=== PATIENT | male | born 1945 | race Caucasian/White ===

== ENCOUNTER → 2020-04-21 13:40 | Outpatient (BNVA) | payer MEDICARE, SELFPAY | PROVIDERS: PCP Internal Medicine; Visit Provider Internal Medicine | DX: J44.9 Chronic obstructive pulmonary disease, unspecified (principal); Z79.899 Other long term (current) drug therapy | CPT/HCPCS: 99212 ==

== ENCOUNTER → 2020-11-15 13:16 | Outpatient (BNVA) | payer MEDICARE, SELFPAY | PROVIDERS: PCP Internal Medicine; Visit Provider Internal Medicine | DX: J44.9 Chronic obstructive pulmonary disease, unspecified (principal) | CPT/HCPCS: 99212 ==

== ENCOUNTER 2021-11-28 10:52 | Outpatient (REF) | payer OTHER, MEDICARE, SELFPAY ==
--- NOTE | ~2021-11-28 | XR_ITS ---
EXAMINATION: XR CHEST CLINICAL INFORMATION: COPD COMPARISON: Previous chest x-ray most recent November 2017 TECHNIQUE: 2 views of the chest were obtained. FINDINGS: The cardiac and mediastinal contours are stable. There are coronary artery stents. There are increased markings at the lung bases questionable for mild interstitial lung disease. The lungs are otherwise clear. There is no pleural effusion or pneumothorax. There are degenerative changes of the spine and left shoulder. XR/XR chest 2V IMPRESSION: Question interstitial disease at the lung bases.
== END 2021-11-28 10:53 | disposition home or self-care (01) ==
LOC: HO.XRAY 10:52
PROVIDERS: PCP Internal Medicine Endocrinology, Diabetes & Metabolism; Visit Provider Internal Medicine
DX: J44.9 Chronic obstructive pulmonary disease, unspecified (principal)
CPT/HCPCS: 71046; 99212

== ENCOUNTER → 2022-01-05 13:38 | Outpatient (BNVA) | payer MEDICARE, SELFPAY | PROVIDERS: PCP Internal Medicine Endocrinology, Diabetes & Metabolism; Visit Provider Internal Medicine | DX: J44.9 Chronic obstructive pulmonary disease, unspecified (principal) | CPT/HCPCS: 94010; 99212 ==

== ENCOUNTER 2023-02-26 13:40 | Outpatient (AMB) | payer OTHER, SELFPAY ==
[2023-02-26 13:55] VITALS: BP 130/80; PULSE 52; O2SAT 94; BMI 30.3
--- NOTE | 2023-02-26 13:55 | MHC.OFFVIS ---
Intake Vital Signs 02/26/23 13:55 Height 5 ft 9 in Weight 205 lb BMI 30.3 BP 130/80 Blood Pressure Location Lt brachial Position Sitting Pulse 52 Pulse Source Pulse Oximeter Pulse Oximetry (%) 94 Oxygen Delivery Method Room Air Intake Visit Reasons: copd Intake Note: pt is here for follow up and is getting over pneumonia,. PT NEEDS 90 DAY SUPPLY ON INHALERS. 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 Allergies levofloxacin [From Levaquin] Allergy (Severe, Verified 02/26/23 14:14) Anaphylaxis Medication List - Last Reconciled 02/26/23 by Anastasiya Henderson MD albuterol sulfate 90 mcg/actuation 2 puffs PO Q4H PRN aspirin 81 mg PO DAILY escitalopram oxalate 20 mg PO DAILY fluticasone propion-salmeterol 250-50 mcg/dose (Wixela Inhub) 1 inh inhalation BID gabapentin 100 mg PO BEDTIME rosuvastatin 20 mg PO DAILY tiotropium bromide 2.5 mcg/actuation (Spiriva Respimat) 2 puffs inhalation DAILY 30 days MDD 2 inhilations topiramate 50 mg PO BEDTIME trazodone 100 mg PO BEDTIME PRN Do you need a note to return to daycare/school/sports/work: No HPI copd HPI Details This 77 years old very pleasant gentleman is coming after 1 year for his routine follow-up .of COPD He has been doing very well during the year, except for getting short of breath on exertion. About 2 weeks ago he had acute respiratory infection, seen in the emergency room was told that he had a minimal pneumonia in the right base. Treated with a short course of prednisone and doxycycline 100 b.i.d.. He feels much better and says he is back to his baseline. Since last year after we put him, on Spiriva in addition to Wixela his breathing has been so good that he did not need to use any albuterol. [facility] Medical History (Updated 02/26/23 @ 14:20 by Anastasiya Henderson MD) Pneumonia COPD (chronic obstructive pulmonary disease) Social History Patient Tobacco Use Status: Former Tobacco user Review of Systems Const All systems reviewed & are unremarkable except as noted in HPI and below Eyes Reports no additional complaints ENT Reports no additional complaints, Denies nasal congestion and Denies nasal discharge Card Denies chest pain, Denies irregular heart rhythm, Denies leg edema and Reports dyspnea on exertion (MILD) Resp Denies cough, Reports dyspnea on exertion (MILD) and Denies wheezing GI Reports no additional complaints Musc Reports no additional complaints Neuro Reports no additional complaints Psych Reports no additional complaints and Reports depression (MILD UNDER CONTROL.) Endo Reports no additional complaints Peewee/Lymph Reports no additional complaints Aller/Immun Denies wheezing Physical Exam Vital Signs: Last Vital Signs Pulse 52 02/26/23 13:55 BP 130/80 02/26/23 13:55 Pulse Ox 94 02/26/23 13:55 Oxygen Delivery Method Room Air 02/26/23 13:55 BMI result Body Mass Index 30.3 Const General: comfortable, no acute distress, alert and awake Orientation/consciousness: patient oriented x3 HEENT Head: Yes normal to inspection General nose exam: No nasal polyps present and No nasal discharge present Face and sinus: Yes sinuses nontender Mouth: oropharynx normal Throat: Yes posterior oropharynx normal Eyes General: appearance normal, both eyes and all related structures Neck Neck: Yes normal visual inspection, Yes no lymphadenopathy, Yes trachea midline and Yes no JVD Thyroid: Thyroid normal Chest Chest palpation & inspection: normal inspection of the chest, normal palpation of entire chest wall and no tenderness Resp Other: Percussion note is resonant, breath sounds are distant with prolonged expiratory phase on both sides. No wheezes a few inspiratory crackles over the right base. Cardio Palpation: normal PMI Rate: regular rate Rhythm: regular rhythm Heart sounds: no gallops and no murmurs GI Palpation (GI): Soft to palpation, nontender, No hepatosplenomegaly present and no masses Auscultation: normal bowel sounds Back/Spine/Pelvis Thoracic/Lumbar Spine: thoracic and lumbar spine normal to inspection Skin General skin exam: no rashes or lesions noted Neuro General: patient oriented x3 and no focal motor deficits Cranial nerves: Yes CN's II-XII intact bilaterally Extrem General: Yes normal to inspection, Yes no clubbing, cyanosis or edema, Yes no calf tenderness and No venous stasis dermatitis Psych Appearance: grossly normal Speech and movement: Normal speech and movement present Assessment & Plan Assessment & Plan (1) COPD (chronic obstructive pulmonary disease): Comment: Moderately severe , controlled and stable. [place] : Continue to use Wixela 250-50 one inh bid Spiriva Respimat 2.5 mg 2 puffs daily . Ventolin Inh. 2 puffs q 6 Hrs only PRN He will be going to [place] for the winter, and will come for follow-up in spring 2022. * I have sent a prescription for prednisone 20 mg b.i.d. for 5 days to keep on hand only for emergency use. Code(s): J44.9 - Chronic obstructive pulmonary disease, unspecified (2) Pneumonia: Comment: Recently treated for minimal pneumonia right base, as he. Was seen in the emergency room He took a short course of prednisone and doxycycline 100 b.i.d.. Clinically pneumonia has cleared and resolved. Code(s): J18.9 - Pneumonia, unspecified organism Medications: New prednisone 20 mg PO BID 10 tabs 0RF copd excarbation 5 days Changed From tiotropium bromide 2.5 mcg/actuation (Spiriva Respimat) 2 puffs inhalation DAILY 30 days 4 grams 5RF copd MDD 2 inhilations daily To tiotropium bromide 2.5 mcg/actuation (Spiriva Respimat) 2 puffs inhalation DAILY 4 grams 3RF copd 90 days MDD 2 inhilations daily Coding Level of Care Code Est Pt Level 3 (01458) Diagnoses COPD (chronic obstructive pulmonary disease) J44.9 Pneumonia J18.9
== END 2023-02-26 14:39 | disposition home or self-care (01) ==
PROVIDERS: PCP Internal Medicine Endocrinology, Diabetes & Metabolism; Visit Provider Internal Medicine
DX: J44.9 Chronic obstructive pulmonary disease, unspecified (principal); J18.9 Pneumonia, unspecified organism
CPT/HCPCS: 99213

== ENCOUNTER → 2023-02-26 13:40 | Outpatient (BNVA) | payer OTHER, SELFPAY | PROVIDERS: PCP Internal Medicine Endocrinology, Diabetes & Metabolism; Visit Provider Internal Medicine | DX: J44.9 Chronic obstructive pulmonary disease, unspecified (principal); J18.9 Pneumonia, unspecified organism | CPT/HCPCS: 99212 ==

== ENCOUNTER 2023-11-28 13:09 | Outpatient (AMB) | payer OTHER, SELFPAY ==
[2023-11-28 13:18] VITALS: BP 132/70; PULSE 68; O2SAT 93; BMI 30.4
--- NOTE | 2023-11-28 13:18 | MHC.OFFVIS ---
Vital Signs 11/28/23 13:18 Height 5 ft 9 in Weight 206 lb 2.115 oz BMI 30.4 BP 132/70 Blood Pressure Location Lt brachial Position Sitting Pulse 68 Pulse Source Pulse Oximeter Pulse Oximetry (%) 93 Oxygen Delivery Method Room Air Intake Visit Reasons: copd Intake Note: pt is here for follow up and states breathing is pretty good,just knee and foot pain. 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 Allergies levofloxacin [From Levaquin] Allergy (Severe, Verified 11/28/23 13:36) Anaphylaxis Medication List - Last Reconciled 11/28/23 by Anastasiya Henderson MD albuterol sulfate 90 mcg/actuation 2 puffs PO Q4H PRN aspirin 81 mg PO DAILY escitalopram oxalate 20 mg PO DAILY fluticasone propion-salmeterol 250-50 mcg/dose (Wixela Inhub) 1 inh inhalation BID gabapentin 600 mg PO BEDTIME rosuvastatin 20 mg PO DAILY semaglutide (Ozempic) 0.25 mg subcut QWEEK tiotropium bromide 2.5 mcg/actuation (Spiriva Respimat) 2 puffs inhalation DAILY 90 days MDD 2 inhilations daily topiramate 50 mg PO BEDTIME trazodone 100 mg PO BEDTIME PRN Do you need a note to return to daycare/school/sports/work: No HPI HPI copd: Details: This 78 years old very pleasant gentleman is here for his routine follow-up for COPD. He returned from [place] last month, then he had a acute exacerbation which resolved by taking Z-Sunil and short course of prednisone. Now he is doing very well without much cough or wheezing. He does use his Spiriva Respimat and Wixela regular. He has the need to use the rescue inhaler only once in a while when there is change in the weather. [facility] Medical History Pneumonia COPD (chronic obstructive pulmonary disease) Social History Patient Tobacco Use Status: Former Tobacco user Review of Systems Const All systems reviewed & are unremarkable except as noted in HPI and below Eyes Reports no additional complaints ENT Reports no additional complaints, Denies nasal congestion and Denies nasal discharge Card Denies chest pain, Denies irregular heart rhythm, Denies leg edema and Reports dyspnea on exertion (MILD) Resp Denies cough, Reports dyspnea on exertion (MILD) and Denies wheezing GI Reports no additional complaints Musc Reports no additional complaints Neuro Reports no additional complaints Psych Reports no additional complaints and Reports depression (MILD UNDER CONTROL.) Endo Reports no additional complaints Peewee/Lymph Reports no additional complaints Aller/Immun Denies wheezing Physical Exam Vital Signs: Last Vital Signs Pulse 68 11/28/23 13:18 BP 132/70 11/28/23 13:18 Pulse Ox 93 11/28/23 13:18 Oxygen Delivery Method Room Air 11/28/23 13:18 BMI result Body Mass Index 30.4 Const General: comfortable, no acute distress, alert and awake Orientation/consciousness: patient oriented x3 HEENT Head: Yes normal to inspection General nose exam: No nasal polyps present and No nasal discharge present Face and sinus: Yes sinuses nontender Mouth: oropharynx normal Throat: Yes posterior oropharynx normal Eyes General: appearance normal, both eyes and all related structures Neck Neck: Yes normal visual inspection, Yes no lymphadenopathy, Yes trachea midline and Yes no JVD Thyroid: Thyroid normal Chest Chest palpation & inspection: normal inspection of the chest, normal palpation of entire chest wall and no tenderness Resp Other: Percussion note is resonant, breath sounds are distant with prolonged expiratory phase on both sides. No wheezes a few inspiratory crackles over the right base. Cardio Palpation: normal PMI Rate: regular rate Rhythm: regular rhythm Heart sounds: no gallops and no murmurs GI Palpation (GI): Soft to palpation, nontender, No hepatosplenomegaly present and no masses Auscultation: normal bowel sounds Back/Spine/Pelvis Thoracic/Lumbar Spine: thoracic and lumbar spine normal to inspection Skin General skin exam: no rashes or lesions noted Neuro General: patient oriented x3 and no focal motor deficits Cranial nerves: Yes CN's II-XII intact bilaterally Extrem General: Yes normal to inspection, Yes no clubbing, cyanosis or edema, Yes no calf tenderness and No venous stasis dermatitis Psych Appearance: grossly normal Speech and movement: Normal speech and movement present Assessment & Plan Assessment & Plan (1) COPD (chronic obstructive pulmonary disease): Comment: Moderately severe , controlled and stable. Code(s): J44.9 - Chronic obstructive pulmonary disease, unspecified Category: Medical Plan: [place] : Continue to use Wixela 250-50 one inh bid Spiriva Respimat 2.5 mg 2 puffs daily . Ventolin Inh. 2 puffs q 6 Hrs only PRN Coding Level of Care Code Est Pt Level 3 (60215) Diagnoses COPD (chronic obstructive pulmonary disease) J44.9
== END 2023-11-28 13:37 | disposition home or self-care (01) ==
PROVIDERS: PCP Internal Medicine Endocrinology, Diabetes & Metabolism; Referring Provider Internal Medicine Endocrinology, Diabetes & Metabolism; Visit Provider Internal Medicine
DX: J44.9 Chronic obstructive pulmonary disease, unspecified (principal)
CPT/HCPCS: 99213

== ENCOUNTER → 2023-11-28 13:09 | Outpatient (BNVA) | payer OTHER, SELFPAY | PROVIDERS: PCP Internal Medicine Endocrinology, Diabetes & Metabolism; Visit Provider Internal Medicine | DX: J44.9 Chronic obstructive pulmonary disease, unspecified (principal) | CPT/HCPCS: 99212 ==

== ENCOUNTER 2024-04-07 13:13 | Outpatient (AMB) | payer OTHER, SELFPAY ==
[2024-04-07 13:23] VITALS: BP 108/58; PULSE 103; O2SAT 96
--- NOTE | 2024-04-07 13:23 | A.OFFVIS_ITS ---
Vital Signs 04/07/24 13:23 Weight 186 lb 4.65 oz BP 108/58 L Blood Pressure Location Lt brachial Position Left Lateral Pulse 103 H Pulse Source Pulse Oximeter Pulse Oximetry (%) 96 Oxygen Delivery Method Room Air Intake Visit Reasons: COPD Allergies levofloxacin [From Levaquin] Allergy (Severe, Verified 04/07/24 13:38) Anaphylaxis Medication List - Last Reconciled 04/07/24 by Anastasiya Henderson MD albuterol sulfate 90 mcg/actuation 2 puffs PO Q4H PRN aspirin 81 mg PO DAILY escitalopram oxalate 20 mg PO DAILY fluticasone propion-salmeterol 250-50 mcg/dose (Wixela Inhub) 1 inh inhalation BID gabapentin 600 mg PO BEDTIME prednisone 20 mg PO BID 5 days rosuvastatin 20 mg PO DAILY semaglutide (Ozempic) 0.25 mg subcut QWEEK tiotropium bromide 2.5 mcg/actuation (Spiriva Respimat) 2 puffs inhalation DAILY 90 days MDD 2 inhilations daily topiramate 50 mg PO BEDTIME trazodone 100 mg PO BEDTIME PRN Do you need a note to return to daycare/school/sports/work: No HPI HPI COPD: Details: This 78 years old very pleasant gentleman is here for follow-up for his COPD. From pulmonary point of view he has remained very stable, on his regular regimen, and hardly needs to use any rescue inhaler. Luckily he has had no chest infection. Main issue right now is that he has hydronephrosis of the left knee and has an indwelling nephrostomy tube on the left side. Due to this he is not going to be able to go down to [place] for the next few months. [facility] Medical History Pneumonia COPD (chronic obstructive pulmonary disease) Social History Patient Tobacco Use Status: Former Tobacco user Review of Systems Const All systems reviewed & are unremarkable except as noted in HPI and below Eyes Reports no additional complaints ENT Reports no additional complaints, Denies nasal congestion and Denies nasal discharge Card Denies chest pain, Denies irregular heart rhythm, Denies leg edema and Reports dyspnea on exertion (MILD) Resp Denies cough, Reports dyspnea on exertion (MILD) and Denies wheezing GI Reports no additional complaints Musc Reports no additional complaints Neuro Reports no additional complaints Psych Reports no additional complaints and Reports depression (MILD UNDER CONTROL.) Endo Reports no additional complaints Peewee/Lymph Reports no additional complaints Aller/Immun Denies wheezing Physical Exam Const General: comfortable, no acute distress, alert and awake Orientation/consciousness: patient oriented x3 HEENT Head: Yes normal to inspection General nose exam: No nasal polyps present and No nasal discharge present Face and sinus: Yes sinuses nontender Mouth: oropharynx normal Throat: Yes posterior oropharynx normal Eyes General: appearance normal, both eyes and all related structures Neck Neck: Yes normal visual inspection, Yes no lymphadenopathy, Yes trachea midline and Yes no JVD Thyroid: Thyroid normal Chest Chest palpation & inspection: normal inspection of the chest, normal palpation of entire chest wall and no tenderness Resp Other: Percussion note is resonant, breath sounds are distant with prolonged expiratory phase on both sides. No wheezes a few inspiratory crackles over the right base. Cardio Palpation: normal PMI Rate: regular rate Rhythm: regular rhythm Heart sounds: no gallops and no murmurs GI Palpation (GI): Soft to palpation, nontender, No hepatosplenomegaly present and no masses Auscultation: normal bowel sounds Other: Has nephrostomy tube in the left kidney . For drainage of the urine Back/Spine/Pelvis Thoracic/Lumbar Spine: thoracic and lumbar spine normal to inspection Skin General skin exam: no rashes or lesions noted Neuro General: patient oriented x3 and no focal motor deficits Cranial nerves: Yes CN's II-XII intact bilaterally Extrem General: Yes normal to inspection, Yes no clubbing, cyanosis or edema, Yes no calf tenderness and No venous stasis dermatitis Psych Appearance: grossly normal Speech and movement: Normal speech and movement present Assessment & Plan Assessment & Plan (1) COPD (chronic obstructive pulmonary disease): Comment: Moderately severe , controlled and stable. Code(s): J44.9 - Chronic obstructive pulmonary disease, unspecified Category: Medical Plan: Continue Wixela 250-50 1 inhalation b.i.d.. Continue Spiriva Respimat 2 inhalations daily. Albuterol HFA 2 puffs Q 6 hours p.r.n. Keep prednisone 20 mg b.i.d.x5 days course, just in case of acute exacerbation. Revisit 6 months/spring 2024 Medications: Refilled prednisone 20 mg PO BID 5 days 10 tabs 0RF COPD EXCERBATION Coding Level of Care Code Est Pt Level 3 (91136) Diagnoses COPD (chronic obstructive pulmonary disease) J44.9
== END 2024-04-07 13:38 | disposition home or self-care (01) ==
LOC: HO.HPS 13:18
PROVIDERS: PCP Internal Medicine Endocrinology, Diabetes & Metabolism; Referring Provider Internal Medicine Endocrinology, Diabetes & Metabolism; Visit Provider Internal Medicine
DX: J44.9 Chronic obstructive pulmonary disease, unspecified (principal)
CPT/HCPCS: 99213

== ENCOUNTER → 2024-04-07 13:13 | Outpatient (BNVA) | payer OTHER, SELFPAY | PROVIDERS: PCP Internal Medicine Endocrinology, Diabetes & Metabolism; Visit Provider Internal Medicine | DX: J44.9 Chronic obstructive pulmonary disease, unspecified (principal); Z79.899 Other long term (current) drug therapy | CPT/HCPCS: 99212 ==

== ENCOUNTER 2024-10-16 13:52 | Outpatient (AMB) | payer OTHER, SELFPAY ==
--- OUTSIDE RECORDS SUMMARY | 2024-10-16 14:31 | XMS_ITS ---
Author Organization [facility] Address [address] [place] [id number] Care Team Providers Care Group Program Manager Name Role Phone Mario PLUMMER, Alexis Primary Care Provider Shai Peñaloza Unavailable [phone] CRICKET LAZO Unavailable Unavailable REASON FOR VISIT screening,hx polyps Encounters Encounter Location Date Provider Diagnosis [facility] [address] [place] [phone] 03/28/2024 Shai High Plan Of Treatment No Information Progress Notes * CRISTINA CLEMENTDOB:1945 ( 78 yo M)Acc No.[id number]:03/28/2024 COLON WITH MAC Patient:?CRISTINA CLEMENT Provider:?Shai High MD :1945???Age:78 Y???Sex:Male Mark e:03/28/2024 Address:[address] [facility] Pcp:Alexis Martin NP Subjective: * Chief Complaints: * ???1. Screening,hx polyps. * Medical History:? Objective: * Vitals:? Assessment: Plan: * Treatment: * * The named appointment provid er may or may not be the originator of this progress note, and it is not deemed complete until electronically signed by the appointment provider. Sign off status: Pending * Provider:?Shai High MD Date:? 024 Generated for Sujatai ng/Fadameong/eTransmitting on:?10/16/2024 10:09 AM EDT
--- OUTSIDE RECORDS SUMMARY | 2024-10-16 14:31 | XMS_ITS | Encounter Summary ---
Author Organization [facility] Address [address] [place] [address] Care Team Providers Care Log Handler Name Role Phone Zoey Giles DO Primary Care Provider [phone] Jorge Rucker MD Unavailable Unknown Primary Care Provider [phone] Alexis Martin MD Primary Care Provider [phone]- [phone] Encounter Details Date Type Department Care Team (Late st Contact Info) Description 04/23/2017 Scanned Document [address] [place] [id number] Provider, Generic Social History Tobacco Use Types Packs/Day Years Used Date Smoking Tobacco: Former Smokeless Tobacco: Never Comments:quit 1994 Alcohol Use Standard Drinks/Week Comments Yes 0 (1 standard drink = 0.6 oz pur e alcohol) 1x/month Sex and Gender Information Value Date Recorded Sex Assigned at Male 03/10/2024 1:33 PM EDT Legal Sex Male 12:26 PM EST Gender Identity Not on file Sexual Orientation Not on file documented as of this encounter Plan of Treatment Scheduled Orders Name Type Priority Associated Diagnoses Orde r Schedule ECG 12-LEAD ECG Ordered: 04/05 documented as of this encounter Visit Diagnoses Not on filedocumented in this encounter Care Teams Log Handler Relationship Specialty Start Date End Date Zoey Giles DO [address] [place] [address] PCP - General Genetic Counselor 04/11/17 10/11/17 Unknown Unknow Provider Address PCP - General 10/12/17 03/09/24 Alexis Martin MD [address] [place] [address] PCP - General 03/10/24 Jorge Rucker MD [address] [place] [address] 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
[2024-10-16 14:32] VITALS: BP 94/58; PULSE 80; O2SAT 90
--- NOTE | 2024-10-16 14:32 | MHC.OFFVIS ---
Vital Signs 10/16/24 14:32 Height 5 ft 9 in BP 94/58 L Blood Pressure Location Lt brachial Position Sitting Pulse 80 Pulse Source Pulse Oximeter Pulse Oximetry (%) 90 L Oxygen Delivery Method Nasal Cannula Oxygen Flow Rate 3 Intake Visit Reasons: f/u after admission to [facility] Intake Note: pt is here for hospital follow up and is having shortness of breath, thick yellow phelgm, with a deep cough. Accountant Manager Required: No Allergies levofloxacin [From Levaquin] Allergy (Severe, Verified 10/16/24 14:59) Anaphylaxis Medication List - Last Reconciled 10/16/24 by Anastasiya Henderson MD albuterol sulfate 90 mcg/actuation 2 puffs PO Q4H PRN aspirin 81 mg PO DAILY duloxetine 30 mg PO DAILY escitalopram oxalate 20 mg PO DAILY ferrous sulfate 324 mg PO DAILY fluticasone propion-salmeterol 250-50 mcg/dose (Wixela Inhub) 1 inh inhalation BID gabapentin 600 mg PO BEDTIME oxybutynin chloride 5 mg PO DAILY rosuvastatin 20 mg PO DAILY sacubitril-valsartan 24-26 mg (Entresto) 1 tab PO BID tiotropium bromide 2.5 mcg/actuation (Spiriva Respimat) 2 puffs inhalation DAILY 90 days MDD 2 inhilations daily topiramate 50 mg PO BEDTIME Do you need a note to return to daycare/school/sports/work: No HPI HPI f/u after admission to [facility]: Details: THIS 78 YEARS OLD GENTLEMAN WAS ADMITTED TO [facility] WITH INCREASED SHORTNESS OF BREATH. HE DOES NOT RECALL IF HE HAD ANY ACUTE. RESPIRATORY INFECTION OR NOT WE DO NOT HAVE ANY DOCUMENTS FROM [facility]. PATIENT TELLS THAT HE ALSO HAD CARDIAC CATHETERIZATION AND WAS TOLD THAT IT WAS . OK HE WAS TREATED FOR ACUTE EXACERBATION OF COPD WITH A COURSE OF PREDNISONE 20 MG B.I.D. AND ALSO WAS GIVEN ANTIBIOTIC WHICH HE HAD TO STOP DUE TO DEVELOPMENT OF DIARRHEA. AT THE TIME OF DISCHARGE HE WAS NOT SENT HOME ON OXYGEN. TODAY HE COMES FOR FOLLOW-UP OR HERE AND ON COMING IN THE OFFICE NOTED TO HAVE O2 SAT DOWN INTO MID 80S. HE WAS VERY SHORT OF BREATH. STARTED ON OXYGEN 4 L/MINUTE WHILE IN THE OFFICE, IT BROUGHT HIS O2 SAT TO 91-92%. HE FEELS BETTER PATIENT DENIES ANY EXTRA AMOUNT OF COUGH BUT WHEN HE DOES COUGH HE BRINGS UP SOME YELLOWISH PHLEGM. HE DENIES WHEEZING. DENIES ANY CHEST PAIN. [facility] Medical History (Updated 10/16/24 @ 15:07 by Anastasiya Henderson MD) Respiratory failure Pneumonia COPD (chronic obstructive pulmonary disease) Social History Patient Tobacco Use Status: Former Tobacco user Review of Systems Const All systems reviewed & are unremarkable except as noted in HPI and below Eyes Reports no additional complaints ENT Reports no additional complaints, Denies nasal congestion and Denies nasal discharge Card Denies chest pain, Denies irregular heart rhythm, Denies leg edema and Reports dyspnea on exertion (MILD) Resp Denies cough, Reports dyspnea on exertion (MILD) and Denies wheezing GI Reports no additional complaints Musc Reports no additional complaints Neuro Reports no additional complaints Psych Reports no additional complaints and Reports depression (MILD UNDER CONTROL.) Endo Reports no additional complaints Peewee/Lymph Reports no additional complaints Aller/Immun Denies wheezing Physical Exam Vital Signs: Last Vital Signs Pulse 80 10/16/24 14:32 BP 94/58 L 10/16/24 14:32 Pulse Ox 90 L 10/16/24 14:32 Oxygen Delivery Method Nasal Cannula 10/16/24 14:32 Oxygen Flow Rate 3 10/16/24 14:32 Const General: comfortable, no acute distress, alert and awake Orientation/consciousness: patient oriented x3 HEENT Head: Yes normal to inspection General nose exam: No nasal polyps present and No nasal discharge present Face and sinus: Yes sinuses nontender Mouth: oropharynx normal Throat: Yes posterior oropharynx normal Eyes General: appearance normal, both eyes and all related structures Neck Neck: Yes normal visual inspection, Yes no lymphadenopathy, Yes trachea midline and Yes no JVD Thyroid: Thyroid normal Chest Chest palpation & inspection: normal inspection of the chest, normal palpation of entire chest wall and no tenderness Resp Other: Percussion note is resonant, breath sounds are distant with prolonged expiratory phase on both sides. No wheezes a few inspiratory crackles over the right base. Cardio Palpation: normal PMI Rate: regular rate Rhythm: regular rhythm Heart sounds: no gallops and no murmurs GI Palpation (GI): Soft to palpation, nontender, No hepatosplenomegaly present and no masses Auscultation: normal bowel sounds Other: Has nephrostomy tube in the left kidney . For drainage of the urine Back/Spine/Pelvis Thoracic/Lumbar Spine: thoracic and lumbar spine normal to inspection Skin General skin exam: no rashes or lesions noted Neuro General: patient oriented x3 and no focal motor deficits Cranial nerves: Yes CN's II-XII intact bilaterally Extrem General: Yes normal to inspection, Yes no clubbing, cyanosis or edema, Yes no calf tenderness and No venous stasis dermatitis Psych Appearance: grossly normal Speech and movement: Normal speech and movement present Assessment & Plan Assessment & Plan (1) COPD (chronic obstructive pulmonary disease): Comment: Moderately severe , had been controlled and stable controlled and stable. He was now admitted to [facility] last week with an acute exacerbation. On discharge was not sent on oxygen. Today he comes in the office and is quite hypoxemic as noted above in the history. Code(s): J44.9 - Chronic obstructive pulmonary disease, unspecified Category: Medical Plan: Continue fluticasone-salmeterol 250-51 inhalation b.i.d. Spiriva Respimat 2.5 mg 2 inhalations daily. Albuterol HFA 2 puffs Q 6 hours p.r.n.. I ordered prednisone 20 mg b.i.d. for the next 5 days for possible residual exacerbation. (2) Respiratory failure: Comment: Patient is noted to be hypoxemic on arrival to the office. Started on O2 2 L/minute but needed to increase to 4 L/minute to keep O2 sat above 90% Code(s): J96.90 - Respiratory failure, unspecified, unspecified whether with hypoxia or hypercapnia Category: Medical Plan: We are ordering oxygen for him to use at home, for the time being 4 L/minute at night and during the daytime. He will need to be tested for a lightweight portable unit on his next visit. Medications: New prednisone 20 mg PO BID 14 tabs 0RF copd excerbation 7 days Coding Level of Care Code Est Pt Level 4 (36257) Diagnoses COPD (chronic obstructive pulmonary disease) J44.9 Respiratory failure J96.90
--- OUTSIDE RECORDS SUMMARY | 2024-10-16 14:32 | XMS_ITS | Encounter Summary ---
Author Organization [facility] Address [address] [place] [address] Care Team Providers Care Psychiatric Secretary Name Role Phone Zoey Giles DO Primary Care Provider [phone] Jorge Rucker MD Unavailable Unknown Primary Care Provider [phone] Alexis Martin MD Primary Care Provider [phone]- [phone] Encounter Details Date Type Department Care Team (Late st Contact Info) Description 09/24/2017 Scanned Document [facility] [place] [address] Enrrique Pérez MD [address] [phone] Social History Tobacco Use Types Packs/Day Years [...] as of this encounter Plan of Treatment Not on file documented as of this encounter Visit Diagnoses Not on filedocumented in this encounter Care Teams Psychiatric Secretary Relationship Specialty Start Date End Date Zoey Giles DO [address] [place] [address] PCP - General Genetic Counselor 04/11/17 10/11/17 Unknown Unknow Provider Address PCP - General 10/12/17 03/09/24 Alexis Martin MD [address] [place] [address] PCP - General 03/10/24 Jorge Rucker MD [address] [place] [address] Distribution System Operator Cardiovascular Disease 04/12/17 4 documented as of this encounter
--- OUTSIDE RECORDS SUMMARY | 2024-10-16 14:32 | XMS_ITS ---
Author Name [facility] Organization Unknown Results Test Name/Text Value Interpretation Date Range Source Magnesium SerPl-mCnc 1.9mg/dL Normal [id number] 1.6 - 2.7 [facility] Phosphate SerPl-mCnc 4.9mg/dL Above high normal [id number] 2.7 - 4.5 [facility] BUN SerPl-mCnc 31mg/dL Above high normal [id number] 8 - 21 [facility] BUN/Creat SerPl 17Ratio Normal [id number] 10 - 25 H [facility] Creat SerPl-mCnc 1.8mg/dL Above high normal [id number] 0. 5 - 1.3 [facility] Calcium SerPl-mCnc 8.8mg/dL Normal [id number] 8.7 - 10 .5 [facility] Sodium SerPl-sCnc 138mmol/L Normal [id number] 136 - 145 [facility] Potassium SerPl-sCnc 3.9mmol/L Normal [id number] 3.4 - 5.3 [facility] CO2 SerPl-sCnc 18mmol/L Below low normal [id number] 22 - 33 [facility] Chloride SerPl-sCnc 103mmol/L Normal [id number] 98 - 10 7 [facility] Glucose SerPl-mCnc 105mg/dL Above high normal [id number] 65 - 99 H[facility]CT GFR/BSA.pred SerPlBld [id number]-GAS-[id number] 38 Below low normal [id number] 59 - H[facility]CT Anion Gap Bld-sCnc 17 Normal [id number] 7 - 17 [facility] RBC num Bld Auto 4.1Mil/uL Below low normal [id number] 4.5 - 6.2 [facility] Imm Granulocytes num Bld Auto 0.1Thou/uL Normal [id number] 0 - 0.1 [facility] WBC num Bld Auto 15.2Thou/uL Above high normal [id number] 4 - 11 [facility] Neutrophils/leuk NFr Bld Auto 83.7% Normal [facility] Eosinophil num Bld Auto 0.23Thou/uL Normal 0 - 0.7 [facility] Neutrophils num Bld Auto 12.7Thou/uL Above high normal 2 - 7.5 H[facility] RDW RBC Auto-Rto 15.7% Above high normal 11 .5 - 14.5 H[facility]CT MCHC RBC Auto-mCnc 31.4g/dL Normal 30 - 36 [facility] Lymphocytes/leuk NFr Bld Auto 7.2% Normal [facility] Platelet num Bld Auto 444Thou/uL Normal 150 - 450 [facility] Imm Granulocytes/leuk NFr Bld Auto 0.7% Normal [facility] Basophils/leuk NFr Bld Auto 0.3% Normal [facility] PMV Bld Auto 9.6fL Normal 7.5 - 12.[address] H[address] VFr Bld Auto 35.7% Below low normal 39 - 54 H[facility]CT Hgb Bld-mCnc 11.2g/dL Below low normal 13 - 17 .7 H[facility]CT MCH RBC Qn Auto 27.3pg Normal 27 - 31 H HCCT Lymphocytes num Bld Auto 1.09Thou/uL Below low normal 1.5 - 4.5 H[facility]CT Monocytes/leuk NFr Bld Auto 6.6% Normal [facility] Monocytes num Bld Auto 1Thou/uL Normal 0.2 - 1.5 H[facility]CT MCV RBC Auto 87fL Normal 80 - 100 HHCC T Basophils num Bld Auto 0.04Thou/uL Normal 0 - 0.2 H[facility]CT Eosinophil/leuk NFr Bld Auto 1.5% Normal H[facility]CT Magnesium SerPl-mCnc 1.6mg/dL Normal 1.6 - 2.7 H[facility]CT Chloride SerPl-sCnc 105mmol/L Normal [id number] 98 - 10 7 H[facility]CT ALP SerPl-cCnc 123U/L Normal [id number] 45 - 128 HH CCT Albumin SerPl-mCnc 2.7g/dL Below low normal [id number] 3 .4 - 4.8 H[facility]CT Bilirub SerPl-mCnc 0.4mg/dL Normal [id number] 0.2 - 1 H[facility]CT AST SerPl-cCnc 35U/L Normal [id number] 10 - 55 HH CCT CO2 SerPl-sCnc 20mmol/L Below low normal [id number] 22 - 33 [facility] Glucose SerPl-mCnc 111mg/dL Above high normal [id number] 65 - 99 [facility]CT BUN SerPl-mCnc 35mg/dL Above high normal [id number] 8 - 21 H[facility]CT Sodium SerPl-sCnc 139mmol/L Normal [id number] 136 - 145 H[facility]CT BUN/Creat SerPl 18Ratio Normal [id number] 10 - 25 H HCCT Globulin Ser Calc-mCnc 4.6g/dL Above high normal [id number] 1.5 - 3.9 H[facility]CT Calcium SerPl-mCnc 8.5mg/dL Below low normal [id number] 8 .7 - 10.5 H[facility]CT Prot SerPl-mCnc 7.3g/dL Normal [id number] 6.3 - 8.3 H HCCT ALT SerPl-cCnc 54U/L Normal [id number] 10 - 55 HH CCT Anion Gap Bld-sCnc 14 Normal [id number] 7 - 17 H[facility]CT GFR/BSA.pred SerPlBld UQK-APV-CeWNlc 36 Below low normal [id number] 59 - HHCCT Creat SerPl-mCnc 1.9mg/dL Above high normal [id number] 0. 5 - 1.3 H[facility]CT Albumin/Glob SerPl 0.6Ratio Below low normal [id number] 1 - 3 H[facility]CT Potassium SerPl-sCnc 3.8mmol/L Normal [id number] 3.4 - 5.3 H[facility]CT MCV RBC Auto 88fL Normal [id number] 80 - 100 HH[facility] T RBC num Bld Auto 3.99Mil/uL Below low normal [id number] 4. 5 - 6.2 H[facility]CT Hgb Bld-mCnc 10.8g/dL Below low normal [id number] 13 - 17 .7 H[facility]CT MCHC RBC Auto-mCnc 30.9g/dL Normal [id number] 30 - 36 H[facility]CT MCH RBC Qn Auto 27.1pg Normal [id number] 27 - 31 H HCCT PMV Bld Auto 9.2fL Normal [id number] 7.5 - 12.[address] Hct VFr Bld Auto 35% Below low normal [id number] 39 - 54 H[facility]CT RDW RBC Auto-Rto 15.9% Above high normal [id number] 11 .5 - 14.5 HHCCT WBC num Bld Auto 15.9Thou/uL Above high normal [id number] 4 - 11 [facility] Platelet num Bld Auto 454Thou/uL Above high normal [id number] 150 - 450 H[facility]CT L pneumo Ag Spec Ql Normal [id number] - HHCCT S pneum Ag Ur Ql Normal - HHCCT Albumin SerPl-mCnc 2.8g/dL Below low normal [id number] 3 .4 - 4.8 H[facility]CT AST SerPl-cCnc 37U/L Normal 10 - 55 HH CCT Bilirub Direct SerPl-mCnc 0.2mg/dL Normal 0 - 0.2 HHCCT ALT SerPl-cCnc 71U/L Above high normal [id number] 10 - 55 H[facility]CT Albumin/Glob SerPl 0.6Ratio Below low normal [id number] 1 - 3 H[facility]CT ALP SerPl-cCnc 134U/L Above high normal [id number] 45 - 128 H[facility]CT Bilirub SerPl-mCnc 0.4mg/dL Normal 0.2 - 1 H[facility]CT Globulin Ser Calc-mCnc 4.9g/dL Above high normal [id number] 1.5 - 3.9 HHCCT Prot SerPl-mCnc 7.7g/dL Normal [id number] 6.3 - 8.3 H HCCT Lactate SerPl-sCnc 0.9mmol/L Normal [id number] 0.5 - 1. 9 H[facility]CT INR PPP 1.2 Normal [id number] H[facility]CT Prothrombin time 14.1seconds Above high normal [id number] 10 - 13.5 H[facility]CT Anticoagulant NO ANTI COAGULANT MEDS Normal [id number] HHCCT RBC num/area UrnS HPF 4perhpf Normal [id number] 0 - 4 H[facility]CT WBC num/area UrnS HPF 25perhpf Above high normal [id number] 0 - 4 H[facility]CT Bilirub Ur Strip-mCnc Normal [id number] - HHCCT Hgb Ur Ql Strip Normal [id number] - H HCCT Sp Gr Ur Strip 1.016 Normal [id number] 1.003 - 1.03 HHCCT Color Ur Normal H[facility]CT Glucose Ur Strip-mCnc Normal - HHCCT pH Ur Strip 6 Normal 5 - 8 HHCCT Ketones Ur Strip-mCnc Normal [id number] - HHCCT Clarity Ur Normal [id number] HHCCT Nitrite Ur Ql Strip Normal [id number] - HHCCT Prot Ur Strip-mCnc Abnormal [id number] - HHCCT Leukocyte esterase Ur Ql Strip Abnormal - HHCCT Magnesium SerPl-mCnc 1.7mg/dL Normal [id number] 1.6 - 2.7 HHCCT BUN SerPl-mCnc 42mg/dL Above high normal [id number] 8 - 21 H[facility]CT Chloride SerPl-sCnc 104mmol/L Normal [id number] 98 - 10 7 H[facility]CT BUN/Creat SerPl 21Ratio Normal [id number] 10 - 25 H HCCT Glucose SerPl-mCnc 120mg/dL Above high normal [id number] 65 - 99 H[facility]CT GFR/BSA.pred SerPlBld CWF-OKQ-UxTXph 34 Below low normal [id number] 59 - HHCCT CO2 SerPl-sCnc 18mmol/L Below low normal [id number] 22 - 33 H[facility]CT Creat SerPl-mCnc 2mg/dL Above high normal [id number] 0. 5 - 1.3 HHCCT Anion Gap Bld-sCnc 15 Normal 7 - 17 H[facility]CT Potassium SerPl-sCnc 4.3mmol/L Normal 3.4 - 5.3 HHCCT Calcium SerPl-mCnc 8.7mg/dL Normal 8.7 - 10 .5 HHCCT Sodium SerPl-sCnc 137mmol/L Normal 136 - 145 H[facility]CT Eosinophil/leuk NFr Bld Auto 1.7% Normal HHCCT PMV Bld Auto 8.9fL Normal 7.5 - 12.[address] Monocytes/leuk NFr Bld Auto 6% Normal [facility] Imm Granulocytes/leuk NFr Bld Auto 1.2% Normal [facility] RBC Qn Auto 27.1pg Normal 27 - 31 H HCCT MCV RBC Auto 85fL Normal 80 - 100 HH T Lymphocytes/leuk NFr Bld Auto 5.1% Normal H[facility]CT Imm Granulocytes num Bld Auto 0.22Thou/uL Above high normal [id number] 0 - 0.1 HHCCT MCHC RBC Auto-mCnc 31.8g/dL Normal 30 - 36 H[facility]CT WBC num Bld Auto 18.1Thou/uL Above high normal [id number] 4 - 11 H[facility]CT Neutrophils/leuk NFr Bld Auto 85.7% Normal H[facility]CT Monocytes num Bld Auto 1.08Thou/uL Normal 0.2 - 1.5 HHCCT Basophils/leuk NFr Bld Auto 0.3% Normal HHCCT Hct VFr Bld Auto 34.9% Below low normal 39 - 54 H[facility]CT Basophils num Bld Auto 0.05Thou/uL Normal 0 - 0.2 HHCCT Neutrophils num Bld Auto 15.55Thou/uL Above high normal [id number] 2 - 7.5 HHCCT Eosinophil num Bld Auto 0.31Thou/uL Normal 0 - 0.7 HHCCT RBC num Bld Auto 4.09Mil/uL Below low normal 4. 5 - 6.2 HHCCT RDW RBC Auto-Rto 16.2% Above high normal 11 .5 - 14.5 H[facility]CT Platelet num Bld Auto 520Thou/uL Above high normal [id number] 150 - 450 H[facility]CT Hgb Bld-mCnc 11.1g/dL Below low normal 13 - 17 .7 HHCCT Lymphocytes num Bld Auto 0.92Thou/uL Below low normal [id number] 1.5 - 4.5 HHCCT Encounters Encounter Type Encounter Reason Primary Diagnosis Location Date Inpatient Hydronephrosis with renal and ureteral calculous obstruction Hydronephrosis with renal and ureteral calculous obstruction [facility] 03/08/2024 Care Team Organization Name Specialty Phone Email Start Date End Da loretta [facility] 03/09/2024 08/20/2024 [facility] 03/08/2024
--- OUTSIDE RECORDS SUMMARY | 2024-10-16 14:32 | XMS_ITS | Encounter Summary ---
Author Organization [facility] Address [address] [place] [address] Care Team Providers Care Salesperson [employer] Name Role Phone Zoey Giles DO Primary Care Provider [phone] Jorge Rucker MD Unavailable Unknown Primary Care Provider [phone] Alexis Martin MD Primary Care Provider [phone]- [phone] Encounter Details Date Type Department Care Team (Late st Contact Info) Description 09/24/2017 Scanned Document [facility] Vascular & [place] [address] Enrrique Pérez MD [address] [id number] Social History Tobacco Use Types Packs/Day Years [...] on filedocumented in this encounter Care Teams Salesperson [employer] Relationship Specialty Start Date End Date Zoey Giles DO [address] [place] [address] PCP - General Genetic Counselor 04/11/17 10/11/17 Unknown Unknow Provider Address PCP - General 10/12/17 03/09/24 Alexis Martin MD [address] [place] [address] PCP - General 03/10/24 Jorge Rucker MD [address] [place] [address] Staff Respiratory Therapist Cardiovascular Disease 04/12/17 4 documented as of this encounter
--- OUTSIDE RECORDS SUMMARY | 2024-10-16 14:32 | XMS_ITS | Patient Health Record ---
Author Organization [facility] Address [address] [place] [address] Care Team Providers Care Surgeon/President Name Role Phone Mario PLUMMER, Alexis Primary Care Provider Shai Peñaloza Unavailable [phone] CRICKET LAZO Unavailable Unavailable Allergies Allergen (clinical drug ingredient) Drug/Non Drug Allergy documented on EMR Reaction Allergy Type Onset Date Status Medicinal quinolone and acting as antibacterial agent (FN) Quinolones tongue to swell Drug Allergy Active Reason For Referral Referring Provider First Name Alexis Referring Provider Last Name Mario Referred Organization [facility] Referred Provider Shai High Referred Address [address] [place] [address],[address],[place], [place],[address], Referred Provider Specialty Gastroentero logy Referral Priority Routine Medications Medication SIG (Take, Route, Frequency, Duration) Notes Start Date End Date Status Rosuvastatin Calcium 20 MG 1 tablet Oral ly Once a day Active Vitamin C 250 MG 1 tablet Orally Once a day for 30 day(s) Active Albuterol Sulfate HFA 108 (90 Base) MCG/ACT 2 puffs as needed Inhalation every 6 hrs Active Ferrous Gluconate 324 (38 Fe) MG 1 tablet Orally Three times a Week for 30 day(s) Active Zafirlukast 20 MG 1 tablet Orally Twic e a day Active Bisacodyl 5 MG 1 tablet as needed O rally Once a day for 30 day(s) Active Losartan Potassium 25 MG 1 tablet Orally Once a day for 30 day(s) Active Gabapentin 600 MG 1 tablet Orally Once a day for 30 day(s) Active Alogliptin Benzoate 12.5 MG 2 tablets Or ally Once a day for 30 day(s) Active Escitalopram Oxalate 20 MG 0.5 tablet Or ally Once a day Active Topiramate 50 MG 1 tablet Orally Twic e a day Active traZODone HCl 100 MG 1 tablet at bedtime Orally Once a day Active Aspir-81 81 MG 1 tablet Orally Once a day Active Social History Tobacco Use: Social History Observation Description Date Details (start date - stop date) Former Smoker NA - NA Tobacco Use/Smoking Question Answer Notes Patient is a former smoker How long has it been since you last smoked? > 10 years Alcohol Screen Question Answer Notes Did you have a drink containing alcohol in the p ast year? No Points 0 Interpretation Negative Section Notes: Nonsmoker since 1994, no sig alcohol Nonsmoker since 1994, no sig alcohol Problems Problem Type SNOMED Code ICD Code Onset Dates Problem Status W/U Status Risk Notes Problem 594983063 Encounter for screening for malignant neoplasm of colon (Z12.11) Active confirmed Problem 620788881 History of adenomatous polyp of colon (Z86.010) Active confirmed Problem 622495577 Long-term use of aspirin therapy (Z79.82) Active confirmed Vital Signs Blood pressure diastolic 00 mm Hg 02/12/2024 Height 69 in 02/12/2024 Blood pressure systolic 00 mm Hg 02/12/2024 Weight 201 lbs 02/12/2024 BMI 29.68 kg/m2 02/12/2024 Encounters Encounter Location Date Provider Diagnosis [facility] [address] [place] [phone] 02/12/2024 Shai High History of adenomato us polyp of colon Z86.010 ; Long-term use of aspirin therapy Z79.82 and Encounter for screening for malignant neoplasm of colon Z12.11 [facility] [address] [place] [phone] 02/12/2024 Shai High [facility] [address] [place] [phone] 03/19/2024 Shai High Assessments Encounter Date Diagnosis (ICD Code) Assessment Notes Treatment Notes Treatment Clinical Notes Section Notes 02/12/2024 History of adenomatous polyp of colon (ICD-10 - Z86.010) Needs Cardiology clearance for his upcoming colonoscopy with monitored anesthesia care and his history of CAD with previous stent placement. Overall, Cristina appears well. Given his last colonoscopy being well over 10 years ago, his previous history of an adenomatous polyp, and his overall good clinical appearance, I did recommend a followup colonoscopy for further screening purposes. We did review the rationale for that in regard to colon cancer prevention. Full consent was obtained for this, including risks of bleeding and perforation. The procedure will be done with monitored anesthesia care. He was given the below instructions regarding adjustment of his medication for the procedure. We will obtain a cardiology clearance note from his music pastor as well. I did advise him to speak with you about possibly stopping his iron given his constipation and normal hematocrit earlier this year. I did advise him to be sure to let me know if he starts any new diabetes medications prior to the colonoscopy as we will have to adjust those accordingly for the procedure. Cristina was comfortable with this plan. Thank you again for allowing me to participate in Cristina's care. I shall continue to keep you advised of his progress. 02/12/2024 Long-term use of aspirin therapy (ICD-10 - Z79.82) Overall, Cristina appears well. Given his last colonoscopy being well over 10 years ago, his previous history of an adenomatous polyp, and his overall good clinical appearance, I did recommend a followup colonoscopy for further screening purposes. We did review the rationale for that in regard to colon cancer prevention. Full consent was obtained for this, including risks of bleeding and perforation. The procedure will be done with monitored anesthesia care. He was given the below instructions regarding adjustment of his medication for the procedure. We will obtain a cardiology clearance note from his music pastor as well. I did advise him to speak with you about possibly stopping his iron given his constipation and normal hematocrit earlier this year. I did advise him to be sure to let me know if he starts any new diabetes medications prior to the colonoscopy as we will have to adjust those accordingly for the procedure. Cristina was comfortable with this plan. Thank you again for allowing me to participate in Cristina's care. I shall continue to keep you advised of his progress. 02/12/2024 Encounter for screening for malignant neoplasm of colon (ICD-10 - Z12.11) Do not take aspirin on the day of the colonoscopy Stop Iron for 1 week before the colonoscopy Overall, Cristina appears well. Given his last colonoscopy being well over 10 years ago, his previous history of an adenomatous polyp, and his overall good clinical appearance, I did recommend a followup colonoscopy for further screening purposes. We did review the rationale for that in regard to colon cancer prevention. Full consent was obtained for this, including risks of bleeding and perforation. The procedure will be done with monitored anesthesia care. He was given the below instructions regarding adjustment of his medication for the procedure. We will obtain a cardiology clearance note from his music pastor as well. I did advise him to speak with you about possibly stopping his iron given his constipation and normal hematocrit earlier this year. I did advise him to be sure to let me know if he starts any new diabetes medications prior to the colonoscopy as we will have to adjust those accordingly for the procedure. Cristina was comfortable with this plan. Thank you again for allowing me to participate in Cristina's care. I shall continue to keep you advised of his progress. Plan Of Treatment Future Test Test Name Order Date COLONOSCOPY 09/25/2017 COLONOSCOPY 02/12/2024 Insurance Providers Payer Name Payer Address Payer Phone Subscriber Number Group Number Insured Name Patient Relationship to Insured Coverage Start Date Coverage End Date [facility] [employer] 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 John 09/24/15
--- OUTSIDE RECORDS SUMMARY | 2024-10-16 14:32 | XMS_ITS ---
Author Organization [facility] Address [address] [place] [address] Care Team Providers Care Plisse Machine Operator Name Role Phone Mario PLUMMER, Alexis Primary Care Provider UnaShai Kay Unavailable [phone] CRICKET LAZO Unavailable Unavailable REASON FOR VISIT Cancel procedure Encounters Encounter Location Date Provider Diagnosis [facility] [address] [place] [address] 03/19/2024 Shai High Plan Of Treatment No Information Progress Notes * RACQUEL CLARIBELJUAN JOSEDOB:1945 ( 78 yo M)Acc No.[id number]:03/19/2024 Patient:?HERBIECRISTINA Dobbs :1945???Age:78 Y???Sex:Male Address:[address] [place] [address] * true * Date:? Generated for Sujatai fitz/Izzy/eTransmitting on:?10/16/2024 10:09 AM EDT
--- OUTSIDE RECORDS SUMMARY | 2024-10-16 14:32 | XMS_ITS | Encounter Summary ---
Author Organization [facility] Address [address] [place] [address] Care Team Providers Care Chartered Wealth Manager Name Role Phone Zoey Giles DO Primary Care Provider [phone]- [phone] Jorge Rucker MD Unavailable Unknown Primary Care Provider [phone] Alexis Martin MD Primary Care Provider [phone]- [phone] Encounter Details Date Type Department Care Team (Late st Contact Info) Description 09/24/2017 Scanned Document [facility] Vascular & [place] [address] Enrrique Pérez MD [address] [id number] Social History Tobacco Use Types Packs/Day Years [...] on filedocumented in this encounter Care Teams Chartered Wealth Manager Relationship Specialty Start Date End Date Zoey Giles DO [address] [place] [address] PCP - General Genetic Counselor 04/11/17 10/11/17 Unknown Unknow Provider Address PCP - General 10/12/17 03/09/24 Alexis Martin MD [address] [place] [address] PCP - General 03/10/24 Jorge Rucker MD [address] [place] [address] Electrical Discharge Machine Operator Cardiovascular Disease 04/12/17 4 documented as of this encounter
--- OUTSIDE RECORDS SUMMARY | 2024-10-16 14:32 | XMS_ITS | Encounter Summary ---
Author Organization [facility] Address [address] [place] [address] Care Team Providers Care Tapping Machine Operator Name Role Phone Zoey Giles DO Primary Care Provider [phone]- [phone] Jorge Rucker MD Unavailable Unknown Primary Care Provider [phone] Alexis Martin MD Primary Care Provider [phone]- [phone] Encounter Details Date Type Department Care Team (Late st Contact Info) Description 09/24/2017 Scanned Document [facility] Vascular & [place] [address] Enrrique Pérez MD [address] [id number] Social History Tobacco Use Types Packs/Day Years [...] on filedocumented in this encounter Care Teams Tapping Machine Operator Relationship Specialty Start Date End Date Zoey Giles DO [address] [place] [address] PCP - General Genetic Counselor 04/11/17 10/11/17 Unknown Unknow Provider Address PCP - General 10/12/17 03/09/24 Alexis Martin MD [address] [place] [address] PCP - General 03/10/24 Jorge Rucker MD [address] [place] [address] Cotton Breeder Cardiovascular Disease 04/12/17 4 documented as of this encounter
--- OUTSIDE RECORDS SUMMARY | 2024-10-16 14:32 | XMS_ITS | Clinical Summary ---
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 Active 09-16 00:00: 00 TYPE 2 DIABETES MELLITUS W DIABETIC CHRONIC KIDNEY DISEASE Active 09-16 00:00: 00 CHRONIC KIDNEY DISEASE, STAGE 3 UNSPECIFIED Active 09-16 00:00: 00 CHR OBSTRUCTIVE PULMON DISEASE WITH (ACUTE) LOWER RESP INFCT Active 09-16 00:00: 00 PNEUMONIA, UNSPECIFIED ORGANISM Active 09-16 00:00: 00 CHRONIC OBSTRUCTIVE PULMONARY DISEASE W (ACUTE) EXACERBATION Active 09-16 00:00: 00 ATHSCL HEART DISEASE OF [place] CORONARY ARTERY W/O ANG PCTRS Active 09-16 00:00: 00 OLD MYOCARDIAL INFARCTION Active 09-16 00:00: 00 CARDIOMYOPAT HY, UNSPECIFIED Active 09-16 00:00: 00 UNSPECIFIED ATRIAL FIBRILLATION Active 09-16 00:00: 00 CENTRILOBULA R EMPHYSEMA Active 09-16 00:00: 00 TYPE 2 DIABETES W DIABETIC PERIPHERAL ANGIOPATH W/O GANGRENE Active 09-16 00:00: 00 MAJOR DEPRESSIVE DISORDER, RECURRENT, MILD Active 09-16 00:00: 00 ANXIETY DISORDER, UNSPECIFIED Active 09-16 00:00: 00 POST-TRAUMAT IC STRESS DISORDER, UNSPECIFIED Active 09-16 00:00: 00 INSOMNIA, UNSPECIFIED Active 09-16 00:00: 00 UNSPECIFIED HEARING LOSS, BILATERAL Active 09-16 00:00: 00 HYPERLIPIDEM IA, UNSPECIFIED Active 09-16 00:00: 00 Obesity, class 1 Active 09-16 00:00: 00 ENCOUNTER FOR ATTN TO OTH ARTIF OPENINGS OF URINARY TRACT Active 09-16 00:00: 00 RESIDENTIAL (CURRENT) USE OF INHALED STEROIDS Active 09-16 00:00: 00 ART THERAPY CERTIFIED SUPERVISOR (CURRENT) USE OF ASPIRIN Active 09-16 00:00: 00 LNG TRM (CRNT) USE INJECTABLE NON-INSULIN ANTIDIABETIC DRUGS Active 09-16 00:00: 00 PRESENCE OF CORONARY ANGIOPLASTY IMPLANT AND GRAFT Active 09-16 00:00: 00 BODY MASS INDEX [BMI] 26.0-26.9, ADULT Active 1 00:00: 00 Allergies, Adverse Reactions, Alerts Allergy Name Allergy Type Status Severity Reaction(s) Onset Date Inactive Date Treating Clinician Comments ATORVASTATIN Propensity to adverse reactions Active 09-16 11:00: 06 QUINOLONES Propensity to adverse reactions Active 09-16 11:00: 20 LISINOPRIL Propensity to adverse reactions Active 09-16 11:00: 40 Medications Ordered Medication Name Filled Medication Name Start Date Stop Date Current Medication? Ordering Clinician Indication Dosage Frequency Signature (SIG) Comments Components cefpodoxime 200 mg tablet 02-28 00:00: 00 03-12 00:00 :00 No [id number] Per instruc tions Per instructio ns (route: oral) Med Classific ation: Anti-Infe ctive Agents sulfamethox azole 800 mg-trimetho prim 160 mg tablet 02-27 00:00: 00 03-12 00:00 :00 No [id number] Per instruc tions TWICE A DAY Per instructio ns TWICE A DAY (route: oral) Med Classific ation: Anti-Infe ctive Agents cefpodoxime 200 mg tablet 02-24 00:00: 00 03-12 00:00 :00 No [id number] Unavailable Per instruc tions TWICE DAILY FOR 5 DAYS Per instructio ns TWICE DAILY FOR 5 DAYS (route: oral) Med Classific ation: Anti-Infe ctive Agents cephalexin 500 mg capsule 02-13 00:00: 00 03-12 00:00 :00 No [id number] Unavailable Per instruc tions THREE TIMES DAILY Per instructio ns THREE TIMES DAILY (route: oral) Med Classific ation: Anti-Infe ctive Agents oxycodone 5 mg tablet 02-13 00:00: 00 03-12 00:00 :00 No [id number] Unavailable Per instruc tions EVERY 4 - 6 HOURS NEEDED Per instructio ns EVERY 4 - 6 HOURS NEEDED (route: oral) Med Classific ation: Analgesic , Anti-infl ammatory or Antipyret ic acetaminoph en 325 mg tablet 2023-06 00:00: 00 09-16 00:00 :00 No [id number] MILD PAIN 2 tablet EVERY 4 HOURS 2 tablet EVERY 4 HOURS (route: oral) Med Classific ation: Analgesic , Anti-infl ammatory or Antipyret ic albuterol sulfate 2.5 mg/3 mL (0.083 %) solution for nebulizatio n 2023-06 00:00: 00 09-16 00:00 :00 No [id number] WHEEZING/SO B 3 mL 4 TIMES DAILY 3 mL 4 TIMES DAILY (route: inhalation ) Med Classific ation: Respirato ry Therapy Agents albuterol sulfate HFA 90 mcg/actuati on aerosol inhaler 2023-06 00:00: 00 09-16 00:00 :00 No [id number] WHEEZING 2 puff 4 TIMES DAILY 2 puff 4 TIMES DAILY (route: inhalation ) Med Classific ation: Respirato ry Therapy Agents ascorbic acid (vitamin C) 250 mg tablet 2023-06 0 00:00: 00 09-16 00:00 :00 No [id number] SUPPLEMENT 1 tablet EVERY OTHER DAY 1 tablet EVERY OTHER DAY (route: oral) Med Classific ation: Electroly te Balance-N utritiona l Products aspirin 81 mg tablet,neftaly yed release 2023-06 0 00:00: 00 09-16 00:00 :00 No [id number] HEART HEALTH 1 tablet DAILY 1 tablet DAILY (route: oral) Med Classific ation: Hematolog ical Agents bisacodyl 5 mg tablet,neftaly yed release 2023-06 0 00:00: 00 09-16 00:00 :00 No [id number] CONSTIPATIO N 1 tablet DAILY 1 tablet DAILY (route: oral) Med Classific ation: Gastroint estinal Therapy Agents cefpodoxime 200 mg tablet 2023-06 0 00:00: 00 03-22 23:59 :00 No [id number] URINARY TRACT INFECTION 1 tablet 2 TIMES DAILY 1 tablet 2 TIMES DAILY (route: oral) Med Classific ation: Anti-Infe ctive Agents dextrometho rphan-guaif enesin 10 mg-100 mg/5 mL oral liquid 2023-06 0 00:00: 00 09-16 00:00 :00 No [id number] COUGH 10 mL EVERY 4 HOURS 10 mL EVERY 4 HOURS (route: oral) Med Classific ation: Respirato ry Therapy Agents duloxetine 30 mg capsule,del ayed release 2023-06 0 00:00: 00 09-16 00:00 :00 No [id number] PAIN MANAGEMENT 1 capsule DAILY 1 capsule DAILY (route: oral) Med Classific ation: Central Nervous System Agents ferrous gluconate 324 mg (37.5 mg iron) tablet 2023-06 0 00:00: 00 09-16 00:00 :00 No [id number] SUPPLEMENT 1 tablet EVERY OTHER DAY 1 tablet EVERY OTHER DAY (route: oral) Med Classific ation: Electroly te Balance-N utritiona l Products fluticasone 500 mcg-salmete rol 50 mcg/dose blistr powdr for inhalation 2023-06 0 00:00: 00 09-16 00:00 :00 No [id number] COPD 1 inhalat ion 2 TIMES DAILY 1 inhalation 2 TIMES DAILY (route: inhalation ) Med Classific ation: Respirato ry Therapy Agents lidocaine 5 % topical patch 2023-06 0-09 00:00: 00 09-16 00:00 :00 No [id number] PAIN MANAGEMENT 1 adhesiv e patch, medicat ed DAILY 1 adhesive patch, medicated DAILY (route: topical) Med Classific ation: Dermatolo gical oxybutynin chloride 5 mg tablet 2023-06 0-09 00:00: 00 09-16 00:00 :00 No [id number] URINARY RETENTION 1 tablet DAILY 1 tablet DAILY (route: oral) Med Classific ation: Genitouri nary Therapy rosuvastati n 40 mg tablet 2023-06 0-09 00:00: 00 09-16 00:00 :00 No [id number] LOWERS CHOLESTEROL 0.5 tablet DAILY 0.5 tablet DAILY (route: oral) Med Classific ation: Cardiovas cular Therapy Agents Spiriva Respimat 2.5 mcg/actuati on solution for inhalation 2023-06 0- 00:00: 00 09-16 00:00 :00 No [id number] COPD 2 puff DAILY 2 puff DAILY (route: inhalation ) Med Classific ation: Respirato ry Therapy Agents topiramate 50 mg tablet 2023-06 0-09 00:00: 00 09-16 00:00 :00 No [id number] IMPROVES SLEEP 1 tablet BEDTIME 1 tablet BEDTIME (route: oral) Med Classific ation: Central Nervous System Agents trazodone 100 mg tablet 2023-06 0-09 00:00: 00 09-16 00:00 :00 No [id number] IMPROVES SLEEP 1 tablet BEDTIME 1 tablet BEDTIME (route: oral) Med Classific ation: Central Nervous System Agents cefpodoxime 200 mg tablet 2023-06 1-25 00:00: 00 09-16 00:00 :00 No [id number] INFECTION 1 tablet 2 TIMES DAILY 1 tablet 2 TIMES DAILY (route: oral) Med Classific ation: Anti-Infe ctive Agents acetylcyste ine 200 mg/mL (20 %) solution 4-13 00:00: 00 Yes [id number] CHEST CONGESTION/ PNEUMONIA 3 mL 2 TIMES DAILY 3 mL 2 TIMES DAILY (route: miscellane ous) Med Classific ation: Respirato ry Therapy Agents Adult Low Dose Aspirin 81 mg tablet,neftaly yed release 09-14 00:00: 00 Yes [id number] CORONARY ARTERY DISEASS 1 tablet DAILY 1 tablet DAILY (route: oral) Med Classific ation: Hematolog ical Agents ascorbic acid (vitamin C) 250 mg tablet 09-14 00:00: 00 Yes [id number] HELP IRON ABSORPTION 1 tablet DAILY 1 tablet DAILY (route: oral) Med Classific ation: Electroly te Balance-N utritiona l Products cefuroxime axetil 500 mg tablet 09-14 00:00: 00 09-19 23:59 :00 No [id number] PNEUMONIA 1 tablet 2 TIMES DAILY 1 tablet 2 TIMES DAILY (route: oral) Med Classific ation: Anti-Infe ctive Agents Colace 100 mg capsule 09-14 00:00: 00 Yes [id number] CONSTIPATIO N 1 capsule DAILY 1 capsule DAILY (route: oral) Med Classific ation: Gastroint estinal Therapy Agents doxycycline hyclate 100 mg capsule 09-19 00:00: 00 Yes [id number] PNEUMONIA 1 capsule EVERY 12 HOURS 1 capsule EVERY 12 HOURS (route: oral) Med Classific ation: Anti-Infe ctive Agents duloxetine 30 mg capsule,del ayed release 09-14 00:00: 00 Yes [id number] DEPRESSION 1 capsule DAILY 1 capsule DAILY (route: oral) Med Classific ation: Central Nervous System Agents ferrous sulfate 324 mg (65 mg iron) tablet,neftaly yed release 09-14 00:00: 00 Yes [id number] ANEMIA 1 tablet DAILY 1 tablet DAILY (route: oral) Med Classific ation: Electroly te Balance-N utritiona l Products furosemide 20 mg tablet 09-14 00:00: 00 Yes [id number] CHF 1 tablet DAILY 1 tablet DAILY (route: oral) Med Classific ation: Cardiovas cular Therapy Agents metoprolol succinate ER 50 mg tablet,exte nded release 24 hr 09-14 00:00: 00 09-26 00:00 :00 No [id number] IRREGULAR HEART BEAT 1 tablet DAILY 1 tablet DAILY (route: oral) Med Classific ation: Cardiovas cular Therapy Agents Mucinex 600 mg tablet, extended release 09-14 00:00: 00 09-25 23:59 :00 No [id number] PNEUMONIA 2 tablet 2 TIMES DAILY 2 tablet 2 TIMES DAILY (route: oral) Med Classific ation: Respirato ry Therapy Agents oxybutynin chloride 5 mg tablet 09-14 00:00: 00 Yes [id number] HX PROSTATE CANCER 1 tablet 4 TIMES DAILY 1 tablet 4 TIMES DAILY (route: oral) Med Classific ation: Genitouri nary Therapy prednisone 20 mg tablet 09-14 00:00: 00 09-16 23:59 :00 No [id number] RESPIRATORY SUPPORT 2 tablet DAILY 2 tablet DAILY (route: oral) Med Classific ation: Endocrine sacubitril 24 mg-valsarta n 26 mg tablet 09-14 00:00: 00 Yes [id number] HEART FAILURE 1 tablet 2 TIMES DAILY 1 tablet 2 TIMES DAILY (route: oral) Med Classific ation: Cardiovas cular Therapy Agents Spiriva with HandiHaler 18 mcg and inhalation capsules 09-14 00:00: 00 Yes [id number] COPD 1 inhalat ion DAILY 1 inhalation DAILY (route: inhalation ) Med Classific ation: Respirato ry Therapy Agents topiramate 50 mg tablet 09-14 00:00: 00 Yes [id number] PTSD 1 tablet BEDTIME 1 tablet BEDTIME (route: oral) Med Classific ation: Central Nervous System Agents Wixela Inhub 250 mcg-50 mcg/dose powder for inhalation 09-14 00:00: 00 Yes [id number] COPD 1 inhalat ion 2 TIMES DAILY 1 inhalation 2 TIMES DAILY (route: inhalation ) Med Classific ation: Respirato ry Therapy Agents Vital Signs Vital Name Observation Time Observation Value Commen ts Temperature 2024-10-02 08:34:00.000 98 [degF] Temperature 2024-09-29 08:36:00.000 98.6 [degF] Temperature 2024-09-25 09:57:00.000 98.6 [degF] Temperature 2024-09-19 16:02:00.000 98.3 [degF] Temperature 2024-09-16 11:40:00.000 97.9 [degF] BMI (%) 2024-09-16 11:22:46.000 26 kg/m2 Height 2024-09-16 11:22:40.000 68 [in_us] Pulse 2024-10-02 08:34:00.000 61 /min Pulse 2024-09-29 08:36:00.000 60 /min Pulse 2024-09-25 09:57:00.000 64 /min Pulse 2024-09-19 16:02:00.000 60 /min Pulse 2024-09-16 11:40:00.000 66 /min O2 Saturation (%) 2024-10-02 08:34:00.000 90 % O2 Saturation (%) 2024-09-29 08:36:00.000 92 % O2 Saturation (%) 2024-09-25 09:57:00.000 86 % O2 Saturation (%) 2024-09-19 16:02:00.000 90 % O2 Saturation (%) 2024-09-16 11:40:00.000 93 % Respirations 2024-10-02 08:34:00.000 18 /min Respirations 2024-09-29 08:36:00.000 18 /min Respirations 2024-09-25 09:57:00.000 18 /min Respirations 2024-09-19 16:02:00.000 18 /min Respirations 2024-09-16 11:49:00.000 20 /min Weight (lbs) 2024-09-25 09:57:00.000 12 [lb_av] Weight (lbs) 2024-09-16 11:22:46.000 172 [lb_av] Systolic Blood Pressure 2024-10-02 08:34:00.000 110 mm [Hg] Systolic Blood Pressure 2024-09-29 08:36:00.000 102 mm [Hg] Systolic Blood Pressure 2024-09-25 09:57:00.000 88 mm[ Hg] Systolic Blood Pressure 2024-09-19 16:06:00.000 102 mm [Hg] Systolic Blood Pressure 2024-09-16 11:40:00.000 116 mm [Hg] Diastolic Blood Pressure 2024-10-02 08:34:00.000 62 mm [Hg] Diastolic Blood Pressure 2024-09-29 08:36:00.000 58 mm [Hg] Diastolic Blood Pressure 2024-09-25 09:57:00.000 52 mm [Hg] Diastolic Blood Pressure 2024-09-19 16:06:00.000 52 mm [Hg] Diastolic Blood Pressure 2024-09-16 11:40:00.000 60 mm [Hg] Plan of Treatment Planned Activity Planned Date Details Comments Future Scheduled Test RN TO OBSE RVE, ASSESS, EVALUATE, AND DEVELOP AN INDIVIDUALIZED PLAN OF CARE. AGENCY MAY ACCEPT ORDERS FROM CONSULTING PHYSICIANS. RN TO OBSERVE AND ASSESS, TRACTION POWER ENGINEER/FINISHING MACHINE OPERATOR TO OBSERVE FOR RISK FOR FALLS AND INSTRUCT IN FALL PREVENTION, HOME SAFETY, MEDICATION MANAGEMENT, INFECTION PREVENTION, AND NUTRITION MANAGEMENT. RN/TRACTION POWER ENGINEER/FINISHING MACHINE OPERATOR NURSE MAY PERFORM O2 SATURATION LEVEL ON ADMISSION AND PRN FOR RN TO ASSESS/TRACTION POWER ENGINEER TO OBSERVE PATIENT, WITH NOTIFICATION TO THE PHYSICIAN IF SATURATION IS 90% IN THE ABSENCE OF MORE SPECIFIC PARAMETERS FROM THE PHYSICIAN. AGENCY MAY PERFORM A RESUMPTION OF CARE VISIT FOLLOWING ANY HOSPITAL ADMISSION. RN/TRACTION POWER ENGINEER/FINISHING MACHINE OPERATOR TO MONITOR CO-MORBID CONDITIONS LISTED ON THE PLAN OF CARE AND ANY NEW CONDITIONS THAT PRESENT THEMSELVES DURING THIS EPISODE TO IDENTIFY CHANGES AND INTERVENE TO MINIMIZE COMPLICATIONS. [code = RN TO OBSERVE, ASSESS, EVALUATE, AND DEVELOP AN INDIVIDUALIZED PLAN OF CARE. AGENCY MAY ACCEPT ORDERS FROM CONSULTING PHYSICIANS. RN TO OBSERVE AND ASSESS, TRACTION POWER ENGINEER/FINISHING MACHINE OPERATOR TO OBSERVE FOR RISK FOR FALLS AND INSTRUCT IN FALL PREVENTION, HOME SAFETY, MEDICATION MANAGEMENT, INFECTION PREVENTION, AND NUTRITION MANAGEMENT. RN/TRACTION POWER ENGINEER/FINISHING MACHINE OPERATOR NURSE MAY PERFORM O2 SATURATION LEVEL ON ADMISSION AND PRN FOR RN TO ASSESS/TRACTION POWER ENGINEER TO OBSERVE PATIENT, WITH NOTIFICATION TO THE PHYSICIAN IF SATURATION IS 90% IN THE ABSENCE OF MORE SPECIFIC PARAMETERS FROM THE PHYSICIAN. AGENCY MAY PERFORM A RESUMPTION OF CARE VISIT FOLLOWING ANY HOSPITAL ADMISSION. RN/TRACTION POWER ENGINEER/FINISHING MACHINE OPERATOR TO MONITOR CO-MORBID CONDITIONS LISTED ON THE PLAN OF CARE AND ANY NEW CONDITIONS THAT PRESENT THEMSELVES DURING THIS EPISODE TO IDENTIFY CHANGES AND INTERVENE TO MINIMIZE COMPLICATIONS.] Future Scheduled Test MEDICATION MANAGEMENT; RN/TRACTION POWER ENGINEER/FINISHING MACHINE OPERATOR TO REVIEW MEDICATIONS FOR INTERACTIONS, EFFECTIVENESS OF DRUG THERAPY, AND SIGNS/SYMPTOMS OF ADVERSE REACTIONS. MAY INSTRUCT AND REINFORCE MEDICATION TEACHING RELATED TO THE USE OF MEDICATIONS, DOSAGE, FREQUENCY, PURPOSE, SIDE EFFECTS, AND TO REPORT COMPLICATIONS. [code = MEDICATION MANAGEMENT; RN/TRACTION POWER ENGINEER/FINISHING MACHINE OPERATOR TO REVIEW MEDICATIONS FOR INTERACTIONS, EFFECTIVENESS OF DRUG THERAPY, AND SIGNS/SYMPTOMS OF ADVERSE REACTIONS. MAY INSTRUCT AND REINFORCE MEDICATION TEACHING RELATED TO THE USE OF MEDICATIONS, DOSAGE, FREQUENCY, PURPOSE, SIDE EFFECTS, AND TO REPORT COMPLICATIONS.] Future Scheduled Test RISK FOR H OSPITALIZATION; RN TO ASSESS/TEACH, FINISHING MACHINE OPERATOR/TRACTION POWER ENGINEER TO OBSERVE/TEACH PATIENT/CAREGIVER ON RISK FOR HOSPITALIZATION/EMERGENCY ROOM VISITS, TEACH SIGNS AND SYMPTOMS THAT PUT PATIENT AT RISK, WHEN TO NOTIFY NURSE/PHYSICIAN OF COMPLICATIONS/DECLINE, AND WHEN TO CALL 911. [code = RISK FOR HOSPITALIZATION; RN TO ASSESS/TEACH, FINISHING MACHINE OPERATOR/TRACTION POWER ENGINEER TO OBSERVE/TEACH PATIENT/CAREGIVER ON RISK FOR HOSPITALIZATION/EMERGENCY ROOM VISITS, TEACH SIGNS AND SYMPTOMS THAT PUT PATIENT AT RISK, WHEN TO NOTIFY NURSE/PHYSICIAN OF COMPLICATIONS/DECLINE, AND WHEN TO CALL 911.] Future Scheduled Test FALL REDUC TION MANAGEMENT; RN TO ASSESS AND OBSERVE, TRACTION POWER ENGINEER/FINISHING MACHINE OPERATOR TO OBSERVE FALL RISK FACTORS AND EDUCATE PATIENT/CAREGIVER ON STRATEGIES TO MINIMIZE THE RISK OF FALLING. [code = FALL REDUCTION MANAGEMENT; RN TO ASSESS AND OBSERVE, TRACTION POWER ENGINEER/FINISHING MACHINE OPERATOR TO OBSERVE FALL RISK FACTORS AND EDUCATE PATIENT/CAREGIVER ON STRATEGIES TO MINIMIZE THE RISK OF FALLING.] Future Scheduled Test GENITOURIN DINH MANAGEMENT; RN TO ASSESS AND TEACH, TRACTION POWER ENGINEER/FINISHING MACHINE OPERATOR TO OBSERVE AND TEACH RELATED TO ALTERED GENITOURINARY STATUS TO MINIMIZE COMPLICATIONS AND REDUCE HOSPITALIZATION. [code = GENITOURINARY MANAGEMENT; RN TO ASSESS AND TEACH, TRACTION POWER ENGINEER/FINISHING MACHINE OPERATOR TO OBSERVE AND TEACH RELATED TO ALTERED GENITOURINARY STATUS TO MINIMIZE COMPLICATIONS AND REDUCE HOSPITALIZATION.] Future Scheduled Test RN/FINISHING MACHINE OPERATOR/TRACTION POWER ENGINEER TO INSTRUCT PATIENT/CAREGIVER ON CARE AND MANAGEMENT OF NEPHROSTOMY. CLEANSE SITE WITH NORMAL SALINE APPLY STERILE DRESSING, MAY CHANGE DRAINAGE BAG PRN MAY FLUSH NEPHROSTOMY TUBE WITH 10 MLS EVERY DAY AND PRN CHANGE DRESSING EVERY WEEK AND PRN RN/FINISHING MACHINE OPERATOR/TRACTION POWER ENGINEER MAY PROVIDE NEPHROSTOMY CARE NEEDED EACH VISIT. [code = RN/FINISHING MACHINE OPERATOR/TRACTION POWER ENGINEER TO INSTRUCT PATIENT/CAREGIVER ON CARE AND MANAGEMENT OF NEPHROSTOMY. CLEANSE SITE WITH NORMAL SALINE APPLY STERILE DRESSING, MAY CHANGE DRAINAGE BAG PRN MAY FLUSH NEPHROSTOMY TUBE WITH 10 MLS EVERY DAY AND PRN CHANGE DRESSING EVERY WEEK AND PRN RN/FINISHING MACHINE OPERATOR/TRACTION POWER ENGINEER MAY PROVIDE NEPHROSTOMY CARE NEEDED EACH VISIT.] Future Scheduled Test PAIN MANAG EMENT; RN TO ASSESS AND TEACH, FINISHING MACHINE OPERATOR/TRACTION POWER ENGINEER TO OBSERVE AND TEACH AND PROVIDE EDUCATION ON PAIN MANAGEMENT TECHNIQUES. [code = PAIN MANAGEMENT; RN TO ASSESS AND TEACH, FINISHING MACHINE OPERATOR/TRACTION POWER ENGINEER TO OBSERVE AND TEACH AND PROVIDE EDUCATION ON PAIN MANAGEMENT TECHNIQUES.] Future Scheduled Test SKIN INTEG RITY RN TO ASSESS AND TEACH, TRACTION POWER ENGINEER/FINISHING MACHINE OPERATOR TO OBSERVE AND TEACH INTEGUMENTARY STATUS TO IDENTIFY CHANGES AND INTERVENE TO MINIMIZE COMPLICATIONS. PROVIDE SKILLED TEACHING OF GENERAL WOUND AND SKIN CARE AND PREVENTION RELATED TO ACTUAL ALTERED SKIN INTEGRITY [code = SKIN INTEGRITY RN TO ASSESS AND TEACH, TRACTION POWER ENGINEER/FINISHING MACHINE OPERATOR TO OBSERVE AND TEACH INTEGUMENTARY STATUS TO IDENTIFY CHANGES AND INTERVENE TO MINIMIZE COMPLICATIONS. PROVIDE SKILLED TEACHING OF GENERAL WOUND AND SKIN CARE AND PREVENTION RELATED TO ACTUAL ALTERED SKIN INTEGRITY ] Future Scheduled Test CARDIOVASC ULAR SYSTEM; RN TO ASSESS/TEACH, TRACTION POWER ENGINEER/FINISHING MACHINE OPERATOR TO OBSERVE/TEACH RELATED TO ALTERED CARDIOVASCULAR STATUS TO MINIMIZE COMPLICATIONS AND REDUCE HOSPITALIZATION. [code = CARDIOVASCULAR SYSTEM; RN TO ASSESS/TEACH, TRACTION POWER ENGINEER/FINISHING MACHINE OPERATOR TO OBSERVE/TEACH RELATED TO ALTERED CARDIOVASCULAR STATUS TO MINIMIZE COMPLICATIONS AND REDUCE HOSPITALIZATION.] Future Scheduled Test HEART FAIL URE; RN TO ASSESS/TEACH, TRACTION POWER ENGINEER/FINISHING MACHINE OPERATOR TO OBSERVE/TEACH CARDIOPULMONARY SYSTEM TO IDENTIFY SIGNS OF DECOMPENSATION AND INTERVENE TO MINIMIZE THE SEVERITY OF FLUID OVERLOAD. OBSERVE PATIENT ABILITY TO MONITOR AND RECORD DAILY WEIGHTS AND VITAL SIGNS, INCLUDING PULSE AND BLOOD PRESSURE; RECORD PATIENT REPORTED WEIGHT, OR WEIGH PATIENT NEEDED. REPORT INCREASED EDEMA OR WEIGHT GAIN OF >2 LBS IN 1 DAY OR >5 LBS IN 1 WEEK OR 5LBS OR MORE OVER TARGET WEIGHT. MAY MEASURE ABDOMINAL GIRTH IF UNABLE TO WEIGH. [code = HEART FAILURE; RN TO ASSESS/TEACH, TRACTION POWER ENGINEER/FINISHING MACHINE OPERATOR TO OBSERVE/TEACH CARDIOPULMONARY SYSTEM TO IDENTIFY SIGNS OF DECOMPENSATION AND INTERVENE TO MINIMIZE THE SEVERITY OF FLUID OVERLOAD. OBSERVE PATIENT ABILITY TO MONITOR AND RECORD DAILY WEIGHTS AND VITAL SIGNS, INCLUDING PULSE AND BLOOD PRESSURE; RECORD PATIENT REPORTED WEIGHT, OR WEIGH PATIENT NEEDED. REPORT INCREASED EDEMA OR WEIGHT GAIN OF >2 LBS IN 1 DAY OR >5 LBS IN 1 WEEK OR 5LBS OR MORE OVER TARGET WEIGHT. MAY MEASURE ABDOMINAL GIRTH IF UNABLE TO WEIGH. ] Future Scheduled Test RESPIRATOR Y SYSTEM MANAGEMENT; RN TO ASSESS AND TEACH, TRACTION POWER ENGINEER/FINISHING MACHINE OPERATOR TO OBSERVE AND TEACH RELATED TO ALTERED RESPIRATORY STATUS TO MINIMIZE COMPLICATIONS AND REDUCE HOSPITALIZATION. [code = RESPIRATORY SYSTEM MANAGEMENT; RN TO ASSESS AND TEACH, TRACTION POWER ENGINEER/FINISHING MACHINE OPERATOR TO OBSERVE AND TEACH RELATED TO ALTERED RESPIRATORY STATUS TO MINIMIZE COMPLICATIONS AND REDUCE HOSPITALIZATION.] Future Scheduled Test COPD MANAG EMENT; RN TO ASSESS AND TEACH, TRACTION POWER ENGINEER/FINISHING MACHINE OPERATOR TO OBSERVE AND TEACH SIGNS/SYMPTOMS OF COPD EXACERBATION AND PROVIDE EARLY INTERVENTIONS TO MINIMIZE RISK OF HOSPITALIZATION. RN/TRACTION POWER ENGINEER/FINISHING MACHINE OPERATOR TO INSTRUCT ON SELF-CARE MANAGEMENT INCLUDING BREATHING TECHNIQUES, AIRWAY CLEARANCE, AND PROPER USE OF COPD MEDICATIONS. RN TO ASSESS AND TEACH, TRACTION POWER ENGINEER/FINISHING MACHINE OPERATOR TO OBSERVE AND TEACH PATIENT/CAREGIVER ABILITY TO MONITOR AND RECORD VITAL SIGNS INCLUDING PULSE OXIMETRY AND BLOOD PRESSURE. [code = COPD MANAGEMENT; RN TO ASSESS AND TEACH, TRACTION POWER ENGINEER/FINISHING MACHINE OPERATOR TO OBSERVE AND TEACH SIGNS/SYMPTOMS OF COPD EXACERBATION AND PROVIDE EARLY INTERVENTIONS TO MINIMIZE RISK OF HOSPITALIZATION. RN/TRACTION POWER ENGINEER/FINISHING MACHINE OPERATOR TO INSTRUCT ON SELF-CARE MANAGEMENT INCLUDING BREATHING TECHNIQUES, AIRWAY CLEARANCE, AND PROPER USE OF COPD MEDICATIONS. RN TO ASSESS AND TEACH, TRACTION POWER ENGINEER/FINISHING MACHINE OPERATOR TO OBSERVE AND TEACH PATIENT/CAREGIVER ABILITY TO MONITOR AND RECORD VITAL SIGNS INCLUDING PULSE OXIMETRY AND BLOOD PRESSURE. ] Future Scheduled Test PNEUMONIA MANAGEMENT; RN TO ASSESS AND TEACH, TRACTION POWER ENGINEER/FINISHING MACHINE OPERATOR TO OBSERVE AND TEACH SIGNS OF PNEUMONIA EXACERBATION AND PROVIDE EARLY INTERVENTIONS TO MINIMIZE RISK OF HOSPITALIZATION. [code = PNEUMONIA MANAGEMENT; RN TO ASSESS AND TEACH, TRACTION POWER ENGINEER/FINISHING MACHINE OPERATOR TO OBSERVE AND TEACH SIGNS OF PNEUMONIA EXACERBATION AND PROVIDE EARLY INTERVENTIONS TO MINIMIZE RISK OF HOSPITALIZATION.] Goal Patient Goal - C ONTROL CHF, NO MORE HOSPITALIZATIONS Goal Provider Goal - A PLAN OF CARE WILL BE ESTABLISHED THAT MEETS THE PATIENTS NEEDS. PATIENT WILL DEMONSTRATE OXYGEN SATURATION WITHIN NORMAL LIMITS OR PATIENTS OPTIMAL LEVEL ESTABLISHED BY THE PHYSICIAN THROUGHOUT CARE. CHANGES TO CO-MORBID CONDITIONS AND ANY NEW CONDITIONS WILL BE IDENTIFIED AND REPORTED TO THE PHYSICIAN. Goal Provider Goal - PATIENT/CAREGIVER TO VERBALIZE, AND CONSISTENTLY DEMONSTRATE EFFECTIVE, SAFE MANAGEMENT OF MEDICATION INCLUDING KNOWLEDGE OF EFFECTIVENESS, POTENTIAL SIDE EFFECTS AND DRUG REACTIONS AND WHEN TO CONTACT THE APPROPRIATE CARE PROVIDER. PATIENT/CAREGIVER WILL BE ABLE TO VERBALIZE UNDERSTANDING OF MEDICATION REGIMEN AND ACCURATELY TAKE MEDICATIONS PRESCRIBED WITHOUT ADVERSE EFFECTS BY EOE Goal Provider Goal - PATIENT/CAREGIVER WILL VERBALIZE UNDERSTANDING OF SIGNS AND SYMPTOMS THAT PUT THE PATIENT AT RISK FOR HOSPITALIZATION /EMERGENCY ROOM VISITS, WHEN TO NOTIFY NURSE/PHYSICIAN OF COMPLICATIONS/DECLINE AND WHEN TO CALL 911. Goal Provider Goal - PATIENT/CAREGIVER WILL VERBALIZE/DEMONSTRATE UNDERSTANDING OF FALL RISK FACTORS AND IMPLEMENT STRATEGIES TO MINIMIZE FALL RISK. PATIENT/CAREGIVER WILL VERBALIZE/DEMONSTRATE AN ABILITY TO ADHERE TO FALL REDUCTION SELF-MANAGEMENT AND LIFE-STYLE CHANGES BY EOE Goal Provider Goal - PATIENT / CAREGIVER WILL VERBALIZE/DEMONSTRATE UNDERSTANDING OF MEASURES TO MANAGE ALTERED GENITOURINARY STATUS BY END OF EPISODE. Goal Provider Goal - PATIENT/CAREGIVER TO VERBALIZE UNDERSTANDING AND DEMONSTRATE ALL ASPECTS OF NEPHROSTOMY CARE AND MANAGEMENT BY END OF EPISODE. Goal Provider Goal - PATIENT / CAREGIVER WILL VERBALIZE / DEMONSTRATE UNDERSTANDING OF PAIN CONTROL MEASURES BY EOE Goal Provider Goal - CHANGES IN SKIN INTEGRITY STATUS WILL BE IDENTIFIED AND REPORTED TO THE PHYSICIAN FOR PROMPT INTERVENTION. PATIENT / CAREGIVER WILL VERBALIZE/DEMONSTRATE ADEQUATE KNOWLEDGE OF INTEGUMENTARY STATUS AND APPROPRIATE MEASURES TO PROMOTE SKIN INTEGRITY AND PREVENT INJURY BY EOE Goal Provider Goal - PATIENT / CAREGIVER WILL VERBALIZE/DEMONSTRATE UNDERSTANDING OF MEASURES TO MANAGE ALTERED CARDIOVASCULAR STATUS BY EOE. Goal Provider Goal - PATIENT / CAREGIVER WILL VERBALIZE/DEMONSTRATE AN ABILITY TO ADHERE TO SELF-MANAGEMENT OF HF TO MINIMIZE COMPLICATIONS AND AVOID HOSPITALIZATION BY END OF EPISODE. Goal Provider Goal - PATIENT / CAREGIVER WILL VERBALIZE/DEMONSTRATE UNDERSTANDING OF MEASURES TO MANAGE ALTERED RESPIRATORY STATUS BY END OF EPISODE. Goal Provider Goal - PATIENT / CAREGIVER WILL VERBALIZE/DEMONSTRATE AN ABILITY TO ADHERE TO SELF-MANAGEMENT OF COPD TO MINIMIZE COMPLICATIONS AND AVOID HOSPITALIZATION BY END OF EPISODE. Goal Provider Goal - PATIENT / CAREGIVER WILL VERBALIZE/DEMONSTRATE AN ABILITY TO ADHERE TO PNEUMONIA SELF-MANAGEMENT TO MINIMIZE COMPLICATIONS AND AVOID HOSPITALIZATION BY END OF EPISODE. Encounters Start Date/Time End Date/Time Encounter Type Admission Type Attending [facility] Care Facility Care Department Encounter ID Discharge Date Discharge Status Discharge Condition Discharge Reason Percent Goals Met 2024-09-16 00:00:00 2024-11-14 00:00:00 Outpatient KULWINDER MCDONNELL [facility] [id number] 60.00
--- OUTSIDE RECORDS SUMMARY | 2024-10-16 14:32 | XMS_ITS ---
Author Organization [facility] Address [address] [place] [address] Care Team Providers Care Contracting Support Specialist Name Role Phone Alexis Martin MD Primary Care Provider [phone]- [phone] Active Problems Problem Noted Date Diagnosed Date Epilepsy 03/10/2024 Overview (03/10/2024): Jun 21, 2001 Entered By: HILDA SENIOR Comment: seizure freeMar 14, 2002 Entered By: HILDA SENIOR Comment: we got a note from his physician to stop his dilantin Pulmonary nodule 03/10/2024 Type 2 diabetes mellitus 03/10/2024 Complicated UTI (urinary tract infection) 2023 Primary hypertension 03/08/2024 Hydronephrosis with urinary obstruction due to ureteral calculus 03/08/2024 Hyperlipidemia 03/08/2024 Leukocytosis 03/08/2024 ALBERT (acute kidney injury) 03/08/2024 COPD (chronic obstructive pulmonary disease) 10/2023 Depression 03/08/2024 CAD (coronary artery disease) 03/08/2024 PVD (peripheral vascular disease) 03/08/2024 Prostate cancer 03/08/2024 Bladder cancer 03/08/2024 BPH (benign prostatic hyperplasia) 03/08/2024 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 Abscess 10/04/2017 Overview (10/05/2017): Added automatically from request for surgery [id number] AAA (abdominal aortic aneurysm) without rupture 04/23/2017 Current Treatment and Therapy Plans No current plan information found. Past Treatment and Therapy Plans No past plan information found. Lifetime Dose Tracking * Chemical Lifetime Dose Automatic Entry Manual Entr y Air Kerma-mGy 6.35 mGy 0 mGy 6.35 mGy Dose Area Product(DAP)-Gy-cm2 1.4 Gy-cm2 0 Gy-cm2 1.4 Gy-cm2
--- OUTSIDE RECORDS SUMMARY | 2024-10-16 14:32 | XMS_ITS | Encounter Summary ---
Author Organization [facility] Address [address] [place] [address] Care Team Providers Care Drafter Assistant Name Role Phone Zoey Giles DO Primary Care Provider [phone]- [phone] Jorge Rucker MD Unavailable Unknown Primary Care Provider [phone] Alexis Martin MD Primary Care Provider +1- [phone] Encounter Details Date Type Department Care Team (Late st Contact Info) Description 09/24/2017 Scanned Document [facility] Vascular & [place] [address] Enrrique Pérez MD [address] [id number] Social History Tobacco Use Types Packs/Day Years [...] on filedocumented in this encounter Care Teams Drafter Assistant Relationship Specialty Start Date End Date Zoey Giles DO [address] [place] [address] PCP - General Genetic Counselor 04/11/17 10/11/17 Unknown Unknow Provider Address PCP - General 10/12/17 03/09/24 Alexis Martin MD [address] [place] [address] PCP - General 03/10/24 Jorge Rucker MD [address] [place] [address] Surveillance Inspector Cardiovascular Disease 04/12/17 4 documented as of this encounter
--- OUTSIDE RECORDS SUMMARY | 2024-10-16 14:32 | XMS_ITS ---
Author Organization [facility] Address [address] [place] [id number] Care Team Providers Care Appellate Court Clerk Name Role Phone Mario PLUMMER, Alexis Primary Care Provider UnaShai Kay Unavailable [phone] CRICKET LAZO Unavailable Unavailable REASON FOR VISIT clearance Encounters Encounter Location Date Provider Diagnosis [facility] [address] [place] [address] 02/12/2024 Shai High Plan Of Treatment No Information Progress Notes * CRISTINA CLEMENTDOB:1945 ( 78 yo M)Acc No.[id number]:02/12/2024 Patient:?HERBIECLARIBEL DbobsNON :1945???Age:78 Y???Sex:Male Address:[address] [place] [address] * true * Date:? Generated for Sujatai fitz/Izzy/eTransmitting on:?10/16/2024 10:09 AM EDT
--- OUTSIDE RECORDS SUMMARY | 2024-10-16 14:32 | XMS_ITS | Encounter Summary ---
Author Organization [facility] Address [address] [place] [address] Care Team Providers Care Core Winding Operator Name Role Phone Zoey Giles DO Primary Care Provider [phone]- [phone] Jorge Rucker MD Unavailable Unknown Primary Care Provider [phone] Alexis Martin MD Primary Care Provider +1- [phone] Encounter Details Date Type Department Care Team (Late st Contact Info) Description 09/24/2017 Scanned Document [facility] Vascular & [place] [address] Enrrique Pérez MD [address] [id number] Social History Tobacco Use Types Packs/Day Years [...] on filedocumented in this encounter Care Teams Core Winding Operator Relationship Specialty Start Date End Date Zoey Giles DO [address] [place] [address] PCP - General Genetic Counselor 04/11/17 10/11/17 Unknown Unknow Provider Address PCP - General 10/12/17 03/09/24 Alexis Martin MD [address] [place] [address] PCP - General 03/10/24 Jorge Rucker MD [address] [place] [address] Ground Instructor Advanced Cardiovascular Disease 04/12/17 4 documented as of this encounter
--- OUTSIDE RECORDS SUMMARY | 2024-10-16 14:32 | XMS_ITS | Clinical Summary ---
Author Organization [facility] Address [address] [place] [address] Care Team Providers Care Lathe Setup Operator Name Role Phone Alexis Martin MD Primary Care Provider [phone]- [phone] Allergies Active Allergy Reactions Criticality Noted Date Comments Atorvastatin Unknown/Patient and Family Unable to Define Medium 03/08/2024 Empagliflozin Unknown/Patient and Family Unable to Define Medium 03/08/2024 Lisinopril Unknown/Patient and Family Unable to Define Medium 03/08/2024 Quinolones Unknown/Patient and Family Unable to Define Medium 03/08/2024 Medications topiramate (TOPAMAX) 50 MG tablet Take 1 tablet (50 mg total) by mouth nightly. Active traZODone (DESYREL) 100 MG tablet Take 1 tablet (100 mg total) by mouth nightly. Active aspirin enteric coated (ECOTRIN LOW STRENGTH) 81 MG EC tablet Take 1 tablet (81 mg total) by mouth daily. Active rosuvastatin (CRESTOR) 40 MG tablet Take 0.5 tablets (20 mg total) by mouth daily. Active albuterol (PROVENTIL HFA; VENTOLIN HFA) 108 (90 Base) MCG/ACT inhaler Inhale 2 puffs 4 times daily (every 6 hours) as needed for wheezing. Active acetaminophen (TYLENOL) 325 MG tablet Take 2 tablets (650 mg total) by mouth every 4 (four) hours as needed for mild pain. Active albuterol (PROVENTIL) (0.083%) 2.5 mg/3 mL nebulizer solution Take 3 mL (2.5 mg total) by nebulization 4 times daily (every 6 hours) as needed for wheezing or shortness of breath. Active ascorbic acid 250 MG tablet Take 1 tablet (250 mg total) by mouth every other day. Active bisacodyl (DULCOLAX) 5 MG EC tablet Take 1 tablet (5 mg total) by mouth daily. Active Camphor-Menthol -Methyl Luis 3.1-6-10 % Patch Apply topically daily. Active guaiFENesin-dex tromethorphan (ROBITUSSIN-DM) 100-10 mg/5 mL liquid Take 10 mL by mouth every 4 (four) hours as needed for cough. Active DULoxetine (CYMBALTA) 30 MG capsule Take 1 capsule (30 mg total) by mouth daily. Active ferrous gluconate (FERGON) 324 MG tablet Take 1 tablet (324 mg total) by mouth every other day. Active fluticasone-luis meterol (ADVAIR) 500-50 mcg/inh diskus inhaler Inhale 1 puff 2 (two) times a day. Active lidocaine (LIDODERM) 5 % patch Place 1 patch on the skin daily. Apply patch and leave on for 12 hours then remove. Patch may remain on skin for 12 hours per day. Active oxybutynin (DITROPAN-XL) 5 MG 24 hr tablet Take 1 tablet (5 mg total) by mouth daily. Active tiotropium (SPIRIVA RESPIMAT) 2.5 MCG/ACT inhaler Inhale 2 puffs (5 mcg total) daily. Active Active Problems Problem Noted Date Diagnosed Date Epilepsy 03/10/2024 Overview (03/10/2024): Jun 21, 2001 Entered By: HILDA SENIOR Comment: seizure freeMar 14, 2002 Entered By: HILDA SEINOR Comment: we got a note from his [...] (10/05/2017): Added automatically from request for surgery [id number] AAA (abdominal aortic aneurysm) without rupture 04/23/2017 Social History Tobacco Use Types Packs/Day Years Used Date Smoking Tobacco: Former Smokeless Tobacco: Never Comments:quit 1994 Alcohol Use Standard Drinks/Week Comments Yes 0 (1 standard drink = 0.6 oz pur e alcohol) 1x/month [facility] Utilities Answer Date Recorded In the past 12 months has [employer], [employer], oil, or water [employer] threatened to shut off services in your home? No 03/09/2024 AUDIT-C Answer Date Recorded Q1: How often do you have a drink containing alcohol? Never 03/08/2024 Q2: How many drinks containi ng alcohol do you have on a typical day when you are drinking? Patient does not drink Q3: How often do you have si x or more drinks on one occasion? Never 03/08/2024 Overall Financial Resource Strain (CARDIA) Answe r Date Recorded How hard is it for you to pa y for the very basics like food, housing, medical care, and heating? Not hard at all 03/09/2024 Hunger Vital Sign Answer Date Recorded Within the past 12 months, y ou worried that your food would run out before you got the money to buy more. Never true 03/09/20 24 Within the past 12 months, t he food you bought just didn't last and you didn't have money to get more. Never true 03/09/2024 PRAPARE - Transportation Answer Date Re corded In the past 12 months, has l ack of transportation kept you from medical appointments or from getting medications? No 11/2023 In the past 12 months, has l ack of transportation kept you from meetings, work, or from getting things needed for daily living? No 03/09/2024 Housing Stability Vital Sign Answer Mark e Recorded In the last 12 months, was t here a time when you were not able to pay the mortgage or rent on time? No 03/09/2024 In the last 12 months, how many places have you lived? 1 03/09/2024 In the last 12 months, was t here a time when you did not have a steady place to sleep or slept in a half-way (including now)? No 03/09/2024 Sex and Gender Information Value Date Recorded Sex Assigned at Male 03/10/2024 1:33 PM EDT Legal Sex Male 12:26 PM EST Gender Identity Not on file Sexual Orientation Not on file Last Filed Vital Signs Vital Sign Reading Time Taken Comments Blood Pressure 125/70 03/10/2024 3:00 PM EDT Pulse 78 03/10/2024 3:00 PM EDT Temperature 36.8 ??C (98.3 ??F) 03/10/2024 3:00 PM ED T Respiratory Rate 18 03/10/2024 3:00 PM EDT Oxygen Saturation 92% 03/10/2024 3:00 PM EDT Inhaled Oxygen Concentration - - Weight 86.6 kg (191 lb) 03/09/2024 6:00 AM EDT Height 175.3 cm (5' 9 ) 03/08/2024 5:57 AM EDT Body Mass Index 28.21 03/08/2024 5:57 AM EDT Plan of Treatment Health Maintenance Due Date Last Done Comments Hepatitis C Virus Screening 1945 Foot Exam 11/10/1955 Lipid Panel 11/10/1955 Ophthalmology Exam 11/10/1955 DTaP/Tdap/Td Vaccines (1 - Tdap) 1964 Pneumococcal Vaccines 50+ (1 of 2 - PCV) 1964 Zoster (Shingles) Vaccine (1 of 2) 1964 Hemoglobin A1C 05/14/2020 11/13/2019, 10/0 06/2018, 12/23/2018 RSV Vaccine 60 years and older and Patients (1 - 1-dose 75+ series) 2020 Microalbumin/Creatinine Ratio Urine 12/07/2023 12/06/2022, 11/13/2019, 09/20/2018 COVID-19 Vaccine (5 - Moderna risk season) 2024 03/03/2024, 12/16/2021, 07/28/2020, Additional history exists Influenza Vaccine 01/02/2025 03/03/2024, , 02/16/2022, Additional history exists Creatinine with GFR 03/10/2025 03/10/2024, 03/09/2024, 03/08/2024, Additional history exists Hepatitis B Vaccines Aged Out No long er eligible based on patient's age to complete this topic Medical Devices Implanted Type Area Blindmaker Device Identifier Shelf Expiration Date Model / Serial / Lot Graft Endovascular 10cm 12mm [place] Xcldr Ilc Brch Comp Aaa - [id number] Implanted:Qty: 1 on 04/23/2017 by Enrrique Pérez MD at [facility] [employer] [id number] 02/22/2020 [id number] / [id number] / Description:right common carisa ac Graft Endovascular 7cm 10mm [place] Xcldr Ilc Internal Comp Aaa - [id number] Implanted:Qty: 1 on 04/23/2017 by Enrrique Pérez MD at [facility] Graft [employer] [id number] 02/22/2020 [id number] / [id number] / Description:right internal i liac Graft Endovascular 12cm 26mm 14.5mm 22-23mm 12-13.5mm [place] - [id number] Implanted:Qty: 1 on 04/23/2017 by Enrrique Pérez MD at [facility] Graft [employer] [id number] 12/26/2019 [id number] / [id number] / Description:Left common kyara c Graft Endovascular 10cm 27mm 21.5-25mm Xcldr Contra Leg - [id number] Implanted:Qty: 1 on 04/23/2017 by Enrrique Pérez MD at [facility] Graft [employer] [id number] 01/20/2019 [id number] / [id number] / Description:Bridge right con tralateral limb Graft Endovascular 9.5cm 18mm 14.5-16.5mm Xcldr Contra Leg - [id number] Implanted:Qty: 1 on 04/23/2017 by Enrrique Pérez MD at [facility] [employer] [id number] 11/22/2019 [id number] / [id number] 00 / Description:extension left c ommon iliac Graft Endovascular 7cm 14.5mm 12fr 12-13.5mm Xcldr Ilium - [id number] Implanted:Qty: 1 on 04/23/2017 by Enrrique Pérez MD at [facility] [employer] [id number] 12/26/2019 [id number] / [id number] / Description:left common kyara c Procedures Procedure Name Priority Date/Time Associated Diagnosis Comments BASIC METABOLIC PANEL Routine 03/10/2024 6:36 AM EDT from Last 3 Months or Most Recently Relevant to Health Maintenance Results * (ABNORMAL) Basic Metabolic Panel (AM) (03/10/2024 6:36 AM EDT) Pathologist [facility] Glucose 105(H) 65 - 99 mg/dL 03/10/2024 8:17 AM T [facility] Comment:Fasting: <100 mg/dL, Non-Fasting: <200 mg/dL (ADA 2004) Blood Urea Nitrogen (BUN) 31(H) 8 - 21 mg/dL 03/10/2024 8:17 AM T [facility] Creatinine 1.8(H) 0.5 - 1.3 mg/dL 03/10/2024 8:17 AM T [facility] eGFR 38(L) >59 03/10/2024 8:17 AM T [facility] Comment:CKD-EPI (2020) in mL /min/1.73 sq meters. Sodium 138 136 - 145 mmol/L 03/10/2024 8:17 AM EDT [facility] Potassium 3.9 3.4 - 5.3 mmol/L 03/10/2024 8:17 AM EDT [facility] Chloride 103 98 - 107 mmol/L 03/10/2024 8:17 AM EDT [facility] CO2 18(L) 22 - 33 mmol/L 03/10/2024 8:17 AM EDT [facility] Anion Gap 17 7 - 17 03/10/2024 8:17 AM EDT [facility] Calcium 8.8 8.7 - 10.5 mg/dL 03/10/2024 8:17 AM EDT [facility] BUN/Creatinine Ratio 17 10.0 - 25.0 Ratio 03/10/2024 8:17 AM EDT [facility] Blood (Plasma/Serum) 03/10/2024 6:36 AM EDT 03/10/2024 7:14 AM EDT Heather Root APRN LAB BLOOD ORDERABLES [place] [address], [place] [address] from Last 3 Months or Most Recently Relevant to Health Maintenance Insurance [place] [id number] [facility] Advance Directives Documents on File Type Date Recorded Patient Building And Construction Manager Expl anation Advance Directive-Scan 03/11/2024 11:17 AM HEALTH CARE PROXY 07/01/2012 [facility] * DNR (Latest Code Status on File) Date Activated Date Inactivated Comments 03/08/2024 5:57 AM Ok to intubate Question Answer Comments Decision thoroughly discussed with: Patient * Full Code Date Activated Date Inactivated Comments 10/04/2017 8:07 PM 10/12/2017 7:48 AM * Full Code Date Activated Date Inactivated Comments 04/23/2017 3:03 PM 10/04/2017 7:03 PM * Full Code Date Activated Date Inactivated Comments 04/23/2017 9:52 AM 04/23/2017 3:03 PM Care Teams Lathe Setup Operator Relationship Specialty Start Date End Date Alexis Martin MD [address] [place] [address] PCP - General 03/10/24
== END 2024-10-16 15:17 | disposition home or self-care (01) ==
LOC: HO.HPS 13:53
PROVIDERS: PCP Internal Medicine Endocrinology, Diabetes & Metabolism; Visit Provider Internal Medicine
DX: J44.9 Chronic obstructive pulmonary disease, unspecified (principal); J96.90 Respiratory failure, unspecified, unspecified whether with hypoxia or hypercapnia
CPT/HCPCS: 99214

== ENCOUNTER → 2024-10-16 13:52 | Outpatient (BNVA) | payer OTHER, SELFPAY | PROVIDERS: PCP Internal Medicine Endocrinology, Diabetes & Metabolism; Visit Provider Internal Medicine | DX: J44.9 Chronic obstructive pulmonary disease, unspecified (principal); J96.90 Respiratory failure, unspecified, unspecified whether with hypoxia or hypercapnia | CPT/HCPCS: 99212 ==

== ENCOUNTER 2024-10-23 | Outpatient (REF) | payer OTHER, SELFPAY ==
--- NOTE | ~2024-10-23 | XR_ITS ---
CLINICAL HISTORY: J44.9 - Chronic obstructive pulmonary disease, unspecified --- Additional Notes or Special Instructions: F U for Pneumonia Rt.LL. 2 view chest x-ray Comparison: 11/28/2021 Findings: There is interstitial consolidation, possible pneumonia or pulmonary edema. Heart size is normal. No acute fracture. IMPRESSION: 1. Interstitial consolidation, differential considerations noted. This document has been electronically signed by: Jerzy Tiwari MD on 10/24/2024 14:04:55
--- OUTSIDE RECORDS SUMMARY | 2024-12-02 08:09 | XMS_ITS | Encounter Summary ---
Author Organization [facility] Address [address] [place] [address] Care Team Providers Care Clinic Assistant Name Role Phone Zoey Giles DO Primary Care Provider [phone] Jorge Rucker MD Unavailable Unknown Primary Care Provider [phone] Alexis Martin MD Primary Care Provider [phone] Encounter Details Date Type Department Care Team (Late st Contact Info) Description 04/23/2017 Scanned Document [address] [place] [id number] Provider, Generic Social History Tobacco Use [...] on filedocumented in this encounter Care Teams Clinic Assistant Relationship Specialty Start Date End Date Zoey Giles DO [address] [place] [address] PCP - General Genetic Counselor 04/11/17 10/11/17 Unknown Unknow Provider Address PCP - General 10/12/17 03/09/24 Alexis Martin MD [address] [place] [address] PCP - General 03/10/24 Jorge Rucker MD [address] [place] [address] Sql Database Administrator Cardiovascular Disease 04/12/17 4 documented as of this encounter
--- OUTSIDE RECORDS SUMMARY | 2024-12-02 08:09 | XMS_ITS ---
Author Name [facility] Organization Unknown Results Test Name/Text Value Interpretation Date Range Source Magnesium SerPl-mCnc 1.9 mg/dL Normal 03/10/2024 1.6 - 2. 7 [facility] Phosphate SerPl-mCnc 4.9 mg/dL Above high normal 03/10/2024 2.7 - 4.5 H[facility]CT BUN SerPl-mCnc 31.0 mg/dL Above high normal 03/10/2024 8 - 2 1 H[facility]CT BUN/Creat SerPl 17.0 Ratio Normal 03/10/2024 10 - 25 HH CCT Creat SerPl-mCnc 1.8 mg/dL Above high normal 03/10/2024 0.5 - 1.3 H[facility]CT Calcium SerPl-mCnc 8.8 mg/dL Normal 03/10/2024 8.7 - 10.5 HHCCT Sodium SerPl-sCnc 138.0 mmol/L Normal 03/10/2024 136 - 14 5 HHCCT Potassium SerPl-sCnc 3.9 mmol/L Normal 03/10/2024 3.4 - 5 .3 HHCCT CO2 SerPl-sCnc 18.0 mmol/L Below low normal 03/10/2024 22 - 33 H[facility]CT Chloride SerPl-sCnc 103.0 mmol/L Normal 03/10/2024 98 - 1 07 HHCCT Glucose SerPl-mCnc 105.0 mg/dL Above high normal 03/10/2024 65 - 99 HHCCT GFR/BSA.pred SerPlBld [id number] 38.0 Below low normal 03/10/2024 59 - HHCCT Anion Gap Bld-sCnc 17.0 Normal 03/10/2024 7 - 17 H[facility]CT RBC num Bld Auto 4.1 Mil/uL Below low normal 03/10/2024 4.5 - 6.2 HHCCT Imm Granulocytes num Bld Auto 0.1 Thou/uL Normal 03/10/2024 0 - 0.1 HHCCT WBC num Bld Auto 15.2 Thou/uL Above high normal 03/10/2024 4 - 11 H[facility]CT Neutrophils/leuk NFr Bld Auto 83.7 % Normal 03/10/2024 HHCCT Eosinophil num Bld Auto 0.23 Thou/uL Normal 03/10/2024 0 - 0.7 HHCCT Neutrophils num Bld Auto 12.7 Thou/uL Above high normal 03/10/2024 2 - 7.5 HHCCT RDW RBC Auto-Rto 15.7 % Above high normal 03/10/2024 11.5 - 14.5 HHCCT MCHC RBC Auto-mCnc 31.4 g/dL Normal 03/10/2024 30 - 36 H[facility]CT Lymphocytes/leuk NFr Bld Auto 7.2 % Normal 03/10/2024 H[facility]CT Platelet num Bld Auto 444.0 Thou/uL Normal 03/10/2024 150 - 450 H[facility]CT Imm Granulocytes/leuk NFr Bld Auto 0.7 % Normal 03/10/2024 HHCCT Basophils/leuk NFr Bld Auto 0.3 % Normal 03/10/2024 H[facility]CT PMV Bld Auto 9.6 fL Normal 03/10/2024 7.5 - 12.5 HHCCT Hct VFr Bld Auto 35.7 % Below low normal 03/10/2024 39 - 54 HHCCT Hgb Bld-mCnc 11.2 g/dL Below low normal 03/10/2024 13 - 17.7 HHCCT MCH RBC Qn Auto 27.3 pg Normal 03/10/2024 27 - [address] Lymphocytes num Bld Auto 1.09 Thou/uL Below low normal 03/10/2024 1.5 - 4.5 HHCCT Monocytes/leuk NFr Bld Auto 6.6 % Normal 03/10/2024 HHCCT Monocytes num Bld Auto 1.0 Thou/uL Normal 03/10/2024 0.2 - 1.5 HHCCT MCV RBC Auto 87.0 fL Normal 03/10/2024 80 - 100 HHCCT Basophils num Bld Auto 0.04 Thou/uL Normal 03/10/2024 0 - 0.2 HHCCT Eosinophil/leuk NFr Bld Auto 1.5 % Normal 03/10/2024 H[facility]CT Magnesium SerPl-mCnc 1.6 mg/dL Normal 03/09/2024 1.6 - 2. 7 HHCCT Chloride SerPl-sCnc 105.0 mmol/L Normal 03/09/2024 98 - 1 07 HHCCT ALP SerPl-cCnc 123.0 U/L Normal 03/09/2024 45 - 128 HHCC T Albumin SerPl-mCnc 2.7 g/dL Below low normal 03/09/2024 3.4 - 4.8 HHCCT Bilirub SerPl-mCnc 0.4 mg/dL Normal 03/09/2024 0.2 - 1 HHCCT AST SerPl-cCnc 35.0 U/L Normal 03/09/2024 10 - 55 [facility] T CO2 SerPl-sCnc 20.0 mmol/L Below low normal 03/09/2024 22 - 33 HHCCT Glucose SerPl-mCnc 111.0 mg/dL Above high normal 03/09/2024 65 - 99 HHCCT BUN SerPl-mCnc 35.0 mg/dL Above high normal 03/09/2024 8 - 2 1 HHCCT Sodium SerPl-sCnc 139.0 mmol/L Normal 03/09/2024 136 - 14 5 HHCCT BUN/Creat SerPl 18.0 Ratio Normal 03/09/2024 10 - 25 HH CCT Globulin Ser Calc-mCnc 4.6 g/dL Above high normal 03/09/2024 1.5 - 3.9 HHCCT Calcium SerPl-mCnc 8.5 mg/dL Below low normal 03/09/2024 8.7 - 10.5 HHCCT Prot SerPl-mCnc 7.3 g/dL Normal 03/09/2024 6.3 - 8.[address] ALT SerPl-cCnc 54.0 U/L Normal 03/09/2024 10 - 55 HHCC T Anion Gap Bld-sCnc 14.0 Normal 03/09/2024 7 - 17 HHCCT GFR/BSA.pred SerPlBld [id number] 36.0 Below low normal 03/09/2024 59 - HHCCT Creat SerPl-mCnc 1.9 mg/dL Above high normal 03/09/2024 0.5 - 1.3 HHCCT Albumin/Glob SerPl 0.6 Ratio Below low normal 03/09/2024 1 - 3 HHCCT Potassium SerPl-sCnc 3.8 mmol/L Normal 03/09/2024 3.4 - 5 .3 HHCCT MCV RBC Auto 88.0 fL Normal 03/09/2024 80 - 100 HHCCT RBC num Bld Auto 3.99 Mil/uL Below low normal 03/09/2024 4.5 - 6.2 HHCCT Hgb Bld-mCnc 10.8 g/dL Below low normal 03/09/2024 13 - 17.7 HHCCT MCHC RBC Auto-mCnc 30.9 g/dL Normal 03/09/2024 30 - 36 HHCCT MCH RBC Qn Auto 27.1 pg Normal 03/09/2024 27 - [address] PMV Bld Auto 9.2 fL Normal 03/09/2024 7.5 - 12.5 HHCCT Hct VFr Bld Auto 35.0 % Below low normal 03/09/2024 39 - 54 HHCCT RDW RBC Auto-Rto 15.9 % Above high normal 03/09/2024 11.5 - 14.5 HHCCT WBC num Bld Auto 15.9 Thou/uL Above high normal 03/09/2024 4 - 11 H[facility]CT Platelet num Bld Auto 454.0 Thou/uL Above high normal 03/09/2024 150 - 450 H[facility]CT L pneumo Ag Spec Ql Presumptive Negative Normal 03/10/2024 - HHCCT S pneum Ag Ur Ql Presumptive Negative Normal 03/10/2024 - HHCCT Albumin SerPl-mCnc 2.8 g/dL Below low normal 03/08/2024 3.4 - 4.8 HHCCT AST SerPl-cCnc 37.0 U/L Normal 03/08/2024 10 - 55 HHCC T Bilirub Direct SerPl-mCnc <0.2 mg/dL Normal 03/08/2024 0 - 0.2 HHCCT ALT SerPl-cCnc 71.0 U/L Above high normal 03/08/2024 10 - 5 5 HHCCT Albumin/Glob SerPl 0.6 Ratio Below low normal 03/08/2024 1 - 3 HHCCT ALP SerPl-cCnc 134.0 U/L Above high normal 03/08/2024 45 - 1 28 HHCCT Bilirub SerPl-mCnc 0.4 mg/dL Normal 03/08/2024 0.2 - 1 H[facility]CT Globulin Ser Calc-mCnc 4.9 g/dL Above high normal 03/08/2024 1.5 - 3.9 HHCCT Prot SerPl-mCnc 7.7 g/dL Normal 03/08/2024 6.3 - 8.[address] Lactate SerPl-sCnc 0.9 mmol/L Normal 03/08/2024 0.5 - 1.9 HHCCT INR PPP 1.2 Normal 03/08/2024 HHCCT Prothrombin time 14.1 seconds Above high normal 03/08/2024 1 0 - 13.5 HHCCT Anticoagulant NO ANTI COAGULANT MEDS Normal 03/08/2024 HHCCT RBC num/area UrnS HPF 4.0 per hpf Normal 03/08/2024 0 - 4 HHCCT WBC num/area UrnS HPF >25.0 per hpf Above high normal 03/08/2024 0 - 4 HHCCT Bilirub Ur Strip-mCnc Negative Normal 03/08/2024 - HHCCT Hgb Ur Ql Strip Negative Normal 03/08/2024 - C CT Sp Gr Ur Strip 1.016 Normal 03/08/2024 1.003 - 1.03 HHCCT Color Ur Yellow Normal 03/08/2024 HHCCT Glucose Ur Strip-mCnc Negative Normal 03/08/2024 - HHCCT pH Ur Strip 6.0 Normal 03/08/2024 5 - 8 HHCCT Ketones Ur Strip-mCnc Negative Normal 03/08/2024 - HHCCT Clarity Ur Clear Normal 03/08/2024 HHCCT Nitrite Ur Ql Strip Negative Normal 03/08/2024 - HHCCT Prot Ur Strip-mCnc Moderate (100 mg/dL) Abnormal 03/08/2024 - HHCCT Leukocyte esterase Ur Ql Strip Moderate Abnormal 03/08/2024 - HHCCT Magnesium SerPl-mCnc 1.7 mg/dL Normal 03/08/2024 1.6 - 2. 7 HHCCT BUN SerPl-mCnc 42.0 mg/dL Above high normal 03/08/2024 8 - 2 1 H[facility]CT Chloride SerPl-sCnc 104.0 mmol/L Normal 03/08/2024 98 - 1 07 H[facility]CT BUN/Creat SerPl 21.0 Ratio Normal 03/08/2024 10 - 25 HH CCT Glucose SerPl-mCnc 120.0 mg/dL Above high normal 03/08/2024 65 - 99 HHCCT GFR/BSA.pred SerPlBld [id number] 34.0 Below low normal 03/08/2024 59 - HHCCT CO2 SerPl-sCnc 18.0 mmol/L Below low normal 03/08/2024 22 - 33 HHCCT Creat SerPl-mCnc 2.0 mg/dL Above high normal 03/08/2024 0.5 - 1.3 HHCCT Anion Gap Bld-sCnc 15.0 Normal 03/08/2024 7 - 17 HHCCT Potassium SerPl-sCnc 4.3 mmol/L Normal 03/08/2024 3.4 - 5 .3 HHCCT Calcium SerPl-mCnc 8.7 mg/dL Normal 03/08/2024 8.7 - 10.5 HHCCT Sodium SerPl-sCnc 137.0 mmol/L Normal 03/08/2024 136 - 14 5 HHCCT Eosinophil/leuk NFr Bld Auto 1.7 % Normal 03/08/2024 HHCCT PMV Bld Auto 8.9 fL Normal 03/08/2024 7.5 - 12.5 HHCCT Monocytes/leuk NFr Bld Auto 6.0 % Normal 03/08/2024 HHCCT Imm Granulocytes/leuk NFr Bld Auto 1.2 % Normal 03/08/2024 HHCCT MCH RBC Qn Auto 27.1 pg Normal 03/08/2024 27 - [address] MCV RBC Auto 85.0 fL Normal 03/08/2024 80 - 100 HHCCT Lymphocytes/leuk NFr Bld Auto 5.1 % Normal 03/08/2024 HHCCT Imm Granulocytes num Bld Auto 0.22 Thou/uL Above high normal 03/08/2024 0 - 0.1 HHCCT MCHC RBC Auto-mCnc 31.8 g/dL Normal 03/08/2024 30 - 36 HHCCT WBC num Bld Auto 18.1 Thou/uL Above high normal 03/08/2024 4 - 11 HHCCT Neutrophils/leuk NFr Bld Auto 85.7 % Normal 03/08/2024 HHCCT Monocytes num Bld Auto 1.08 Thou/uL Normal 03/08/2024 0.2 - 1.5 HHCCT Basophils/leuk NFr Bld Auto 0.3 % Normal 03/08/2024 HHCCT Hct VFr Bld Auto 34.9 % Below low normal 03/08/2024 39 - 54 HHCCT Basophils num Bld Auto 0.05 Thou/uL Normal 03/08/2024 0 - 0.2 HHCCT Neutrophils num Bld Auto 15.55 Thou/uL Above high normal 03/08/2024 2 - 7.5 HHCCT Eosinophil num Bld Auto 0.31 Thou/uL Normal 03/08/2024 0 - 0.7 HHCCT RBC num Bld Auto 4.09 Mil/uL Below low normal 03/08/2024 4.5 - 6.2 HHCCT RDW RBC Auto-Rto 16.2 % Above high normal 03/08/2024 11.5 - 14.5 HHCCT Platelet num Bld Auto 520.0 Thou/uL Above high normal 03/08/2024 150 - 450 HHCCT Hgb Bld-mCnc 11.1 g/dL Below low normal 03/08/2024 13 - 17.7 HHCCT Lymphocytes num Bld Auto 0.92 Thou/uL Below low normal 03/08/2024 1.5 - 4.5 HHCCT Encounters Encounter Type Encounter Reason Primary Diagnosis Location Date Inpatient Hydronephrosis with renal and ureteral calculous obstruction Hydronephrosis with renal and ureteral calculous obstruction DNA Response 03/08/2024 Care Team Organization Name Specialty Phone Email Start Date End Da loretta DNA Response 03/09/2024 08/20/2024 DNA Response 03/08/2024
== END 2024-10-23 00:01 | disposition home or self-care (01) ==
LOC: HO.XRAY
PROVIDERS: PCP Nurse Practitioner Family; Visit Provider Internal Medicine
DX: J44.9 Chronic obstructive pulmonary disease, unspecified (principal); J18.9 Pneumonia, unspecified organism
CPT/HCPCS: 71046

== ENCOUNTER → 2024-10-23 11:56 | Outpatient (BNV) | payer OTHER, SELFPAY | PROVIDERS: PCP Nurse Practitioner Family; Visit Provider Specialist | DX: R91.8 Other nonspecific abnormal finding of lung field (principal) | CPT/HCPCS: 71046 ==

== ENCOUNTER 2024-11-17 14:32 | Outpatient (AMB) | payer OTHER, SELFPAY ==
[2024-11-17 14:43] VITALS: BP 100/50; PULSE 87; O2SAT 92
--- NOTE | 2024-11-17 14:43 | MHC.OFFVIS ---
Vital Signs 11/17/24 14:43 Height 5 ft 9 in BP 100/50 L Blood Pressure Location Lt brachial Position Sitting Pulse 87 Pulse Source Pulse Oximeter Pulse Oximetry (%) 92 Oxygen Delivery Method Nasal Cannula Oxygen Flow Rate 2 Intake Visit Reasons: COPD Intake Note: pt is here for hospital follow up, and states he cannot move around, he cannot breath. 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 Allergies levofloxacin [From Levaquin] Allergy (Severe, Verified 11/18/24 09:07) Anaphylaxis Medication List - Last Reconciled 11/18/24 by Anastasiya Henderson MD albuterol sulfate 90 mcg/actuation 2 puffs PO Q4H PRN aspirin 81 mg PO DAILY digoxin 125 mcg PO DAILY duloxetine 30 mg PO DAILY escitalopram oxalate 20 mg PO DAILY ferrous sulfate 324 mg PO DAILY fluticasone propion-salmeterol 250-50 mcg/dose (Wixela Inhub) 1 inh inhalation BID furosemide 20 mg PO DAILY gabapentin 600 mg PO BEDTIME guaifenesin ER 600 mg PO BID Lactobacillus rhamnosus GG 1 cap PO DAILY lorazepam 0.5 mg PO BID PRN 30 days morphine 15 mg PO BID PRN oxybutynin chloride 5 mg PO DAILY prednisone 20 mg PO BID prednisone 5 mg PO DAILY 30 days rosuvastatin 20 mg PO DAILY sacubitril-valsartan 24-26 mg (Entresto) 1 tab PO BID spironolactone 25 mg PO DAILY tiotropium bromide 2.5 mcg/actuation (Spiriva Respimat) 2 puffs inhalation DAILY 90 days MDD 2 inhilations daily topiramate 50 mg PO BEDTIME Do you need a note to return to daycare/school/sports/work: No HPI HPI COPD: Details: This 79 years old gentleman is a known case of advanced chronic obstructive pulmonary disease in addition to atrial fibrillation and congestive heart failure. He is being treated with maximum medical treatment for his COPD and respiratory failure. His activity level has been very minimal and he has shortness of breath on minimal effort along with frequent bouts of cough. He was admitted at [facility] on 11/05/2024 with increased shortness of breath and chest discomfort. CTA of the chest was negative for pulmonary emboli chronic tree in bud type of findings throughout the lungs with multiple scattered bilateral pulmonary nodules were noted. There was 1 cm consolidation in the left upper lobe. He was treated for acute exacerbation of COPD and also with IV cefepime for possible pneumonia. . Discharged home on 11/13 on his usual meds and with a Medline on the right side to continue injecting IV cefepime which he has just completed. He is still on tapering dose of prednisone currently finishing 10 mg a day. This patient is here for follow-up today. Complains of continued shortness of breath even at rest with frequent bouts of cough. His activity level is greatly reduced. And he is obviously getting quite anxious In the hospital he was also started on MSIR 15 mg to take p.o. b.i.d. for distress. Possibility of going on palliative care has also been discussed. The decision for DNR i.e./DNR has already been made. Today he comes to the office along with his and we did have a very thorough and paula discussion. [facility] Medical History (Updated 11/18/24 @ 09:30 by Anastasiya Henderson MD) Acute anxiety Physical deconditioning Respiratory failure Pneumonia COPD (chronic obstructive pulmonary disease) Social History Patient Tobacco Use Status: Former Tobacco user Review of Systems Const All systems reviewed & are unremarkable except as noted in HPI and below Eyes Reports no additional complaints ENT Reports no additional complaints, Denies nasal congestion and Denies nasal discharge Card Denies chest pain, Denies irregular heart rhythm, Denies leg edema and Reports dyspnea on exertion (MILD) Resp Denies cough, Reports dyspnea on exertion (MILD) and Denies wheezing GI Reports no additional complaints Musc Reports no additional complaints Neuro Reports no additional complaints Psych Reports no additional complaints and Reports depression (MILD UNDER CONTROL.) Endo Reports no additional complaints Peewee/Lymph Reports no additional complaints Aller/Immun Denies wheezing Physical Exam Vital Signs: Last Vital Signs Pulse 87 11/17/24 14:43 BP 100/50 L 11/17/24 14:43 Pulse Ox 92 11/17/24 14:43 Oxygen Delivery Method Nasal Cannula 11/17/24 14:43 Oxygen Flow Rate 2 11/17/24 14:43 Const General: comfortable, no acute distress, alert and awake Orientation/consciousness: patient oriented x3 HEENT Head: Yes normal to inspection General nose exam: No nasal polyps present and No nasal discharge present Face and sinus: Yes sinuses nontender Mouth: oropharynx normal Throat: Yes posterior oropharynx normal Eyes General: appearance normal, both eyes and all related structures Neck Neck: Yes normal visual inspection, Yes no lymphadenopathy, Yes trachea midline and Yes no JVD Thyroid: Thyroid normal Chest Chest palpation & inspection: normal inspection of the chest, normal palpation of entire chest wall and no tenderness Resp Other: Percussion note is resonant, breath sounds are distant with prolonged expiratory phase on both sides. No wheezes a few inspiratory crackles over the right base. Cardio Palpation: normal PMI Rate: regular rate Rhythm: regular rhythm Heart sounds: no gallops and no murmurs GI Palpation (GI): Soft to palpation, nontender, No hepatosplenomegaly present and no masses Auscultation: normal bowel sounds Other: Has nephrostomy tube in the left kidney . For drainage of the urine Back/Spine/Pelvis Thoracic/Lumbar Spine: thoracic and lumbar spine normal to inspection Skin General skin exam: no rashes or lesions noted Neuro General: patient oriented x3 and no focal motor deficits Cranial nerves: Yes CN's II-XII intact bilaterally Extrem General: Yes normal to inspection, Yes no clubbing, cyanosis or edema, Yes no calf tenderness and No venous stasis dermatitis Psych Appearance: grossly normal Speech and movement: Normal speech and movement present Results Reviewed Results Reviewed: Reviewed the discharge summary content from [facility]. Reviewed his current list of medications Reviewed findings of his CTA Assessment & Plan Assessment & Plan (1) Physical deconditioning: Comment: Patient has been debilitated for quite a while . Now after the hospitalization he is severely deconditioned, he is staying mostly in the wheelchair or a recliner. He is not able to ambulate by himself. Code(s): R53.81 - Other malaise Category: Medical Plan: I had a good discussion and offered him possibilities such as placement to a rehab place, home VNA with physical therapy. He also needs ongoing pulmonary rehab program. At this time he is not willing to consider placement to a rehab facility . (2) Acute anxiety: Comment: Because of his advanced lung disease/cardiac issue with congestive heart failure, and now having marked generalized deconditioning even after the hospitalization, He is very anxious , which increases his shortness of breath. At the time of discharge he has been given a prescription for MS IR 15 mg to use b.i.d. p.r.n. Code(s): F41.9 - Anxiety disorder, unspecified Category: Medical Plan: I discussed with him at length and told him that some of the increased shortness of breath is due to his anxiety. And I have written a prescription for lorazepam 0.5 mg to use b.i.d. to alleviate his anxiety. (3) COPD (chronic obstructive pulmonary disease): Comment: He has a severe degree of chronic obstructive pulmonary disease , had been controlled and stable controlled but it has somewhat worsened after the recent hospitalization. Code(s): J44.9 - Chronic obstructive pulmonary disease, unspecified Category: Medical Plan: PLAN : Advised to continue the present treatment including : Wixela 250-51 inhalation b.i.d. Spiriva Respimat 2.5 mg 2 inhalations daily, albuterol HFA 2 puffs Q 6 hours p.r.n.. Complete the prednisone taper, and after that stay on 5 mg p.o. daily for at least 3-4 weeks. Advised to do deep breathing exercises with pursed lip technique 3 times a day (4) Pneumonia: Comment: During his current hospitalization he was found to have 1 cm consolidation in the left upper lobe, Has been treated with IV cefepime, which he is now completing at home for next 3 days. Code(s): J18.9 - Pneumonia, unspecified organism Category: Medical Plan: Complete the course of cefepime, then the midline can be removed. (5) Respiratory failure: Comment: This gentleman suffers from chronic hypoxemic respiratory failure, and has already been started on oxygen therapy. Code(s): J96.90 - Respiratory failure, unspecified, unspecified whether with hypoxia or hypercapnia Category: Medical Plan: He is advised to continue 2 L/minute. Was questioning about. O2 conserving unit I told him that at this point that he is not walking around , there is no need of checking him for use of POC. As he recovers and becomes more ambulatory we will check him for that. Medications: New lorazepam 0.5 mg PO BID PRN 60 tabs 1RF anxiety/RESPIRATORY FAILURE 30 days prednisone 5 mg PO DAILY 30 tabs 1RF copd 30 days Changed From prednisone 20 mg PO BID 14 tabs 0RF copd excerbation 7 days To prednisone on taper from CHD 20 mg PO BID Coding Level of Care Code Est Pt Level 4 (55115) Diagnoses Physical deconditioning R53.81 Acute anxiety F41.9 COPD (chronic obstructive pulmonary disease) J44.9 Pneumonia J18.9 Respiratory failure J96.90
--- OUTSIDE RECORDS SUMMARY | 2024-11-17 16:15 | XMS_ITS | Encounter Summary ---
Author Organization [facility] Address [address] [place] [address] Care Team Providers Care Pipe Racker Name Role Phone Zoey Giles DO Primary Care Provider [phone] Jorge Rucker MD Unavailable Unknown Primary Care Provider [phone] Alexis Martin MD Primary Care Provider [phone] Encounter Details Date Type Department Care Team (Late st Contact Info) Description 04/23/2017 Scanned Document [address] [place] [id number] Provider, Generic Social History Tobacco Use [...] on filedocumented in this encounter Care Teams Pipe Racker Relationship Specialty Start Date End Date Zoey Giles DO [address] [place] [address] PCP - General Genetic Counselor 04/11/17 10/11/17 Unknown Unknow Provider Address PCP - General 10/12/17 03/09/24 Alexis Martin MD [address] [place] [address] PCP - General 03/10/24 Jorge Rucker MD [address] [place] [address] Medical Resident Cardiovascular Disease 04/12/17 4 documented as of this encounter
== END 2024-11-17 15:30 | disposition home or self-care (01) ==
LOC: HO.HPS 14:33
PROVIDERS: PCP Nurse Practitioner Family; Visit Provider Internal Medicine
DX: R53.81 Other malaise (principal); F41.9 Anxiety disorder, unspecified; J44.9 Chronic obstructive pulmonary disease, unspecified; J18.9 Pneumonia, unspecified organism; J96.90 Respiratory failure, unspecified, unspecified whether with hypoxia or hypercapnia
CPT/HCPCS: 99214

== ENCOUNTER → 2024-11-17 14:32 | Outpatient (BNVA) | payer OTHER, SELFPAY | PROVIDERS: PCP Nurse Practitioner Family; Visit Provider Internal Medicine | DX: J96.90 Respiratory failure, unspecified, unspecified whether with hypoxia or hypercapnia (principal); I48.91 Unspecified atrial fibrillation; R53.81 Other malaise; F41.9 Anxiety disorder, unspecified; J44.9 Chronic obstructive pulmonary disease, unspecified; J18.9 Pneumonia, unspecified organism; I50.9 Heart failure, unspecified | CPT/HCPCS: 99212 ==

== ENCOUNTER 2024-11-17 16:53 | Outpatient (REF) | payer OTHER, SELFPAY ==
[2024-11-17 16:55] LABS: MANUAL DIFF FLAG NO
[2024-11-17 17:16] LABS: Basophils Absolute Auto 0.1 X10*3/uL (0.0-0.2); Basophils Percent Auto 0.3 % (0-2); Eosinophils Absolute Auto 0.1 X10*3/uL (0.0-0.4); Eosinophils Percent Auto 0.6 % (0-4); Hematocrit 40.5 % (42.0-52.0); Hemoglobin 12.8 g/dl (14.0-18.0); Imm Gran Abs Auto 0.19 X10*3/uL (0.00-0.03); Lymphocytes Absolute Auto 0.7 X10*3/uL (1.2-4.9); Lymphocytes Percent Auto 3.5 % (20-40); Mean Corpuscular HGB Conc 31.6 g/dl (31.0-36.0); Mean Corpuscular Hemoglobin 26.7 pg (27.0-33.0); Mean Corpuscular Volume 84.6 fL (80.0-98.0); Mean Platelet Volume 10.4 fL (9.4-12.4); Monocytes Absolute Auto 0.9 X10*3/uL (0.1-1.2); Monocytes Percent Auto 4.8 % (2-11); Neutrophils Absolute Auto 17.3 x10*3/uL (2.0-8.3); Neutrophils Percent Auto 89.8 % (45-73); Platelet Count 372 X10*3/uL (160-400); Red Blood Count 4.79 X10*6/uL (4.60-5.80); Red Cell Distribution Width 16.4 % (11.0-16.0); White Blood Count 19.3 X10*3/uL (4.8-10.8)
[2024-11-17 17:45] LABS: Anion Gap 15 (12-20); Blood Urea Nitrogen 48 mg/dL (9-16); Calcium 8.8 mg/dL (8.4-10.2); Carbon Dioxide 24 mmol/L (22-29); Chloride 101 mmol/L (96-108); Estimated Glomerular Filt Rate 43; Glucose Random 319 mg/dL (60-115); Potassium 5.1 mmol/L (3.3-5.1); Sodium 135 mmol/L (135-145)
== END 2024-11-17 16:54 | disposition home or self-care (01) ==
LOC: HO.LNP 16:53
PROVIDERS: Visit Provider Internal Medicine
DX: J18.9 Pneumonia, unspecified organism (principal)
CPT/HCPCS: 80048; 85025

== ENCOUNTER 2024-11-30 23:43 | Inpatient (IN) | payer OTHER, SELFPAY ==
--- NOTE | ~2024-11-30 | XR_ITS ---
CLINICAL HISTORY: shortness of breath, COPD 1 view chest x-ray Comparison: CR/SR - XR CHEST 2V - 10/23/24 12:08 EDT Findings: Lungs are well inflated. Cardiac silhouette is within normal limits. Interval progression of nodular interstitial prominence within the perihilar and basilar regions bilaterally. Question trace left pleural effusion. No pneumothorax. Degenerative change of both shoulder joints. IMPRESSION: Interval progression of nodular interstitial prominence within the lungs. This can be seen with worsening edema or multifocal pneumonitis. This document has been electronically signed by: Joaquín Ng MD on 12/01/2024 06:08:46
[2024-12-01] VITALS (17 sets, daily range): BP systolic 104–157; BP diastolic 52–83; PULSE 68–116; RESP 10–28; TEMP 36.4–37.2; O2SAT 3–94; BMI 24.0; BMI 25.7
--- NOTE | 2024-12-01 | ECG_ITS ---
Test Reason : weakness Blood Pressure : */* mmHG Vent. Rate : 110 BPM Atrial Rate : 110 BPM P-R Int : 176 ms QRS Dur : 110 ms QT Int : 346 ms P-R-T Axes : * -41 -43 degrees QTcB Int : 468 ms Sinus tachycardia with occasional Premature ventricular complexes Left axis deviation Low voltage QRS Abnormal ECG When compared with ECG of 22-Nov-2017 12:10, Premature ventricular complexes are now Present Premature atrial complexes are no longer Present QRS axis Shifted left Nonspecific T wave abnormality now evident in Inferior leads Referred By: Zoey Ibrahim Electronically Signed By: KUN HENSON MD
[2024-12-01 00:38] LABS: MANUAL DIFF FLAG NO
[2024-12-01 00:43] LABS: Hematocrit 35.2 % (42.0-52.0); Hemoglobin 11.6 g/dl (14.0-18.0); Imm Gran Abs Auto 0.05 X10*3/uL (0.00-0.03); Imm Gran Pct Auto 0.4 % (0.0-0.4); Lymphocytes Absolute Auto 1.1 X10*3/uL (1.2-4.9); Mean Corpuscular HGB Conc 33.0 g/dl (31.0-36.0); Mean Corpuscular Hemoglobin 27.2 pg (27.0-33.0); Mean Corpuscular Volume 82.6 fL (80.0-98.0); NRBC Abs Auto 0.000 X10*3/uL (0.0-0.012); NRBC Pct Auto 0.0 /100WBC (0.0-0.2); Platelet Count 350 X10*3/uL (160-400); Red Blood Count 4.26 X10*6/uL (4.60-5.80); White Blood Count 12.8 X10*3/uL (4.8-10.8)
[2024-12-01 00:58] LABS: Alanine Aminotransferase 40 U/L (0-40); Albumin Level 3.6 g/dL (3.5-5.0); Alkaline Phosphatase 71 U/L (39-117); Anion Gap 15 (12-20); Aspartate Amino Transferase 44 U/L (5-37); Blood Urea Nitrogen 48 mg/dL (9-16); Calcium 9.0 mg/dL (8.4-10.2); Carbon Dioxide 24 mmol/L (22-29); Chloride 104 mmol/L (96-108); Creatinine Clr Calc Pharmacy 47.1; Estimated Glomerular Filt Rate 57; Potassium 4.0 mmol/L (3.3-5.1); Sodium 139 mmol/L (135-145); Total Protein 7.2 g/dL (6.5-8.0)
--- NOTE | 2024-12-01 03:29 | ED.GENADULT ---
HPI - General Adult General Chief complaint: Dizziness Stated complaint: Dizzy/ insomnia/ med check hx:COPD 2 L O2 Time Seen by Provider: 12/01/24 03:29 History of Present Illness ED Provider: Jayna DUMONT narrative: The patient is a 79-year-old male with a COPD who says that he has been admitted to [facility] 3 times in the last couple of months. His most recent hospitalization was from November 06 to 11/13/2024. During that hospitalization he had a sputum culture positive for Pseudomonas. He was treated with IV cefepime. He was discharged on November 13 to complete additional outpatient IV cefepime at home through a midline. The cefepime ended on 11/18 I believe. The patient followed up with a his portuguese tutor, Dr. Henderson, on 11/17. During the hospitalization at [facility] there was also a CT pulmonary angiogram that was negative for pulmonary embolism. There were findings of a tree-in-bud pattern. The patient says that he might have felt somewhat better after hospitalization but not significantly better. He says that his requirement for home oxygen is recent. He says he has not been on home oxygen for a long time. He says that not long after his IV antibiotics finished he started to feel as if he was getting weaker and more fatigued and more short of breath and having increasing difficulty sleeping and breathing. He called an ambulance tonight because he felt he was going to have another very bad night. No definite fevers. No abdominal pain, nausea, vomiting. No chest pain. No pain or swelling in his legs. Related Data Home Medications ?Medication ?Instructions ?Recorded ?Confirmed aspirin 81 mg tablet,delayed 81 mg PO DAILY 04/21/20 11/18/24 release escitalopram oxalate 20 mg tablet 20 mg PO DAILY 04/21/20 11/18/24 topiramate 50 mg tablet 50 mg PO BEDTIME 04/21/20 11/18/24 fluticasone 250 mcg-salmeterol 50 1 inh inhalation BID 11/28/21 11/18/24 mcg/dose blistr powdr for inhalation (Wixela Inhub) rosuvastatin 40 mg tablet 20 mg PO DAILY 01/05/22 11/18/24 gabapentin 100 mg capsule 600 mg PO BEDTIME 11/28/23 11/18/24 duloxetine 30 mg capsule,delayed 30 mg PO DAILY 10/16/24 11/18/24 release ferrous sulfate 324 mg (65 mg 324 mg PO DAILY 10/16/24 11/18/24 iron) tablet,delayed release oxybutynin chloride 5 mg tablet 5 mg PO DAILY 10/16/24 11/18/24 sacubitril 24 mg-valsartan 26 mg 1 tab PO BID 10/16/24 11/18/24 tablet (Entresto) Lactobacillus rhamnosus GG 10 1 cap PO DAILY 11/17/24 11/18/24 billion cell capsule digoxin 125 mcg (0.125 mg) tablet 125 mcg PO DAILY 11/17/24 11/18/24 furosemide 20 mg tablet 20 mg PO DAILY 11/17/24 11/18/24 guaifenesin 600 mg tablet, 600 mg PO BID 11/17/24 11/18/24 extended release 12 hr morphine 15 mg immediate release 15 mg PO BID PRN 11/17/24 11/18/24 tablet prednisone 20 mg tablet 20 mg PO BID copd excerbation 11/17/24 11/18/24 spironolactone 25 mg tablet 25 mg PO DAILY 11/17/24 11/18/24 Previous Rx's ?Medication ?Instructions ?Recorded albuterol sulfate 90 mcg/actuation 2 puff PO Q4H PRN shortness of 07/09/20 aerosol inhaler breath or wheezing #8.5 grams tiotropium bromide 2.5 2 puff inhalation DAILY copd 90 07/18/24 mcg/actuation mist for inhalation days #4 grams (Spiriva Respimat) lorazepam 0.5 mg tablet 0.5 mg PO BID PRN 11/17/24 anxiety/RESPIRATORY FAILURE 30 days #60 tabs prednisone 5 mg tablet 5 mg PO DAILY copd 30 days #30 tabs 11/17/24 furosemide 20 mg tablet (Lasix) 20 mg PO QAM CHF 30 days #30 tabs 11/20/24 Allergies Allergy/AdvReac Type Severity Reaction Status Date / Time levofloxacin (From Levaquin) Allergy Severe Anaphylaxis Verified 12/01/24 00:08 atorvastatin Allergy Unknown Verified 12/01/24 00:08 carvedilol Allergy Unknown Verified 12/01/24 00:39 ketorolac (From Toradol) Allergy Unknown Verified 12/01/24 00:39 lisinopril Allergy Unknown Verified 12/01/24 00:39 semaglutide Allergy Unknown Verified 12/01/24 00:39 Review of Systems Review of Systems: Yes all other systems are reviewed and are negative ON LICENSE OF [facility] Past Medical History Medical History (Updated 12/01/24 @ 06:52 by Zoey Ibrahim PA-C) Type 2 diabetes mellitus without complications CAD (coronary artery disease) Acute anxiety Physical deconditioning Respiratory failure Pneumonia COPD (chronic obstructive pulmonary disease) Surgical History (Updated 12/01/24 @ 06:51 by Zoey Ibrahim PA-C) H/O heart artery stent Social History Social History Patient Tobacco Use Status: Former Tobacco user Smoked in Last 30 Days: No Substance Use Type: Marijuana Advance Directives: No Advance Directives Information Provided: Yes Physical Exam ED Vital Signs: Vital Signs - 24 hr 12/01/24 00:17 12/01/24 00:47 12/01/24 01:47 Temperature 97.6 F Pulse Rate 110 H 105 H 103 H Respiratory Rate 22 H 23 H 21 H Blood Pressure 112/52 L 124/65 119/65 Pulse Oximetry 91 L 91 L 93 Oxygen Delivery Method Nasal Cannula Nasal Cannula Nasal Cannula Oxygen Flow Rate 3 3 3 12/01/24 02:47 12/01/24 04:04 12/01/24 05:20 Temperature Pulse Rate 100 108 H 116 H Respiratory Rate 23 H 27 H Blood Pressure 108/59 L 104/70 Pulse Oximetry 92 93 Oxygen Delivery Method Nasal Cannula Nasal Cannula Oxygen Flow Rate 3 3 12/01/24 06:00 Temperature Pulse Rate 82 Respiratory Rate 28 H Blood Pressure 110/83 Pulse Oximetry 91 L Oxygen Delivery Method Nasal Cannula Oxygen Flow Rate 3 BMI result Body Mass Index 24.0 Const Other: The patient is a chronically ill-appearing 79-year-old on oxygen. He does not appear in obvious distress. He looks chronically ill but not obviously acutely ill. Orientation/consciousness: patient oriented x3 HENMT Other: The face is symmetrical. ?Mucous membranes moist. Eyes Other: Pupils are round equal, conjunctivae are clear, extraocular movements intact Neck Neck: Yes full ROM and Yes no JVD Resp Other: Diminished air entry bilaterally. No paula wheezing or crackles. Cardio Rate: regular rate Rhythm: regular rhythm Heart sounds: S1 normal heart sound present and S2 normal heart sound present GI Other: Abdomen is soft and nontender Skin General skin exam: no rashes or lesions noted Neuro General: patient oriented x3, tone normal, moves all extremities, no focal motor deficits and CN's II-XI intact bilaterally Extrem Other: There is no calf swelling or tenderness. No asymmetry. No peripheral edema. Medications Administered Generic Name Dose Route Start Last Admin Trade Name Freq PRN Reason Stop Dose Admin Sodium Chloride 3 ml 12/01/24 08:00 12/01/24 07:13 0.9 % Sodium Chloride Flush 3 Ml Syringe IVFLUSH Not Given QSHIFT JOSEPHINE Discontinued Medications Generic Name Dose Route Start Last Admin Trade Name Freq PRN Reason Stop Dose Admin Albuterol/Ipratropium 3 ml 12/01/24 03:52 12/01/24 04:04 Albuterol/Iprat 2.5/0.5mg 3 Ml Ampul.Neb INHALE 12/01/24 03:53 3 ml ONCE ONE Administration Azithromycin 500 mg/ Sodium 250 mls @ 125 mls/hr 12/01/24 05:03 12/01/24 06:22 Chloride IV 12/01/24 07:02 125 mls/hr ONCE ONE Administration Cefepime HCl 2 gm in 50 mls @ 100 mls/hr 12/01/24 05:03 12/01/24 06:17 Maxipime IV 12/01/24 05:32 Infused ONCE ONE Infusion Methylprednisolone Sodium Succinate 80 mg 12/01/24 05:03 12/01/24 05:47 Methylprednisolone Sod Succ 125 Mg Vial IVPUSH 12/01/24 05:04 80 mg ONCE ONE Administration Methylprednisolone Sodium Succinate 80 mg 12/01/24 05:40 12/01/24 06:17 Methylprednisolone Sod Succ 125 Mg Vial IVPUSH 12/01/24 05:41 Not Given ONCE ONE Medical Decision Making Medical Decision Making [facility] Narrative: The patient is a 79-year-old male with fairly severe chronic lung disease who has been hospitalized I believe 3 times in the last few months for his lung disease. On his most recent hospitalization he had a sputum culture positive for Pseudomonas and was treated with cefepime. He presents to this hospital frustrated that his symptoms have returned and that despite 3 hospitalizations at [facility] he feels unwell again. He therefore decided to come to this hospital since his portuguese tutor is at this hospital. The patient is not strike me as obviously acutely ill. He seems quite chronically ill. He has diminished breath sounds bilaterally but does not appear in distress. My overall impression is that this is probably another COPD exacerbation and he will be treated with IV steroids, IV antibiotics, and bronchodilators. His lactate is normal. I do not think he is septic. I think hospitalization with the above treatment and for evaluation by his portuguese tutor would be prudent. Lab Data 12/01/24 00:34 12/01/24 00:34 Labs: Lab Results 12/01/24 12/01/24 Range/Units 00:34 05:35 WBC 12.8 H (4.8-10.8) X10*3/uL RBC 4.26 L (4.60-5.80) X10*6/uL Hgb 11.6 L (14.0-18.0) g/dl Hct 35.2 L (42.0-52.0) % MCV 82.6 (80.0-98.0) fL MCH 27.2 (27.0-33.0) pg MCHC 33.0 (31.0-36.0) g/dl RDW 16.3 H (11.0-16.0) % Plt Count 350 (160-400) X10*3/uL MPV 9.4 (9.4-12.4) fL Immature Gran % (Auto) 0.4 (0.0-0.4) % Neut % (Auto) 79.8 H (45-73) % Lymph % (Auto) 8.7 L (20-40) % [place] % (Auto) 8.5 (2-11) % Eos % (Auto) 2.3 (0-4) % Baso % (Auto) 0.3 (0-2) % Lymph # (Auto) 1.1 L (1.2-4.9) X10*3/uL [place] # (Auto) 1.1 (0.1-1.2) X10*3/uL Eos # (Auto) 0.3 (0.0-0.4) X10*3/uL Baso # (Auto) 0.0 (0.0-0.2) X10*3/uL Abs Immat Gran (auto) 0.05 H (0.00-0.03) X10*3/uL Absolute Neuts (auto) 10.2 H (2.0-8.3) x10*3/uL Absolute Nucleated RBC 0.000 (0.0-0.012) X10*3/uL Nucleated RBC % (auto) 0.0 (0.0-0.2) /100WBC D-Dimer High Sensitivty 312 NG/ML Sodium 139 (135-145) mmol/L Potassium 4.0 D (3.3-5.1) mmol/L Chloride 104 (96-108) mmol/L Carbon Dioxide 24 (22-29) mmol/L Anion Gap 15 (12-20) BUN 48 H (9-16) mg/dL Creatinine 1.23 (0.5-1.4) mg/dL Estim Creat Clear Calc 47.1 Estimated GFR 57 Random Glucose 147 H (60-115) mg/dL Lactic Acid 1.1 (0.5-2.0) mmol/L Calcium 9.0 (8.4-10.2) mg/dL Total Bilirubin 0.2 (0.0-1.0) mg/dL AST 44 H (5-37) U/L ALT 40 (0-40) U/L Alkaline Phosphatase 71 (39-117) U/L Troponin I High Sens 24.8 (<3.5-35.0) ng/L C-Reactive Protein 9.48 H (< or = 0.50) mg/dL B-Natriuretic Peptide 88 (<100) pg/mL Total Protein 7.2 (6.5-8.0) g/dL Albumin 3.6 (3.5-5.0) g/dL Digoxin 0.4 L (0.8-2.0) ng/mL Discharge Plan Discharge Clinical Impression: Acute exacerbation of chronic obstructive pulmonary disease, Fatigue Patient Disposition: Admitted As Inpatient
[2024-12-01] MEDS: Albuterol/Iprat 2.5/0.5MG 3 ML AMPUL.NEB INHALE ×4 (04:04→19:27)
[2024-12-01 04:12] LABS: Troponin-I High Sensitivity 24.8 ng/L (<3.5-35.0)
[2024-12-01 04:16] LABS: B Type Natriuretic Peptide 88 pg/mL (<100)
[2024-12-01] MEDS: cefEPime HCl/D5W 2 GM/50 ML PIGGYBACK IV (05:47)
[2024-12-01 05:54] LABS: D Dimer High Sensitivity 312 NG/ML
[2024-12-01 06:00] LABS: Digoxin 0.4 ng/mL (0.8-2.0)
--- NOTE | 2024-12-01 06:24 | PM.IMHP ---
History of Present Illness Date of Service: 12/01/24 Attending physician on admission: Emma Lopez Chief Complaint: dizziness Patient is a 79-year-old male with a past medical history significant for severe COPD with folic hypoxic respiratory failure on 2 L at home, a fib, type 2 diabetes, HFrEF (EF 20% 09/26), CAD/stent (09/26), who presented to the ED due to dizziness and difficulty sleeping. The patient reports 2-3 recent admission secondary to consider hospital for COPD exacerbations with in the past 2-3 months. His most recent hospitalization was from 11/06 through 11/13 with a positive sputum culture for Pseudomonas, treated with cefepime. The patient was discharged with a midline and completed a 10 day couse of cefepime. He has been tapering off of steroids with Dr. Henderson, his assistant drafter. Per notes with Dr Henderson, palliative care has been discussed but it seems the pt is now aware of the severity of his COPD. When he arrived to the ED he has oxygen was increased to 4 L via NC and he was started on methyl prednisone, cefepime, azithromycin and bronchodilators. Labs and vitals are consistent with sepsis due to COPD exacerbation, not severe. Review of Systems Constitutional: Constitutional: Denies body ache(s), Denies chills, Reports fatigue, Denies fever(s) and Denies headache(s) Eyes: Eyes: Denies change in vision and Denies loss of vision ENT: Denies headache(s), Denies nasal congestion and Denies sore throat Cardiovascular: Cardiovascular: Denies chest pain, Denies rapid heart rate, Denies leg edema, Denies lightheadedness and Reports dyspnea Respiratory: Respiratory: Denies cough, Reports dyspnea and Denies wheezing Gastrointestinal: Gastrointestinal: Denies abdominal pain, Denies diarrhea, Denies nausea and Denies vomiting Genitourinary: Genitourinary: Denies dysuria, Denies urinary frequency and Denies urinary urgency Musculoskeletal: Musculoskeletal: Denies myalgias Integumentary/Breasts: Skin/Breast: Denies rash Neurologic: Denies confusion, Denies headache(s) and Denies loss of vision Psychiatric: Psychiatric: Denies confusion Endocrine: Endocrine: Reports fatigue Hematologic/Lymphatic: Hematologic/Lymphatic: Denies easy bleeding and Denies easy bruising Allergic/Immunologic: Allergic/Immunologic: Denies wheezing PMFSH Medical History (Updated 12/01/24 @ 06:52 by Zoey Ibrahim PA-C) Type 2 diabetes mellitus without complications CAD (coronary artery disease) Acute anxiety Physical deconditioning Respiratory failure Pneumonia COPD (chronic obstructive pulmonary disease) Surgical History (Updated 12/01/24 @ 06:51 by Zoey Ibrahim PA-C) H/O heart artery stent Social History Patient Tobacco Use Status: Former Tobacco user Smoked in Last 30 Days: No Substance Use Type: Marijuana Advance Directives: No Advance Directives Information Provided: Yes Narrative: Previous smoker, no alcohol or drug use Meds Allergies Allergy/AdvReac Type Severity Reaction Status Date / Time levofloxacin (From Levaquin) Allergy Severe Anaphylaxis Verified 12/01/24 00:08 atorvastatin Allergy Unknown Verified 12/01/24 00:08 carvedilol Allergy Unknown Verified 12/01/24 00:39 ketorolac (From Toradol) Allergy Unknown Verified 12/01/24 00:39 lisinopril Allergy Unknown Verified 12/01/24 00:39 semaglutide Allergy Unknown Verified 12/01/24 00:39 Active Medications: Current Medications Azithromycin 500 mg/ Sodium (Chloride) 250 mls @ 125 mls/hr IV ONCE ONE Stop: 12/01/24 07:02 Last Admin: 12/01/24 06:22 Dose: 125 mls/hr Home Medications ?Medication ?Instructions ?Recorded ?Confirmed ?Last Taken ?Type aspirin 81 mg tablet,delayed 81 mg PO DAILY 04/21/20 11/18/24 Unknown History release escitalopram oxalate 20 mg tablet 20 mg PO DAILY 04/21/20 11/18/24 Unknown History topiramate 50 mg tablet 50 mg PO BEDTIME 04/21/20 11/18/24 Unknown History fluticasone 250 mcg-salmeterol 50 1 inh inhalation BID 11/28/21 11/18/24 Unknown History mcg/dose blistr powdr for inhalation ([facility] Inhub) rosuvastatin 40 mg tablet 20 mg PO DAILY 01/05/22 11/18/24 Unknown History gabapentin 100 mg capsule 600 mg PO BEDTIME 11/28/23 11/18/24 Unknown History duloxetine 30 mg capsule,delayed 30 mg PO DAILY 10/16/24 11/18/24 Unknown History release ferrous sulfate 324 mg (65 mg 324 mg PO DAILY 10/16/24 11/18/24 Unknown History iron) tablet,delayed release oxybutynin chloride 5 mg tablet 5 mg PO DAILY 10/16/24 11/18/24 Unknown History sacubitril 24 mg-valsartan 26 mg 1 tab PO BID 10/16/24 11/18/24 Unknown History tablet (Entresto) Lactobacillus rhamnosus GG 10 1 cap PO DAILY 11/17/24 11/18/24 Unknown History billion cell capsule digoxin 125 mcg (0.125 mg) tablet 125 mcg PO DAILY 11/17/24 11/18/24 Unknown History furosemide 20 mg tablet 20 mg PO DAILY 11/17/24 11/18/24 Unknown History guaifenesin 600 mg tablet, 600 mg PO BID 11/17/24 11/18/24 Unknown History extended release 12 hr morphine 15 mg immediate release 15 mg PO BID PRN 11/17/24 11/18/24 Unknown History tablet prednisone 20 mg tablet 20 mg PO BID copd excerbation 11/17/24 11/18/24 Unknown History spironolactone 25 mg tablet 25 mg PO DAILY 11/17/24 11/18/24 Unknown History Physical Exam Vital Signs and Narrative: Vital Signs: Last Vital Signs Temp 97.6 F 12/01/24 00:17 Pulse 116 H 12/01/24 05:20 Resp 27 H 12/01/24 05:20 BP 104/70 12/01/24 05:20 Pulse Ox 93 12/01/24 05:20 O2 Del Method Nasal Cannula 12/01/24 05:20 O2 Flow Rate 3 12/01/24 05:20 BMI result Body Mass Index 24.0 General: AOx3, no acute distress Resp: Diminished and rhonchorous throughout, minimal expiratory wheezing, no crackles CVS: mild tachycardia, regular rhythm GI: +BS, NT, no distention Skin: Warm, dry Neuro: Cranial nerves II-XII grossly intact bilaterally. Motor grossly intact bilaterally Extremities: No LE edema Psych: Appropriate affect Const: General: No confusion Orientation/consciousness: No confusion Neuro: General: No confusion Results Labs 12/01/24 00:34 12/01/24 00:34 Labs: Laboratory Results - last 24 hr 12/01/24 12/01/24 00:34 05:35 MCV 82.6 MCH 27.2 MCHC 33.0 RDW 16.3 H Plt Count 350 MPV 9.4 Immature Gran % (Auto) 0.4 Neut % (Auto) 79.8 H Lymph % (Auto) 8.7 L Lawrence % (Auto) 8.5 Eos % (Auto) 2.3 Baso % (Auto) 0.3 Lymph # (Auto) 1.1 L Lawrence # (Auto) 1.1 Eos # (Auto) 0.3 Baso # (Auto) 0.0 Abs Immat Gran (auto) 0.05 H Absolute Neuts (auto) 10.2 H Absolute Nucleated RBC 0.000 Nucleated RBC % (auto) 0.0 D-Dimer High Sensitivty 312 Anion Gap 15 Estim Creat Clear Calc 47.1 Estimated GFR 57 Random Glucose 147 H Lactic Acid 1.1 Calcium 9.0 Total Bilirubin 0.2 AST 44 H ALT 40 Alkaline Phosphatase 71 Troponin I High Sens 24.8 C-Reactive Protein 9.48 H B-Natriuretic Peptide 88 Total Protein 7.2 Albumin 3.6 Digoxin 0.4 L Assessment and Plan (1) Acute on chronic hypoxic respiratory failure: Status: Acute (2) Sepsis: Status: Acute (3) Acute exacerbation of chronic obstructive pulmonary disease: Status: Acute Plan Patient is a 79-year-old male with a past medical history significant for severe COPD with chronic hypoxic respiratory failure on 2 L at home, a fib, type 2 diabetes, HFrEF (EF 20% 09/26), CAD/stent (09/26), who presented to the ED due to dizziness and difficulty sleeping. Acute on chronic hypoxic respiratory failure with sepsis secondary to acute exacerbation of COPD - WBC 12.8, tachycardic and tachypneic, lactic acid normal, not severe sepsis - multiple recent admissions at [facility] for COPD exacerbations with recent sputum culture positive for Pseudomonas, treated with cefepime - chest x-ray with interval progression of nodular interstitial prominence within the lungs. This can be seen with worsening edema or multifocal pneumonitis - BNP negative - troponin negative - check COVID/flu/RSV - started on azithromycin and cefepime in ED, continue - duonebs Q4H while awake and solumedrol 60 BID - pulmonary consult - monitor CBC and BMP - titrate O2 as tolerated to baseline 2L paroxysmal a fib - EKG without a fib - not on anticoagulation Type 2 diabetes - sliding scale insulin needed on steroids - no home meds chronic HFrEF - no acute exacerbation - continue home meds CAD/stent - continue home meds DNR/DNI VTE prophy: heparin Pt with acute on chronic hypoxic respiratory failure with sepsis secondary to acute COPD exacerbation, requiring admission for at least 2 midnight stay for IV steroids, antibiotics and monitoring. Quality Stroke Does the patient have a stroke diagnosis?: No VTE Prior VTE?: No VTE Risk Level:: Medical - moderate - high VTE Device Contraindication: Treatment Not Indicated VTE Drug Contraindication: N/A - Med Ordered
[2024-12-01 07:15] LABS: Glucose, Whole Blood 176 mg/dL (60-115)
--- NOTE | 2024-12-01 08:50 | PHA.MEDREC ---
Addendum entered by Akbar Lund PharmD 12/01/24 13:18: Will add Insulin and Digoxin to list and let provider know he has not started Original Note: Pharmacy Consult ? Medication Reconciliation Pharmacy has completed the medication reconciliation. Pt [facility] pt and just recently Dc'd from [facility] 11/13 and had his Dc packet on hand we were able to use to confirm some of the meds he is now taking. Pt still has Escitalopram 20mg tabs PRN for his mood he occasionally uses. . Pt confirmed he is now taking Lorazepam 0.5mg, taking 1 tab BID prn anxiety/respiratory failure; it was not listed on the packet from [facility] but in claims filled 11/17/24 for 30 days. Pt confirmed he is taking a Prednisone 5mg 1 QD for his CODP per his Dr. Pt got delivered Digoxin 125mcg tabs and Insuin Glargine but states he has not started either of those at home. Pt was taking Duloxetine and states he still gets them delivered but he is not currently taking them anymore.
[2024-12-01 09:22] LABS: Resp Syncy Virus RNA Qual PCR NEGATIVE (Negative); SARS COV2 PCR INHOUSE NEGATIVE (Negative)
--- NOTE | 2024-12-01 11:35 | PM.EVENT ---
Event Note Date of Service: 12/01/24 Event Note: Seen examined this morning Follow-up for acute COPD exacerbation Patient awake alert, in no acute distress Acute on chronic hypoxic respiratory failure with sepsis secondary to acute exacerbation of COPD met criteria with WBC 12.8, tachycardic and tachypneic, lactic acid normal, no severe features multiple recent admissions at [facility] for COPD exacerbations with recent sputum culture positive for Pseudomonas, completed treatment with cefepime chest x-ray with interval progression of nodular interstitial prominence within the lungs. This can be seen with worsening edema or multifocal pneumonitis BNP negative. Fle,RSV, covid negative currently on baseline o2 3L NC continue azithromycin and cefepime in ED, continue duonebs and solumedrol pulmonary consult pending blood cultures pending Remainder of the plan as per admission H&P Med reconciliation is currently Time Spent With Patient Time: Total time managing care of this patient today ____ minutes.
[2024-12-01 12:34] LABS: Glucose, Whole Blood 325 mg/dL (60-115)
--- NOTE | 2024-12-01 13:19 | MHC.CM.PN ---
Patient lives in a condo with his /HCP/Dolores and he is active with [facility] for home O2, and is eligible for [facility] 4 hours/week, beginning 12/02/2024. Home/resume said services is the goal and CM has initiated and will follow for dc planning. PCP is Dr. Alexis Martin and Neighbor/Keith will transport to home at time of dc.
[2024-12-01 14:00] LABS: Venous Blood Gas Refer to POC result
[2024-12-01 14:01] LABS: VBG HCO3 21 mmol/L (22-26); VBG O2 % Saturation 96.0 %
[2024-12-01] MEDS: guaiFENesin LA 600 MG TAB.ER.12H PO ×2 (14:32→21:18)
[2024-12-01] MEDS: Metoprolol Succinate ER 50 MG TAB.ER.24H PO (14:32)
[2024-12-01] MEDS: Ferrous Sulfate 324 MG TABLET.DR PO (14:32)
--- NOTE | 2024-12-01 14:37 | PC.NURSE ---
patient medicated per MAR, patient endorsed anxiety, medicated with prn ativan per MAR. patient given hospital bed for increased comfort. patient states throat is dry despite fluids. patient given lemonade icee to try and help as requested
--- NOTE | 2024-12-01 15:27 | P.CONPL_ITS ---
History of Present Illness History of Present Illness Consult date: 12/01/24 Chief complaint: acute hypoxic respiratory failure Narrative: This is an inpatient pulmonary consultation. The patient is a 79-year-old male with a past medical history significant for severe COPD with folic hypoxic respiratory failure on 2 L at home, a fib, type 2 diabetes, HFrEF (EF 20% 09/26), CAD/stent (09/26), who presented to the ED due to dizziness and difficulty sleeping. The patient reports 2-3 recent admission secondary to consider hospital for COPD exacerbations with in the past 2-3 months. His most recent hospitalization was from 11/06 through 11/13 with a positive sputum culture for Pseudomonas, treated with cefepime. The patient was discharged with a midline and completed a 10 day couse of cefepime. He has been tapering off of steroids with Dr. Henderson, his cath lab. The patient did have a chest x-ray which I personally reviewed demonstrating some reticulonodular opacities which indeed could be some volume overload status. The patient was having some difficulty sleeping which I do believe is orthopnea. The patient has cough is better. Denies any productive phlegm. Therefore I do not believe that we should treat him for Pseudomonas pneumonia this time. No evidence of any focal airspace disease at the x-ray. I would agree with diuresis deescalating antibiotics and repeating the x-ray tomorrow to see if there any significant improvement. Review of Systems 2 Constitutional: Constitutional: Denies body ache(s), Denies chills, Reports fatigue, Denies fever(s) and Denies headache(s) Eyes: Eyes: Denies change in vision and Denies loss of vision ENT: Denies headache(s), Denies nasal congestion and Denies sore throat Cardiovascular: Cardiovascular: Denies chest pain, Denies rapid heart rate, Denies leg edema, Denies lightheadedness and Reports dyspnea Respiratory: Respiratory: Denies cough, Reports dyspnea and Denies wheezing Gastrointestinal: Gastrointestinal: Denies abdominal pain, Denies diarrhea, Denies nausea and Denies vomiting Genitourinary: Genitourinary: Denies dysuria, Denies urinary frequency and Denies urinary urgency Musculoskeletal: Musculoskeletal: Denies myalgias Integumentary/Breasts: Skin/Breast: Denies rash Neurologic: Denies confusion, Denies headache(s) and Denies loss of vision Psychiatric: Psychiatric: Denies confusion Endocrine: Endocrine: Reports fatigue Hematologic/Lymphatic: Hematologic/Lymphatic: Denies easy bleeding and Denies easy bruising Allergic/Immunologic: Allergic/Immunologic: Denies wheezing PMFSH Past Medical History Medical History (Updated 12/01/24 @ 15:31 by Remigio Salinas MD) CHF (congestive heart failure) Type 2 diabetes mellitus without complications CAD (coronary artery disease) Acute anxiety Physical deconditioning Respiratory failure Pneumonia COPD (chronic obstructive pulmonary disease) Surgical History Surgical History (Updated 12/01/24 @ 06:51 by Zoey Ibrahim PA-C) H/O heart artery stent Social History Social History Patient Tobacco Use Status: Former Tobacco user Smoked in Last 30 Days: No Substance Use Type: Marijuana Advance Directives: No Advance Directives Information Provided: Yes service: Yes Meds Allergies Allergy/AdvReac Type Severity Reaction Status Date / Time levofloxacin (From Levaquin) Allergy Severe Anaphylaxis Verified 12/01/24 00:08 atorvastatin Allergy Unknown Verified 12/01/24 00:08 carvedilol Allergy Unknown Verified 12/01/24 00:39 ketorolac (From Toradol) Allergy Unknown Verified 12/01/24 00:39 lisinopril Allergy Unknown Verified 12/01/24 00:39 semaglutide Allergy Unknown Verified 12/01/24 00:39 Active Medications: Current Medications Acetaminophen (Acetaminophen 325 Mg Tablet) 975 mg PO Q6H PRN PRN Reason: Pain, Mild 1-3,fever,headache Acetylcysteine (Acetylcysteine 10 % 3,000 Mg/30 Ml Vial) 300 mg PO RBID [facility] Albuterol/Ipratropium (Albuterol/Iprat 2.5/0.5mg 3 Ml Ampul.Neb) 3 ml INHALE RQ4H WHILE AWAKE [facility] Last Admin: 12/01/24 11:27 Dose: 3 ml Aspirin (Aspirin Enteric Coated 81 Mg Tablet.) 81 mg PO DAILY [facility] Bisacodyl (Bisacodyl 5 Mg Tablet.) 5 mg PO DAILY PRN PRN Reason: Constipation Dextrose (Dextrose 50 % 25 Gm/50 Ml Syringe) 25 gm IVPUSH Q15M PRN; Protocol PRN Reason: per Hypoglycemia Standing Ord. Digoxin (Digoxin 0.125 Mg Tablet) 0.125 mg PO DAILY [facility]; Protocol Ferrous Sulfate (Ferrous Sulfate 324 Mg Tablet.Dr) 324 mg PO Q48H [facility] Last Admin: 12/01/24 14:32 Dose: 324 mg Fluticasone/Vilanterol (Fluticasone/Vilanterol 100/25 Blst.W.Dev) 1 puff INHALE RDAILY [facility] Furosemide (Furosemide 20 Mg Tablet) 20 mg PO DAILY [facility]; Protocol Last Admin: 12/01/24 14:32 Dose: 20 mg Glucose (Glucose Gel 15 Gm Gel..Gram.) 15 gm PO Q15M PRN; Protocol PRN Reason: per Hypoglycemia Standing Ord. Guaifenesin (Guaifenesin La 600 Mg Tab.Er.12h) 600 mg PO BID [facility] Last Admin: 12/01/24 14:32 Dose: 600 mg Heparin Sodium (Porcine) (Heparin Sodium,Porcine 5,000 Unit/Ml Vial) 5,000 unit SUBCUT Q12H [facility] Last Admin: 12/01/24 08:21 Dose: 5,000 unit Insulin Human Lispro (Insulin Lispro 100 Unit/Ml 3 Ml Vial) 0 unit SUBCUT QIDACHS [facility]; Protocol Last Admin: 12/01/24 13:06 Dose: 8 unit Lorazepam (Lorazepam 0.5 Mg Tablet) 0.5 mg PO BID PRN PRN Reason: anxiety/RESPIRATORY FAILURE Last Admin: 12/01/24 14:32 Dose: 0.5 mg Melatonin (Melatonin 3 Mg Tablet) 3 mg PO BEDTIME PRN PRN Reason: Sleep Methylprednisolone Sodium Succinate (Methylprednisolone Sod Succ 125 Mg/2 Ml Vial) 40 mg IVPUSH Q12H [facility] Metoprolol Succinate (Metoprolol Succinate Er 50 Mg Tab.Er.24h) 50 mg PO DAILY [facility]; Protocol Last Admin: 12/01/24 14:32 Dose: 50 mg Morphine Sulfate (Morphine Sulfate Immed Release 15 Mg Tablet) 15 mg PO BID PRN PRN Reason: Pain, Severe (Pain Scale 7-10) Non-Formulary Medication (Rosuvastatin) 20 mg PO DAILY [facility] Oxybutynin Chloride (Oxybutynin Chloride 5 Mg Tablet) 5 mg PO DAILY [facility] Sacubitril/Valsartan (Sacubitril/Valsartan 1 Tab Tablet) 1 tab PO BID [facility]; Protocol Sodium Chloride (0.9 % Sodium Chloride Flush 3 Ml Syringe) 3 ml IVFLUSH QSHIFT [facility] Last Admin: 12/01/24 07:13 Dose: Not Given Spironolactone (Spironolactone 25 Mg Tablet) 12.5 mg PO DAILY [facility]; Protocol Topiramate (Topiramate 25 Mg Tablet) 50 mg PO BEDTIME [facility] Home Medications ?Medication ?Instructions ?Recorded ?Confirmed ?Last Taken ?Type aspirin 81 mg tablet,delayed 81 mg PO DAILY 04/21/20 0 12/01/24 11/30/24 History release escitalopram oxalate 20 mg tablet 20 mg PO DAILY PRN M ood 04/21/20 12/01/24 Unknown History topiramate 50 mg tablet 50 mg PO BEDTIME 04/21/2011/30/24 History fluticasone 250 mcg-salmeterol 50 1 inh inhalation BID 11/28/21 12/01/24 11/30/24 History mcg/dose blistr powdr for inhalation ([place] Inhub) rosuvastatin 40 mg tablet 20 mg PO DAILY 01/05/22/11/30/24 History oxybutynin chloride 5 mg tablet 5 mg PO DAILY 10/16/24 12/01/24 11/30/24 History sacubitril 24 mg-valsartan 26 mg 1 tab PO BID 10/16/24 12/01/24 11/30/24 History tablet (Entresto) Lactobacillus rhamnosus GG 10 1 cap PO DAILY 11/17/24 12/01/24 11/30/24 History billion cell capsule guaifenesin 600 mg tablet, 600 mg PO BID 11/17/2411/0411/30/24 History extended release 12 hr morphine 15 mg immediate release 15 mg PO BID PRN Pain 11/17/24 12/01/24 Unknown History tablet spironolactone 25 mg tablet 12.5 mg PO DAILY 11/17/24 12/01/24 11/30/24 History acetylcysteine 100 mg/mL (10 %) 3 ml inhalation BID 12/01/24 Unknown History solution albuterol sulfate 2.5 mg/3 mL 2.5 mg inhalation Q6H CA N 12/01/24 12/01/24 Unknown History (0.083 %) solution for nebulization Shortness Of Breat h Or Wheezing ascorbic acid (vitamin C) 250 mg 250 mg PO Q48H 12/01/24 11/30/24 History tablet bisacodyl 5 mg tablet 5 mg PO DAILY PRN Constipati on 12/01/24 12/01/24 Unknown History ceramides 1,3,6-II (Moisturizing 1 appl topical BID CA N Dry Skin 12/01/24 12/01/24 Unknown History Normal to Dry Skin lotion) clobetasol 0.05 % topical cream 1 appl topical BID PRN Scalp 12/01/24 12/01/24 Unknown History Psoriasis digoxin 125 mcg (0.125 mg) tablet 125 mcg PO DAILY 12/01/24 Unknown History diphenhydramine HCl 25 mg tablet 25 mg PO BEDTIME PRN Itching 12/01/24 12/01/24 Unknown History ferrous gluconate 324 mg (38 mg 324 mg PO Q48H 5 12/01/24 11/30/24 History iron) tablet furosemide 20 mg tablet (Lasix) 20 mg PO DAILY CHF 12/01/24 11/30/24 History insulin glargine 100 unit/mL 5 unit subcut BEDTIME 12/01/24 Unknown History subcutaneous solution melatonin 3 mg tablet 3 mg PO BEDTIME PRN Sleep 12/01/24 Unknown History metoprolol succinate 50 mg 50 mg PO DAILY 12/01/2411/30/24 History tablet,extended release 24 hr Physical Exam 2 Vital Signs: Vital Signs: Last Vital Signs Temp 98.1 F 12/01/24 14:30 Pulse 100 12/01/24 14:30 Resp 28 H 12/01/24 14:30 BP 129/63 12/01/24 14:30 Pulse Ox 92 12/01/24 14:30 O2 Del Method Room Air 12/01/24 14:30 O2 Flow Rate 3 12/01/24 07:11 BMI result Body Mass Index 24.0 Const: General: No confusion Orientation/consciousness: No confusion HEENT: Head: Yes normal to inspection Neck: Neck: Yes normal visual inspection, Yes no lymphadenopathy, Yes trachea midline and Yes no JVD Thyroid: Thyroid normal Chest: Chest palpation & inspection: normal inspection of the chest, normal palpation of entire chest wall and no tenderness Resp: Other: Percussion note is resonant, breath sounds are distant with prolonged expiratory phase on both sides. No wheezes a few inspiratory crackles over the right base. Cardio: Palpation: normal PMI Rate: regular rate Rhythm: regular rhythm Heart sounds: no gallops and no murmurs GI: Palpation (GI): Soft to palpation, nontender, No hepatosplenomegaly present and no masses Auscultation: normal bowel sounds : Other: Has nephrostomy tube in the left kidney . For drainage of the urine Back/Spine/Pelvis: Thoracic/Lumbar Spine: thoracic and lumbar spine normal to inspection Skin: General skin exam: no rashes or lesions noted Neuro: General: No confusion Cranial nerves: Yes CN's II-XII intact bilaterally Extrem: General: Yes normal to inspection, Yes no clubbing, cyanosis or edema, Yes no calf tenderness and No venous stasis dermatitis Psych: Appearance: grossly normal Speech and movement: Normal speech and movement present Results Laboratory Findings 12/01/24 00:34 12/01/24 00:34 Abnormal lab findings: Abnormal Labs 12/01/24 12/01/24 12/01/24 00:34 05:35 07:12 WBC 12.8 H RBC 4.26 L Hgb 11.6 L Hct 35.2 L RDW 16.3 H Neut % (Auto) 79.8 H Lymph % (Auto) 8.7 L Lymph # (Auto) 1.1 L Abs Immat Gran (auto) 0.05 H Absolute Neuts (auto) 10.2 H VBG HCO3 BUN 48 H POC Glucose 176 H Random Glucose 147 H AST 44 H C-Reactive Protein 9.48 H Digoxin 0.4 L 12/01/24 12/01/24 12:30 13:57 WBC RBC Hgb Hct RDW Neut % (Auto) Lymph % (Auto) Lymph # (Auto) Abs Immat Gran (auto) Absolute Neuts (auto) VBG HCO3 21 L BUN POC Glucose 325 H Random Glucose AST C-Reactive Protein Digoxin Assessment and Plan (1) COPD (chronic obstructive pulmonary disease): Qualifiers: COPD type: COPD with acute exacerbation Qualified Code(s): J44.1 - Chronic obstructive pulmonary disease with (acute) exacerbation Status: Acute (2) Acute exacerbation of chronic obstructive pulmonary disease: Status: Acute (3) Acute on chronic hypoxic respiratory failure: Status: Acute (4) CHF (congestive heart failure): Qualifiers: Heart failure type: systolic Status: Acute Plan de-escalate abx sputum cx if able diuresis as tolerated cardioprotective meds continue with respiratory therapy VBG, ?benefit from nocturnal BIPAP oxygen to keep pox>88% Procedures Date of Service Date of Service: 12/01/24
[2024-12-01 16:59] LABS: Glucose, Whole Blood 349 mg/dL (60-115)
[2024-12-01] MEDS: ACETYLCYSTEINE 300 MG PO (19:27)
[2024-12-01 19:51] LABS: Glucose, Whole Blood 190 mg/dL (60-115)
[2024-12-01] MEDS: Sacubitril/Valsartan 24/26 1 TAB TABLET PO (21:18)
[2024-12-02] VITALS (10 sets, daily range): BP systolic 91–145; BP diastolic 58–80; PULSE 73–91; RESP 16–20; TEMP 36–37.2; O2SAT 90–98
[2024-12-02 06:51] LABS: Hematocrit 34.5 % (42.0-52.0); Hemoglobin 11.3 g/dl (14.0-18.0); Imm Gran Abs Auto 0.08 X10*3/uL (0.00-0.03); Imm Gran Pct Auto 0.5 % (0.0-0.4); Lymphocytes Absolute Auto 0.8 X10*3/uL (1.2-4.9); MANUAL DIFF FLAG SCAN; Mean Corpuscular HGB Conc 32.8 g/dl (31.0-36.0); Mean Corpuscular Hemoglobin 27.0 pg (27.0-33.0); Mean Corpuscular Volume 82.3 fL (80.0-98.0); NRBC Abs Auto 0.000 X10*3/uL (0.0-0.012); NRBC Pct Auto 0.0 /100WBC (0.0-0.2); Platelet Count 370 X10*3/uL (160-400); Red Blood Count 4.19 X10*6/uL (4.60-5.80); SCAN SMEAR FLAG 1; White Blood Count 15.0 X10*3/uL (4.8-10.8)
[2024-12-02 07:07] LABS: Anion Gap 17 (12-20); Blood Urea Nitrogen 50 mg/dL (9-16); Calcium 9.0 mg/dL (8.4-10.2); Carbon Dioxide 24 mmol/L (22-29); Chloride 103 mmol/L (96-108); Creatinine Clr Calc Pharmacy 45.2; Estimated Glomerular Filt Rate 54; Potassium 4.9 mmol/L (3.3-5.1); Sodium 139 mmol/L (135-145)
[2024-12-02 07:15] LABS: Glucose, Whole Blood 212 mg/dL (60-115)
[2024-12-02] MEDS: Albuterol/Iprat 2.5/0.5MG 3 ML AMPUL.NEB INHALE ×4 (07:23→19:07)
[2024-12-02] MEDS: ACETYLCYSTEINE 300 MG PO ×2 (07:23→19:02)
--- NOTE | 2024-12-02 07:54 | HO.SKINPHOTO ---
Location: Coccyx Category: PI - POA Stage: Unstageable
[2024-12-02] MEDS: Metoprolol Succinate ER 50 MG TAB.ER.24H PO (08:35)
[2024-12-02] MEDS: guaiFENesin LA 600 MG TAB.ER.12H PO ×2 (08:35→21:56)
[2024-12-02] MEDS: Aspirin Enteric Coated 81 MG TABLET.DR PO (08:35)
[2024-12-02] MEDS: Sacubitril/Valsartan 24/26 1 TAB TABLET PO ×2 (08:36→21:56)
[2024-12-02] MEDS: 0.9 % Sodium Chloride Flush 3 ML SYRINGE IVFLUSH ×2 (08:39→17:15)
--- NOTE | 2024-12-02 11:33 | P.PNIM_ITS ---
Subjective Subjective Date of Service: 12/02/24 Interval History: f/u copd exacerbation, at baseline 3 liter at home feel better Physical Exam 2 Vital Signs: Vital Signs: Last Vital Signs Temp 97.2 F 12/02/24 11:18 Pulse 91 12/02/24 11:18 Resp 16 12/02/24 11:18 BP 91/62 12/02/24 11:18 Pulse Ox 91 L 12/02/24 11:18 O2 Del Method Nasal Cannula 12/02/24 11:18 O2 Flow Rate 2 12/02/24 11:18 BMI result Body Mass Index 25.7 Const: Other: General: AO X 3, no acute distress Resp: CTA bilateral CVS: S1,S2,RRR, mild rales at bases GI: +BS, NT, no distention Skin: No rash Neuro: motor grossly intact Psych: appropriate affect Objective Data Active Medications Acetaminophen (Acetaminophen 325 Mg Tablet) 975 mg PO Q6H PRN PRN Reason: Pain, Mild 1-3,fever,headache Acetylcysteine (Acetylcysteine 10 % 3,000 Mg/30 Ml Vial) 300 mg PO RBID [facility] Last Admin: 12/02/24 07:23 Dose: 300 mg Documented By: MITA Albuterol/Ipratropium (Albuterol/Iprat 2.5/0.5mg 3 Ml Ampul.Neb) 3 ml INHALE RQ4H WHILE AWAKE [facility] Last Admin: 12/02/24 11:30 Dose: 3 ml Documented By: EVETTE Aspirin (Aspirin Enteric Coated 81 Mg Tablet.) 81 mg PO DAILY [facility] Last Admin: 12/02/24 08:35 Dose: 81 mg Documented By: TAMARA Bisacodyl (Bisacodyl 5 Mg Tablet.) 5 mg PO DAILY PRN PRN Reason: Constipation Ceftriaxone Sodium (Ceftriaxone Sodium 1 Gm Vial) 1 gm IVPUSH Q24H [facility] Last Admin: 12/02/24 05:11 Dose: 1 gm Documented By: MARIN Dextrose (Dextrose 50 % 25 Gm/50 Ml Syringe) 25 gm IVPUSH Q15M PRN; Protocol PRN Reason: per Hypoglycemia Standing Ord. Digoxin (Digoxin 0.125 Mg Tablet) 0.125 mg PO DAILY [facility]; Protocol Last Admin: 12/02/24 08:36 Dose: 0.125 mg Documented By: TAMARA Ferrous Sulfate (Ferrous Sulfate 324 Mg Tablet.Dr) 324 mg PO Q48H [facility] Last Admin: 12/01/24 14:32 Dose: 324 mg Documented By: JESSIE Fluticasone/Vilanterol (Fluticasone/Vilanterol 100/ Blst.W.Dev) 1 puff INHALE RDAILY [facility] Last Admin: 12/02/24 07:40 Dose: Not Given Documented By: MIAT Non-Admin Reason: pharmacy called for med x2 Furosemide (Furosemide 20 Mg Tablet) 20 mg PO DAILY [facility]; Protocol Last Admin: 12/02/24 08:35 Dose: 20 mg Documented By: TAMARA Glucose (Glucose Gel 15 Gm Gel..Gram.) 15 gm PO Q15M PRN; Protocol PRN Reason: per Hypoglycemia Standing Ord. Guaifenesin (Guaifenesin La 600 Mg Tab.Er.12h) 600 mg PO BID [facility] Last Admin: 12/02/24 08:35 Dose: 600 mg Documented By: TAMARA Heparin Sodium (Porcine) (Heparin Sodium,Porcine 5,000 Unit/Ml Vial) 5,000 unit SUBCUT Q12H [facility] Last Admin: 12/02/24 08:37 Dose: 5,000 unit Documented By: TAMARA Insulin Human Lispro (Insulin Lispro 100 Unit/Ml 3 Ml Vial) 0 unit SUBCUT QIDACHS [facility]; Protocol Last Admin: 12/02/24 08:38 Dose: 4 unit Documented By: TAMARA Lorazepam (Lorazepam 0.5 Mg Tablet) 0.5 mg PO BID PRN PRN Reason: anxiety/RESPIRATORY FAILURE Last Admin: 12/01/24 21:18 Dose: 0.5 mg Documented By: MARYZEIvonne Melatonin (Melatonin 3 Mg Tablet) 3 mg PO BEDTIME PRN PRN Reason: Sleep Methylprednisolone Sodium Succinate (Methylprednisolone Sod Succ 125 Mg/2 Ml Vial) 40 mg IVPUSH Q12H [facility] Last Admin: 12/02/24 05:11 Dose: 40 mg Documented By: MARYZEIvonne Metoprolol Succinate (Metoprolol Succinate Er 50 Mg Tab.Er.24h) 50 mg PO DAILY [facility]; Protocol Last Admin: 12/02/24 08:35 Dose: 50 mg Documented By: TAMARA Morphine Sulfate (Morphine Sulfate Immed Release 15 Mg Tablet) 15 mg PO BID PRN PRN Reason: Pain, Severe (Pain Scale 7-10) Non-Formulary Medication (Rosuvastatin) 20 mg PO DAILY [facility] Oxybutynin Chloride (Oxybutynin Chloride 5 Mg Tablet) 5 mg PO DAILY [facility] Last Admin: 12/02/24 08:36 Dose: 5 mg Documented By: TAMARA Sacubitril/Valsartan (Sacubitril/Valsartan 1 Tab Tablet) 1 tab PO BID [facility]; Protocol Last Admin: 12/02/24 08:36 Dose: 1 tab Documented By: TAMARA Sodium Chloride (0.9 % Sodium Chloride Flush 3 Ml Syringe) 3 ml IVFLUSH QSHIFT [facility] Last Admin: 12/02/24 08:39 Dose: 3 ml Documented By: TAMARA Spironolactone (Spironolactone 25 Mg Tablet) 12.5 mg PO DAILY [facility]; Protocol Last Admin: 12/02/24 08:36 Dose: 12.5 mg Documented By: TAMARA Topiramate (Topiramate 25 Mg Tablet) 50 mg PO BEDTIME [facility] Last Admin: 12/01/24 21:18 Dose: 50 mg Documented By: MARIN Labs 12/02/24 06:12 12/02/24 06:12 Labs: Laboratory Results - last 24 hr 12/01/24 12/01/24 12/01/24 12:30 13:57 16:54 MCV MCH MCHC RDW Plt Count MPV Immature Gran % (Auto) Neut % (Auto) Lymph % (Auto) [place] % (Auto) Eos % (Auto) Baso % (Auto) Lymph # (Auto) [place] # (Auto) Eos # (Auto) Baso # (Auto) Abs Immat Gran (auto) Absolute Neuts (auto) Absolute Nucleated RBC Nucleated RBC % (auto) Smear Tech's Comments VBG pH 7.37 VBG pCO2 35 VBG pO2 83 VBG HCO3 21 L VBG O2 Saturation 96.0 VBG Base Excess -3.2 Anion Gap Estim Creat Clear Calc Estimated GFR POC Glucose 325 H 349 H Random Glucose Calcium 12/01/24 12/02/24 12/02/24 19:47 06:12 07:12 MCV 82.3 MCH 27.0 MCHC 32.8 RDW 16.3 H Plt Count 370 MPV 9.6 Immature Gran % (Auto) 0.5 H Neut % (Auto) 90.5 H Lymph % (Auto) 5.0 L [place] % (Auto) 3.9 Eos % (Auto) 0.0 Baso % (Auto) 0.1 Lymph # (Auto) 0.8 L [place] # (Auto) 0.6 Eos # (Auto) 0.0 Baso # (Auto) 0.0 Abs Immat Gran (auto) 0.08 H Absolute Neuts (auto) 13.6 H Absolute Nucleated RBC 0.000 Nucleated RBC % (auto) 0.0 Smear Tech's Comments VERIFIED VBG pH VBG pCO2 VBG pO2 VBG HCO3 VBG O2 Saturation VBG Base Excess Anion Gap 17 Estim Creat Clear Calc 45.2 Estimated GFR 54 POC Glucose 190 H 212 H Random Glucose 205 H Calcium 9.0 Microbiology Microbiology Results: Microbiology 12/01/24 05:35 Blood Culture - Preliminary Blood - Venous No growth after 24 hours. 12/01/24 05:35 Blood Culture - Preliminary Blood - Venous No growth after 24 hours. Assessment and Plan (1) COPD (chronic obstructive pulmonary disease): Status: Acute Plan Patient is a 79-year-old male with a past medical history significant for severe COPD with chronic hypoxic respiratory failure on 2 L at home, a fib, type 2 diabetes, HFrEF (EF 20% 09/26), CAD/stent (09/26), who presented to the ED due to dizziness and difficulty sleeping. Acute on chronic hypoxic respiratory failure with sepsis secondary to acute exacerbation of COPD, improved continue steroid, change to PO Prednisone by tomorrow see by pulmonology with the following: de-escalate abx sputum cx if able diuresis as tolerated cardioprotective meds continue with respiratory therapy VbG, ?benefit from nocturnal BIPAP oxygen to keep pox>88% paroxysmal a fib, SR Type 2 diabetes - sliding scale insulin needed on steroids - no home meds chronic HFrEF - no acute exacerbation - continue home meds CAD/stent - continue home meds pressure ulcer, wound care consult DNR/DNI VTE prophy: heparin transfer to med/surg Quality Stroke Does the patient have a stroke diagnosis?: No VTE Prior VTE?: No VTE Risk Level:: Medical - moderate - high VTE Device Contraindication: Treatment Not Indicated VTE Drug Contraindication: N/A - Med Ordered
[2024-12-02 11:34] LABS: Glucose, Whole Blood 297 mg/dL (60-115)
[2024-12-02 15:57] LABS: Glucose, Whole Blood 234 mg/dL (60-115)
--- NOTE | 2024-12-02 17:31 | HO.WOUND ---
Addendum entered by Beth Jones RN 12/03/24 11:30: 12/03/24 @0900 Ear Protector tubes arrived - brought to bedside and applied. Patient reports he is discharging to home we discussed use of foam rolls over oxygen tube continuing at home an doff loading pressure when able and limiting laying on the side with tubing in place. We discussed care for his coccyx wound as well. He was given some extra supplies for a topical covering (ABD Pad) and Triad paste to take with him. No new topical recommendations needed at this time. Original Note: Wound Consult: Initial 79yr old?male admitted to [facility] on 12/01/24 - See progress notes and H&P for detailed history.? Wound consult placed for Right ear and coccyx wound.? Patient agreeable to assessment and photo documentation.? Coccyx Etiology: ??Unstageable Pressure injury Present on Admission Wound Bed: adherent yellow white slough Drainage / Odor: None noted Edges: ? well defined [place] wound: ?MASD - red pink blanchable moist tissue - patient denies itching - No Induration, Fluctuance or Warmth noted Pain: reports mild tenderness Goals of Treatment: ? Off load and triad and foam Right Ear Etiology: Stage 2 PI ??Present on Admission Wound Bed: open red nonblanchable tissue Drainage / Odor: None Edges: ? well defined [place] wound: ?dark red intact No Induration, Fluctuance or Warmth noted Pain: reports pain and tenderness Goals of Treatment: ? foam applied and off loaded Left ear Etiology: Stage 1 PI ??Present on Admission Wound Bed: intact red nonblanchable tissue Drainage / Odor: None Edges: ? well defined [place] wound: ?dark red intact No Induration, Fluctuance or Warmth noted Pain: denies Goals of Treatment: ? foam applied and off loaded Recommendations: 1. Turn and Reposition every 2 hours and as needed for patient comfort.? Use pillows or wedges to support off loading positions. 2. Off Load all bony prominences with use of pillows and heel boots if needed.? Apply Preventative foams where needed. ? 3. Monitor for incontinence and moisture control, use barrier creams when needed for prevention and treatment. 4. Provide adequate and supplemental nutrition.? 5. Order low air loss mattress. 6. When applicable maintain blood glucose levels per Providers order. Coccyx - Off Load Pressure with Q2 hr turns and use of pillows - Cleanse with PH balance spray or wipes, pat dry. ?Apply thin layer of Triad to wound bed. Do not remove all of paste between applications as this may cause further skin damage.? Cover with foam dressing to aid in off loading and protection from friction. Change every 3 days and PRN. Bilateral Ears - Off load oxygen tubing when able. Use foam rollers when available. Cleanse with saline moist gauze, apply skin prep allow to dry. cover with foam dressing, change every 3 days and PRN. Re-consult wound care Nurse for wound deterioration or wound changes.
[2024-12-02 21:44] LABS: Glucose, Whole Blood 276 mg/dL (60-115)
[2024-12-02] MEDS: Throat Lozenge, Medicated LOZENGE 1 LOZENGE MUCOUS MEM (22:00)
[2024-12-02] MEDS: PT OWN (Rosuvastatin 40 mg tablet) 20 EACH PO (22:27)
[2024-12-03] VITALS (12 sets, daily range): BP systolic 95–118; BP diastolic 55–76; PULSE 71–98; RESP 16–20; TEMP 35.6–36.2; O2SAT 90–97; BMI 25.7
[2024-12-03] MEDS: Fluticasone/Vilanterol 100/25 BLST.W.DEV 1 PUFF INHALE (07:15)
[2024-12-03] MEDS: ACETYLCYSTEINE 300 MG PO ×2 (07:17→19:13)
[2024-12-03] MEDS: Albuterol/Iprat 2.5/0.5MG 3 ML AMPUL.NEB INHALE ×4 (07:17→19:13)
[2024-12-03 07:39] LABS: Glucose, Whole Blood 172 mg/dL (60-115)
[2024-12-03] MEDS: Metoprolol Succinate ER 50 MG TAB.ER.24H PO (08:10)
[2024-12-03] MEDS: guaiFENesin LA 600 MG TAB.ER.12H PO ×2 (08:10→19:21)
[2024-12-03] MEDS: Aspirin Enteric Coated 81 MG TABLET.DR PO (08:11)
[2024-12-03] MEDS: Sacubitril/Valsartan 24/26 1 TAB TABLET PO ×2 (08:11→19:24)
[2024-12-03] MEDS: 0.9 % Sodium Chloride Flush 3 ML SYRINGE IVFLUSH ×2 (08:14→17:18)
[2024-12-03 11:16] LABS: Glucose, Whole Blood 331 mg/dL (60-115)
--- NOTE | 2024-12-03 11:59 | P.PNIM_ITS ---
Subjective Subjective Date of Service: 12/03/24 Interval History: feels a bit better Physical Exam 2 Vital Signs: Vital Signs: Last Vital Signs Temp 96.1 F L 12/03/24 11:40 Pulse 84 12/03/24 11:40 Resp 16 12/03/24 11:40 BP 113/67 12/03/24 11:40 Pulse Ox 94 12/03/24 11:40 O2 Del Method Nasal Cannula 12/03/24 11:40 O2 Flow Rate 3 12/03/24 11:40 BMI result Body Mass Index 25.7 Const: Other: General: AO X 3, no acute distress Resp: CTA bilateral CVS: S1,S2,RRR, mild rales at bases GI: +BS, NT, no distention Skin: No rash Neuro: motor grossly intact Psych: appropriate affect Objective Data Active Medications Acetaminophen (Acetaminophen 325 Mg Tablet) 975 mg PO Q6H PRN PRN Reason: Pain, Mild 1-3,fever,headache Acetylcysteine (Acetylcysteine 10 % 3,000 Mg/30 Ml Vial) 300 mg PO RBID [facility] Last Admin: 12/03/24 07:17 Dose: 300 mg Documented By: MITA Albuterol/Ipratropium (Albuterol/Iprat 2.5/0.5mg 3 Ml Ampul.Neb) 3 ml INHALE RQ4H WHILE AWAKE [facility] Last Admin: 12/03/24 11:25 Dose: 3 ml Documented By: BRADLEY Aspirin (Aspirin Enteric Coated 81 Mg Tablet.) 81 mg PO DAILY [facility] Last Admin: 12/03/24 08:11 Dose: 81 mg Documented By: BRADEN Benzocaine (Throat Lozenge, Medicated Lozenge) 1 lozenge MUCOUS MEM Q2H PRN PRN Reason: Sore Throat Last Admin: 12/02/24 22:00 Dose: 1 lozenge Documented By: MARIN Bisacodyl (Bisacodyl 5 Mg Tablet.) 5 mg PO DAILY PRN PRN Reason: Constipation Ceftriaxone Sodium (Ceftriaxone Sodium 1 Gm Vial) 1 gm IVPUSH Q24H [facility] Last Admin: 12/03/24 05:35 Dose: 1 gm Documented By: MARIN Dextrose (Dextrose 50 % 25 Gm/50 Ml Syringe) 25 gm IVPUSH Q15M PRN; Protocol PRN Reason: per Hypoglycemia Standing Ord. Digoxin (Digoxin 0.125 Mg Tablet) 0.125 mg PO DAILY [facility]; Protocol Last Admin: 12/03/24 08:10 Dose: 0.125 mg Documented By: BRADEN Ferrous Sulfate (Ferrous Sulfate 324 Mg Tablet.Dr) 324 mg PO Q48H [facility] Last Admin: 12/01/24 14:32 Dose: 324 mg Documented By: JESSIE Fluticasone/Vilanterol (Fluticasone/Vilanterol 100/25 Blst.W.Dev) 1 puff INHALE RDAILY [facility] Last Admin: 12/03/24 07:15 Dose: 1 puff Documented By: MITA Furosemide (Furosemide 20 Mg Tablet) 20 mg PO DAILY [facility]; Protocol Last Admin: 12/03/24 08:11 Dose: 20 mg Documented By: BRADEN Glucose (Glucose Gel 15 Gm Gel..Gram.) 15 gm PO Q15M PRN; Protocol PRN Reason: per Hypoglycemia Standing Ord. Guaifenesin (Guaifenesin La 600 Mg Tab.Er.12h) 600 mg PO BID [facility] Last Admin: 12/03/24 08:10 Dose: 600 mg Documented By: BRADEN Heparin Sodium (Porcine) (Heparin Sodium,Porcine 5,000 Unit/Ml Vial) 5,000 unit SUBCUT Q12H [facility] Last Admin: 12/03/24 08:13 Dose: 5,000 unit Documented By: BRADEN Insulin Human Lispro (Insulin Lispro 100 Unit/Ml 3 Ml Vial) 0 unit SUBCUT QIDACHS [facility]; Protocol Last Admin: 12/03/24 11:44 Dose: 8 unit Documented By: BRADEN Lorazepam (Lorazepam 0.5 Mg Tablet) 0.5 mg PO BID PRN PRN Reason: anxiety/RESPIRATORY FAILURE Last Admin: 12/02/24 21:56 Dose: 0.5 mg Documented By: MARIN Melatonin (Melatonin 3 Mg Tablet) 3 mg PO BEDTIME PRN PRN Reason: Sleep Metoprolol Succinate (Metoprolol Succinate Er 50 Mg Tab.Er.24h) 50 mg PO DAILY [facility]; Protocol Last Admin: 12/03/24 08:10 Dose: 50 mg Documented By: BRADEN Morphine Sulfate (Morphine Sulfate Immed Release 15 Mg Tablet) 15 mg PO BID PRN PRN Reason: Pain, Severe (Pain Scale 7-10) Pt Own (Rosuvastatin (40 Mg Tablet)) 20 mg PO BEDTIME [facility] Last Admin: 12/02/24 22:27 Dose: 20 mg Documented By: MARIN Oxybutynin Chloride (Oxybutynin Chloride 5 Mg Tablet) 5 mg PO DAILY [facility] Last Admin: 12/03/24 08:10 Dose: 5 mg Documented By: BRADEN Sacubitril/Valsartan (Sacubitril/Valsartan 1 Tab Tablet) 1 tab PO BID [facility]; Protocol Last Admin: 12/03/24 08:11 Dose: 1 tab Documented By: BRADEN Sodium Chloride (0.9 % Sodium Chloride Flush 3 Ml Syringe) 3 ml IVFLUSH QSHIFT [facility] Last Admin: 12/03/24 08:14 Dose: 3 ml Documented By: BRADEN Spironolactone (Spironolactone 25 Mg Tablet) 12.5 mg PO DAILY [facility]; Protocol Last Admin: 12/03/24 08:11 Dose: 12.5 mg Documented By: BRADEN Topiramate (Topiramate 25 Mg Tablet) 50 mg PO BEDTIME [facility] Last Admin: 12/02/24 21:56 Dose: 50 mg Documented By: MARIN Labs 12/02/24 06:12 12/02/24 06:12 Labs: Laboratory Results - last 24 hr 12/02/24 12/02/24 12/03/24 15:54 21:40 07:14 POC Glucose 234 H 276 H 172 H 12/03/24 11:06 POC Glucose 331 H Microbiology Microbiology Results: Microbiology 12/01/24 05:35 Blood Culture - Preliminary Blood - Venous No growth after 48 hours. 12/01/24 05:35 Blood Culture - Preliminary Blood - Venous No growth after 48 hours. Assessment and Plan (1) COPD (chronic obstructive pulmonary disease): Status: Acute Plan Patient is a 79-year-old male with a past medical history significant for severe COPD with chronic hypoxic respiratory failure on 2 L at home, a fib, type 2 diabetes, HFrEF (EF 20% 09/26), CAD/stent (09/26), who presented to the ED due to dizziness and difficulty sleeping. Acute on chronic hypoxic respiratory failure with sepsis secondary to acute exacerbation of COPD, improved continue steroid, change to PO Prednisone by tomorrow see by pulmonology with the following: de-escalate abx sputum cx if able diuresis as tolerated cardioprotective meds continue with respiratory therapy VbG, ?benefit from nocturnal BIPAP oxygen to keep pox>88% paroxysmal a fib, SR Type 2 diabetes - sliding scale insulin needed on steroids - no home meds chronic HFrEF - no acute exacerbation - continue home meds CAD/stent - continue home meds pressure ulcer, wound care consult DNR/DNI VTE prophy: heparin transfer to med/surg reassess for dc later today Quality Stroke Does the patient have a stroke diagnosis?: No VTE Prior VTE?: No VTE Risk Level:: Medical - moderate - high VTE Device Contraindication: Treatment Not Indicated VTE Drug Contraindication: N/A - Med Ordered
[2024-12-03] MEDS: Throat Lozenge, Medicated LOZENGE 1 LOZENGE MUCOUS MEM (13:18)
--- NOTE | 2024-12-03 13:39 | MHC.CM.PN ---
Patient has not yet been medically cleared for dc (IV ABX); home/resume services is the goal and CM will continue to follow.
[2024-12-03] MEDS: Ferrous Sulfate 324 MG TABLET.DR PO (14:46)
[2024-12-03 17:16] LABS: Glucose, Whole Blood 218 mg/dL (60-115)
[2024-12-03] MEDS: PT OWN (Rosuvastatin 40 mg tablet) 20 EACH PO (19:24)
[2024-12-03] MEDS: Milk of Magnesia 30 ML ORAL.SUSP 15 ML PO (19:54)
[2024-12-03 20:37] LABS: Glucose, Whole Blood 235 mg/dL (60-115)
[2024-12-04] VITALS (10 sets, daily range): BP systolic 107–130; BP diastolic 55–64; PULSE 49–95; RESP 14–20; TEMP 35.9–36.9; O2SAT 86–96
--- NOTE | 2024-12-04 07:49 | P.CDIM_ITS ---
PROVIDER RESPONSE TEXT: To clarify, the appropriate diagnosis supported by the clinical indicators: Pressure injury Stage 2 right ear: pressure ulcer stage 2 QUERY TEXT: PHYSICIAN'S DOCUMENTATION REQUEST Date of Query: 12/03/2024 12:45 PM EDT Patient Name: Ethan Douglas Admit Date: 12/01/2024 Dear Spenser Lisa MD, A review of the medical record indicates additional documentation may be needed. Please review below and update the documentation accordingly. Clinical Indicators: Wound care consultation notes dated 12/02/24 - Pressure Injury Stage 2 right ear - Present on admission. Foam applied and off loaded. Cleanse with saline moist gauze, apply skin prep allow to dry. Based on the above, could you please provide further information regarding the ulcer/wound/injury: Pressure injury Stage 2 right ear possible, probable, suspected etc. Other specified Please specify the location and laterality of the ulcer/wound Other (explain) Clinically unable to determine (explain) Thank you, Meg Jones, CCS, CDIS Use of terms such as suspected, likely, concern for, or probable (associated with a specific diagnosis that is being evaluated, monitored, or treated as if it exists) are acceptable and can be coded in the inpatient setting, when documented at the time of discharge. Please use your independent medical judgment in providing your response. THIS QUERY IS PART OF THE PERMANENT MEDICAL RECORD
--- NOTE | 2024-12-04 07:49 | P.CDIM_ITS ---
PROVIDER RESPONSE TEXT: To clarify, the appropriate diagnosis supported by the clinical indicators: Pressure Injury coccyx Unstageable: pressure ulcer coccyx, unsteageable QUERY TEXT: PHYSICIAN'S DOCUMENTATION REQUEST Date of Query: 12/03/2024 12:42 PM EDT Patient Name: Ethan Douglas Admit Date: 12/01/2024 Dear Spenser Lisa MD, A review of the medical record indicates additional documentation may be needed. Please review below and update the documentation accordingly. Clinical Indicators: Wound care consultation notes 12/02/24 - Unstageable Pressure Injury coccyx, Present on admission. Off load and triad and foam. Based on the above, could you please provide further information regarding the ulcer/wound/injury: Pressure Injury coccyx Unstageable possible, probable, suspected, etc. Other specified Please specify Other (explain) Clinically unable to determine (explain) Thank you, Meg Jones, CCS, CDIS Use of terms such as suspected, likely, concern for, or probable (associated with a specific diagnosis that is being evaluated, monitored, or treated as if it exists) are acceptable and can be coded in the inpatient setting, when documented at the time of discharge. Please use your independent medical judgment in providing your response. THIS QUERY IS PART OF THE PERMANENT MEDICAL RECORD
--- NOTE | 2024-12-04 07:49 | P.CDIM_ITS ---
PROVIDER RESPONSE TEXT: To clarify, the appropriate diagnosis supported by the clinical indicators: Diabetes mellitus Type 2 with hyperglycemia: resolved QUERY TEXT: PHYSICIAN'S DOCUMENTATION REQUEST Date of Query: 12/02/2024 11:47 AM EDT Patient Name: Ethan Douglas Admit Date: 12/01/2024 Dear Spenser Lisa MD, A review of the medical record indicates additional documentation may be needed. Please review below and update the documentation accordingly. Clinical Indicators: LABS 12/01/24 - POC glucose 349 H Insulin Sliding scale insulin needed on steroids. Diabetes mellitus Type 2 with hyperglycemia Possible, resolved, suspected etc. Other specifics Other (explain) Clinically unable to determine (explain) Thank you, Meg Jones, CCS, CDIS Use of terms such as suspected, likely, concern for, or probable (associated with a specific diagnosis that is being evaluated, monitored, or treated as if it exists) are acceptable and can be coded in the inpatient setting, when documented at the time of discharge. Please use your independent medical judgment in providing your response. THIS QUERY IS PART OF THE PERMANENT MEDICAL RECORD
[2024-12-04] MEDS: Albuterol/Iprat 2.5/0.5MG 3 ML AMPUL.NEB INHALE ×4 (09:07→20:12)
[2024-12-04] MEDS: ACETYLCYSTEINE 300 MG PO ×2 (09:07→20:12)
[2024-12-04] MEDS: Fluticasone/Vilanterol 100/25 BLST.W.DEV 1 PUFF INHALE (09:08)
[2024-12-04 09:38] LABS: Glucose, Whole Blood 158 mg/dL (60-115)
[2024-12-04] MEDS: guaiFENesin LA 600 MG TAB.ER.12H PO ×2 (09:38→20:16)
[2024-12-04] MEDS: Aspirin Enteric Coated 81 MG TABLET.DR PO (09:38)
[2024-12-04] MEDS: 0.9 % Sodium Chloride Flush 3 ML SYRINGE IVFLUSH ×2 (09:51→20:18)
[2024-12-04] MEDS: Metoprolol Succinate ER 50 MG TAB.ER.24H PO (10:31)
[2024-12-04] MEDS: Sacubitril/Valsartan 24/26 1 TAB TABLET PO ×2 (10:31→20:16)
[2024-12-04 11:42] LABS: Glucose, Whole Blood 171 mg/dL (60-115)
[2024-12-04] MEDS: Throat Lozenge, Medicated LOZENGE 1 LOZENGE MUCOUS MEM (12:24)
--- NOTE | 2024-12-04 16:07 | MHC.CM.PN ---
EMR REVIEWED, PT REMAINS ON NEB TX'S Q4HRS PRN, SUPPLEMENTAL O2 3L NC, P.T. RECOMMENDING OUTPT PULMONARY REHAB, PT ALSO ACTIVE W/[facility], CM WILL CONT TO FOLLOW DC NEEDS.
[2024-12-04 16:29] LABS: Glucose, Whole Blood 166 mg/dL (60-115)
[2024-12-04 20:04] LABS: Glucose, Whole Blood 221 mg/dL (60-115)
[2024-12-04] MEDS: Milk of Magnesia 30 ML ORAL.SUSP 15 ML PO (20:17)
[2024-12-04] MEDS: PT OWN (Rosuvastatin 40 mg tablet) 20 EACH PO (20:17)
--- NOTE | 2024-12-04 21:49 | HO.PM.IMPN ---
Subjective Subjective Date of Service: 12/04/24 Interval History: No new issue, claims he had hard time breathing last night Physical Exam Vital Signs: Vital Signs: Last Vital Signs Temp 97.8 F 12/04/24 19:33 Pulse 49 L 12/04/24 20:16 Resp 20 12/04/24 20:16 BP 111/64 12/04/24 19:33 Pulse Ox 92 12/04/24 19:33 O2 Del Method Nasal Cannula 12/04/24 19:33 O2 Flow Rate 3 12/04/24 19:33 BMI result Body Mass Index 25.7 Const: Other: General: AO X 3, no acute distress Resp: CTA bilateral CVS: S1,S2,RRR, mild rales at bases GI: +BS, NT, no distention Skin: No rash Neuro: motor grossly intact Psych: appropriate affect Objective Data Active Medications Acetaminophen (Acetaminophen 325 Mg Tablet) 975 mg PO Q6H PRN PRN Reason: Pain, Mild 1-3,fever,headache Last Admin: 12/03/24 19:23 Dose: 975 mg Documented By: ABDIRAHMAN Acetylcysteine (Acetylcysteine 10 % 3,000 Mg/30 Ml Vial) 300 mg PO RBID [facility] Last Admin: 12/04/24 20:12 Dose: 300 mg Documented By: KEATON Comments: Albuterol/Ipratropium (Albuterol/Iprat 2.5/0.5mg 3 Ml Ampul.Neb) 3 ml INHALE RQ4H WHILE AWAKE [facility] Last Admin: 12/04/24 20:12 Dose: 3 ml Documented By: KEATON Aspirin (Aspirin Enteric Coated 81 Mg Tablet.) 81 mg PO DAILY [facility] Last Admin: 12/04/24 09:38 Dose: 81 mg Documented By: MARLEE Benzocaine (Throat Lozenge, Medicated Lozenge) 1 lozenge MUCOUS MEM Q2H PRN PRN Reason: Sore Throat Last Admin: 12/04/24 12:24 Dose: 1 lozenge Documented By: MARLEE Bisacodyl (Bisacodyl 5 Mg Tablet.) 5 mg PO DAILY PRN PRN Reason: Constipation Last Admin: 12/04/24 12:26 Dose: 5 mg Documented By: MARLEE Ceftriaxone Sodium (Ceftriaxone Sodium 1 Gm Vial) 1 gm IVPUSH Q24H [facility] Last Admin: 12/04/24 03:06 Dose: 1 gm Documented By: ARLEY Dextrose (Dextrose 50 % 25 Gm/50 Ml Syringe) 25 gm IVPUSH Q15M PRN; Protocol PRN Reason: per Hypoglycemia Standing Ord. Digoxin (Digoxin 0.125 Mg Tablet) 0.125 mg PO DAILY [facility]; Protocol Last Admin: 12/04/24 09:38 Dose: 0.125 mg Documented By: MARLEE Ferrous Sulfate (Ferrous Sulfate 324 Mg Tablet.Dr) 324 mg PO Q48H [facility] Last Admin: 12/03/24 14:46 Dose: 324 mg Documented By: NICOLAS Fluticasone/Vilanterol (Fluticasone/Vilanterol 100/25 Blst.W.Dev) 1 puff INHALE RDAILY [facility] Last Admin: 12/04/24 09:08 Dose: 1 puff Documented By: MARIFER Furosemide (Furosemide 20 Mg Tablet) 20 mg PO DAILY [facility]; Protocol Last Admin: 12/04/24 10:30 Dose: 20 mg Documented By: MARLEE Glucose (Glucose Gel 15 Gm Gel..Gram.) 15 gm PO Q15M PRN; Protocol PRN Reason: per Hypoglycemia Standing Ord. Guaifenesin (Guaifenesin La 600 Mg Tab.Er.12h) 600 mg PO BID [facility] Last Admin: 12/04/24 20:16 Dose: 600 mg Documented By: MARCIA Heparin Sodium (Porcine) (Heparin Sodium,Porcine 5,000 Unit/Ml Vial) 5,000 unit SUBCUT Q12H [facility] Last Admin: 12/04/24 20:17 Dose: 5,000 unit Documented By: MARCIA Insulin Human Lispro (Insulin Lispro 100 Unit/Ml 3 Ml Vial) 0 unit SUBCUT QIDACHS [facility]; Protocol Last Admin: 12/04/24 20:17 Dose: 4 unit Documented By: MARCIA Lorazepam (Lorazepam 0.5 Mg Tablet) 0.5 mg PO BID PRN PRN Reason: anxiety/RESPIRATORY FAILURE Last Admin: 12/04/24 16:52 Dose: 0.5 mg Documented By: MARLEE Magnesium Hydroxide (Milk Of Magnesia 30 Ml Oral.Susp) 15 ml PO BEDTIME PRN PRN Reason: Constipation Last Admin: 12/04/24 20:17 Dose: 15 ml Documented By: MARCIA Melatonin (Melatonin 3 Mg Tablet) 3 mg PO BEDTIME PRN PRN Reason: Sleep Metoprolol Succinate (Metoprolol Succinate Er 50 Mg Tab.Er.24h) 50 mg PO DAILY [facility]; Protocol Last Admin: 12/04/24 10:31 Dose: 50 mg Documented By: MARLEE Morphine Sulfate (Morphine Sulfate Immed Release 15 Mg Tablet) 15 mg PO BID PRN PRN Reason: Pain, Severe (Pain Scale 7-10) Pt Own (Rosuvastatin (40 Mg Tablet)) 20 mg PO BEDTIME [facility] Last Admin: 12/04/24 20:17 Dose: 20 mg Documented By: MARCIA Oxybutynin Chloride (Oxybutynin Chloride 5 Mg Tablet) 5 mg PO DAILY [facility] Last Admin: 12/04/24 09:38 Dose: 5 mg Documented By: MARLEE Sacubitril/Valsartan (Sacubitril/Valsartan 1 Tab Tablet) 1 tab PO BID [facility]; Protocol Last Admin: 12/04/24 20:16 Dose: 1 tab Documented By: MARCIA Sodium Chloride (0.9 % Sodium Chloride Flush 3 Ml Syringe) [facility] Last Admin: 12/04/24 20:18 Dose: 3 ml Documented By: MARCIA Spironolactone (Spironolactone 25 Mg Tablet) 12.5 mg PO DAILY [facility]; Protocol Last Admin: 12/04/24 10:30 Dose: 12.5 mg Documented By: MARLEE Topiramate (Topiramate 25 Mg Tablet) 50 mg PO BEDTIME [facility] Last Admin: 12/04/24 20:16 Dose: 50 mg Documented By: MARCIA Labs 12/02/24 06:12 12/02/24 06:12 Labs: Laboratory Results - last 24 hr 12/04/24 12/04/24 12/04/24 09:35 11:34 16:21 POC Glucose 158 H 171 H 166 H 12/04/24 20:00 POC Glucose 221 H Microbiology Microbiology Results: Microbiology 12/01/24 05:35 Blood Culture - Preliminary Blood - Venous No growth after 48 hours. 12/01/24 05:35 Blood Culture - Preliminary Blood - Venous No growth after 48 hours. Assessment and Plan (1) COPD (chronic obstructive pulmonary disease): Status: Acute Plan Patient is a 79-year-old male with a past medical history significant for severe COPD with chronic hypoxic respiratory failure on 2 L at home, a fib, type 2 diabetes, HFrEF (EF 20% 09/26), CAD/stent (09/26), who presented to the ED due to dizziness and difficulty sleeping. Acute on chronic hypoxic respiratory failure with sepsis secondary to acute exacerbation of COPD, improved continue steroid, po prednisone see by pulmonology with the following: de-escalate abx sputum cx if able diuresis as tolerated cardioprotective meds continue with respiratory therapy VbG, ?benefit from nocturnal BIPAP oxygen to keep pox>88% paroxysmal a fib, SR Type 2 diabetes - sliding scale insulin needed on steroids - no home meds chronic HFrEF - no acute exacerbation - continue home meds CAD/stent - continue home meds pressure ulcer, wound care consult DNR/DNI VTE prophy: heparin transfer to med/surg Pt recommens outpatient pulm rehab Quality Stroke Does the patient have a stroke diagnosis?: No VTE Prior VTE?: No VTE Risk Level:: Medical - moderate - high VTE Device Contraindication: Treatment Not Indicated VTE Drug Contraindication: N/A - Med Ordered
[2024-12-05] VITALS (7 sets, daily range): BP systolic 94–116; BP diastolic 55–72; PULSE 51–99; RESP 16–20; TEMP 35.9–36.2; O2SAT 90–98
[2024-12-05 07:31] LABS: Glucose, Whole Blood 180 mg/dL (60-115)
[2024-12-05] MEDS: guaiFENesin LA 600 MG TAB.ER.12H PO (07:58)
[2024-12-05] MEDS: Sacubitril/Valsartan 24/26 1 TAB TABLET PO (07:58)
[2024-12-05] MEDS: Aspirin Enteric Coated 81 MG TABLET.DR PO (07:59)
[2024-12-05] MEDS: Metoprolol Succinate ER 50 MG TAB.ER.24H PO (07:59)
[2024-12-05] MEDS: ACETYLCYSTEINE 300 MG PO (08:00)
[2024-12-05] MEDS: Albuterol/Iprat 2.5/0.5MG 3 ML AMPUL.NEB INHALE ×3 (08:02→15:43)
[2024-12-05] MEDS: Fluticasone/Vilanterol 100/25 BLST.W.DEV 1 PUFF INHALE (08:05)
[2024-12-05] MEDS: 0.9 % Sodium Chloride Flush 3 ML SYRINGE IVFLUSH ×2 (08:09→16:51)
--- NOTE | 2024-12-05 10:09 | P.DS_ITS ---
DS: Providers Provider Date of Service: 12/05/24 Date of admission: 12/01/24 06:20 Date of discharge: 12/05/24 Primary care physician: Alexis Martin NP Consults: 12/01/24 07:04 Consult to Pulmonology Routine Consulting Provider: Anastasiya Henderson Reason for consultation: COPD exacerbation Has provider been notified: No 12/02/24 07:53 Consult to Wound Care Routine Reason for consultation: Coccyx wound POA DS: Diagnosis Discharge Diagnosis (1) COPD (chronic obstructive pulmonary disease): Status: Acute DS: Summary Hospital Course Hospital Course: Admission hpi Chief Complaint: dizziness Patient is a 79-year-old male with a past medical history significant for severe COPD with folic hypoxic respiratory failure on 2 L at home, a fib, type 2 diab etes, HFrEF (EF 20% 09/26), CAD/stent (09/26), who presented to the ED due to dizziness and difficulty sleeping. The patient reports 2-3 recent admission secondary to consider hospital for COPD exacerbations with in the past 2-3 months. His most recent hospitalization was from 11/06 through 11/13 with a positive sputum culture for Pseudomonas, treated with cefepime. The patient was discharged with a midline and completed a 10 day couse of cefepime. He has been tapering off of steroids with Dr. Henderson, his mineral economist. Per notes with Dr Henderson, palliative care has been discussed but it seems the pt is now aware of the severity of his COPD. When he arrived to the ED he has oxygen was increased to 4 L via NC and he was started on methyl prednisone, cefepime, azithromycin and bronchodilators. Labs and vitals are consistent with sepsis due to COPD exacerbation, not severe. Hospital course: Patient is a 79-year-old male with a past medical history significant for severe COPD with chronic hypoxic respiratory failure on 2 L at home, a fib, type 2 diabetes, HFrEF (EF 20% 09/26), CAD/stent (09/26), who presented to the ED due to dizziness and difficulty sleeping. Acute on chronic hypoxic respiratory failure with sepsis secondary to acute exacerbation of COPD. Treated with IV steroid, bronchodilators by Neb, and antibiotics with ceftriaxone. He has made signficant improvment. He was seen by pulmonoary and recommended de-exalated Abx, diuretics as tolerated. Patient at this time is doing well and will be discharge home, PT recommend outpatient pulmonary rehab. He has follow up appointment next week with his mineral economist Dr. Henderson. He has completed 5 days of antibiotics and has completed 5 days of steroid. He presently has no wheezing on exam paroxysmal a fib, SR Type 2 diabetes - sliding scale insulin needed on steroids - no home meds chronic HFrEF - no acute exacerbation - continue home meds CAD/stent - continue home meds pressure ulcer, wound care consult Time Attestation Discharge Coordination Time (in mins): 45 Quality: Safe Use of Opioids Does Pt have an Active Cancer Diagnosis on the Problem List?: No Quality: Stroke Does the patient have a stroke diagnosis?: No Physical Exam Vital Signs: Vital Signs: Last Vital Signs Temp 96.7 F L 12/05/24 07:37 Pulse 51 12/05/24 08:11 Resp 18 12/05/24 08:11 BP 114/62 12/05/24 07:37 Pulse Ox 92 12/05/24 07:37 O2 Del Method Nasal Cannula 12/05/24 07:37 O2 Flow Rate 2 12/05/24 07:37 BMI result Body Mass Index 25.7 DS: Data Data Completed and Pending Labs on day of discharge: Laboratory Results - last 24 hr 12/04/24 12/04/24 12/04/24 11:34 16:21 20:00 POC Glucose 171 H 166 H 221 H 12/05/24 07:19 POC Glucose 180 H Preliminary micro results at discharge 12/01/24 05:35 Blood Culture - Preliminary Blood - Venous No growth after 48 hours. 12/01/24 05:35 Blood Culture - Preliminary Blood - Venous No growth after 48 hours. Discharge Plan Discharge Anticipated Discharge Date/Time: 12/05/24 10:10 Patient Disposition: Xfer Other Discharge Diagnosis: COPD exacerbation Referrals: Alexis Martin NP [Primary Care Provider, Internal Medicine] - 1 Week Discharge Medications: Continued albuterol sulfate 90 mcg/actuation HFA aerosol inhaler 2 puff PO Q4H PRN (Reason: shortness of breath or wheezing) Qty: 8.5 2RF Spiriva Respimat 2.5 mcg/actuation mist 2 puff inhalation DAILY MDD 2 inhilations daily 90 Days Qty: 4 3RF furosemide [Lasix] 20 mg tablet 20 mg PO DAILY acetylcysteine [Mucomyst-10] 100 mg/mL (10 %) Solution 3 ml INHALATION BID clobetasol 0.05 % Cream 1 appl TOPICAL BID PRN (Reason: Scalp Psoriasis) albuterol sulfate 2.5 mg /3 mL (0.083 %) Solution For Nebulization 2.5 mg INHALATION Q6H PRN (Reason: Shortness Of Breath Or Wheezing) ascorbic acid (vitamin C) 250 mg Tablet 250 mg PO Q48H diphenhydramine HCl 25 mg Tablet 25 mg PO BEDTIME PRN (Reason: Itching) bisacodyl 5 mg Tablet 5 mg PO DAILY PRN (Reason: Constipation) melatonin 3 mg Tablet 3 mg PO BEDTIME PRN (Reason: Sleep) ferrous gluconate 324 mg (38 mg iron) Tablet 324 mg PO Q48H metoprolol succinate 50 mg tablet extended release 24 hr 50 mg PO DAILY Moisturizing Normal-Dry Skin Lotion 1 appl TOPICAL BID PRN (Reason: Dry Skin) insulin glargine 100 unit/mL Solution 5 unit SUBCUT BEDTIME digoxin 125 mcg (0.125 mg) tablet 125 mcg PO DAILY escitalopram oxalate 20 mg tablet 20 mg PO DAILY PRN (Reason: Mood) topiramate 50 mg tablet 50 mg PO BEDTIME aspirin 81 mg tablet,delayed release (DR/EC) 81 mg PO DAILY rosuvastatin 40 mg tablet 20 mg PO DAILY fluticasone propion-salmeterol [Wixela Inhub] 250-50 mcg/dose blister with device 1 inh inhalation BID oxybutynin chloride 5 mg tablet 5 mg PO DAILY Entresto 24-26 mg tablet 1 tab PO BID guaifenesin 600 mg tablet extended release 12hr 600 mg PO BID Lactobacillus rhamnosus GG 10 billion cell capsule 1 cap PO DAILY spironolactone 25 mg tablet 12.5 mg PO DAILY morphine 15 mg tablet 15 mg PO BID PRN (Reason: Pain) lorazepam 0.5 mg tablet 0.5 mg PO BID PRN (Reason: anxiety/RESPIRATORY FAILURE) 30 Days Qty: 60 1RF prednisone 5 mg tablet 5 mg PO DAILY 30 Days Qty: 30 1RF Discharge Orders: Discharge Order (Routine); Ordered 12/05/24 Ordered By: Spenser Lisa Diet: Advance to usual diet Activity on Discharge: As tolerated Stand Alone Forms: Patient Portal Discharge page Print Language: Sami Activity Restrictions/Additional Instructions: Topical Wound Care Recommendations: Coccyx - Off Load Pressure and limit sitting time with use of pillows - Routine cleansing with soap and water daily, pat dry. ?Apply thin layer of Triad to wound bed. Do not remove all of paste between applications as this may cause further skin damage.? Cover with gauze dressing to protection from friction. Apply twice daily. Bilateral Ears - Off load oxygen tubing when able. Use foam rollers when available. Routine cleansing with soap and water daily, pat dry. Apply skin prep allow to dry. Cover with dressing, change daily. Care Plan Goals: recovey from copd exacerbation Health Concerns: chronic respiatory failure copd with exacerbation chronic use of oxygen at home Plan of Treatment: continue using inhalers as before continue using oxygen as before Take prednisone as directed Assessment: See above
[2024-12-05 11:55] LABS: Glucose, Whole Blood 246 mg/dL (60-115)
--- NOTE | 2024-12-05 12:24 | MHC.CM.PN ---
Cm met with pt. and his , let them know that [facility] is not able to have pt. go to them today. CM to follow up with them tomorrow.
--- NOTE | 2024-12-05 12:57 | W.MHC.F2F ---
Service Date Service Date: 12/05/24 Encounter Date of encounter: 12/05/24 Reasons for Services Signs and symptoms assessed: shortness of breath due to copd and heart failure Reason for longterm: medication management and teach disease management Reason for physical therapy: energy conservation Homebound: Leaving the home is medically contraindicated at this time without the asist of a device and/or another person due th the listed conditions above and below. Reason homebound: shortness of breath with minimal effort and weakness related to hospital stay Homebound supporting statement: Patient is homebound due to chronic respiratory failure secondary to COPD and heart failure, requires supplemental oxygen, and depends on the assistance of another person for daily activities. Certification: Based on the above findings, I certify that this patient is confined to the home and needs intermittent longterm care, physical therapy and/or speech therapy, or continues to need occupational therapy. The patient is under my care, and I have initiated the establishment of the plan of care. The patient will be followed by a physician who will periodically review the plan of care. Time Spent With Patient Time: Total time managing care of this patient today ____ minutes.
--- NOTE | 2024-12-05 14:45 | MHC.CM.PN ---
Pt has been medically cleared to CT, he will go home via private transport, and have home care services from [facility].
[2024-12-05 16:42] LABS: Glucose, Whole Blood 304 mg/dL (60-115)
[2024-12-05] MEDS: Ferrous Sulfate 324 MG TABLET.DR PO (16:50)
== END 2024-12-05 18:20 | disposition other institution (70) | DRG 871 ==
LOC: HO.ED 12-01 06:32 → HO.EDOVER 12-01 06:37 → HO.IMC 12-01 15:26
PROVIDERS: Physician Assistant; Physician Assistant Medical; Admitting Provider Internal Medicine; Emergency Provider Emergency Medicine; PCP Nurse Practitioner Family; Visit Provider Internal Medicine
DX: A41.9 Sepsis, unspecified organism (principal); J96.21 Acute and chronic respiratory failure with hypoxia; J44.1 Chronic obstructive pulmonary disease with (acute) exacerbation; I50.22 Chronic systolic (congestive) heart failure; E11.65 Type 2 diabetes mellitus with hyperglycemia; L89.150 Pressure ulcer of sacral region, unstageable; L89.812 Pressure ulcer of head, stage 2; I48.0 Paroxysmal atrial fibrillation; I25.10 Atherosclerotic heart disease of native coronary artery without angina pectoris; Z66 Do not resuscitate; Z20.822 Contact with and (suspected) exposure to COVID-19; Z95.5 Presence of coronary angioplasty implant and graft; Z99.81 Dependence on supplemental oxygen; Z79.4 Long term (current) use of insulin; Z79.51 Long term (current) use of inhaled steroids; Z79.82 Long term (current) use of aspirin; Z79.899 Other long term (current) drug therapy
CPT/HCPCS: 0241U; 36415; 71045; 80048; 80053; 80162; 82803; 82947; 83605; 83880; 84484; 85025; 85379; 86140; 87040; 93005; 94640; 97161; 99285; J0456; J0692; J0696; J1644; J2919

== ENCOUNTER → 2024-12-01 00:07 | Outpatient (BNV) | payer OTHER, SELFPAY | PROVIDERS: Admitting Provider Internal Medicine; Emergency Provider Emergency Medicine; PCP Nurse Practitioner Family; Visit Provider Internal Medicine Cardiovascular Disease | DX: I49.3 Ventricular premature depolarization (principal); R00.0 Tachycardia, unspecified | CPT/HCPCS: 93010 ==

== ENCOUNTER → 2024-12-01 04:16 | Outpatient (BNV) | payer OTHER, SELFPAY | PROVIDERS: Admitting Provider Internal Medicine; Emergency Provider Emergency Medicine; PCP Nurse Practitioner Family; Visit Provider Radiology Diagnostic Radiology | DX: J84.9 Interstitial pulmonary disease, unspecified (principal) | CPT/HCPCS: 71045 ==

== ENCOUNTER → 2024-12-01 06:20 | Outpatient (BNV) | payer OTHER, SELFPAY | PROVIDERS: Admitting Provider Internal Medicine; Emergency Provider Emergency Medicine; PCP Nurse Practitioner Family; Visit Provider Physician Assistant Medical | DX: J44.1 Chronic obstructive pulmonary disease with (acute) exacerbation (principal) | CPT/HCPCS: 99232; 99239; 99499; G0180 ==

== ENCOUNTER → 2024-12-01 06:20 | Outpatient (BNV) | payer OTHER, SELFPAY | PROVIDERS: Admitting Provider Internal Medicine; Emergency Provider Emergency Medicine; PCP Nurse Practitioner Family; Visit Provider Hospitalist | DX: J44.1 Chronic obstructive pulmonary disease with (acute) exacerbation (principal); J96.21 Acute and chronic respiratory failure with hypoxia; I50.9 Heart failure, unspecified | CPT/HCPCS: 99222 ==

== ENCOUNTER 2025-05-05 11:41 | Inpatient (IN) | payer OTHER, SELFPAY ==
[2025-05-05] VITALS (7 sets, daily range): BP systolic 110–162; BP diastolic 69–79; PULSE 91–104; RESP 18–21; TEMP 36.7–37; O2SAT 89–96; BMI 21.5
--- NOTE | ~2025-05-05 | CT_ITS ---
EXAMINATION: CT ANGIOGRAM CHEST CLINICAL INFORMATION: SOB COMPARISON: None available. TECHNIQUE: Multiple axial images were obtained through the chest after the administration of 65 mL of Omnipaque 350 intravenous contrast. Extensive vascular post-processing including two-dimensional and three-dimensional reformatted images were created and reviewed on an independent workstation. SmartPrep technique This CT examination was performed using dose optimization techniques as appropriate, variously including the following: *Automated exposure control *Adjustment of mA and/or kV according to patient size (this includes techniques or standardized protocols for targeted exams where dose is matched to indication/reason for exam; i.e. extremities or head) *Use of iterative reconstruction technique DLP: 210 mGy-cm FINDINGS: Main pulmonary artery, its main left and right branches and subsegmental pulmonary branches demonstrated normal enhancement pattern without intraluminal filling defects. Thoracic aorta demonstrates irregular shaped mixed plaques throughout the wall and its main branches. Ascending thoracic aorta measures 42 x 38 mm. Thoracic aortic arch measures 33 mm. Descending thoracic aorta measures 42 x 35 mm. No intimal flap. No IV contrast extravasation. Bilateral, extensive tree in bud pattern abnormality. Bilateral, scattered, less than 11 mm noncalcified pulmonary nodules, the largest in the left lower lung lobe. Intraluminal attenuation in the subsegmental pulmonary bronchi analysis in the right and likely left lower lung lobes. No bronchiectasis. No honeycombing. No pleural effusion. Calcified plaques in the coronary arteries. Small volume pericardial effusion. Enlarged left ventricle. Thyroid gland is atrophic. Multilevel spondylosis, axial skeleton without acute fracture or listhesis. Osteopenia versus osteoporosis. No acute rib fracture. CT/CT angio chest PE protocol IMPRESSION: No acute pulmonary artery emboli. Concerning multifocal pneumonia related to mycobacterium avium versus mycobacterium tuberculosis versus fungal pneumonia versus viral pneumonia. Bilateral, noncalcified pulmonary nodules. Ectasia, thoracic aorta. Coronary artery disease and atherosclerosis disease. Fleischner guidelines were followed. Electronically signed by: Lopez Andrews MD 05/05/2025 02:41 PM NIC
--- NOTE | 2025-05-05 12:03 | ECG_ITS ---
Test Reason : sob Blood Pressure : */* mmHG Vent. Rate : 89 BPM Atrial Rate : 89 BPM P-R Int : 132 ms QRS Dur : 114 ms QT Int : 394 ms P-R-T Axes : * 81 56 degrees QTcB Int : 479 ms Sinus rhythm with occasional Premature ventricular complexes and Premature atrial complexes Otherwise normal ECG When compared with ECG of 01-Dec-2024 00:07, Premature atrial complexes are now Present QRS axis Shifted right Referred By: Gloria Stanford Electronically Signed By: LISA GARCIA
--- NOTE | 2025-05-05 12:05 | ED.GENADULT ---
HPI - General Adult General Chief complaint: General Medical Stated complaint: SOB INCREASED WEAKNESS Time Seen by Provider: 05/05/25 11:56 Source: patient, EMS and old records reviewed Mode of arrival: EMS Limitations: no limitations History of Present Illness ED Provider: DR. Stanford HPI narrative: 79-year-old male PMHx severe COPD with chronic hypoxic respiratory failure on 2-3 L of supplemental oxygen as needed, AFib, T2 DM, HFrEF 20%, CAD, stent on 09/26 information complaining of dyspnea and shortness of breath mostly with exertion, patient require to raise the head of while he is sleeping at night otherwise he wakes up to 3 times during the night, patient is also complaining of frequency urination. Patient stated that his O2 sat at home was down to 85% despite using 3 L of nasal cannula oxygen at home. Patient reported that he had 6 ED visit to [facility] without improvement of patient's symptoms. Related Data Home Medications ?Medication ?Instructions ?Recorded ?Confirmed aspirin 81 mg tablet,delayed 81 mg PO DAILY 04/21/20 12/01/24 release escitalopram oxalate 20 mg tablet 20 mg PO DAILY PRN Mood 04/21/20 12/01/24 topiramate 50 mg tablet 50 mg PO BEDTIME 04/21/20 12/01/24 fluticasone 250 mcg-salmeterol 50 1 inh inhalation BID 11/28/21 12/01/24 mcg/dose blistr powdr for inhalation (Wixela Inhub) rosuvastatin 40 mg tablet 20 mg PO DAILY 01/05/22 12/01/24 oxybutynin chloride 5 mg tablet 5 mg PO DAILY 10/16/24 12/01/24 sacubitril 24 mg-valsartan 26 mg 1 tab PO BID 10/16/24 12/01/24 tablet (Entresto) Lactobacillus rhamnosus GG 10 1 cap PO DAILY 11/17/24 12/01/24 billion cell capsule guaifenesin 600 mg tablet, 600 mg PO BID 11/17/24 12/01/24 extended release 12 hr spironolactone 25 mg tablet 12.5 mg PO DAILY 11/17/24 12/01/24 acetylcysteine 100 mg/mL (10 %) 3 ml inhalation BID 12/01/24 12/01/24 solution albuterol sulfate 2.5 mg/3 mL 2.5 mg inhalation Q6H PRN 12/01/24 12/01/24 (0.083 %) solution for nebulization Shortness Of Breath Or Wheezing ascorbic acid (vitamin C) 250 mg 250 mg PO Q48H 12/01/24 12/01/24 tablet bisacodyl 5 mg tablet 5 mg PO DAILY PRN Constipation 12/01/24 12/01/24 ceramides 1,3,6-II (Moisturizing 1 appl topical BID PRN Dry Skin 12/01/24 12/01/24 Normal to Dry Skin lotion) clobetasol 0.05 % topical cream 1 appl topical BID PRN Scalp 12/01/24 12/01/24 Psoriasis digoxin 125 mcg (0.125 mg) tablet 125 mcg PO DAILY 12/01/24 12/01/24 diphenhydramine HCl 25 mg tablet 25 mg PO BEDTIME PRN Itching 12/01/24 12/01/24 ferrous gluconate 324 mg (38 mg 324 mg PO Q48H 12/01/24 12/01/24 iron) tablet furosemide 20 mg tablet (Lasix) 20 mg PO DAILY CHF 12/01/24 12/01/24 insulin glargine 100 unit/mL 5 unit subcut BEDTIME 12/01/24 12/01/24 subcutaneous solution melatonin 3 mg tablet 3 mg PO BEDTIME PRN Sleep 12/01/24 12/01/24 metoprolol succinate 50 mg 50 mg PO DAILY 12/01/24 12/01/24 tablet,extended release 24 hr Previous Rx's ?Medication ?Instructions ?Recorded albuterol sulfate 90 mcg/actuation 2 puff PO Q4H PRN shortness of 07/09/20 aerosol inhaler breath or wheezing #8.5 grams tiotropium bromide 2.5 2 puff inhalation DAILY copd 90 07/18/24 mcg/actuation mist for inhalation days #4 grams (Spiriva Respimat) prednisone 5 mg tablet 5 mg PO DAILY copd 30 days #30 tabs 11/17/24 lorazepam 0.5 mg tablet 0.5 mg PO BID PRN 12/31/24 anxiety/RESPIRATORY FAILURE 30 days #60 tabs morphine 15 mg immediate release 15 mg PO BID PRN Pain/Respiratory 12/31/24 tablet Distress 30 days #20 tabs Allergies Allergy/AdvReac Type Severity Reaction Status Date / Time levofloxacin (From Levaquin) Allergy Severe Anaphylaxis Verified 05/05/25 11:58 atorvastatin Allergy Unknown Verified 05/05/25 11:58 carvedilol Allergy Unknown Verified 05/05/25 11:58 ketorolac (From Toradol) Allergy Unknown Verified 05/05/25 11:58 lisinopril Allergy Unknown Verified 05/05/25 11:58 semaglutide Allergy Unknown Verified 05/05/25 11:58 Review of Systems Review of Systems: all other systems are reviewed and are negative Constitutional: Reports as per HPI and Reports no additional constitutional complaints Eyes: Reports as per HPI and Reports no additional eye complaints Reports system reviewed and no additional complaints, except as documented Cardiovascular: Reports as per HPI and Reports no additional cardiovascular complaints Respiratory: Reports as per HPI and Reports no additional respiratory complaints Gastrointestinal: Reports as per HPI and Reports no additional gastrointestinal complaints Genitourinary: Reports no additional female genitourinary complaints Musculoskeletal: Reports no additional musculoskeletal complaints Skin/Breast: Reports system reviewed and no additional complaints, except as docu Psychiatric: Reports no additional psychiatric complaints Endocrine: Reports no additional endocrine complaints Hematologic/Lymphatic: Reports no additional hematologic/lymphatic complaints Allergic/Immunologic: Reports no additional allergic/immunologic complaints Reports system reviewed and no additional complaints, except as documented and Reports Abnormal speech present [facility] Past Medical History Medical History CHF (congestive heart failure) Type 2 diabetes mellitus without complications CAD (coronary artery disease) Acute anxiety Physical deconditioning Respiratory failure Pneumonia COPD (chronic obstructive pulmonary disease) Surgical History H/O heart artery stent Social History Social History Household Members: Spouse Housing: Condominium Do you presently have visiting nurse or other home services: Yes Patient Tobacco Use Status: Former Tobacco user Smoked in Last 30 Days: No Use of substances other than those prescribed or required for medical reasons: No Substance Use Type: Marijuana Advance Directives: Yes Advance Directives Information Provided: Yes Advance Directives on File: No Do you have a plan to hurt others: No Plan service: Yes Physical Exam ED Vital Signs: Vital Signs - 24 hr 05/05/25 11:56 05/05/25 12:16 12/02/25 12:38 Pulse Rate 96 93 Respiratory Rate 18 21 H Blood Pressure 162/69 H Pulse Oximetry 92 89 L Oxygen Delivery Method Nasal Cannula Room Air BMI result Body Mass Index 21.5 Vital signs have been reviewed and appear to be correct. Blood pressure elevated. Heart rate normal. Respiratory rate normal. Temperature normal. Oxygen saturation normal. Appearance: Alert. Oriented X3. No acute distress. Head: Normal external exam. Normocephalic. Atraumatic. No Francois signs noted. No raccoon eyes noted Eyes: PERRLA. EOMI. Conjunctiva and sclera normal. Eyelids normal. ENT: TM's Normal. Pharynx normal. Uvula midline. Moist mucous membranes. No trismus noted. No drooling noted. No muffled voice noted. Neck: Normal inspection. Neck supple. FROM. No adenopathy. Thyroid Normal. No meningeal signs. No neck mass noted. CVS: Normal heart rate and rhythm. Heart sound normal. No murmurs noted. Pulses normal throughout. Respiratory: No respiratory distress. Painless inspiration. Breath sounds normal. diffuse bilateral minimal expiratory wheezing with prolonged expiration, bilateral basilar rales. No accessory muscle usage noted or decreased air movement noted. Abdomen: Soft and nontender. Bowel sounds normal in all 4 quadrants. No distention noted. No organomegaly noted. No visible injury noted. Back: No CVA tenderness. Full range of motion noted. Skin: Skin warm and dry. Normal skin color. Normal skin turgor. No rashes/lesions/lacerations noted. Extremities: No lower extremity edema. Extremities exhibit normal range of motion. Extremities nontender. Neuro: Oriented X 3. Cranial nerve exam: II-XII are grossly intact No motor deficit. No sensory deficit. Reflexes normal. Course Reevaluation(s) Reevaluation #1: 1. COPD exacerbation, patient is on chronic supplemental oxygen lowest O2 sat in the emergency department was 88% on room air.And patient feels clinically better after bronchodilator magnesium, and Solu-Medrol. 2. History of MAC, CTA shows no pulmonary embolism but showed multifocal pneumonias patient is getting ceftriaxone and doxycycline. 3. UTI patient started on ceftriaxone. 4. Elevated troponin with no delta changes. Time: 15:38 Medications Administered Discontinued Medications Generic Name Dose Route Start Last Admin Trade Name Freq PRN Reason Stop Dose Admin Albuterol Sulfate 5 mg/ 0 mg 05/05/25 12:28 05/05/25 12:36 Albuterol/Ipratropium 3 ml INHALE 05/05/25 12:29 1 each ONCE ONE Administration Furosemide 40 mg 05/05/25 12:02 05/05/25 12:34 Furosemide 40 Mg/4 Ml Vial IVPUSH 05/05/25 12:03 40 mg ONCE ONE Administration Protocol Ceftriaxone Sodium 1 gm/ 50 mls @ 100 mls/hr 05/05/25 12:44 05/05/25 14:15 Sodium Chloride IV 05/05/25 13:13 Infused ONCE ONE Infusion Iohexol 100 ml 05/05/25 14:18 05/05/25 14:23 Iohexol 350 Mg/Ml 100 Ml Infus..Btl IV 05/05/25 14:19 65 ml ONCE ONE Administration Methylprednisolone Sodium Succinate 60 mg 05/05/25 12:02 05/05/25 12:34 Methylprednisolone Sod Succ 125 Mg/2 Ml Vial IVPUSH 05/05/25 12:03 60 mg ONCE ONE Administration Medical Decision Making Differential Diagnosis Differential Diagnoses: The differential diagnosis associated with the presentation includes ( CHF, pneumonia, pneumothorax, pleural effusion, COPD exacerbation, electrolyte derangement, severe anemia, UTI.) Admission/Observation Consideration of admission/observation: Escalation of care including admission/observation considered Consult Healthcare Provider Management of the patient was discussed with: Hospitalist ( Dr. King) Lab Data MDM Lab Attestation statement: I reviewed the patient's lab results. 05/05/25 12:15 05/05/25 12:16 Labs: Lab Results 05/05/25 05/05/25 05/05/25 Range/Units 12:15 12:16 12:26 WBC 22.8 H (4.8-10.8) X10*3/uL RBC 4.51 L (4.60-5.80) X10*6/uL Hgb 11.9 L (14.0-18.0) g/dl Hct 38.0 L (42.0-52.0) % MCV 84.3 (80.0-98.0) fL MCH 26.4 L (27.0-33.0) pg MCHC 31.3 (31.0-36.0) g/dl RDW 15.2 (11.0-16.0) % Plt Count 483 H D (160-400) X10*3/uL MPV 9.5 (9.4-12.4) fL Immature Gran % (Auto) 0.6 H (0.0-0.4) % Neut % (Auto) 87.6 H (45-73) % Lymph % (Auto) 5.3 L (20-40) % [place] % (Auto) 5.8 (2-11) % Eos % (Auto) 0.4 (0-4) % Baso % (Auto) 0.3 (0-2) % Lymph # (Auto) 1.2 (1.2-4.9) X10*3/uL [place] # (Auto) 1.3 H (0.1-1.2) X10*3/uL Eos # (Auto) 0.1 (0.0-0.4) X10*3/uL Baso # (Auto) 0.1 (0.0-0.2) X10*3/uL Abs Immat Gran (auto) 0.14 H (0.00-0.03) X10*3/uL Absolute Neuts (auto) 20.0 H (2.0-8.3) x10*3/uL Absolute Nucleated RBC 0.000 (0.0-0.012) X10*3/uL Nucleated RBC % (auto) 0.0 (0.0-0.2) /100WBC PT 12.4 (11.2-13.5) SEC INR 1.0 (0.9-1.1) D-Dimer High Sensitivty 271 NG/ML Sodium 144 (135-145) mmol/L Potassium 3.9 D (3.3-5.1) mmol/L Chloride 111 H (96-108) mmol/L Carbon Dioxide 25 (22-29) mmol/L Anion Gap 12 (12-20) BUN 57 H (9-16) mg/dL Creatinine 1.75 H (0.5-1.4) mg/dL Estim Creat Clear Calc 31.9 Estimated GFR 38 Random Glucose 226 H (60-115) mg/dL Lactic Acid 1.3 (0.5-2.0) mmol/L Calcium 8.8 (8.4-10.2) mg/dL Magnesium 2.0 (1.6-2.6) mg/dL Total Bilirubin 0.2 (0.0-1.0) mg/dL Direct Bilirubin < 0.2 (0.0-0.5) mg/dL AST 50 H (5-37) U/L ALT 108 H (0-40) U/L Alkaline Phosphatase 74 (39-117) U/L Troponin I High Sens 145.4 H* D (<3.5-35.0) ng/L NT-Pro-B Natriuret Pep 2042.1 H (<300) pg/mL Total Protein 7.4 (6.5-8.0) g/dL Albumin 3.6 (3.5-5.0) g/dL Lipase 51 (8-78) U/L Urine Color Yellow Urine Appearance Turbid Urine pH 5.5 (5.0-9.0) Ur Specific [place] 1.020 (1.005-1.025) Urine Protein 30 (1+) H (Neg-Trace) mg/dL Urine Glucose (UA) Negative (Negative) mg/dL Urine Ketones Negative (Negative) mg/dL Urine Blood Small (1+) H (Negative) Urine Nitrite Positive H (Negative) Ur Leukocyte Esterase Large (3+) H (Negative) Urine RBC 11-20 H (0-2) /HPF Urine WBC >50 H (0-5) /HPF Ur Squamous Epith Cells 0-2 (0-2) /HPF Urine Bacteria 1+ (None Seen) Hyaline Casts 3-5 (0-2) /LPF Urine Yeast Present Influenza Type A (PCR) NEGATIVE (Negative) Influenza Type B (PCR) NEGATIVE (Negative) RSV RNA Qual (PCR) NEGATIVE (Negative) SARS-CoV-2 RNA (RT-PCR) NEGATIVE (Negative) Independent Interpretation I performed an independent interpretation of an: CT Scan ( CT angio of the chest:No acute pulmonary artery emboli. Concerning multifocal pneumonia related to mycobacterium avium versus mycobacterium tuberculosis versus fungal pneumonia versus viral pneumonia. Bilateral, noncalcified pulmonary nodules. Ectasia, thoracic aorta. Coronary artery disease and ) Radiology Impression Discussion of test interpretation with radiology: I have reviewed the radiologist's reading. Critical Care Time Critical Care Time Critical Care Time: Yes Total Critical Care Time: 60 Attestation: The patient was critically ill with a high probability of imminent or life-threatening deterioration. I spent greater than 30 minutes of discontinuous time evaluating the patient, delivering critical care at the bedside, discussing evaluating data with consultants. Critical care time does not include time spent performing separately billable procedures or teaching. Time spent performing critical care was 60 minutes. Discharge Plan Discharge Clinical Impression: Acute exacerbation of CHF (congestive heart failure), COPD exacerbation, Acute UTI Patient Disposition: Admitted As Inpatient Print Language: Mohawk
[2025-05-05 12:23] LABS: MANUAL DIFF FLAG NO
[2025-05-05 12:24] LABS: Hematocrit 38.0 % (42.0-52.0); Hemoglobin 11.9 g/dl (14.0-18.0); Imm Gran Abs Auto 0.14 X10*3/uL (0.00-0.03); Imm Gran Pct Auto 0.6 % (0.0-0.4); Lymphocytes Absolute Auto 1.2 X10*3/uL (1.2-4.9); Mean Corpuscular HGB Conc 31.3 g/dl (31.0-36.0); Mean Corpuscular Hemoglobin 26.4 pg (27.0-33.0); Mean Corpuscular Volume 84.3 fL (80.0-98.0); NRBC Abs Auto 0.000 X10*3/uL (0.0-0.012); NRBC Pct Auto 0.0 /100WBC (0.0-0.2); Platelet Count 483 X10*3/uL (160-400); Red Blood Count 4.51 X10*6/uL (4.60-5.80); White Blood Count 22.8 X10*3/uL (4.8-10.8)
[2025-05-05 12:26] LABS: Appearance Urine Turbid; Glucose Urine UA Negative (Negative); PH 5.5 (5.0-9.0); Specific Gravity - Urine 1.020 (1.005-1.025); UMIC TRIGGER UACC YES
[2025-05-05] MEDS: Furosemide 40 MG/4 ML VIAL IVPUSH (12:34)
[2025-05-05 12:35] LABS: UACC Culture Trigger YES
[2025-05-05] MEDS: Albuterol Sulfate 5 MG, Albuterol/Iprat 2.5/0.5MG 3 ML 3 ML INHALE (12:36)
[2025-05-05 12:40] LABS: INTERNATIONAL NORM RATIO 1.0 (0.9-1.1); Prothrombin Time 12.4 SEC (11.2-13.5)
[2025-05-05 12:42] LABS: D Dimer High Sensitivity 271 NG/ML
[2025-05-05 12:43] LABS: Alanine Aminotransferase 108 U/L (0-40); Albumin Level 3.6 g/dL (3.5-5.0); Alkaline Phosphatase 74 U/L (39-117); Anion Gap 12 (12-20); Aspartate Amino Transferase 50 U/L (5-37); Blood Urea Nitrogen 57 mg/dL (9-16); Calcium 8.8 mg/dL (8.4-10.2); Carbon Dioxide 25 mmol/L (22-29); Chloride 111 mmol/L (96-108); Creatinine Clr Calc Pharmacy 31.9; Estimated Glomerular Filt Rate 38; Lipase 51 U/L (8-78); Magnesium 2.0 mg/dL (1.6-2.6); Potassium 3.9 mmol/L (3.3-5.1); Sodium 144 mmol/L (135-145); Total Protein 7.4 g/dL (6.5-8.0)
[2025-05-05 12:52] LABS: Troponin-I High Sensitivity 145.4 ng/L (<3.5-35.0)
[2025-05-05 13:12] LABS: Resp Syncy Virus RNA Qual PCR NEGATIVE (Negative); SARS COV2 PCR INHOUSE NEGATIVE (Negative)
[2025-05-05] MEDS: iohexoL 350 MG/ML 100 ML INFUS..BTL IV (14:23)
--- OUTSIDE RECORDS SUMMARY | 2025-05-05 14:38 | XMS_ITS | Encounter Summary ---
Author Organization [facility], Address [address] [place] [address] Phone Care Team Providers Care Rand Butting Machine Operator Name Role Phone Alexis Martin DNP Primary Care Provider Encounter Details Date Type Department Care Team (Late Contact Info) Description 04/10/2025 Orders Only [facility] [address] [place] [phone] Romie Polk MD [address] [place] [address] [place] [address] Stage 3b chronic kidney disease (HCC) Social History Tobacco Use Types Packs/Day Years Used Date Smoking Tobacco: Never Alcohol Use Standard Drinks/Week Comments No 0 (1 standard drink = 0.6 oz pur e alcohol) Sex and Gender Information Value Date Recorded Sex Assigned at Not on file Legal Sex Male 4:52 PM EST Gender Identity Not on file Sexual Orientation Not on file documented as of this encounter Plan of Treatment Upcoming Encounters Date Type Department Care Team (Late st Contact Info) Description 05/08/2025 2:00 PM EST Office Visit [facility] [address] [place] [phone] Romie Polk MD [address] [place] [address] [place] [address] documented as of this encounter Visit Diagnoses Diagnosis Stage 3b chronic kidney disease (HCC) documented in this encounter Care Teams Rand Butting Machine Operator Relationship Specialty Start Date End Date Alexis Martin DNP [address] [place], [place] PCP - General Nurse Practitioner 03/31/25 documented as of this encounter
--- OUTSIDE RECORDS SUMMARY | 2025-05-05 14:38 | XMS_ITS ---
Author Organization [facility] Address [address] [place] [address] Care Team Providers Care Health Information Managers Name Role Phone Alexis Martin MD Primary Care Provider +1- [phone] Active Problems Problem Noted Date Diagnosed Date [...] (10/05/2017): Added automatically from request for surgery [id number] (abdominal aortic aneurysm) without rupture 04/23/2017 Current Treatment and Therapy Plans No current plan information found. Past Treatment and Therapy Plans No past plan information found. Lifetime Dose Tracking * Chemical Lifetime Dose Automatic Entry Manual Entr y Air Kerma-mGy 6.35 mGy 0 mGy 6.35 mGy Dose Area Product(DAP)-Gy-cm2 40.35 Gy-cm2 0 Gy-cm2 40.35 Gy-cm2 Fluoro Time 1.6 minutes 0 minutes 1.6 minutes
--- OUTSIDE RECORDS SUMMARY | 2025-05-05 14:38 | XMS_ITS | Encounter Summary ---
Author Organization [facility] Address [address] [place] [address] Care Team Providers Care Glass Crusher Name Role Phone Zoey Giles DO Primary Care Provider +1- [phone] Jorge Rucker MD Unavailable Unknown Primary Care Provider [phone] Alexis Martin MD Primary Care Provider +1- [phone] Encounter Details Date Type Department Care Team (Late st Contact Info) Description 09/24/2017 Scanned Document [facility] [place] [address] Enrrique Pérez MD [address] [phone] Social History Tobacco Use Types Packs/Day Years [...] on filedocumented in this encounter Care Teams Glass Crusher Relationship Specialty Start Date End Date Zoey Giles DO [address] [place] [address] PCP - General Genetic Counselor 04/11/17 10/11/17 Unknown Unknow Provider Address PCP - General 10/12/17 03/09/24 Alexis Martin MD [address] [place] [address] PCP - General 03/10/24 Jorge Rucker MD [address] [place] [address] Collection Clerk Cardiovascular Disease 04/12/17 4 documented as of this encounter
--- OUTSIDE RECORDS SUMMARY | 2025-05-05 14:38 | XMS_ITS | Encounter Summary ---
Author Organization [facility] Address [address] [place] [address] Care Team Providers Care Accounting/Finance Tutor Name Role Phone Zoey Giles DO Primary Care Provider [phone]- [phone] Jorge Rucker MD Unavailable Unknown Primary Care Provider [phone] Alexis Martin MD Primary Care Provider +1- [phone] Encounter Details Date Type Department Care Team (Late st Contact Info) Description 09/24/2017 Scanned Document [facility] Vascular & [place] [address] Enrrique Pérez MD [address] [phone] Social History Tobacco Use Types Packs/Day Years [...] on filedocumented in this encounter Care Teams Accounting/Finance Tutor Relationship Specialty Start Date End Date Zoey Giles DO [address] [place] [address] PCP - General Genetic Counselor 04/11/17 10/11/17 Unknown Unknow Provider Address PCP - General 10/12/17 03/09/24 Alexis Martin MD [address] [place] [address] PCP - General 03/10/24 Jorge Rucker MD [address] [place] [address] Intramural Director Cardiovascular Disease 04/12/17 4 documented as of this encounter
--- OUTSIDE RECORDS SUMMARY | 2025-05-05 14:38 | XMS_ITS | Encounter Summary ---
Author Organization [facility] [place], Address [address] [place] [address] Phone Care Team Providers Care Slitting And Shipping Supervisor Name Role Phone Alexis Martin HEIKE Primary Care Provider Encounter Details Date Type Department Care Team (Late st Contact Info) Description 03/31/2025 Documentation Only [facility] [address] [place] [place] [phone] [place], [place] [address] [place] [address] Social History Tobacco Use Types Packs/Day Years [...] Visit [facility] [address] Jayne GROVER [address] [place] [phone] Romie Polk MD [address] [place] [address] [place] [phone] documented as of this encounter Visit Diagnoses Not on filedocumented in this encounter Care Teams Slitting And Shipping Supervisor Relationship Specialty Start Date End Date Alexis Martin DNP [address] [place] [address] PCP - General Nurse Practitioner 03/31/25 documented as of this encounter
--- OUTSIDE RECORDS SUMMARY | 2025-05-05 14:38 | XMS_ITS | Encounter Summary ---
Author Organization [facility] Address [address] [place] [address] Care Team Providers Care Analyst Geochemical Prospecting Name Role Phone Zoey Giles DO Primary Care Provider [phone] Jorge Rucker MD Unavailable Unknown Primary Care Provider [phone] Alexis Martin MD Primary Care Provider [phone]- [phone] Encounter Details Date Type Department Care Team (Late st Contact Info) Description 04/23/2017 Scanned Document [address] [place] [phone] Provider, Generic Social History Tobacco Use [...] on filedocumented in this encounter Care Teams Analyst Geochemical Prospecting Relationship Specialty Start Date End Date Zoey Giles DO [address] [place] [address] PCP - General Genetic Counselor 04/11/17 10/11/17 Unknown Unknow Provider Address PCP - General 10/12/17 03/09/24 Alexis Martin MD [address] [place] [address] PCP - General 03/10/24 Jorge Rucker MD [address] [place] [address] Sheet Rock Applicator Cardiovascular Disease 04/12/17 4 documented as of this encounter
--- OUTSIDE RECORDS SUMMARY | 2025-05-05 14:38 | XMS_ITS | Encounter Summary ---
Author Organization [facility] Address [address] [place] [address] Care Team Providers Care Bilingual Teacher Name Role Phone Zoey Giles DO Primary Care Provider [phone] Jorge Rucker MD Unavailable Unknown Primary Care Provider [phone] Alexis Martin MD Primary Care Provider +1- [phone] Encounter Details Date Type Department Care Team (Late st Contact Info) Description 09/24/2017 Scanned Document [facility] Vascular & [place] [address] Enrrique Pérez MD [address] [phone] Social History Tobacco Use Types Packs/Day Years [...] on filedocumented in this encounter Care Teams Bilingual Teacher Relationship Specialty Start Date End Date Zoey Giles DO [address] [place] [address] PCP - General Genetic Counselor 04/11/17 10/11/17 Unknown Unknow Provider Address PCP - General 10/12/17 03/09/24 Alexis Martin MD [address] [place] [address] PCP - General 03/10/24 Jorge Rucker MD [address] [place] [address] Wastewater Manager Cardiovascular Disease 04/12/17 4 documented as of this encounter
--- OUTSIDE RECORDS SUMMARY | 2025-05-05 14:38 | XMS_ITS | Clinical Summary ---
Author Organization [facility] [place], Address [address] [place] [address] Phone Care Team Providers Care Tellers Supervisor Name Role Phone Alexis Martin HEIKE Primary Care Provider Encounters Date Type Department Care Team Description 04/24/2025 Orders Only [facility] [place], [facility] [address]ne [address] [place] [phone] Romie Polk MD Stage 3b chronic kidney disease (HCC) 04/20/2025 Documentation Only [facility] [address] [place] [address] Maribel Velazquez 04/10/2025 Orders Only [facility] [address]ne [address] [place] [phone] Romie Polk MD Stage 3b chronic kidney disease (HCC) 04/06/2025 Documentation Only [facility] [address] [place] [phone] Kobe Milner MA 04/02/2025 Documentation Only [facility] [address] [place] [address] Kobe Milner MA 04/02/2025 Orders Only [facility] [address] [place] [address] Romie Polk MD Stage 3b chronic kidney disease (HCC) (Primary Dx) 03/31/2025 Documentation Only [facility] [address] [place] [address] Kobe Milner MA 03/31/2025 Telephone [facility] [address] [place] [address] Kobe Milner MA 03/31/2025 Documentation Only [facility] [address] [place] [address] Kobe Milner MA from Last 3 Months Social History Tobacco Use Types Packs/Day Years [...] Sign Reading Time Taken Comments Blood Pressure 126/80 03/12/2019 12:00 PM EDT Pulse 56 03/12/2019 12:00 PM EDT Temperature - - Respiratory Rate - - Oxygen Saturation 95% 03/12/2019 12:00 PM EDT Inhaled Oxygen Concentration - - Weight 98.4 kg (217 lb) 03/12/2019 12:00 PM EDT Height 175.3 cm (5' 9 ) 03/12/2019 12:00 PM EDT Body Mass Index 32.05 03/12/2019 12:00 PM EDT Plan of Treatment Upcoming Encounters Date Type Department Care Team (Late st Contact Info) Description 05/08/2025 2:00 PM EST Office Visit [facility] [place] [address] [place] [phone] Romie Polk MD [address] [place] [address] [place] [address] Health Maintenance Due Date Last Done Comments Diabetes: Hemoglobin A1C 03/31/2025 020, 03/12/2019, 10/17/2018 Diabetes: Ophthalmology Exam 03/31/2025 01/10/2024 Diabetes: Pedal Pulse Checked 03/31/2025 Diabetes: Sensory Foot Exam 03/31/2025 Diabetes: Visual Foot Exam 03/31/2025 Pneumococcal Vaccine: 50+ Years Completed 02/16/2022, 02/26/2015, 09/16/2013, Additional history exists Pneumococcal Vaccine: Peds (0 to 5 Years) and At-Risk Patients (6 to 49 Years) Discontinued 02/16/2022, 02/26/2015, 09/16/2013, Additional history exists Influenza Vaccine Completed 03/04/2025, , 02/16/2022, Additional history exists Hepatitis B Vaccine Aged Out No longe r eligible based on patient's age to complete this topic Procedures Procedure Name Priority Date/Time Associated Diagnosis Comments BLOOD PANEL (HC) Routine 11/13/2019 12:0 0 AM EDT from Last 3 Months or Most Recently Relevant to Health Maintenance Results * (ABNORMAL) Blood Panel (11/13/2019 12:00 AM EDT) Sodium 140 137 - 145 mmol/L [facility] Carbon Dioxide (CO2) 23 22 - 30 mmol/L [facility] Calcium 8.8 8.4 - 10.2 mg/dl [facility] PTH 7.8(L) 10 - 69 pg/ml [facility] Cholesterol 138 <200 mg/dl [facility] LDL,Direct 68 <130 mg/dl [facility] Hematocrit 43.2 38 - 50 % [facility] Hemoglobin A1C 8.8(H) <5 % [facility] BUN 31(H) 9 - 20 mg/dl [facility] Hgb 12.8(L) 13.0 - 16.5 g/dl [facility] Potassium 4.5 3.5 - 5.1 mmol/L [facility] Platelets 291 140 - 440 k/uL [facility] Creatinine 1.80(H) 0.70 - 1.30 mg/dl [facility] eGFR Non- 36(L) >60 ml/min [facility] Triglycerides 175(H) <150 mg/dl [facility] HDL 35(L) >40 mg/dl [facility] 11/13/2019 us [facility] [id number] LICITED RESULTS Final Result [facility] from Last 3 Months or Most Recently Relevant to Health Maintenance Insurance [facility] Regions 1,2,3 (VACCN) Care Teams Tellers Supervisor Relationship Specialty Start Date End Date Alexis Martin DNP [address] [place] [address] PCP - General Nurse Practitioner 03/31/25
--- OUTSIDE RECORDS SUMMARY | 2025-05-05 14:38 | XMS_ITS | Encounter Summary ---
Author Organization [facility] Address [address] [place] [address] Care Team Providers Care Site Controller Name Role Phone Unavailable Primary Care Provider Unavailabl e Encounter Details Date Type Department Care Team (Late st Contact Info) Description 02/13/2025 Lab Requisition [facility] - Main Lab [address] [facility] [place] [address] Sahil Tapia PA [address] [facility] [address] [place] [address] Pyuria Social History Tobacco Use Types Packs/Day Years Used Date Smoking Tobacco: Never Assessed Sex and Gender Information Value Date Recorded Sex Assigned at Not on file Legal Sex Male 2:36 AM EST Gender Identity Not on file Sexual Orientation Not on file documented as of this encounter Plan of Treatment Not on file documented as of this encounter Procedures Procedure Name Priority Date/Time Associated Diagnosis Comments CULTURE URINE Routine 02/13/2025 12:00 AM EDT Pyuria documented in this encounter Results * (ABNORMAL) Culture urine (02/13/2025 12:00 AM EDT) Culture, Urine >=100,000 CFU/mL Pseudomonas aeruginosa(A) RONNIE 02/16/2025 8:01 AM EDT [facility] Comment: This is an edited result. Previous organism was Gram negative bacilli on 02/14/2025 at 1215 EDT. Urine Urine specimen from urethra / Unknown 02/13/2025 02/13/2025 6:55 PM EDT Narrative Organism Antibiotic Method Susceptibility Pseudomonas aeruginosa Ceftazidime RONNIE 4 ug/ml: Susceptible Pseudomonas aeruginosa Meropenem RONNIE 4 ug/ml: Intermediate Pseudomonas aeruginosa Amikacin RONNIE 4 ug/ml: Susceptible Pseudomonas aeruginosa Ciprofloxacin RONNIE 0.5 ug/ml: Susceptible Pseudomonas aeruginosa Levofloxacin RONNIE 2 ug/ml: Intermediate Pseudomonas aeruginosa Cefepime DISK DIFFUSION Susceptible Pseudomonas aeruginosa Piperacillin/Tazobactam DISK DI FFUSION Susceptible us Sahil [facility] MICROBIOLOGY - GENERAL ORDER VENUS Final Result [facility] [address] [place] [address], documented in this encounter Visit Diagnoses Diagnosis Pyuria Other nonspecific finding on examination of urine documented in this encounter Additional Health Concerns Infection Onset Date Last Indicated Resolved Time MDRO (other) 02/13/2025 02/13/2025 documented as of this encounter
--- OUTSIDE RECORDS SUMMARY | 2025-05-05 14:38 | XMS_ITS | Encounter Summary ---
Author Organization [facility] [place], Address [address] [place] [address] Phone Care Team Providers Care Animal Assisted Therapist Name Role Phone Alexis Martin HEIKE Primary Care Provider Encounter Details Date Type Department Care Team (Late st Contact Info) Description 04/06/2025 Documentation Only [facility] [address] [place] [phone] [place] [address] [place] [phone] Social History Tobacco Use Types Packs/Day [...] Visit [facility] [address]ne [address] [place] [phone] Romie Polk MD [address] [place] [address] [place] [phone] documented as of this encounter Visit Diagnoses Not on filedocumented in this encounter Care Teams Animal Assisted Therapist Relationship Specialty Start Date End Date Alexis Martin DNP [address] [place] [address] PCP - General Nurse Practitioner 03/31/25 documented as of this encounter
--- OUTSIDE RECORDS SUMMARY | 2025-05-05 14:38 | XMS_ITS | Encounter Summary ---
Author Organization [facility] [place], Address [address] [place] [address] Phone Care Team Providers Care Records Tech Name Role Phone Alexis Martin HEIKE Primary Care Provider [phone] Encounter Details Date Type Department Care Team (Late st Contact Info) Description 03/31/2025 Documentation Only [facility] [address] [place] [phone] [place], [place] [address] [place] [address] Social History Tobacco Use Types [...] Visit [facility] [address]ne [address] [place] [phone] Romie Polk MD [address] [place] [address] [place] [phone] documented as of this encounter Visit Diagnoses Not on filedocumented in this encounter Care Teams Records Tech Relationship Specialty Start Date End Date Alexis Martin DNP [address] [place] [address] PCP - General Nurse Practitioner 03/31/25 documented as of this encounter
--- OUTSIDE RECORDS SUMMARY | 2025-05-05 14:38 | XMS_ITS | Encounter Summary ---
Author Organization [facility] [place], Address [address] [place] [address] Phone Care Team Providers Care P D Driver Name Role Phone Alexis Martin HEIKE Primary Care Provider Encounter Details Date Type Department Care Team (Late st Contact Info) Description 04/02/2025 Documentation Only [facility] [address] [place] [phone] [place], [place] [address] [place] [address] Social History Tobacco Use Types [...] Visit [facility] [address] Jayne [address] [place] [phone] Romie Polk MD [address] [place] [address] [place] [phone] documented as of this encounter Visit Diagnoses Not on filedocumented in this encounter Care Teams P D Driver Relationship Specialty Start Date End Date Alexis Martin DNP [address] [place] [address] PCP - General Nurse Practitioner 03/31/25 documented as of this encounter
--- OUTSIDE RECORDS SUMMARY | 2025-05-05 14:38 | XMS_ITS | Encounter Summary ---
Author Organization [facility] [place], Address [address] [place] [address] Phone Care Team Providers Care Dye Automation Operator Name Role Phone Alexis Martin DNP Primary Care Provider [phone] Encounter Details Date Type Department Care Team (Late Contact Info) Description 04/24/2025 Orders Only [facility] [address] [place] [phone] Romie Polk MD [address] [place] [address] [place] [address] Stage 3b chronic kidney disease [...] Visit [facility] [address] [place] [phone] Romie Polk MD [address] [place] [address] [place] [address] documented as of this encounter Visit Diagnoses Diagnosis Stage 3b chronic kidney disease (HCC) documented in this encounter Care Teams Dye Automation Operator Relationship Specialty Start Date End Date Alexis Martin DNP [address] [place], [place] PCP - General Nurse Practitioner 03/31/25 documented as of this encounter
--- OUTSIDE RECORDS SUMMARY | 2025-05-05 14:38 | XMS_ITS | Clinical Summary ---
Author Organization [address] [facility] Address [address] [place] [address] Phone Care Team Providers Care Assurance Auditor Name Role Phone Unavailable Primary Care Provider Unavailabl e Encounters Date Type Department Care Team Description 02/13/2025 Lab Requisition [facility] - Main Lab [address] [facility] [place] [address] Sahil Tapia PA Pyuria from Last 3 Months Social History Tobacco Use Types Packs/Day Years Used Date Smoking Tobacco: Never Assessed Sex and Gender Information Value Date Recorded Sex Assigned at Not on file Legal Sex Male 2:36 AM EST Gender Identity Not on file Sexual Orientation Not on file Plan of Treatment Health Maintenance Due Date Last Done Comments DTaP,Tdap,and Td Vaccines (1 - Tdap) 1964 Pneumococcal Vaccine: 50+ Ye ars (1 of 1 - PCV) 11/10/1995 Zoster Vaccines (1 of 2) 11/10/1995 RSV Immunization Adult Patie nts (1 - 1-dose 75+ series) 2020 Depression Screening 06/04/2024 COVID-19 Vaccine (1 - 2024-2 6 season) 2025 Influenza Vaccine (#1) 2025 Cholesterol Screening (Lipid Panel) 02/13/2025 Falls Risk Assessment 02/13/2025 Hepatitis C Screening 02/13/2025 Medicare Annual Wellness Visit 02/13/2025 Social Influencers of Health Screening 02/13/2025 HIB Vaccines Aged Out No longer eligi ble based on patient's age to complete this topic HPV Vaccines Aged Out No longer eligi ble based on patient's age to complete this topic Hepatitis A Vaccines Aged Out No long er eligible based on patient's age to complete this topic Hepatitis B Vaccines Aged Out No long er eligible based on patient's age to complete this topic IPV Vaccines Aged Out No longer eligi ble based on patient's age to complete this topic MMR Vaccines Aged Out No longer eligi ble based on patient's age to complete this topic Meningococcal ACWY Vaccine Aged Out N o longer eligible based on patient's age to complete this topic Meningococcal B Vaccine Aged Out No l onger eligible based on patient's age to complete this topic RSV Immunization Patients Un caty 20 months Aged Out No longer eligible b ased on patient's age to complete this topic Varicella Vaccines Aged Out No longer eligible based on patient's age to complete this topic Procedures Procedure Name Priority Date/Time Associated Diagnosis Comments CULTURE URINE Routine 02/13/2025 12:00 AM EDT Pyuria from Last 3 Months Results * (ABNORMAL) Culture urine (02/13/2025 12:00 AM EDT) Culture, Urine >=100,000 CFU/mL Pseudomonas aeruginosa(A) RONNIE 02/16/2025 8:01 AM EDT [facility] [place] [facility] Comment: This is an edited [...] MICROBIOLOGY - GENERAL ORDER VENUS Final Result [facility] [address] [place] [address], [place] [phone] from Last 3 Months Additional Health Concerns Infection Onset Date Last Indicated MDRO (other) 02/13/2025 02/13/2025 Insurance MEDICARE [facility]
--- OUTSIDE RECORDS SUMMARY | 2025-05-05 14:38 | XMS_ITS | Clinical Summary ---
Author Organization [facility] Address [address] [place] [address] Care Team Providers Care Television Mechanic Name Role Phone Alexis Martin MD Primary Care Provider +1- [phone] Allergies Active Allergy Reactions Criticality Noted Date [...] (10/05/2017): Added automatically from request for surgery [id number] AAA (abdominal aortic aneurysm) without rupture 04/23/2017 Social History Tobacco Use Types Packs/Day Years Used Date Smoking Tobacco: Former Smokeless Tobacco: Never Comments:quit 1994 Alcohol Use Standard Drinks/Week Comments Yes 0 (1 standard drink = 0.6 oz pur e alcohol) 1x/month [facility] Utilities Answer Date Recorded In the past 12 months has [facility] [employer], oil, or water [employer] threatened to shut off services in your [...] place to sleep or slept in a longterm (including now)? No 03/09/2024 Sex and Gender Information Value Date Recorded Sex Assigned at Male 03/10/2024 1:33 PM EDT Legal Sex Male 12:26 PM EST Gender Identity Not on file Sexual Orientation Not on file Last Filed Vital Signs Vital Sign Reading Time Taken Comments Blood Pressure 125/70 03/10/2024 3:00 PM EDT Pulse 78 03/10/2024 3:00 PM EDT Temperature 36.8 C (98.3 F) 03/10/2024 3:00 PM EDT Respiratory Rate 18 03/10/2024 3:00 PM EDT [...] 05/14/2020 11/13/2019, 10/0 06/2018, 12/23/2018 RSV Vaccine 50 years and older and Patients (1 - 1-dose 75+ series) 2020 Microalbumin/Creatinine Ratio Urine 12/07/2023 12/06/2022, 11/13/2019, 09/20/2018 Influenza Vaccine 01/02/2025 03/03/2024, , 02/16/2022, Additional history exists COVID-19 Vaccine (5 - Moderna risk 2023- season) 2025 03/03/2024, 12/16/2021, 07/28/2020, Additional history exists Creatinine with GFR 03/10/2025 03/10/2024, 03/09/2024, 03/08/2024, Additional history exists Advance Care Planning Completed 03/11/2024 Hepatitis B Vaccines Aged Out No long er eligible based on patient's age to complete this topic Medical Devices Implanted Type Area Customer Records Division Supervisor Device Identifier Shelf Expiration Date Model / Serial / Lot Graft Endovascular 10cm 12mm [employer] Xcldr Ilc Brch Comp Aaa - [id number] Implanted:Qty: 1 on 04/23/2017 by Enrrique Pérez MD at [facility] [employer] [id number] 02/22/2020 [id number] / [id number] / Description:right common carisa ac Graft Endovascular 7cm 10mm [employer] Xcldr Ndc Internal Comp Aaa - [id number] Implanted:Qty: 1 on 04/23/2017 by Enrrique Pérez MD at [facility] [employer] [id number] 02/22/2020 [id number] / [id number] / Description:right internal i liac Graft Endovascular 12cm 26mm 14.5mm 22-23mm 12-13.5mm [place] - [id number] Implanted:Qty: 1 on 04/23/2017 by Enrrique Pérez MD at [facility] [employer] [id number] 12/26/2019 [id number] / [id number] / Description:Left common kyara c Graft Endovascular 10cm 27mm 21.5-25mm Xcldr Contra Leg - [id number] Implanted:Qty: 1 on 04/23/2017 by Enrrique Pérez MD at [facility] [employer] [id number] 01/20/2019 [id number] / [id number] 00 / Description:Bridge right con tralateral limb Graft Endovascular 9.5cm 18mm 14.5-16.5mm Xcldr Contra Leg - [id number] Implanted:Qty: 1 on 04/23/2017 by Enrrique Pérez MD at [facility] [employer] [id number] 11/22/2019 [id number] / [id number] 00 / Description:extension left c ommon iliac Graft Endovascular 7cm 14.5mm 12fr 12-13.5mm Xcldr Ilium - [id number] Implanted:Qty: 1 on 04/23/2017 by Enrrique Pérez MD at [facility] [employer] [id number] 12/26/2019 [id number] / [id number] / Description:left common kyara c Procedures Procedure Name Priority Date/Time Associated Diagnosis Comments BASIC METABOLIC PANEL Routine 03/10/2024 6:36 AM EDT from Last 3 Months or Most Recently Relevant to Health Maintenance Results * (ABNORMAL) Basic Metabolic Panel (AM) (03/10/2024 6:36 AM EDT) Pathologist [facility] Glucose 105(H) 65 - 99 mg/dL 03/10/2024 8:17 AM [facility] Comment:Fasting: <100 mg/dL, Non-Fasting: <200 mg/dL (ADA 2004) Blood Urea Nitrogen (BUN) 31(H) 8 - 21 mg/dL 03/10/2024 8:17 AM [facility] Creatinine 1.8(H) 0.5 - 1.3 mg/dL 03/10/2024 8:17 AM [facility] eGFR 38(L) >59 03/10/2024 8:17 AM [facility] Comment:CKD-EPI (2020) in mL /min/1.73 sq meters. Sodium 138 136 - 145 mmol/L 03/10/2024 8:17 AM EDT [facility] Potassium 3.9 3.4 - 5.3 mmol/L 03/10/2024 8:17 AM EDT [facility] Chloride 103 98 - 107 mmol/L 03/10/2024 8:17 AM EDT [facility] CO2 18(L) 22 - 33 mmol/L 03/10/2024 8:17 AM EDT [facility] Anion Gap 17 7 - 17 03/10/2024 8:17 AM EDT [facility] Calcium 8.8 8.7 - 10.5 mg/dL 03/10/2024 8:17 AM EDT [facility] BUN/Creatinine Ratio 17 10.0 - 25.0 Ratio 03/10/2024 8:17 AM EDT [facility] Blood (Plasma/Serum) 03/10/2024 6:36 AM EDT 03/10/2024 7:14 AM EDT Heather Root APRN LAB BLOOD ORDERAB[place] [address], [place] [address] from Last 3 Months or Most Recently Relevant to Health Maintenance Insurance MEDICARE PART A & B [facility] Advance Directives Documents on File Type Date Recorded Patient Certified Surgical Tech/First Assistant Expl anation Advance Directive-Scan 03/11/2024 11:17 AM [...] 9:52 AM 04/23/2017 3:03 PM Care Teams Television Mechanic Relationship Specialty Start Date End Date Alexis Martin MD [address] [place] [facility] [place] [address] PCP - General 03/10/24
--- OUTSIDE RECORDS SUMMARY | 2025-05-05 14:38 | XMS_ITS | Encounter Summary ---
Author Organization [facility], Address [address] [place] [address] Phone Care Team Providers Care Dirt Supervisor Name Role Phone Alexis Martin HEIKE Primary Care Provider Encounter Details Date Type Department Care Team (Late Contact Info) Description 04/20/2025 Documentation Only [facility] [address] [place] [address] Maribel Velazquez [address] [place] [phone] Social History Tobacco Use Types Packs/Day Years [...] [facility] Dr Jayne [place] [address] [place] [phone] Romie Polk MD [address] [place] [address] [place] [address] documented as of this encounter Visit Diagnoses Not on filedocumented in this encounter Care Teams Dirt Supervisor Relationship Specialty Start Date End Date Alexis Martin DNP [address] [place] [address] PCP - General Nurse Practitioner 03/31/25 documented as of this encounter
--- OUTSIDE RECORDS SUMMARY | 2025-05-05 14:38 | XMS_ITS | Encounter Summary ---
Author Organization [facility] Address [address] [place] [address] Care Team Providers Care Studio Musician Name Role Phone Zoey Giles DO Primary Care Provider +1- [phone] Jorge Rucker MD Unavailable Unknown Primary Care Provider [phone] Alexis Martin MD Primary Care Provider +1- [phone] Encounter Details Date Type Department Care Team (Late st Contact Info) Description 09/24/2017 Scanned Document [facility]ascular [facility] [place] [address] Enrrique Pérez MD [address] [id number] Social History Tobacco Use Types Packs/Day Years [...] on filedocumented in this encounter Care Teams Studio Musician Relationship Specialty Start Date End Date Zoey Giles DO [address] [place] [address] PCP - General Genetic Counselor 04/11/17 10/11/17 Unknown Unknow Provider Address PCP - General 10/12/17 03/09/24 Alexis Martin MD [address] [place] [address] PCP - General 03/10/24 Jorge Rucker MD [address] [place] [address] Radiator Repairer Cardiovascular Disease 04/12/17 4 documented as of this encounter
--- OUTSIDE RECORDS SUMMARY | 2025-05-05 14:38 | XMS_ITS | Encounter Summary ---
Author Organization [facility] Address [address] [place] [address] Care Team Providers Care Character Artist Name Role Phone Zoey Giles DO Primary Care Provider +1- [phone] Jorge Rucker MD Unavailable Unknown Primary Care Provider [phone] Alexis Martin MD Primary Care Provider +1- [phone] Encounter Details Date Type Department Care Team (Late st Contact Info) Description 09/24/2017 Scanned Document [facility] Vascular [place] [address] Enrrique Pérez MD [address] [id number] Social History Tobacco Use Types Packs/Day Years [...] on filedocumented in this encounter Care Teams Character Artist Relationship Specialty Start Date End Date Zoey Giles DO [address] [place] [address] PCP - General Genetic Counselor 04/11/17 10/11/17 Unknown Unknow Provider Address PCP - General 10/12/17 03/09/24 Alexis Martin MD [address] [place] [address] PCP - General 03/10/24 Jorge Rucker MD [address] [place] [address] Cork Insulator Cardiovascular Disease 04/12/17 4 documented as of this encounter
--- OUTSIDE RECORDS SUMMARY | 2025-05-05 14:38 | XMS_ITS | Encounter Summary ---
Author Organization [facility] Address [address] [place] [address] Care Team Providers Care Vending Technician Name Role Phone Zoey Giles DO Primary Care Provider +1- [phone] Jorge Rucker MD Unavailable Unknown Primary Care Provider [phone] Alexis Martin MD Primary Care Provider +1- [phone] Encounter Details Date Type Department Care Team (Late st Contact Info) Description 09/24/2017 Scanned Document [facility] Vascular [place] [address] Enrrique Pérez MD [address] [phone] Social History Tobacco Use Types Packs/Day Years [...] on filedocumented in this encounter Care Teams Vending Technician Relationship Specialty Start Date End Date Zoey Giles DO [address] [place] [address] PCP - General Genetic Counselor 04/11/17 10/11/17 Unknown Unknow Provider Address PCP - General 10/12/17 03/09/24 Alexis Martin MD [address] [place] [address] PCP - General 03/10/24 Jorge Rucker MD [address] [place] [address] Ammunition Storekeeper Cardiovascular Disease 04/12/17 4 documented as of this encounter
[2025-05-05 15:50] LABS: Troponin-I High Sensitivity 138.9 ng/L (<3.5-35.0)
--- NOTE | 2025-05-05 16:01 | PM.IMHP ---
History of Present Illness Date of Service: 05/05/25 Chief Complaint: SOB, dyspnea A 79-year-old male with severe COPD and chronic hypoxic respiratory failure (baseline 2?3 L NC), atrial fibrillation, type 2 diabetes, HFrEF (EF ~20%), and CAD s/p stent (09/2024) presents with worsening shortness of breath and exertional dyspnea. Over the past several days, he has required sleeping upright due to orthopnea and reports waking multiple times at night with breathlessness. He also notes increased urinary frequency. At home, his SpO? dropped to 85% despite increasing oxygen to 3 L NC. He reports six recent ED visits at [facility] for similar symptoms without improvement. In the ED today, he was hypoxic to 88% on room air and 92% on 3 L NC. CTA chest showed no pulmonary embolism, but multiple infiltrates consistent with pneumonia. He also tested positive for UTI. He received ceftriaxone and doxycycline. He has a known history of MAC infection and recurrent pneumonias. Patient is admitted for management of acute on chronic hypoxic respiratory failure likely secondary to pneumonia with contribution from underlying COPD and heart failure. Review of Systems Review of Systems: No fever, chills or weakness No chest pain, palpitation reporting shortness of breath and coughing No abdominal pain, nausea or vomiting increase urinary frequency No any rash or wounds PMF Medical History CHF (congestive heart failure) Type 2 diabetes mellitus without complications CAD (coronary artery disease) Acute anxiety Physical deconditioning Respiratory failure Pneumonia COPD (chronic obstructive pulmonary disease) Surgical History H/O heart artery stent Social History Household Members: Spouse Housing: Condominium Do you presently have visiting nurse or other home services: Yes Patient Tobacco Use Status: Former Tobacco user Smoked in Last 30 Days: No Use of substances other than those prescribed or required for medical reasons: No Substance Use Type: Marijuana Advance Directives: Yes Advance Directives Information Provided: Yes Advance Directives on File: No Do you have a plan to hurt others: No Plan service: Yes Meds Allergies Allergy/AdvReac Type Severity Reaction Status Date / Time levofloxacin (From Levaquin) Allergy Severe Anaphylaxis Verified 05/05/25 11:58 atorvastatin Allergy Unknown Verified 05/05/25 11:58 carvedilol Allergy Unknown Verified 05/05/25 11:58 ketorolac (From Toradol) Allergy Unknown Verified 05/05/25 11:58 lisinopril Allergy Unknown Verified 05/05/25 11:58 semaglutide Allergy Unknown Verified 05/05/25 11:58 Active Medications: Current Medications Doxycycline Hyclate 100 mg/ (Sodium Chloride) 250 mls @ 166.67 mls/hr IV ONCE ONE Stop: 05/05/25 17:04 Home Medications ?Medication ?Instructions ?Recorded ?Confirmed ?Last Taken ?Type aspirin 81 mg tablet,delayed 81 mg PO DAILY 04/21/20 12/01/24 11/30/24 History release escitalopram oxalate 20 mg tablet 20 mg PO DAILY PRN Mood 04/21/20 12/01/24 Unknown History topiramate 50 mg tablet 50 mg PO BEDTIME 04/21/20 12/01/24 11/30/24 History fluticasone 250 mcg-salmeterol 50 1 inh inhalation BID 11/28/21 12/01/24 11/30/24 History mcg/dose blistr powdr for inhalation (Wixela Inhub) rosuvastatin 40 mg tablet 20 mg PO DAILY 01/05/22 12/01/24 11/30/24 History oxybutynin chloride 5 mg tablet 5 mg PO DAILY 10/16/24 12/01/24 11/30/24 History sacubitril 24 mg-valsartan 26 mg 1 tab PO BID 10/16/24 12/01/24 11/30/24 History tablet (Entresto) Lactobacillus rhamnosus GG 10 1 cap PO DAILY 11/17/24 12/01/24 11/30/24 History billion cell capsule guaifenesin 600 mg tablet, 600 mg PO BID 11/17/24 12/01/24 11/30/24 History extended release 12 hr spironolactone 25 mg tablet 12.5 mg PO DAILY 11/17/24 12/01/24 11/30/24 History acetylcysteine 100 mg/mL (10 %) 3 ml inhalation BID 12/01/24 12/01/24 Unknown History solution albuterol sulfate 2.5 mg/3 mL 2.5 mg inhalation Q6H PRN 12/01/24 12/01/24 Unknown History (0.083 %) solution for nebulization Shortness Of Breath Or Wheezing ascorbic acid (vitamin C) 250 mg 250 mg PO Q48H 12/01/24 12/01/24 11/30/24 History tablet bisacodyl 5 mg tablet 5 mg PO DAILY PRN Constipation 12/01/24 12/01/24 Unknown History ceramides 1,3,6-II (Moisturizing 1 appl topical BID PRN Dry Skin 12/01/24 12/01/24 Unknown History Normal to Dry Skin lotion) clobetasol 0.05 % topical cream 1 appl topical BID PRN Scalp 12/01/24 12/01/24 Unknown History Psoriasis digoxin 125 mcg (0.125 mg) tablet 125 mcg PO DAILY 12/01/24 12/01/24 Unknown History diphenhydramine HCl 25 mg tablet 25 mg PO BEDTIME PRN Itching 12/01/24 12/01/24 Unknown History ferrous gluconate 324 mg (38 mg 324 mg PO Q48H 12/01/24 12/01/24 11/30/24 History iron) tablet furosemide 20 mg tablet (Lasix) 20 mg PO DAILY CHF 12/01/24 12/01/24 11/30/24 History insulin glargine 100 unit/mL 5 unit subcut BEDTIME 12/01/24 12/01/24 Unknown History subcutaneous solution melatonin 3 mg tablet 3 mg PO BEDTIME PRN Sleep 12/01/24 12/01/24 Unknown History metoprolol succinate 50 mg 50 mg PO DAILY 12/01/24 12/01/24 11/30/24 History tablet,extended release 24 hr Physical Exam Vital Signs and Narrative: Vital Signs: Last Vital Signs Pulse 93 05/05/25 12:38 Resp 21 H 05/05/25 12:38 BP 162/69 H 05/05/25 11:56 Pulse Ox 89 L 05/05/25 12:16 O2 Del Method Room Air 05/05/25 12:16 Oxygen Flow Rate 3 05/05/25 11:56 BMI result Body Mass Index 21.5 Const: Other: Constitutional : Awake, interactive, not in distress Neck : Normal inspection, Supple Cardiovascular : RRR, no JVP, no lower extremity edema Respiratory : fair bilateral air entry, basal bilateral crackles, scattered expiratory wheezes , on O2 supplement Gastrointestinal: soft, lax, Normal bowel sounds, Non tender Skin : Warm, Dry Neurological : Alert & oriented x3, No focal deficit Results Labs 05/05/25 12:15 05/05/25 12:16 Labs: Laboratory Results - last 24 hr 05/05/25 05/05/25 05/05/25 12:15 12:16 12:26 MCV 84.3 MCH 26.4 L MCHC 31.3 RDW 15.2 Plt Count 483 H D MPV 9.5 Immature Gran % (Auto) 0.6 H Neut % (Auto) 87.6 H Lymph % (Auto) 5.3 L [place] % (Auto) 5.8 Eos % (Auto) 0.4 Baso % (Auto) 0.3 Lymph # (Auto) 1.2 [place] # (Auto) 1.3 H Eos # (Auto) 0.1 Baso # (Auto) 0.1 Abs Immat Gran (auto) 0.14 H Absolute Neuts (auto) 20.0 H Absolute Nucleated RBC 0.000 Nucleated RBC % (auto) 0.0 PT 12.4 INR 1.0 D-Dimer High Sensitivty 271 Anion Gap 12 Estim Creat Clear Calc 31.9 Estimated GFR 38 Random Glucose 226 H Lactic Acid 1.3 Calcium 8.8 Magnesium 2.0 Total Bilirubin 0.2 Direct Bilirubin < 0.2 AST 50 H ALT 108 H Alkaline Phosphatase 74 Troponin I High Sens 145.4 H* D NT-Pro-B Natriuret Pep 2042.1 H Total Protein 7.4 Albumin 3.6 Lipase 51 Urine Color Yellow Urine Appearance Turbid Urine pH 5.5 Ur Specific Ovid 1.020 Urine Protein 30 (1+) H Urine Glucose (UA) Negative Urine Ketones Negative Urine Blood Small (1+) H Urine Nitrite Positive H Ur Leukocyte Esterase Large (3+) H Urine RBC 11-20 H Urine WBC >50 H Ur Squamous Epith Cells 0-2 Urine Bacteria 1+ Hyaline Casts 3-5 Urine Yeast Present Influenza Type A (PCR) NEGATIVE Influenza Type B (PCR) NEGATIVE RSV RNA Qual (PCR) NEGATIVE SARS-CoV-2 RNA (RT-PCR) NEGATIVE 05/05/25 15:13 MCV MCH MCHC RDW Plt Count MPV Immature Gran % (Auto) Neut % (Auto) Lymph % (Auto) [place] % (Auto) Eos % (Auto) Baso % (Auto) Lymph # (Auto) [place] # (Auto) Eos # (Auto) Baso # (Auto) Abs Immat Gran (auto) Absolute Neuts (auto) Absolute Nucleated RBC Nucleated RBC % (auto) PT INR D-Dimer High Sensitivty Anion Gap Estim Creat Clear Calc Estimated GFR Random Glucose Lactic Acid Calcium Magnesium Total Bilirubin Direct Bilirubin AST ALT Alkaline Phosphatase Troponin I High Sens 138.9 H* NT-Pro-B Natriuret Pep Total Protein Albumin Lipase Urine Color Urine Appearance Urine pH Ur Specific Ovid Urine Protein Urine Glucose (UA) Urine Ketones Urine Blood Urine Nitrite Ur Leukocyte Esterase Urine RBC Urine WBC Ur Squamous Epith Cells Urine Bacteria Hyaline Casts Urine Yeast Influenza Type A (PCR) Influenza Type B (PCR) RSV RNA Qual (PCR) SARS-CoV-2 RNA (RT-PCR) Imaging Radiologist's Impressions: Impressions Chest CTA 05/05/25 14:16 IMPRESSION: No acute pulmonary artery emboli. Concerning multifocal pneumonia related to mycobacterium avium versus mycobacterium tuberculosis versus fungal pneumonia versus viral pneumonia. Bilateral, noncalcified pulmonary nodules. Ectasia, thoracic aorta. Coronary artery disease and atherosclerosis disease. Fleischner guidelines were followed. Electronically signed by: Lopez Andrews MD 05/05/2025 02:41 PM [facility] Assessment and Plan (1) Type 2 diabetes mellitus without complications: Status: Acute (2) COPD exacerbation: Status: Acute (3) Physical deconditioning: Status: Acute (4) Respiratory failure: Status: Acute (5) Lung nodule, multiple: Status: Acute (6) Acute on chronic respiratory failure with hypoxemia: Status: Acute Plan A 79-year-old male with severe COPD and chronic hypoxic respiratory failure (baseline 2?3 L NC), atrial fibrillation, type 2 diabetes, HFrEF (EF ~20%), and CAD s/p stent (09/2024) presents with worsening shortness of breath and exertional dyspnea. Over the past several days, he has required sleeping upright due to orthopnea and reports waking multiple times at night with breathlessness. He also notes increased urinary frequency. Acute on chronic hypoxic respiratory failuresecondary to acute exacerbation of COPD CT scan reviewed, no evidence of fluid overload or infiltrates but showed multiple bilateral nodules. Hx of recent hospitalizations ([facility]) with a positive sputum culture for Pseudomonas, treated with cefepime. most recently in February send new sputum cx Start steroid IV then taper to PO Cover with Cefepime given hx of Pseudomonas and leukocytosis with abnormal CT scan oxygen to keep pox>88% Lung nodules CTA showing bilateral lung nodules concerning for multifocal pneumonia related to mycobacterium avium versus , mycobacterium tuberculosis versus fungal pneumonia versus viral pneumonia. Bilateral, noncalcified pulmonary nodules. No available prior images here (requested Phil most recent admission notes) He had Bronchoscopy at [facility] in Feb 2025 (he has hardcopy of the DC summary) : Cx grew MDR Pseudomonas will send sputum cx and AFB testing and MTB PCR (unclear if he was tested at anypoint) Keep on air-borne precautions until he is seen by Pulm Pulmonary consult Acute kidney injury Likely prerenal Hold nephrotoxic medications Bolus of fluids, follow I\O and BMP Leukocytosis likely reactive, no acute infection identified monitor for development of signs of infection Elevated Trop Plateu , no delta change No EKG changes to suggest ACS paroxysmal a fib EKG without a fib not on anticoagulation Type 2 diabetes sliding scale insulin needed on steroids no home meds chronic HFrEF Elevated BNP at 2000 but does not look in acute exacerbation continue home meds CAD/stent continue home meds DNR/DNI VTE prophy: heparin The patient will need 2 overnight hospital stay for treatment of COPD exacerbation w hypoxia pending clinical improvement and ALBERT pending Kidney function improvement Quality Stroke Does the patient have a stroke diagnosis?: No VTE Prior VTE?: No VTE Risk Level:: Medical - moderate - high VTE Device Contraindication: Treatment Not Indicated VTE Drug Contraindication: N/A - Med Ordered
[2025-05-05] MEDS: Lactated Ringers 500 ML 999 ML IV (16:57)
[2025-05-05 17:03] LABS: Glucose, Whole Blood 302 mg/dL (60-115)
--- NOTE | 2025-05-05 20:00 | PC.NURSE ---
this r assumed care of pt, pt resting in hospital bed, respirations even and unlabored, pt on 3L nc sating 3%. pt offers no complaints at this time and vss
[2025-05-05] MEDS: cefEPime HCl/D5W 2 GM/50 ML PIGGYBACK IV (20:04)
[2025-05-05] MEDS: Albuterol/Iprat 2.5/0.5MG 3 ML AMPUL.NEB INHALE (20:42)
[2025-05-05 21:27] LABS: Glucose, Whole Blood 234 mg/dL (60-115)
--- NOTE | 2025-05-05 21:59 | PHA.MEDREC ---
Addendum entered by Sumeet Agarwal [facility] 05/05/25 22:02: To clarify, no blood pressure medications as in furosemide, metoprolol, entresto nor spironolactone. He is on a prednisone tapering schedule of 60 mg daily for 3 days, 40 mg daily for 3 days and 20 mg daily for 3 days. He has one day left of the 20 mg dose. Original Note: Pharmacy Consult ? Medication Reconciliation Pharmacy has completed the medication reconciliation. Spoke to patient to confirm medication list. Patient fills medications at the [facility]. He also has discharge packet for [facility] (was admitted there from 02/22/25 to 03/04/25) and has been following their orders since discharge. He said he is NOT taking any insulin nor blood pressure medications right now. He is also NOT taking doxepin nor mirtazapine even though they were filled by the [facility]. Last dose of medications was today 05/05/25.
[2025-05-06] VITALS (11 sets, daily range): BP systolic 102–142; BP diastolic 62–90; PULSE 61–115; RESP 16–20; TEMP 36.2–37; O2SAT 89–96
[2025-05-06 04:27] LABS: MANUAL DIFF FLAG NO
[2025-05-06 04:29] LABS: Hematocrit 36.7 % (42.0-52.0); Hemoglobin 11.7 g/dl (14.0-18.0); Imm Gran Abs Auto 0.12 X10*3/uL (0.00-0.03); Imm Gran Pct Auto 0.6 % (0.0-0.4); Lymphocytes Absolute Auto 1.1 X10*3/uL (1.2-4.9); Mean Corpuscular HGB Conc 31.9 g/dl (31.0-36.0); Mean Corpuscular Hemoglobin 26.9 pg (27.0-33.0); Mean Corpuscular Volume 84.4 fL (80.0-98.0); NRBC Abs Auto 0.000 X10*3/uL (0.0-0.012); NRBC Pct Auto 0.0 /100WBC (0.0-0.2); Platelet Count 451 X10*3/uL (160-400); Red Blood Count 4.35 X10*6/uL (4.60-5.80); White Blood Count 19.8 X10*3/uL (4.8-10.8)
[2025-05-06 04:46] LABS: Alanine Aminotransferase 86 U/L (0-40); Albumin Level 3.6 g/dL (3.5-5.0); Alkaline Phosphatase 67 U/L (39-117); Anion Gap 15 (12-20); Aspartate Amino Transferase 30 U/L (5-37); Blood Urea Nitrogen 59 mg/dL (9-16); Calcium 8.9 mg/dL (8.4-10.2); Carbon Dioxide 25 mmol/L (22-29); Chloride 108 mmol/L (96-108); Creatinine Clr Calc Pharmacy 27.0; Estimated Glomerular Filt Rate 31; Potassium 4.6 mmol/L (3.3-5.1); Sodium 143 mmol/L (135-145); Total Protein 7.3 g/dL (6.5-8.0)
[2025-05-06] MEDS: Albuterol/Iprat 2.5/0.5MG 3 ML AMPUL.NEB INHALE ×4 (07:41→19:53)
[2025-05-06 08:02] LABS: Glucose, Whole Blood 108 mg/dL (60-115)
--- NOTE | 2025-05-06 08:37 | HO.NURTONUR ---
Pt is a 79yo M coming from home with hx of severe COPD, afib, DM2, CAD, c/o 3-4days of inc SOB worse while laying flat. Also c/o urinary frequency. Baseline 3LNC O2 at home. Sats 85% at home requiring inc O2. CTA showed pna. Bld cxs obtained and ivabx given. Admitted for COPD exacerbation and heart failure. Pt a/ox4. takes pills whole. Ambulates independently. 20gLFA. 4LNC while in ED.
--- NOTE | 2025-05-06 09:37 | PM.CNPUL ---
History of Present Illness History of Present Illness Consult date: 05/06/25 Chief complaint: Dyspnea, hypoxia Narrative: This is an inpatient pulmonary consultation. The patient is a 79-year-old male with severe COPD and chronic hypoxic respiratory failure (baseline 2?3 L NC), atrial fibrillation, type 2 diabetes, HFrEF (EF ~20%), and CAD s/p stent (09/2024) presents with worsening shortness of breath and exertional dyspnea. Over the past several days, he has required sleeping upright due to orthopnea and reports waking multiple times at night with breathlessness. He also notes increased urinary frequency. At home, his SpO? dropped to 85% despite increasing oxygen to 3 L NC. He reports six recent ED visits at [facility] for similar symptoms without improvement. In the ED today, he was hypoxic to 88% on room air and 92% on 3 L NC. CTA chest showed no pulmonary embolism, but multiple infiltrates consistent with pneumonia. He also tested positive for UTI. He received ceftriaxone and doxycycline. He has a known history of MAC infection and recurrent pneumonias. Patient is admitted for management of acute on chronic hypoxic respiratory failure likely secondary to pneumonia with contribution from underlying COPD and heart failure. The patient did undergo a CT scan of the chest which was personally by me demonstrating significant tree-in-bud him bronchiectasis. Likely bronchiectasis exacerbation. Also to note the patient did undergo a bronchoscopy at [facility], we will try to get the results. Review of Systems Constitutional: Constitutional: Denies body ache(s), Denies chills, Reports fatigue, Denies fever(s) and Denies headache(s) Eyes: Eyes: Denies change in vision and Denies loss of vision ENT: Denies headache(s), Denies nasal congestion and Denies sore throat Cardiovascular: Cardiovascular: Denies chest pain, Denies rapid heart rate, Denies leg edema, Denies lightheadedness and Reports dyspnea Respiratory: Respiratory: Denies cough, Reports dyspnea and Denies wheezing Gastrointestinal: Gastrointestinal: Denies abdominal pain, Denies diarrhea, Denies nausea and Denies vomiting Genitourinary: Genitourinary: Denies dysuria, Denies urinary frequency and Denies urinary urgency Musculoskeletal: Musculoskeletal: Denies myalgias Integumentary/Breasts: Skin/Breast: Denies rash Neurologic: Denies confusion, Denies headache(s) and Denies loss of vision Psychiatric: Psychiatric: Denies confusion Endocrine: Endocrine: Reports fatigue Hematologic/Lymphatic: Hematologic/Lymphatic: Denies easy bleeding and Denies easy bruising Allergic/Immunologic: Allergic/Immunologic: Denies wheezing PMFSH Past Medical History Medical History CHF (congestive heart failure) Type 2 diabetes mellitus without complications CAD (coronary artery disease) Acute anxiety Physical deconditioning Respiratory failure Pneumonia COPD (chronic obstructive pulmonary disease) Surgical History Surgical History H/O heart artery stent Social History Social History Household Members: Spouse Housing: Condominium Do you presently have visiting nurse or other home services: Yes Patient Tobacco Use Status: Former Tobacco user Smoked in Last 30 Days: No Use of substances other than those prescribed or required for medical reasons: No Substance Use Type: Marijuana Have you been hit, kicked, punched, or otherwise hurt by someone within the past year? If so, by whom?: No Do you feel safe in your current relationship?: Yes Is there a partner from a previous relationship who is making you feel unsafe now?: No Are you made to feel afraid or neglected: No Spiritual Healthcare Practices: no Zoroastrianism Healthcare Practices: no Cultural Healthcare Practices: no Advance Directives: Yes Advance Directives Information Provided: Yes Advance Directives on File: No Advance Directives Date on File: 05/06/25 Do you have a plan to hurt others: No Plan Recently lost weight without trying: Unsure How much weight loss: Unsure Eating poorly because of decreased appetite: Yes Nutrition screen score: 5 Nutrition Risks: No Nutritional Risk Poor oral hygiene: No service: Yes Meds Allergies Allergy/AdvReac Type Severity Reaction Status Date / Time levofloxacin (From Levaquin) Allergy Severe Anaphylaxis Verified 05/05/25 11:58 atorvastatin Allergy Unknown Verified 05/05/25 11:58 carvedilol Allergy Unknown Verified 05/05/25 11:58 ketorolac (From Toradol) Allergy Unknown Verified 05/05/25 11:58 lisinopril Allergy Unknown Verified 05/05/25 11:58 semaglutide Allergy Unknown Verified 05/05/25 11:58 Active Medications: Current Medications Acetaminophen (Acetaminophen 325 Mg Tablet) 650 mg PO Q6H PRN PRN Reason: Pain, Mild 1-3,fever,headache Albuterol/Ipratropium (Albuterol/Iprat 2.5/0.5mg 3 Ml Ampul.Neb) 3 ml INHALE Q4H PRN PRN Reason: Shortness of Breath/Wheezing Albuterol/Ipratropium (Albuterol/Iprat 2.5/0.5mg 3 Ml Ampul.Neb) 3 ml INHALE RQ4H WHILE AWAKE [facility] Last Admin: 05/06/25 07:41 Dose: 3 ml Benzonatate (Benzonatate 100 Mg Capsule) 100 mg PO TID PRN PRN Reason: Cough Calcium Carbonate (Calcium Carbonate 750 Mg Tab.Chew) 750 mg PO Q4H PRN PRN Reason: Heartburn Heparin Sodium (Porcine) (Heparin Sodium,Porcine 5,000 Unit/Ml Vial) 5,000 unit SUBCUT Q12H [facility] Last Admin: 05/06/25 06:12 Dose: 5,000 unit Cefepime HCl (Maxipime) 2 gm in 50 mls @ 100 mls/hr IV Q12H [facility] Last Infusion: 05/05/25 20:34 Dose: Infused Insulin Human Lispro (Insulin Lispro 100 Unit/Ml 3 Ml Vial) 0 unit SUBCUT QIDACHS [facility]; Protocol Last Admin: 05/06/25 08:40 Dose: Not Given Magnesium Hydroxide (Milk Of Magnesia 30 Ml Oral.Susp) 30 ml PO DAILY PRN PRN Reason: Constipation Melatonin (Melatonin 3 Mg Tablet) 6 mg PO BEDTIME PRN PRN Reason: Insomnia Methylprednisolone Sodium Succinate (Methylprednisolone Sod Succ 40 Mg/Ml Vial) 40 mg IVPUSH Q24H [facility] Ondansetron HCl (Ondansetron Hcl 4 Mg/2 Ml Vial) 4 mg IVPUSH Q8H PRN PRN Reason: Nausea and Vomiting Sodium Chloride (0.9 % Sodium Chloride Flush 3 Ml Syringe) 3 ml IVFLUSH QSHIFT [facility] Last Admin: 05/06/25 01:04 Dose: Not Given Home Medications ?Medication ?Instructions ?Recorded ?Confirmed ?Last Taken ?Type aspirin 81 mg tablet,delayed 81 mg PO DAILY 04/21/20 05/05/25 05/05/25 History release escitalopram oxalate 20 mg tablet 20 mg PO DAILY Mood 04/21/20 05/05/25 05/05/25 History topiramate 50 mg tablet 50 mg PO BEDTIME 04/21/20 05/05/25 05/05/25 History rosuvastatin 40 mg tablet 20 mg PO DAILY 01/05/22 05/05/25 05/05/25 History oxybutynin chloride 5 mg tablet 5 mg PO DAILY 10/16/24 05/05/25 05/05/25 History Lactobacillus rhamnosus GG 10 1 cap PO DAILY 11/17/24 05/05/25 05/05/25 History billion cell capsule guaifenesin 600 mg tablet, 1,200 mg PO BID 11/17/24 05/05/25 05/05/25 History extended release 12 hr acetylcysteine 100 mg/mL (10 %) 3 ml inhalation BID 12/01/24 05/05/25 05/05/25 History solution digoxin 125 mcg (0.125 mg) tablet 125 mcg PO DAILY 12/01/24 05/05/25 05/05/25 History ascorbic acid (vitamin C) 250 mg 250 mg PO Q48H 05/05/25 05/05/25 Unknown History tablet ferrous sulfate 325 mg (65 mg 325 mg PO DAILY 05/05/25 05/05/25 05/05/25 History iron) tablet fluticasone 500 mcg-salmeterol 50 1 inh inhalation BID 05/05/25 05/05/25 05/05/25 History mcg/dose blistr powdr for inhalation (Wixela Inhub) prednisone 20 mg tablet 20 mg PO DAILY 05/05/25 05/05/25 05/05/25 History tobramycin 300 mg/4 mL solution 300 mg inhalation Q12H 05/05/25 05/05/25 05/05/25 History for nebulization Physical Exam Vital Signs: Vital Signs: Last Vital Signs Temp 98.1 F 05/06/25 07:54 Pulse 115 H 05/06/25 07:54 Resp 20 05/06/25 07:54 BP 111/66 05/06/25 07:54 Pulse Ox 90 L 05/06/25 07:54 O2 Del Method Nasal Cannula 05/06/25 07:54 O2 Flow Rate 4 05/06/25 07:54 Oxygen Flow Rate 3 05/05/25 11:56 BMI result Body Mass Index 21.5 Const: General: No confusion Orientation/consciousness: No confusion HEENT: Head: Yes normal to inspection Neck: Neck: Yes normal visual inspection, Yes no lymphadenopathy, Yes trachea midline and Yes no JVD Thyroid: Thyroid normal Chest: Chest palpation & inspection: normal inspection of the chest, normal palpation of entire chest wall and no tenderness Resp: Effort & Inspection: normal respiratory effort Auscultation: rhonchi and diminished lung sounds Cardio: Palpation: normal PMI Rate: regular rate Rhythm: regular rhythm Heart sounds: no gallops and no murmurs GI: Palpation (GI): Soft to palpation, nontender, No hepatosplenomegaly present and no masses Auscultation: normal bowel sounds : Other: Has nephrostomy tube in the left kidney . For drainage of the urine Back/Spine/Pelvis: Thoracic/Lumbar Spine: thoracic and lumbar spine normal to inspection Skin: General skin exam: no rashes or lesions noted Neuro: General: No confusion Cranial nerves: Yes CN's II-XII intact bilaterally Extrem: General: Yes normal to inspection, Yes no clubbing, cyanosis or edema, Yes no calf tenderness and No venous stasis dermatitis Psych: Appearance: grossly normal Speech and movement: Normal speech and movement present Results Laboratory Findings 05/06/25 04:05 05/06/25 04:05 ABG, PT/INR, D-dimer: PT/INR, D-dimer PT 12.4 SEC (11.2-13.5) 05/05/25 12:26 INR 1.0 (0.9-1.1) 05/05/25 12:26 Abnormal lab findings: Abnormal Labs 05/05/25 05/05/25 05/05/25 12:15 12:16 15:13 WBC 22.8 H RBC 4.51 L Hgb 11.9 L Hct 38.0 L MCH 26.4 L Plt Count 483 H D Immature Gran % (Auto) 0.6 H Neut % (Auto) 87.6 H Lymph % (Auto) 5.3 L Lymph # (Auto) [place] # (Auto) 1.3 H Abs Immat Gran (auto) 0.14 H Absolute Neuts (auto) 20.0 H Chloride 111 H BUN 57 H Creatinine 1.75 H POC Glucose Random Glucose 226 H AST 50 H ALT 108 H Troponin I High Sens 145.4 H* D 138.9 H* NT-Pro-B Natriuret Pep 2042.1 H Urine Protein 30 (1+) H Urine Blood Small (1+) H Urine Nitrite Positive H Ur Leukocyte Esterase Large (3+) H Urine RBC 11-20 H Urine WBC >50 H 05/05/25 05/05/25 05/06/25 16:52 21:21 04:05 WBC 19.8 H RBC 4.35 L Hgb 11.7 L Hct 36.7 L MCH 26.9 L Plt Count 451 H Immature Gran % (Auto) 0.6 H Neut % (Auto) 88.6 H Lymph % (Auto) 5.5 L Lymph # (Auto) 1.1 L [place] # (Auto) Abs Immat Gran (auto) 0.12 H Absolute Neuts (auto) 17.5 H Chloride BUN 59 H Creatinine 2.07 H POC Glucose 302 H 234 H Random Glucose 131 H AST ALT 86 H Troponin I High Sens NT-Pro-B Natriuret Pep Urine Protein Urine Blood Urine Nitrite Ur Leukocyte Esterase Urine RBC Urine WBC Microbiology: Microbiology 05/05/25 17:54 Sputum - Expectorated Gram Stain - Final 05/05/25 17:54 Sputum - Expectorated Sputum Culture - Preliminary Culture in progress. Assessment and Plan (1) COPD exacerbation: Status: Acute (2) Acute on chronic respiratory failure with hypoxemia: Status: Acute (3) Pneumonia: Status: Acute (4) Bronchiectasis with (acute) exacerbation: Status: Acute Plan Currently TB precautions, doubt TB, but need to get the results of the bronchosopcy he had a [facility]. For now he should have the 3 AFB sputum specimens to r/O infectious status before discontinuing airborne precautions. Broad spectrum abx He had been on inhaled Orion 28 days on/28 days off Sputum sent for culture and AFB Would be helpful to get results of the bronchoscopy from [facility] continue oxygen to keep pox 90-96% CPT with aerobika nebulizer therapy Procedures Date of Service Date of Service: 05/06/25
[2025-05-06] MEDS: cefEPime HCl/D5W 2 GM/50 ML PIGGYBACK IV ×2 (09:45→20:26)
[2025-05-06] MEDS: 0.9 % Sodium Chloride Flush 3 ML SYRINGE IVFLUSH ×3 (09:46→20:37)
[2025-05-06 12:47] LABS: Glucose, Whole Blood 124 mg/dL (60-115)
--- NOTE | 2025-05-06 13:10 | MHC.CM.PN ---
Addendum entered by Gisel Felder 05/06/25 13:29: Patient is active with [employer] [facility]. Original Note: CM met with Patient. Patient lives in a condo with his /HCP/Dolores and receives his home O2 from [facility]. Home self care is Patient's goal and CM has initiated and will follow for dc planning. PCP/[facility] is Alexis Martin and will transport at dc.
--- NOTE | 2025-05-06 14:23 | HO.PM.IMPN ---
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 Patient was previously treated with Zerbaxa for 6 weeks as well as inhaled tobramycin. Patient with anaphylactic allergy to levofloxacin Review of Systems Review of Systems: Yes all other systems are reviewed and are negative Physical Exam Exam: Exam: General: AxOx3, on supplemental oxygen Head: AT/NC ENT: Moist mucous membranes Neck: supple CVS; RRR, S1 S2 normal Lungs: Coarse bilateral breath sounds, bilateral rales Abd: Soft non tender, non distended Ext: No edema and no calf tenderness MSK: moving all 4 limbs Skin: No cyanosis or edema Psych: Cooperative with exam Neurology: no focal deficit Vital Signs: Vital Signs: Last Vital Signs Temp 98.1 F 05/06/25 07:54 Pulse 91 05/06/25 13:42 Resp 20 05/06/25 13:42 BP 106/75 05/06/25 13:42 Pulse Ox 91 L 05/06/25 13:42 O2 Del Method Nasal Cannula 05/06/25 13:42 O2 Flow Rate 3 05/06/25 13:42 Oxygen Flow Rate 3 05/05/25 11:56 BMI result Body Mass Index 21.5 Objective Data Active Medications Acetaminophen (Acetaminophen 325 Mg Tablet) 650 mg PO Q6H PRN PRN Reason: Pain, Mild 1-3,fever,headache Albuterol/Ipratropium (Albuterol/Iprat 2.5/0.5mg 3 Ml Ampul.Neb) 3 ml INHALE Q4H PRN PRN Reason: Shortness of Breath/Wheezing Albuterol/Ipratropium (Albuterol/Iprat 2.5/0.5mg 3 Ml Ampul.Neb) 3 ml INHALE RQ4H WHILE AWAKE [facility] Last Admin: 05/06/25 11:35 Dose: 3 ml Documented By: MARIFER Ascorbic Acid (Ascorbic Acid 250 Mg Tablet) 250 mg PO Q48H [facility] Last Admin: 05/06/25 13:31 Dose: 250 mg Documented By: CHARMAINE Aspirin (Aspirin Enteric Coated 81 Mg Tablet.) 81 mg PO DAILY [facility] Atorvastatin Calcium (Atorvastatin Calcium 80 Mg Tablet) 80 mg PO DAILY [facility] Benzonatate (Benzonatate 100 Mg Capsule) 100 mg PO TID PRN PRN Reason: Cough Calcium Carbonate (Calcium Carbonate 750 Mg Tab.Chew) 750 mg PO Q4H PRN PRN Reason: Heartburn Digoxin (Digoxin 0.125 Mg Tablet) 0.125 mg PO DAILY [facility]; Protocol Last Admin: 05/06/25 13:31 Dose: 0.125 mg Documented By: CHARMAINE Escitalopram Oxalate (Escitalopram Oxalate 20 Mg Tablet) 20 mg PO DAILY [facility] Last Admin: 05/06/25 13:31 Dose: 20 mg Documented By: CHARMAINE Fluticasone/Vilanterol (Fluticasone/Vilanterol 200/25 Blst.W.Dev) 1 puff INHALE RDAILY [facility] Guaifenesin (Guaifenesin [place] 600 Mg Tab.Er.12h) 1,200 mg PO BID [facility] Heparin Sodium (Porcine) (Heparin Sodium,Porcine 5,000 Unit/Ml Vial) 5,000 unit SUBCUT Q12H [facility] Last Admin: 05/06/25 06:12 Dose: 5,000 unit Documented By: RADAMES Cefepime HCl (Maxipime) 2 gm in 50 mls @ 100 mls/hr IV Q12H [facility] Last Infusion: 05/06/25 12:59 Dose: Infused Documented By: CHARMAINE Insulin Human Lispro (Insulin Lispro 100 Unit/Ml 3 Ml Vial) 0 unit SUBCUT QIDACHS [facility]; Protocol Last Admin: 05/06/25 12:58 Dose: Not Given Documented By: CHARMAINE Non-Admin Reason: No Insulin Coverage Lorazepam (Lorazepam 0.5 Mg Tablet) 0.5 mg PO BID PRN PRN Reason: anxiety/RESPIRATORY FAILURE Last Admin: 05/06/25 13:34 Dose: 0.5 mg Documented By: CHARMAINE Magnesium Hydroxide (Milk Of Magnesia 30 Ml Oral.Susp) 30 ml PO DAILY PRN PRN Reason: Constipation Melatonin (Melatonin 3 Mg Tablet) 6 mg PO BEDTIME PRN PRN Reason: Insomnia Methylprednisolone Sodium Succinate (Methylprednisolone Sod Succ 40 Mg/Ml Vial) 40 mg IVPUSH Q24H [facility] Morphine Sulfate (Morphine Sulfate Immed Release 15 Mg Tablet) 15 mg PO BID PRN PRN Reason: Pain/Respiratory Distress Ondansetron HCl (Ondansetron Hcl 4 Mg/2 Ml Vial) 4 mg IVPUSH Q8H PRN PRN Reason: Nausea and Vomiting Oxybutynin Chloride (Oxybutynin Chloride 5 Mg Tablet) 5 mg PO DAILY [facility] Sodium Chloride (0.9 % Sodium Chloride Flush 3 Ml Syringe) 3 ml IVFLUSH QSHIFT [facility] Last Admin: 05/06/25 09:46 Dose: 3 ml Documented By: CHARMAINE Tiotropium [place] (Tiotropium [place] 2.5 Mcg 1 Puff/2.5 Mcg Mist.Inhal) 2 puff INHALE DAILY [facility] Topiramate (Topiramate 25 Mg Tablet) 50 mg PO BEDTIME [facility] Labs 05/06/25 04:05 05/06/25 04:05 Labs: Laboratory Results - last 24 hr 05/05/25 05/05/25 05/05/25 15:13 16:52 21:21 MCV MCH MCHC RDW Plt Count MPV Immature Gran % (Auto) Neut % (Auto) Lymph % (Auto) [place] % (Auto) Eos % (Auto) Baso % (Auto) Lymph # (Auto) [place] # (Auto) Eos # (Auto) Baso # (Auto) Abs Immat Gran (auto) Absolute Neuts (auto) Absolute Nucleated RBC Nucleated RBC % (auto) Anion Gap Estim Creat Clear Calc Estimated GFR POC Glucose 302 H 234 H Random Glucose Calcium Total Bilirubin AST ALT Alkaline Phosphatase Troponin I High Sens 138.9 H* Total Protein Albumin 05/06/25 05/06/25 05/06/25 04:05 07:52 12:42 MCV 84.4 MCH 26.9 L MCHC 31.9 RDW 15.3 Plt Count 451 H MPV 9.5 Immature Gran % (Auto) 0.6 H Neut % (Auto) 88.6 H Lymph % (Auto) 5.5 L [place] % (Auto) 5.1 Eos % (Auto) 0.0 Baso % (Auto) 0.2 Lymph # (Auto) 1.1 L [place] # (Auto) 1.0 Eos # (Auto) 0.0 Baso # (Auto) 0.0 Abs Immat Gran (auto) 0.12 H Absolute Neuts (auto) 17.5 H Absolute Nucleated RBC 0.000 Nucleated RBC % (auto) 0.0 Anion Gap 15 Estim Creat Clear Calc 27.0 Estimated GFR 31 POC Glucose 108 124 H Random Glucose 131 H Calcium 8.9 Total Bilirubin 0.2 AST 30 ALT 86 H Alkaline Phosphatase 67 Troponin I High Sens Total Protein 7.3 Albumin 3.6 Microbiology Microbiology Results: Microbiology 05/05/25 12:15 Blood Culture - Preliminary Blood - Venous No growth after 24 hours. 05/05/25 Unknown Urine Culture - Final Urine clean catch - Clean Catch Midstream 05/05/25 17:54 Gram Stain - Final Sputum - Expectorated Sputum Culture - Preliminary Culture in progress. Assessment and Plan (1) Acute on chronic respiratory failure with hypoxemia: Status: Acute (2) Type 2 diabetes mellitus without complications: Status: Acute Plan 79-year-old male with severe COPD and chronic hypoxic respiratory failure (baseline 2?3 L NC), atrial fibrillation, type 2 diabetes, HFrEF (EF ~20%), and CAD s/p stent (09/2024) presents with worsening shortness of breath and exertional dyspnea. Over the past several days, he has required sleeping upright due to orthopnea and reports waking multiple times at night with breathlessness. He also notes increased urinary frequency. Acute on chronic hypoxic respiratory failure secondary to acute exacerbation of COPD Sever sepsis likely secondary to COPD exacerbation, PNA amd bronchiectasis with recent bronchoscopy done showing CR pseudomonas, intermediate sensitive to cefepime CT scan reviewed, no evidence of fluid overload or infiltrates but showed multiple bilateral nodules. Hx of recent hospitalizations ([facility]) with a positive sputum culture for Pseudomonas CRE, treated with cefepime, later transitioned to Zerbaxa for 6 weeks. Sputum cultures and AFB sent Blood cultures ordered and pending Continue steroid IV Continue Neb treatments oxygen to keep pox>88% Infectious disease and Pulmonology consulted Lung nodules CTA showing bilateral lung nodules concerning for multifocal pneumonia related to mycobacterium avium versus , mycobacterium tuberculosis versus fungal pneumonia versus viral pneumonia. Bilateral, noncalcified pulmonary nodules. No available prior images here (requested [facility] most recent admission notes) He had Bronchoscopy at [facility] in Feb 2025 (he has hardcopy of the DC summary) : Cx grew MDR Pseudomonas will send sputum cx and AFB testing and MTB PCR (unclear if he was tested at anypoint) Keep on air-borne precautions until he is seen by Pulm Pulmonary consult Acute kidney injury, Likely prerenal s/p IV fluids Urine studies sent Hold nephrotoxic medications Type 2 IN, likely secondary to #1 No EKG changes to suggest ACS Telemetry paroxysmal a fib EKG without a fib not on anticoagulation, will restart home medications Type 2 diabetes sliding scale insulin needed on steroids no home meds chronic HFrEF Elevated BNP at 1999 but does not look in acute exacerbation continue home meds CAD/stent continue home meds DNR/DNI VTE prophy: heparin Total time managing care of this patient today: 55 minutes. Quality Stroke Does the patient have a stroke diagnosis?: No VTE Prior VTE?: No VTE Risk Level:: Medical - moderate - high VTE Device Contraindication: Treatment Not Indicated VTE Drug Contraindication: N/A - Med Ordered
[2025-05-06 15:27] LABS: Anion Gap 12 (12-20); Blood Urea Nitrogen 59 mg/dL (9-16); Calcium 8.8 mg/dL (8.4-10.2); Carbon Dioxide 26 mmol/L (22-29); Chloride 107 mmol/L (96-108); Creatinine Clr Calc Pharmacy 29.7; Estimated Glomerular Filt Rate 35; Potassium 4.0 mmol/L (3.3-5.1); Sodium 141 mmol/L (135-145)
[2025-05-06 18:03] LABS: Glucose, Whole Blood 179 mg/dL (60-115)
[2025-05-06] MEDS: guaiFENesin LA 600 MG TAB.ER.12H 1200 MG PO (20:26)
[2025-05-06 21:03] LABS: Glucose, Whole Blood 112 mg/dL (60-115)
[2025-05-07] VITALS (9 sets, daily range): BP systolic 118–156; BP diastolic 60–89; PULSE 50–102; RESP 15–19; TEMP 36.2–36.8; O2SAT 90–97
--- NOTE | 2025-05-07 00:37 | W.PM.IDCN ---
History of Present Illness Data of Consult Service Date: 05/06/25 Requesting physician: Derrell Perez Primary Care Provider: Alexis Martin NP HPI Reason for consult: multifocal pneumonia He presents with shortness of breath and oxygen saturation 85% He has been on aerosolized Tobramycin for reported pseudomonas sputum He sees Pulmonary her Review of Systems Review of Systems: Yes all other systems are reviewed and are negative PMFSH Past Medical History Medical History CHF (congestive heart failure) Type 2 diabetes mellitus without complications CAD (coronary artery disease) Acute anxiety Physical deconditioning Respiratory failure Pneumonia COPD (chronic obstructive pulmonary disease) Family History Family history: reviewed and not pertinent Surgical History Surgical History H/O heart artery stent Social History Social History Household Members: [facility] Do you presently have visiting nurse or other home services: Yes Patient Tobacco Use Status: Former Tobacco user Substance Use Type: Marijuana Advance Directives Date on File: 05/06/25 service: Yes Meds Allergies Allergy/AdvReac Type Severity Reaction Status Date / Time levofloxacin (From Levaquin) Allergy Severe Anaphylaxis Verified 05/05/25 11:58 atorvastatin Allergy Unknown Verified 05/05/25 11:58 carvedilol Allergy Unknown Verified 05/05/25 11:58 ketorolac (From Toradol) Allergy Unknown Verified 05/05/25 11:58 lisinopril Allergy Unknown Verified 05/05/25 11:58 semaglutide Allergy Unknown Verified 05/05/25 11:58 Active Medications: Current Medications Acetaminophen (Acetaminophen 325 Mg Tablet) 650 mg PO Q6H PRN PRN Reason: Pain, Mild 1-3,fever,headache Albuterol/Ipratropium (Albuterol/Iprat 2.5/0.5mg 3 Ml Ampul.Neb) 3 ml INHALE Q4H PRN PRN Reason: Shortness of Breath/Wheezing Albuterol/Ipratropium (Albuterol/Iprat 2.5/0.5mg 3 Ml Ampul.Neb) 3 ml INHALE RQ4H WHILE AWAKE [facility] Last Admin: 05/06/25 19:53 Dose: 3 ml Ascorbic Acid (Ascorbic Acid 250 Mg Tablet) 250 mg PO Q48H [facility] Last Admin: 05/06/25 13:31 Dose: 250 mg Aspirin (Aspirin Enteric Coated 81 Mg Tablet.Dr) 81 mg PO DAILY [facility] Atorvastatin Calcium (Atorvastatin Calcium 80 Mg Tablet) 80 mg PO DAILY [facility] Benzonatate (Benzonatate 100 Mg Capsule) 100 mg PO TID PRN PRN Reason: Cough Calcium Carbonate (Calcium Carbonate 750 Mg Tab.Chew) 750 mg PO Q4H PRN PRN Reason: Heartburn Digoxin (Digoxin 0.125 Mg Tablet) 0.125 mg PO DAILY [facility]; Protocol Last Admin: 05/06/25 13:31 Dose: 0.125 mg Escitalopram Oxalate (Escitalopram Oxalate 20 Mg Tablet) 20 mg PO DAILY [facility] Last Admin: 05/06/25 13:31 Dose: 20 mg Fluticasone/Vilanterol (Fluticasone/Vilanterol 200/25 Blst.W.Dev) 1 puff INHALE RDAILY [facility] Guaifenesin (Guaifenesin La 600 Mg Tab.Er.12h) 1,200 mg PO BID [facility] Last Admin: 05/06/25 20:26 Dose: 1,200 mg Heparin Sodium (Porcine) (Heparin Sodium,Porcine 5,000 Unit/Ml Vial) 5,000 unit SUBCUT Q12H [facility] Last Admin: 05/06/25 18:14 Dose: 5,000 unit Cefepime HCl (Maxipime) 2 gm in 50 mls @ 100 mls/hr IV Q12H [facility] Last Infusion: 05/06/25 20:56 Dose: Infused Insulin Human Lispro (Insulin Lispro 100 Unit/Ml 3 Ml Vial) 0 unit SUBCUT QIDACHS [facility]; Protocol Last Admin: 05/06/25 21:01 Dose: Not Given Lorazepam (Lorazepam 0.5 Mg Tablet) 0.5 mg PO BID PRN PRN Reason: anxiety/RESPIRATORY FAILURE Last Admin: 05/06/25 22:39 Dose: 0.5 mg Magnesium Hydroxide (Milk Of Magnesia 30 Ml Oral.Susp) 30 ml PO DAILY PRN PRN Reason: Constipation Melatonin (Melatonin 3 Mg Tablet) 6 mg PO BEDTIME PRN PRN Reason: Insomnia Methylprednisolone Sodium Succinate (Methylprednisolone Sod Succ 40 Mg/Ml Vial) 40 mg IVPUSH Q24H [facility] Last Admin: 05/06/25 20:26 Dose: 40 mg Morphine Sulfate (Morphine Sulfate Immed Release 15 Mg Tablet) 15 mg PO BID PRN PRN Reason: Pain/Respiratory Distress Ondansetron HCl (Ondansetron Hcl 4 Mg/2 Ml Vial) 4 mg IVPUSH Q8H PRN PRN Reason: Nausea and Vomiting Oxybutynin Chloride (Oxybutynin Chloride 5 Mg Tablet) 5 mg PO DAILY [facility] Sodium Chloride (0.9 % Sodium Chloride Flush 3 Ml Syringe) 3 ml IVFLUSH QSHIFT [facility] Last Admin: 05/06/25 20:37 Dose: 3 ml Tiotropium [place] (Tiotropium [place] 2.5 Mcg 1 Puff/2.5 Mcg Mist.Inhal) 2 puff INHALE DAILY [facility] Topiramate (Topiramate 25 Mg Tablet) 50 mg PO BEDTIME [facility] Last Admin: 05/06/25 20:26 Dose: 50 mg Home Medications ?Medication ?Instructions ?Recorded ?Confirmed ?Last Taken ?Type aspirin 81 mg tablet,delayed 81 mg PO DAILY 04/21/20 05/05/25 05/05/25 History release escitalopram oxalate 20 mg tablet 20 mg PO DAILY [facility] 04/21/20 05/05/25 05/05/25 History topiramate 50 mg tablet 50 mg PO BEDTIME 04/21/20 05/05/25 05/05/25 History rosuvastatin 40 mg tablet 20 mg PO DAILY 01/05/22 05/05/25 05/05/25 History oxybutynin chloride 5 mg tablet 5 mg PO DAILY 10/16/24 05/05/25 05/05/25 History Lactobacillus rhamnosus GG 10 1 cap PO DAILY 11/17/24 05/05/25 05/05/25 History billion cell capsule guaifenesin 600 mg tablet, 1,200 mg PO BID 11/17/24 05/05/25 05/05/25 History extended release 12 hr acetylcysteine 100 mg/mL (10 %) 3 ml inhalation BID 12/01/24 05/05/25 05/05/25 History solution digoxin 125 mcg (0.125 mg) tablet 125 mcg PO DAILY 12/01/24 05/05/25 05/05/25 History ascorbic acid (vitamin C) 250 mg 250 mg PO Q48H 05/05/25 05/05/25 Unknown History tablet ferrous sulfate 325 mg (65 mg 325 mg PO DAILY 05/05/25 05/05/25 05/05/25 History iron) tablet fluticasone 500 mcg-salmeterol 50 1 inh inhalation BID 05/05/25 05/05/25 05/05/25 History mcg/dose blistr powdr for inhalation (Pastora Inhub) prednisone 20 mg tablet 20 mg PO DAILY 05/05/25 05/05/25 05/05/25 History tobramycin 300 mg/4 mL solution 300 mg inhalation Q12H 05/05/25 05/05/25 05/05/25 History for nebulization Physical Exam Vital Signs: Vital Signs: Last Vital Signs Temp 97.9 F 05/06/25 23:43 Pulse 74 05/06/25 23:43 Resp 18 05/06/25 23:43 BP 137/76 05/06/25 23:43 Pulse Ox 94 05/06/25 23:43 O2 Del Method Nasal Cannula 05/06/25 23:43 O2 Flow Rate 3 05/06/25 23:43 Oxygen Flow Rate 3 05/05/25 11:56 BMI result Body Mass Index 21.5 Const: General: cooperative HEENT: Head: Yes normal to inspection Face and sinus: Yes normal facial exam Mouth: Normal oral and palatal mucosa present Teeth and gingiva: dentition normal Eyes: General: appearance normal, both eyes and all related structures Pupils: Equal, round and reactive pupils present Resp: Other: rhonchi bases Cardio: Rate: regular rate Rhythm: regular rhythm GI: Palpation (GI): Soft to palpation and nontender : General: Yes no CVA tenderness Back/Spine/Pelvis: Back: no CVA tenderness Skin: General skin exam: no rashes or lesions noted Neuro: General: moves all extremities Cranial nerves: Yes Equal, round and reactive pupils present Extrem: General: Yes normal to inspection Psych: Appearance: grossly normal Results Labs 05/06/25 04:05 05/06/25 15:01 Labs: Short CBC 05/06/25 Range/Units 04:05 WBC 19.8 H (4.8-10.8) X10*3/uL Hgb 11.7 L (14.0-18.0) g/dl Hct 36.7 L (42.0-52.0) % Plt Count 451 H (160-400) X10*3/uL BMP 05/06/25 05/06/25 04:05 15:01 Sodium 143 141 Potassium 4.6 4.0 Chloride 108 107 Carbon Dioxide 25 26 BUN 59 H 59 H Creatinine 2.07 H 1.88 H Calcium 8.9 8.8 Liver Function 05/06/25 Range/Units 04:05 Total Bilirubin 0.2 (0.0-1.0) mg/dL AST 30 (5-37) U/L ALT 86 H (0-40) U/L Alkaline Phosphatase 67 (39-117) U/L Albumin 3.6 (3.5-5.0) g/dL Microbiology Microbiology Results: Microbiology 05/05/25 12:26 Blood - Venous Blood Culture - Preliminary No growth after 24 hours. 05/05/25 12:15 Blood - Venous Blood Culture - Preliminary No growth after 24 hours. 05/05/25 Unknown Urine clean catch - Clean Catch Midstream Urine Culture - Final 05/05/25 17:54 Sputum - Expectorated Gram Stain - Final 05/05/25 17:54 Sputum - Expectorated Sputum Culture - Preliminary Culture in progress. Assessment and Plan (1) Acute exacerbation of CHF (congestive heart failure): Status: Acute (2) CAD (coronary artery disease): Status: Acute (3) Type 2 diabetes mellitus without complications: Status: Acute (4) Physical deconditioning: Status: Acute Plan Await any cultures. Continue regimen of antibiotics based on sputum cultre,duration to be [id number] d Patient had on similar episode in past
[2025-05-07 08:03] LABS: Glucose, Whole Blood 165 mg/dL (60-115)
[2025-05-07] MEDS: Albuterol/Iprat 2.5/0.5MG 3 ML AMPUL.NEB INHALE ×4 (08:20→20:59)
[2025-05-07] MEDS: guaiFENesin LA 600 MG TAB.ER.12H 1200 MG PO ×2 (08:39→20:05)
[2025-05-07] MEDS: Aspirin Enteric Coated 81 MG TABLET.DR PO (08:39)
[2025-05-07] MEDS: cefEPime HCl/D5W 2 GM/50 ML PIGGYBACK IV ×2 (08:40→20:05)
[2025-05-07] MEDS: 0.9 % Sodium Chloride Flush 3 ML SYRINGE IVFLUSH ×3 (08:40→20:18)
[2025-05-07 09:14] LABS: Hematocrit 40.7 % (42.0-52.0); Hemoglobin 12.4 g/dl (14.0-18.0); Mean Corpuscular HGB Conc 30.5 g/dl (31.0-36.0); Mean Corpuscular Hemoglobin 26.1 pg (27.0-33.0); Mean Corpuscular Volume 85.7 fL (80.0-98.0); NRBC Abs Auto 0.000 X10*3/uL (0.0-0.012); NRBC Pct Auto 0.0 /100WBC (0.0-0.2); Platelet Count 493 X10*3/uL (160-400); Red Blood Count 4.75 X10*6/uL (4.60-5.80); White Blood Count 20.0 X10*3/uL (4.8-10.8)
[2025-05-07 09:27] LABS: Anion Gap 15 (12-20); Blood Urea Nitrogen 63 mg/dL (9-16); Calcium 9.0 mg/dL (8.4-10.2); Carbon Dioxide 24 mmol/L (22-29); Chloride 108 mmol/L (96-108); Creatinine Clr Calc Pharmacy 28.6; Estimated Glomerular Filt Rate 33; Potassium 4.7 mmol/L (3.3-5.1); Sodium 142 mmol/L (135-145)
--- NOTE | 2025-05-07 11:12 | MHC.CM.PN ---
Addendum entered by Cari Montiel 05/07/25 14:50: MD also waiting on sputum cx results for appropriate ATB. Addendum entered by Cari Montiel 05/07/25 14:40: Discussed d/c plan w/ - will await the final result of blood cx to ensure no growth (preliminary report is negative x 48 hours) After this, a PICC will be ordered for his LT home IV ATB. [facility] form awaiting signature from MD and can then be faxed to [place] for authorization. Original Note: Per discussion at rounds: pt will need 2 weeks of IV Cefepime upon return to home. Referral made to [facility] for vendor services - aware that pt will need a salvage determiner IV Access line prior to d/c. [employer] [facility] is active and was updated on above.
[2025-05-07] MEDS: Fluticasone/Vilanterol 200/25 BLST.W.DEV 1 PUFF INHALE (11:45)
[2025-05-07] MEDS: Tiotropium Bromide 2.5 mcg 1 PUFF/2.5 MCG MIST.INHAL 2 PUFF INHALE (11:45)
[2025-05-07 12:12] LABS: Glucose, Whole Blood 94 mg/dL (60-115)
[2025-05-07 15:44] LABS: Glucose, Whole Blood 124 mg/dL (60-115)
--- NOTE | 2025-05-07 16:14 | P.PNIM_ITS ---
Subjective Subjective Date of Service: 05/07/25 Interval History: Patient seen examined at bedside this morning, patient states that his breathing has slightly improved, per Infectious Disease continue IV antibiotics for 14 days, awaiting samples for sputum AFB. Review of Systems Review of Systems: Yes all other systems are reviewed and are negative Physical Exam 2 Exam: Exam: General: AxOx3, on supplemental oxygen Head: AT/NC ENT: Moist mucous membranes Neck: supple CVS; RRR, S1 S2 normal Lungs: Coarse bilateral breath sounds, wheezing Abd: Soft non tender, non distended Ext: No edema and no calf tenderness MSK: moving all 4 limbs Skin: No cyanosis or edema Psych: Cooperative with exam Neurology: no focal deficit Vital Signs: Vital Signs: Last Vital Signs Temp 98.2 F 05/07/25 15:50 Pulse 99 05/07/25 15:50 Resp 18 05/07/25 15:50 BP 156/69 H 05/07/25 15:50 Pulse Ox 91 L 05/07/25 15:50 O2 Del Method Nasal Cannula 05/07/25 15:50 O2 Flow Rate 3 05/07/25 15:50 Oxygen Flow Rate 3 05/05/25 11:56 BMI result Body Mass Index 21.5 Objective Data Active Medications Acetaminophen (Acetaminophen 325 Mg Tablet) 650 mg PO Q6H PRN PRN Reason: Pain, Mild 1-3,fever,headache Albuterol/Ipratropium (Albuterol/Iprat 2.5/0.5mg 3 Ml Ampul.Neb) 3 ml INHALE Q4H PRN PRN Reason: Shortness of Breath/Wheezing Albuterol/Ipratropium (Albuterol/Iprat 2.5/0.5mg 3 Ml Ampul.Neb) 3 ml INHALE RQ4H WHILE AWAKE [facility] Last Admin: 05/07/25 15:40 Dose: 3 ml Documented By: MARIFER Ascorbic Acid (Ascorbic Acid 250 Mg Tablet) 250 mg PO Q48H [facility] Last Admin: 05/06/25 13:31 Dose: 250 mg Documented By: CHARMAINE Aspirin (Aspirin Enteric Coated 81 Mg Tablet.) 81 mg PO DAILY [facility] Last Admin: 05/07/25 08:39 Dose: 81 mg Documented By: ANTOLIN Atorvastatin Calcium (Atorvastatin Calcium 80 Mg Tablet) 80 mg PO DAILY [facility] Last Admin: 05/07/25 08:39 Dose: 80 mg Documented By: ANTOLIN Benzonatate (Benzonatate 100 Mg Capsule) 100 mg PO TID PRN PRN Reason: Cough Calcium Carbonate (Calcium Carbonate 750 Mg Tab.Chew) 750 mg PO Q4H PRN PRN Reason: Heartburn Digoxin (Digoxin 0.125 Mg Tablet) 0.125 mg PO DAILY [facility]; Protocol Last Admin: 05/07/25 08:39 Dose: 0.125 mg Documented By: ANTOLIN Escitalopram Oxalate (Escitalopram Oxalate 20 Mg Tablet) 20 mg PO DAILY [facility] Last Admin: 05/07/25 08:39 Dose: 20 mg Documented By: ANTOLIN Fluticasone/Vilanterol (Fluticasone/Vilanterol 200/25 Blst.W.Dev) 1 puff INHALE RDAILY [facility] Last Admin: 05/07/25 11:45 Dose: 1 puff Documented By: EVETTE Guaifenesin (Guaifenesin La 600 Mg Tab.Er.12h) 1,200 mg PO BID [facility] Last Admin: 05/07/25 08:39 Dose: 1,200 mg Documented By: ANTOLIN Heparin Sodium (Porcine) (Heparin Sodium,Porcine 5,000 Unit/Ml Vial) 5,000 unit SUBCUT Q12H [facility] Last Admin: 05/07/25 06:14 Dose: 5,000 unit Documented By: NASIM Cefepime HCl (Maxipime) 2 gm in 50 mls @ 100 mls/hr IV Q12H [facility] Last Infusion: 05/07/25 09:25 Dose: Infused Documented By: ANTOLIN Insulin Human Lispro (Insulin Lispro 100 Unit/Ml 3 Ml Vial) 0 unit SUBCUT QIDACHS [facility]; Protocol Last Admin: 05/07/25 12:12 Dose: Not Given Documented By: ANTOLIN Non-Admin Reason: No Insulin Coverage Lorazepam (Lorazepam 0.5 Mg Tablet) 0.5 mg PO BID PRN PRN Reason: anxiety/RESPIRATORY FAILURE Last Admin: 05/07/25 12:41 Dose: 0.5 mg Documented By: ANTOLIN Magnesium Hydroxide (Milk Of Magnesia 30 Ml Oral.Susp) 30 ml PO DAILY PRN PRN Reason: Constipation Melatonin (Melatonin 3 Mg Tablet) 6 mg PO BEDTIME PRN PRN Reason: Insomnia Methylprednisolone Sodium Succinate (Methylprednisolone Sod Succ 40 Mg/Ml Vial) 40 mg IVPUSH Q24H [facility] Last Admin: 05/06/25 20:26 Dose: 40 mg Documented By: NASIM Morphine Sulfate (Morphine Sulfate Immed Release 15 Mg Tablet) 15 mg PO BID PRN PRN Reason: Pain/Respiratory Distress Ondansetron HCl (Ondansetron Hcl 4 Mg/2 Ml Vial) 4 mg IVPUSH Q8H PRN PRN Reason: Nausea and Vomiting Oxybutynin Chloride (Oxybutynin Chloride 5 Mg Tablet) 5 mg PO DAILY [facility] Last Admin: 05/07/25 08:39 Dose: 5 mg Documented By: ANTOLIN Sodium Chloride (0.9 % Sodium Chloride Flush 3 Ml Syringe) 3 ml IVFLUSH QSHIFT [facility] Last Admin: 05/07/25 08:40 Dose: 3 ml Documented By: ANTOLIN Tiotropium [place] (Tiotropium [place] 2.5 Mcg 1 Puff/2.5 Mcg Mist.Inhal) 2 puff INHALE DAILY [facility] Last Admin: 05/07/25 11:45 Dose: 2 puff Documented By: EVETTE Tobramycin Sulfate (Tobramycin Sulfate 80 Mg/2 Ml Vial) 300 mg INHALE RBID [facility] Topiramate (Topiramate 25 Mg Tablet) 50 mg PO BEDTIME [facility] Last Admin: 05/06/25 20:26 Dose: 50 mg Documented By: NASIM Labs 05/07/25 08:53 05/07/25 08:53 Labs: Laboratory Results - last 24 hr 05/06/25 05/06/25 05/07/25 17:59 21:00 07:51 MCV MCH MCHC RDW Plt Count MPV Absolute Nucleated RBC Nucleated RBC % (auto) Anion Gap Estim Creat Clear Calc Estimated GFR POC Glucose 179 H 112 165 H Random Glucose Calcium 05/07/25 05/07/25 05/07/25 08:53 11:48 15:39 MCV 85.7 MCH 26.1 L MCHC 30.5 L RDW 15.5 Plt Count 493 H MPV 9.6 Absolute Nucleated RBC 0.000 Nucleated RBC % (auto) 0.0 Anion Gap 15 Estim Creat Clear Calc 28.6 Estimated GFR 33 POC Glucose 94 124 H Random Glucose 180 H Calcium 9.0 Microbiology Microbiology Results: Microbiology 12/02/25 12:26 Blood Culture - Preliminary Blood - Venous No growth after 48 hours. 05/05/25 12:15 Blood Culture - Preliminary Blood - Venous No growth after 48 hours. 05/05/25 17:54 Gram Stain - Final Sputum - Expectorated Sputum Culture - Preliminary Culture in progress. 05/05/25 Unknown Urine Culture - Final Urine clean catch - Clean Catch Midstream Assessment and Plan (1) Type 2 diabetes mellitus without complications: Status: Acute (2) Acute on chronic respiratory failure with hypoxemia: Status: Acute (3) Bronchiectasis with (acute) exacerbation: Status: Acute Plan 79-year-old male with severe COPD and chronic hypoxic respiratory failure (baseline 2?3 L NC), atrial fibrillation, type 2 diabetes, HFrEF (EF ~20%), and CAD s/p stent (09/2024) presents with worsening shortness of breath and exertional dyspnea. Over the past several days, he has required sleeping upright due to orthopnea and reports waking multiple times at night with breathlessness. He also notes increased urinary frequency. Acute on chronic hypoxic respiratory failure secondary to acute exacerbation of COPD Sepsis likely secondary to COPD exacerbation, PNA and bronchiectasis with recent bronchoscopy done showing CR pseudomonas, intermediate sensitive to cefepime. CT scan reviewed, no evidence of fluid overload or infiltrates but showed multiple bilateral nodules. Hx of recent hospitalizations ([facility]) with a positive sputum culture for Pseudomonas CRE, treated with cefepime, later transitioned to Zerbaxa for 6 weeks. Sputum cultures and AFB sent Blood cultures ordered and pending Continue steroid IV Continue Neb treatments Continue Cefepime x 14 days per ID recs Tobramycin ordered oxygen to keep Spo2>88% Infectious disease and Pulmonology consulted Lung nodules CTA showing bilateral lung nodules concerning for multifocal pneumonia related to mycobacterium avium versus , mycobacterium tuberculosis versus fungal pneumonia versus viral pneumonia. Bilateral, noncalcified pulmonary nodules. No available prior images here (requested [facility] most recent admission notes) He had Bronchoscopy at [facility] in Feb 2025 (he has hardcopy of the DC summary) : Cx grew MDR Pseudomonas Sputum cx and AFB testing and MTB PCR ordered Keep on air-borne precautions Pulmonary consult Acute kidney injury, Likely prerenal s/p IV fluids Urine studies sent Hold nephrotoxic medications Type 2 NM, likely secondary to #1 No EKG changes to suggest ACS Telemetry paroxysmal a fib EKG without a fib not on anticoagulation, will restart home medications Type 2 diabetes sliding scale insulin needed on steroids no home meds chronic HFrEF Elevated BNP at 1999 but does not look in acute exacerbation continue home meds CAD/stent continue home meds DNR/DNI VTE prophy: heparin Total time managing care of this patient today: 55 minutes. Quality Stroke Does the patient have a stroke diagnosis?: No VTE Prior VTE?: No VTE Risk Level:: Medical - moderate - high VTE Device Contraindication: Treatment Not Indicated VTE Drug Contraindication: N/A - Med Ordered
[2025-05-07 19:52] LABS: Glucose, Whole Blood 152 mg/dL (60-115)
--- NOTE | 2025-05-07 23:36 | PM.IDPN ---
Subjective Subjective Date of Service: 05/07/25 Critical Care Time (minutes): 15 Comment: patient no TB history fpc seen at [facility] and seen by Dr Henderson here , no TB history Objective Data Labs 05/07/25 08:53 05/07/25 08:53 Labs: Laboratory Results - last 24 hr 05/07/25 05/07/25 05/07/25 07:51 08:53 11:48 WBC 20.0 H RBC 4.75 Hgb 12.4 L Hct 40.7 L MCV 85.7 MCH 26.1 L MCHC 30.5 L RDW 15.5 Plt Count 493 H MPV 9.6 Absolute Nucleated RBC 0.000 Nucleated RBC % (auto) 0.0 Sodium 142 Potassium 4.7 Chloride 108 Carbon Dioxide 24 Anion Gap 15 BUN 63 H Creatinine 1.95 H Estim Creat Clear Calc 28.6 Estimated GFR 33 POC Glucose 165 H 94 Random Glucose 180 H Calcium 9.0 Ur Random Sodium Urine Creatinine 05/07/25 05/07/25 05/07/25 15:39 19:38 20:53 WBC RBC Hgb Hct MCV MCH MCHC RDW Plt Count MPV Absolute Nucleated RBC Nucleated RBC % (auto) Sodium Potassium Chloride Carbon Dioxide Anion Gap BUN Creatinine Estim Creat Clear Calc Estimated GFR POC Glucose 124 H 152 H Random Glucose Calcium Ur Random Sodium 44.0 Urine Creatinine 60.47 Microbiology Microbiology Results: Microbiology 05/05/25 12:26 Blood - Venous Blood Culture - Preliminary No growth after 48 hours. 05/05/25 12:15 Blood - Venous Blood Culture - Preliminary No growth after 48 hours. 05/05/25 17:54 Sputum - Expectorated Gram Stain - Final 05/05/25 17:54 Sputum - Expectorated Sputum Culture - Preliminary Culture in progress. 05/05/25 Unknown Urine clean catch - Clean Catch Midstream Urine Culture - Final Physical Exam Vital Signs: Vital Signs: Last Vital Signs Temp 98.0 F 05/07/25 23:25 Pulse 81 05/07/25 23:25 Resp 19 05/07/25 23:25 BP 129/89 05/07/25 23:25 Pulse Ox 96 05/07/25 23:25 O2 Del Method Nasal Cannula 05/07/25 23:25 O2 Flow Rate 3 05/07/25 23:25 Oxygen Flow Rate 3 05/05/25 11:56 BMI result Body Mass Index 21.5 Const: General: cooperative HEENT: Head: Yes normal to inspection Face and sinus: Yes normal facial exam Mouth: Normal oral and palatal mucosa present Teeth and gingiva: dentition normal Eyes: General: appearance normal, both eyes and all related structures Pupils: Equal, round and reactive pupils present Resp: Effort & Inspection: normal respiratory effort Cardio: Rate: regular rate Rhythm: regular rhythm GI: Palpation (GI): Soft to palpation and nontender : General: Yes no CVA tenderness Back/Spine/Pelvis: Back: no CVA tenderness Skin: General skin exam: no rashes or lesions noted Neuro: General: moves all extremities Cranial nerves: Yes Equal, round and reactive pupils present Extrem: General: Yes normal to inspection Psych: Appearance: grossly normal Assessment and Plan Assessment and plan (1) Respiratory failure: Problem details: This gentleman suffers from chronic hypoxemic respiratory failure, and has already been started on oxygen therapy. Status: Acute Assessment and Plan: No TB seen As soon as get documented negative T spot or other IGRA from [facility] [place] stop TB isolation Continue antibiotics with transfer to oral per yesterdays discussion Time Spent With Patient Time: Total time managing care of this patient today ____ minutes.
[2025-05-08] VITALS (11 sets, daily range): BP systolic 126–140; BP diastolic 60–80; PULSE 59–88; RESP 16–20; TEMP 36.3–36.9; O2SAT 88–99
[2025-05-08 07:18] LABS: Hematocrit 36.3 % (42.0-52.0); Hemoglobin 11.7 g/dl (14.0-18.0); Mean Corpuscular HGB Conc 32.2 g/dl (31.0-36.0); Mean Corpuscular Hemoglobin 27.1 pg (27.0-33.0); Mean Corpuscular Volume 84.0 fL (80.0-98.0); NRBC Abs Auto 0.000 X10*3/uL (0.0-0.012); NRBC Pct Auto 0.0 /100WBC (0.0-0.2); Platelet Count 409 X10*3/uL (160-400); Red Blood Count 4.32 X10*6/uL (4.60-5.80); White Blood Count 16.1 X10*3/uL (4.8-10.8)
[2025-05-08 07:31] LABS: Anion Gap 12 (12-20); Blood Urea Nitrogen 69 mg/dL (9-16); Calcium 8.7 mg/dL (8.4-10.2); Carbon Dioxide 22 mmol/L (22-29); Chloride 112 mmol/L (96-108); Creatinine Clr Calc Pharmacy 30.7; Estimated Glomerular Filt Rate 36; Potassium 4.5 mmol/L (3.3-5.1); Sodium 141 mmol/L (135-145)
[2025-05-08 07:47] LABS: Glucose, Whole Blood 164 mg/dL (60-115)
[2025-05-08] MEDS: Fluticasone/Vilanterol 200/25 BLST.W.DEV 1 PUFF INHALE (07:47)
[2025-05-08] MEDS: Tiotropium Bromide 2.5 mcg 1 PUFF/2.5 MCG MIST.INHAL 2 PUFF INHALE (07:47)
[2025-05-08] MEDS: Albuterol/Iprat 2.5/0.5MG 3 ML AMPUL.NEB INHALE ×3 (07:47→18:59)
[2025-05-08] MEDS: guaiFENesin LA 600 MG TAB.ER.12H 1200 MG PO ×2 (08:12→20:21)
[2025-05-08] MEDS: Aspirin Enteric Coated 81 MG TABLET.DR PO (08:13)
[2025-05-08] MEDS: cefEPime HCl/D5W 2 GM/50 ML PIGGYBACK IV ×2 (08:13→20:21)
[2025-05-08] MEDS: 0.9 % Sodium Chloride Flush 3 ML SYRINGE IVFLUSH ×2 (08:20→20:27)
[2025-05-08 11:29] LABS: Glucose, Whole Blood 104 mg/dL (60-115)
--- NOTE | 2025-05-08 11:58 | HO.PM.IMPN ---
Subjective Subjective Date of Service: 05/08/25 Interval History: Patient seen and examined at bedside this morning, patient states that his breathing is slightly improved, was brought tobramycin by his . Review of Systems Review of Systems: Yes all other systems are reviewed and are negative Physical Exam Exam: Exam: General: AxOx3, on supplemental oxygen Head: AT/NC ENT: Moist mucous membranes Neck: supple CVS; RRR, S1 S2 normal Lungs: Coarse bilateral breath sounds, rales in bilateral bases Abd: Soft non tender, non distended Ext: No edema and no calf tenderness MSK: moving all 4 limbs Skin: No cyanosis or edema Psych: Cooperative with exam Neurology: no focal deficit Vital Signs: Vital Signs: Last Vital Signs Temp 97.8 F 05/08/25 11:53 Pulse 80 05/08/25 11:53 Resp 20 05/08/25 11:53 BP 133/72 05/08/25 11:53 Pulse Ox 94 05/08/25 11:53 O2 Del Method Nasal Cannula 05/08/25 11:53 O2 Flow Rate 3 05/08/25 11:53 Oxygen Flow Rate 3 05/05/25 11:56 BMI result Body Mass Index 21.5 Objective Data Active Medications Acetaminophen (Acetaminophen 325 Mg Tablet) 650 mg PO Q6H PRN PRN Reason: Pain, Mild 1-3,fever,headache Albuterol/Ipratropium (Albuterol/Iprat 2.5/0.5mg 3 Ml Ampul.Neb) 3 ml INHALE Q4H PRN PRN Reason: Shortness of Breath/Wheezing Albuterol/Ipratropium (Albuterol/Iprat 2.5/0.5mg 3 Ml Ampul.Neb) 3 ml INHALE RQ4H WHILE AWAKE [facility] Last Admin: 05/08/25 11:35 Dose: 3 ml Documented By: MARIFER Ascorbic Acid (Ascorbic Acid 250 Mg Tablet) 250 mg PO Q48H [facility] Last Admin: 05/06/25 13:31 Dose: 250 mg Documented By: CHARMAINE Aspirin (Aspirin Enteric Coated 81 Mg Tablet.) 81 mg PO DAILY [facility] Last Admin: 05/08/25 08:13 Dose: 81 mg Documented By: NATASHA Atorvastatin Calcium (Atorvastatin Calcium 80 Mg Tablet) 80 mg PO DAILY [facility] Last Admin: 05/08/25 08:12 Dose: 80 mg Documented By: NATASHA Benzonatate (Benzonatate 100 Mg Capsule) 100 mg PO TID PRN PRN Reason: Cough Calcium Carbonate (Calcium Carbonate 750 Mg Tab.Chew) 750 mg PO Q4H PRN PRN Reason: Heartburn Digoxin (Digoxin 0.125 Mg Tablet) 0.125 mg PO DAILY [facility]; Protocol Last Admin: 05/08/25 08:12 Dose: 0.125 mg Documented By: NATASHA Escitalopram Oxalate (Escitalopram Oxalate 20 Mg Tablet) 20 mg PO DAILY [facility] Last Admin: 05/08/25 08:13 Dose: 20 mg Documented By: NATASHA Fluticasone/Vilanterol (Fluticasone/Vilanterol 200/25 Blst.W.Dev) 1 puff INHALE RDAILY [facility] Last Admin: 05/08/25 07:47 Dose: 1 puff Documented By: MARIFER Guaifenesin (Guaifenesin La 600 Mg Tab.Er.12h) 1,200 mg PO BID [facility] Last Admin: 05/08/25 08:12 Dose: 1,200 mg Documented By: NATASHA Heparin Sodium (Porcine) (Heparin Sodium,Porcine 5,000 Unit/Ml Vial) 5,000 unit SUBCUT Q12H [facility] Last Admin: 05/08/25 05:59 Dose: 5,000 unit Documented By: ROMAN Cefepime HCl (Maxipime) 2 gm in 50 mls @ 100 mls/hr IV Q12H [facility] Last Infusion: 05/08/25 08:43 Dose: Infused Documented By: NATASHA Insulin Human Lispro (Insulin Lispro 100 Unit/Ml 3 Ml Vial) 0 unit SUBCUT QIDACHS [facility]; Protocol Last Admin: 05/08/25 11:50 Dose: Not Given Documented By: NATASHA Non-Admin Reason: No Insulin Coverage Lorazepam (Lorazepam 0.5 Mg Tablet) 0.5 mg PO BID PRN PRN Reason: anxiety/RESPIRATORY FAILURE Last Admin: 05/07/25 12:41 Dose: 0.5 mg Documented By: ANTOLIN Magnesium Hydroxide (Milk Of Magnesia 30 Ml Oral.Susp) 30 ml PO DAILY PRN PRN Reason: Constipation Melatonin (Melatonin 3 Mg Tablet) 6 mg PO BEDTIME PRN PRN Reason: Insomnia Methylprednisolone Sodium Succinate (Methylprednisolone Sod Succ 40 Mg/Ml Vial) 40 mg IVPUSH Q24H [facility] Last Admin: 05/07/25 20:05 Dose: 40 mg Documented By: ROMAN Morphine Sulfate (Morphine Sulfate Immed Release 15 Mg Tablet) 15 mg PO BID PRN PRN Reason: Pain/Respiratory Distress Ondansetron HCl (Ondansetron Hcl 4 Mg/2 Ml Vial) 4 mg IVPUSH Q8H PRN PRN Reason: Nausea and Vomiting Oxybutynin Chloride (Oxybutynin Chloride 5 Mg Tablet) 5 mg PO DAILY [facility] Last Admin: 05/08/25 08:12 Dose: 5 mg Documented By: NATASHA Sodium Chloride (0.9 % Sodium Chloride Flush 3 Ml Syringe) 3 ml IVFLUSH QSHIFT [facility] Last Admin: 05/08/25 08:20 Dose: 3 ml Documented By: NATASHA Tiotropium [place] (Tiotropium [place] 2.5 Mcg 1 Puff/2.5 Mcg Mist.Inhal) 2 puff INHALE DAILY [facility] Last Admin: 05/08/25 07:47 Dose: 2 puff Documented By: MARIFER Tobramycin Sulfate (Tobramycin Sulfate 80 Mg/2 Ml Vial) 300 mg INHALE RBID [facility] Last Admin: 05/08/25 07:47 Dose: 300 mg Documented By: MARIFER Topiramate (Topiramate 25 Mg Tablet) 50 mg PO BEDTIME [facility] Last Admin: 05/07/25 20:05 Dose: 50 mg Documented By: ROMAN Labs 05/08/25 06:50 05/08/25 06:50 Labs: Laboratory Results - last 24 hr 05/07/25 05/07/25 05/07/25 11:48 15:39 19:38 MCV MCH MCHC RDW Plt Count MPV Absolute Nucleated RBC Nucleated RBC % (auto) Anion Gap Estim Creat Clear Calc Estimated GFR POC Glucose 94 124 H 152 H Random Glucose Calcium Ur Random Sodium Urine Creatinine 05/07/25 05/08/25 05/08/25 20:53 06:50 07:43 MCV 84.0 MCH 27.1 MCHC 32.2 RDW 15.7 Plt Count 409 H MPV 10.1 Absolute Nucleated RBC 0.000 Nucleated RBC % (auto) 0.0 Anion Gap 12 Estim Creat Clear Calc 30.7 Estimated GFR 36 POC Glucose 164 H Random Glucose 199 H Calcium 8.7 Ur Random Sodium 44.0 Urine Creatinine 60.47 05/08/25 11:15 MCV MCH MCHC RDW Plt Count MPV Absolute Nucleated RBC Nucleated RBC % (auto) Anion Gap Estim Creat Clear Calc Estimated GFR POC Glucose 104 Random Glucose Calcium Ur Random Sodium Urine Creatinine Microbiology Microbiology Results: Microbiology 05/05/25 17:54 Direct Acid Fast Bacilli Smear - Final Sputum - Expectorated Acid Fast Bacilli Culture & Smear - Preliminary 05/05/25 17:54 Gram Stain - Final Sputum - Expectorated Sputum Culture - Preliminary Culture in progress. 05/05/25 12:26 Blood Culture - Preliminary Blood - Venous No growth after 48 hours. 05/05/25 12:15 Blood Culture - Preliminary Blood - Venous No growth after 48 hours. Assessment and Plan (1) COPD exacerbation: Status: Acute (2) Bronchiectasis with (acute) exacerbation: Status: Acute Plan 79-year-old male with severe COPD and chronic hypoxic respiratory failure (baseline 2?3 L NC), atrial fibrillation, type 2 diabetes, HFrEF (EF ~20%), and CAD s/p stent (09/2024) presents with worsening shortness of breath and exertional dyspnea. Over the past several days, he has required sleeping upright due to orthopnea and reports waking multiple times at night with breathlessness. He also notes increased urinary frequency. Acute on chronic hypoxic respiratory failure secondary to acute exacerbation of COPD Sepsis likely secondary to COPD exacerbation, PNA and bronchiectasis with recent bronchoscopy done showing CR pseudomonas, intermediate sensitive to cefepime. CT scan reviewed, no evidence of fluid overload or infiltrates but showed multiple bilateral nodules. Hx of recent hospitalizations ([facility]) with a positive sputum culture for Pseudomonas CRE, treated with cefepime, later transitioned to Zerbaxa for 6 weeks. Sputum cultures pending, requested Tspot Blood cultures ordered and pending Continue steroid IV Continue Neb treatments Continue Cefepime x 14 days per ID recs Tobramycin 300mg BID oxygen to keep Spo2>88% Infectious disease and Pulmonology consulted Lung nodules CTA showing bilateral lung nodules concerning for multifocal pneumonia related to mycobacterium avium versus , mycobacterium tuberculosis versus fungal pneumonia versus viral pneumonia. Bilateral, noncalcified pulmonary nodules. No available prior images here (requested Phil most recent admission notes) He had Bronchoscopy at [facility] [place] in Feb 2025 (he has hardcopy of the DC summary) : Cx grew MDR Pseudomonas Sputum cx and AFB testing and MTB PCR ordered Keep on air-borne precautions Pulmonary consult Acute kidney injury, Likely prerenal s/p IV fluids Urine studies sent Hold nephrotoxic medications Type 2 [place], likely secondary to #1 No EKG changes to suggest ACS Telemetry paroxysmal a fib EKG without a fib not on anticoagulation, will restart home medications Type 2 diabetes sliding scale insulin needed on steroids no home meds chronic HFrEF Elevated BNP at 1999 but does not look in acute exacerbation continue home meds CAD/stent continue home meds DNR/DNI VTE prophy: heparin Total time managing care of this patient today: 55 minutes. Quality Stroke Does the patient have a stroke diagnosis?: No VTE Prior VTE?: No VTE Risk Level:: Medical - moderate - high VTE Device Contraindication: Treatment Not Indicated VTE Drug Contraindication: N/A - Med Ordered
--- NOTE | 2025-05-08 15:36 | MHC.CM.PN ---
[facility]IA[facility] IN TO COMPLETE IV ABX ORDERS, AWAITING [facility] APPROVAL FOR THIS. PATIENT WILL ALSO NEED PICC LINE PLACED.
[2025-05-08 16:28] LABS: Glucose, Whole Blood 130 mg/dL (60-115)
[2025-05-08 20:09] LABS: Glucose, Whole Blood 176 mg/dL (60-115)
--- NOTE | 2025-05-08 22:05 | P.PNID_ITS ---
Subjective Subjective Date of Service: 05/08/25 Critical Care Time (minutes): 15 Comment: He feels better slightly Objective Data Labs 05/08/25 06:50 05/08/25 06:50 Labs: Laboratory Results - last 24 hr 05/08/25 05/08/25 05/08/25 06:50 07:43 11:15 WBC 16.1 H RBC 4.32 L Hgb 11.7 L Hct 36.3 L MCV 84.0 MCH 27.1 MCHC 32.2 RDW 15.7 Plt Count 409 H MPV 10.1 Absolute Nucleated RBC 0.000 Nucleated RBC % (auto) 0.0 Sodium 141 Potassium 4.5 Chloride 112 H Carbon Dioxide 22 Anion Gap 12 BUN 69 H Creatinine 1.82 H Estim Creat Clear Calc 30.7 Estimated GFR 36 POC Glucose 164 H 104 Random Glucose 199 H Calcium 8.7 05/08/25 05/08/25 16:24 19:49 WBC RBC Hgb Hct MCV MCH MCHC RDW Plt Count MPV Absolute Nucleated RBC Nucleated RBC % (auto) Sodium Potassium Chloride Carbon Dioxide Anion Gap BUN Creatinine Estim Creat Clear Calc Estimated GFR POC Glucose 130 H 176 H Random Glucose Calcium Microbiology Microbiology Results: Microbiology 05/05/25 17:54 Sputum - Expectorated Direct Acid Fast Bacilli Smear - Final 05/05/25 17:54 Sputum - Expectorated Acid Fast Bacilli Culture & Smear - Preliminary 05/05/25 17:54 Sputum - Expectorated Gram Stain - Final 05/05/25 17:54 Sputum - Expectorated Sputum Culture - Preliminary Culture in progress. 05/05/25 12:26 Blood - Venous Blood Culture - Preliminary No growth after 48 hours. 05/05/25 12:15 Blood - Venous Blood Culture - Preliminary No growth after 48 hours. 05/05/25 Unknown Urine clean catch - Clean Catch Midstream Urine Culture - Final Physical Exam 2 Vital Signs: Vital Signs: Last Vital Signs Temp 98.4 F 05/08/25 19:46 Pulse 66 05/08/25 20:24 Resp 18 05/08/25 20:24 BP 137/80 05/08/25 19:46 Pulse Ox 92 05/08/25 19:46 O2 Del Method Nasal Cannula 05/08/25 19:46 O2 Flow Rate 3 05/08/25 19:46 Oxygen Flow Rate 3 05/05/25 11:56 BMI result Body Mass Index 21.5 Const: General: cooperative HEENT: Head: Yes normal to inspection Face and sinus: Yes normal facial exam Mouth: Normal oral and palatal mucosa present Teeth and gingiva: d entition normal Eyes: General: appearance normal, both eyes and all related structures P upils: Equal, round and reactive pupils present Resp: Other: rhonchi bases Cardio: Rate: regular rate Rhythm: regular rhythm GI: Palpation (GI): Soft to palpation and nontender : General: Yes no CVA tenderness Back/Spine/Pelvis: Back: no CVA tenderness Skin: General skin exam: no rashes or lesions noted Neuro: General: moves all extremities Cranial nerves: Yes Equal, round and reactive pupils present Extrem: General: Yes normal to inspection Psych: Appearance: grossly normal Assessment and Plan Assessment and plan (1) Pneumonia: Problem details: He has probable atypical infection Status: Acute Assessment and Plan: If TB test negative doubt TB,no further workup Otherwise aerosolized tobramycin Time Spent With Patient Time: Total time managing care of this patient today ____ minutes.
[2025-05-09] VITALS (9 sets, daily range): BP systolic 110–135; BP diastolic 66–82; PULSE 52–99; RESP 14–20; TEMP 36.6–37.1; O2SAT 89–99
[2025-05-09 06:47] LABS: Hematocrit 37.0 % (42.0-52.0); Hemoglobin 11.5 g/dl (14.0-18.0); Mean Corpuscular HGB Conc 31.1 g/dl (31.0-36.0); Mean Corpuscular Hemoglobin 26.5 pg (27.0-33.0); Mean Corpuscular Volume 85.3 fL (80.0-98.0); NRBC Abs Auto 0.000 X10*3/uL (0.0-0.012); NRBC Pct Auto 0.0 /100WBC (0.0-0.2); Platelet Count 391 X10*3/uL (160-400); Red Blood Count 4.34 X10*6/uL (4.60-5.80); White Blood Count 15.8 X10*3/uL (4.8-10.8)
[2025-05-09] MEDS: Albuterol/Iprat 2.5/0.5MG 3 ML AMPUL.NEB INHALE ×4 (07:34→20:15)
[2025-05-09] MEDS: Tiotropium Bromide 2.5 mcg 1 PUFF/2.5 MCG MIST.INHAL 2 PUFF INHALE (07:36)
[2025-05-09] MEDS: Fluticasone/Vilanterol 200/25 BLST.W.DEV 1 PUFF INHALE (07:36)
[2025-05-09 07:51] LABS: Anion Gap 14 (12-20); Blood Urea Nitrogen 65 mg/dL (9-16); Calcium 8.8 mg/dL (8.4-10.2); Carbon Dioxide 21 mmol/L (22-29); Chloride 111 mmol/L (96-108); Creatinine Clr Calc Pharmacy 29.7; Estimated Glomerular Filt Rate 35; Potassium 4.9 mmol/L (3.3-5.1); Sodium 141 mmol/L (135-145)
[2025-05-09 08:02] LABS: Glucose, Whole Blood 160 mg/dL (60-115)
[2025-05-09] MEDS: Aspirin Enteric Coated 81 MG TABLET.DR PO (08:16)
[2025-05-09] MEDS: guaiFENesin LA 600 MG TAB.ER.12H 1200 MG PO ×2 (08:16→21:25)
[2025-05-09] MEDS: cefEPime HCl/D5W 2 GM/50 ML PIGGYBACK IV ×2 (08:19→21:25)
[2025-05-09] MEDS: 0.9 % Sodium Chloride Flush 3 ML SYRINGE IVFLUSH ×2 (08:23→17:29)
[2025-05-09] MEDS: Milk of Magnesia 30 ML ORAL.SUSP PO (09:46)
[2025-05-09] MEDS: Throat Lozenge, Medicated LOZENGE 1 LOZENGE MUCOUS MEM ×3 (10:48→16:44)
[2025-05-09 11:53] LABS: Glucose, Whole Blood 81 mg/dL (60-115)
--- NOTE | 2025-05-09 13:22 | HO.PM.IMPN ---
Subjective Subjective Date of Service: 05/09/25 Interval History: Patient seen and examined at bedside this morning, patient states that he is feeling better than yesterday, wishes to be given throughout launch. Continues on IV antibiotics. Review of Systems Review of Systems: Yes all other systems are reviewed and are negative Physical Exam Exam: Exam: General: AxOx3, on supplemental oxygen Head: AT/NC ENT: Moist mucous membranes Neck: supple CVS; RRR, S1 S2 normal Lungs: Coarse bilateral breath sounds, rales in bilateral bases Abd: Soft non tender, non distended Ext: No edema and no calf tenderness MSK: moving all 4 limbs Skin: No cyanosis or edema Psych: Cooperative with exam Neurology: no focal deficit Vital Signs: Vital Signs: Last Vital Signs Temp 98.3 F 05/09/25 12:00 Pulse 82 05/09/25 12:00 Resp 20 05/09/25 12:00 BP 118/82 05/09/25 12:00 Pulse Ox 93 05/09/25 12:00 O2 Del Method Nasal Cannula 05/09/25 12:00 O2 Flow Rate 3 05/09/25 12:00 Oxygen Flow Rate 3 05/05/25 11:56 BMI result Body Mass Index 21.5 Objective Data Active Medications Acetaminophen (Acetaminophen 325 Mg Tablet) 650 mg PO Q6H PRN PRN Reason: Pain, Mild 1-3,fever,headache Albuterol/Ipratropium (Albuterol/Iprat 2.5/0.5mg 3 Ml Ampul.Neb) 3 ml INHALE Q4H PRN PRN Reason: Shortness of Breath/Wheezing Albuterol/Ipratropium (Albuterol/Iprat 2.5/0.5mg 3 Ml Ampul.Neb) 3 ml INHALE RQ4H WHILE AWAKE [facility] Last Admin: 05/09/25 11:31 Dose: 3 ml Documented By: YOUNG Ascorbic Acid (Ascorbic Acid 250 Mg Tablet) 250 mg PO Q48H [facility] Last Admin: 05/08/25 13:10 Dose: 250 mg Documented By: NATASHA Aspirin (Aspirin Enteric Coated 81 Mg Tablet.) 81 mg PO DAILY [facility] Last Admin: 05/09/25 08:16 Dose: 81 mg Documented By: NADEEM Atorvastatin Calcium (Atorvastatin Calcium 80 Mg Tablet) 80 mg PO DAILY [facility] Last Admin: 05/09/25 08:18 Dose: 80 mg Documented By: NADEEM Benzocaine (Throat Lozenge, Medicated Lozenge) 1 lozenge MUCOUS MEM Q2H PRN PRN Reason: Sore Throat Stop: 05/12/25 23:59 Last Admin: 05/09/25 13:10 Dose: 1 lozenge Documented By: NADEEM Benzonatate (Benzonatate 100 Mg Capsule) 100 mg PO TID PRN PRN Reason: Cough Calcium Carbonate (Calcium Carbonate 750 Mg Tab.Chew) 750 mg PO Q4H PRN PRN Reason: Heartburn Digoxin (Digoxin 0.125 Mg Tablet) 0.125 mg PO DAILY [facility]; Protocol Last Admin: 05/09/25 08:18 Dose: 0.125 mg Documented By: NADEEM Escitalopram Oxalate (Escitalopram Oxalate 20 Mg Tablet) 20 mg PO DAILY [facility] Last Admin: 05/09/25 08:15 Dose: 20 mg Documented By: NADEEM Fluticasone/Vilanterol (Fluticasone/Vilanterol 200/25 Blst.W.Dev) 1 puff INHALE RDAILY [facility] Last Admin: 05/09/25 07:36 Dose: 1 puff Documented By: YOUNG Guaifenesin (Guaifenesin La 600 Mg Tab.Er.12h) 1,200 mg PO BID [facility] Last Admin: 05/09/25 08:16 Dose: 1,200 mg Documented By: NADEEM Heparin Sodium (Porcine) (Heparin Sodium,Porcine 5,000 Unit/Ml Vial) 5,000 unit SUBCUT Q12H [facility] Last Admin: 05/09/25 05:50 Dose: 5,000 unit Documented By: MELANIA Cefepime HCl (Maxipime) 2 gm in 50 mls @ 100 mls/hr IV Q12H [facility] Stop: 05/19/25 19:59 Last Infusion: 05/09/25 09:20 Dose: Infused Documented By: NADEEM Insulin Human Lispro (Insulin Lispro 100 Unit/Ml 3 Ml Vial) 0 unit SUBCUT QIDACHS [facility]; Protocol Last Admin: 05/09/25 13:09 Dose: Not Given Documented By: NADEEM Non-Admin Reason: No Insulin Coverage Lorazepam (Lorazepam 0.5 Mg Tablet) 0.5 mg PO BID PRN PRN Reason: anxiety/RESPIRATORY FAILURE Last Admin: 05/09/25 13:14 Dose: 0.5 mg Documented By: NADEEM Magnesium Hydroxide (Milk Of Magnesia 30 Ml Oral.Susp) 30 ml PO DAILY PRN PRN Reason: Constipation Last Admin: 05/09/25 09:46 Dose: 30 ml Documented By: NADEEM Melatonin (Melatonin 3 Mg Tablet) 6 mg PO BEDTIME PRN PRN Reason: Insomnia Methylprednisolone Sodium Succinate (Methylprednisolone Sod Succ 40 Mg/Ml Vial) 40 mg IVPUSH Q24H [facility] Last Admin: 05/08/25 20:21 Dose: 40 mg Documented By: MELANIA Morphine Sulfate (Morphine Sulfate Immed Release 15 Mg Tablet) 15 mg PO BID PRN PRN Reason: Pain/Respiratory Distress Ondansetron HCl (Ondansetron Hcl 4 Mg/2 Ml Vial) 4 mg IVPUSH Q8H PRN PRN Reason: Nausea and Vomiting Oxybutynin Chloride (Oxybutynin Chloride 5 Mg Tablet) 5 mg PO DAILY [facility] Last Admin: 05/09/25 08:18 Dose: 5 mg Documented By: NADEEM Sodium Chloride (0.9 % Sodium Chloride Flush 3 Ml Syringe) 3 ml IVFLUSH QSHIFT [facility] Last Admin: 05/09/25 08:23 Dose: 3 ml Documented By: NADEEM Tiotropium [place] (Tiotropium [place] 2.5 Mcg 1 Puff/2.5 Mcg Mist.Inhal) 2 puff INHALE DAILY [facility] Last Admin: 05/09/25 07:36 Dose: 2 puff Documented By: YOUNG Tobramycin Sulfate (Tobramycin Sulfate 80 Mg/2 Ml Vial) 300 mg INHALE RBID [facility] Last Admin: 05/09/25 07:34 Dose: 300 mg Documented By: YOUNG Topiramate (Topiramate 25 Mg Tablet) 50 mg PO BEDTIME [facility] Last Admin: 05/08/25 20:21 Dose: 50 mg Documented By: MELANIA Labs 05/09/25 06:20 05/09/25 06:20 Labs: Laboratory Results - last 24 hr 05/08/25 05/08/25 05/09/25 16:24 19:49 06:20 MCV 85.3 MCH 26.5 L MCHC 31.1 RDW 15.5 Plt Count 391 MPV 9.9 Absolute Nucleated RBC 0.000 Nucleated RBC % (auto) 0.0 Anion Gap 14 Estim Creat Clear Calc 29.7 Estimated GFR 35 POC Glucose 130 H 176 H Random Glucose 199 H Calcium 8.8 05/09/25 05/09/25 07:47 11:42 MCV MCH MCHC RDW Plt Count MPV Absolute Nucleated RBC Nucleated RBC % (auto) Anion Gap Estim Creat Clear Calc Estimated GFR POC Glucose 160 H 81 Random Glucose Calcium Microbiology Microbiology Results: Microbiology 05/05/25 17:54 Gram Stain - Final Sputum - Expectorated Sputum Culture - Preliminary Gram negative [place] 05/05/25 17:54 Direct Acid Fast Bacilli Smear - Final Sputum - Expectorated Acid Fast Bacilli Culture & Smear - Preliminary Assessment and Plan (1) COPD exacerbation: Status: Acute (2) Bronchiectasis with (acute) exacerbation: Status: Acute Plan 79-year-old male with severe COPD and chronic hypoxic respiratory failure (baseline 2?3 L NC), atrial fibrillation, type 2 diabetes, HFrEF (EF ~20%), and CAD s/p stent (09/2024) presents with worsening shortness of breath and exertional dyspnea. Over the past several days, he has required sleeping upright due to orthopnea and reports waking multiple times at night with breathlessness. He also notes increased urinary frequency. Acute on chronic hypoxic respiratory failure secondary to acute exacerbation of COPD Sepsis likely secondary to COPD exacerbation, PNA and bronchiectasis with recent bronchoscopy done showing CR pseudomonas, intermediate sensitive to cefepime. CT scan reviewed, no evidence of fluid overload or infiltrates but showed multiple bilateral nodules. Hx of recent hospitalizations ([facility], [facility]) with a positive sputum culture for Pseudomonas CRE, treated with cefepime, later transitioned to Zerbaxa for 6 weeks. Sputum cultures pending, Tspot ordered and pending Blood cultures ordered and pending Continue steroid IV Continue Neb treatments Continue Cefepime x 14 days Tobramycin 300mg BID oxygen to keep Spo2>88% Infectious disease and Pulmonology consulted Lung nodules CTA showing bilateral lung nodules concerning for multifocal pneumonia related to mycobacterium avium versus , mycobacterium tuberculosis versus fungal pneumonia versus viral pneumonia. Bilateral, noncalcified pulmonary nodules. No available prior images here (requested Phil most recent admission notes) He had Bronchoscopy at [facility] in Feb 2025 (he has hardcopy of the DC summary) : Cx grew MDR Pseudomonas Sputum cx and AFB testing and MTB PCR ordered Keep on air-borne precautions until results return Pulmonary consult Acute kidney injury, Likely prerenal s/p IV fluids Hold or renally adjust medications Type 2 [place], likely secondary to #1 No EKG changes to suggest ACS Telemetry paroxysmal a fib EKG without a fib not on anticoagulation, continue home medications Type 2 diabetes sliding scale insulin needed on steroids no home meds chronic HFrEF Elevated BNP at 1999 but does not look in acute exacerbation continue home meds CAD/stent continue home meds DNR/DNI VTE PPx: heparin Total time managing care of this patient today: 55 minutes. Quality Stroke Does the patient have a stroke diagnosis?: No VTE Prior VTE?: No VTE Risk Level:: Medical - moderate - high VTE Device Contraindication: Treatment Not Indicated VTE Drug Contraindication: N/A - Med Ordered
[2025-05-09 16:44] LABS: Glucose, Whole Blood 134 mg/dL (60-115)
[2025-05-09 20:11] LABS: Glucose, Whole Blood 184 mg/dL (60-115)
[2025-05-10] VITALS (13 sets, daily range): BP systolic 99–133; BP diastolic 53–81; PULSE 76–96; RESP 17–22; TEMP 36.3–37; O2SAT 92–98
[2025-05-10 07:16] LABS: Glucose, Whole Blood 181 mg/dL (60-115)
[2025-05-10 08:04] LABS: Hematocrit 37.4 % (42.0-52.0); Hemoglobin 11.6 g/dl (14.0-18.0); Mean Corpuscular HGB Conc 31.0 g/dl (31.0-36.0); Mean Corpuscular Hemoglobin 26.2 pg (27.0-33.0); Mean Corpuscular Volume 84.4 fL (80.0-98.0); NRBC Abs Auto 0.000 X10*3/uL (0.0-0.012); NRBC Pct Auto 0.0 /100WBC (0.0-0.2); Platelet Count 404 X10*3/uL (160-400); Red Blood Count 4.43 X10*6/uL (4.60-5.80); White Blood Count 16.5 X10*3/uL (4.8-10.8)
[2025-05-10] MEDS: Albuterol/Iprat 2.5/0.5MG 3 ML AMPUL.NEB INHALE ×4 (08:07→20:14)
[2025-05-10] MEDS: Fluticasone/Vilanterol 200/25 BLST.W.DEV 1 PUFF INHALE (08:07)
[2025-05-10 08:38] LABS: Anion Gap 12 (12-20); Blood Urea Nitrogen 64 mg/dL (9-16); Calcium 9.0 mg/dL (8.4-10.2); Carbon Dioxide 22 mmol/L (22-29); Chloride 110 mmol/L (96-108); Creatinine Clr Calc Pharmacy 32.1; Estimated Glomerular Filt Rate 38; Potassium 4.9 mmol/L (3.3-5.1); Sodium 139 mmol/L (135-145)
[2025-05-10] MEDS: Tiotropium Bromide 2.5 mcg 1 PUFF/2.5 MCG MIST.INHAL 2 PUFF INHALE (08:44)
[2025-05-10] MEDS: cefEPime HCl/D5W 2 GM/50 ML PIGGYBACK IV ×2 (08:58→21:08)
[2025-05-10] MEDS: Throat Lozenge, Medicated LOZENGE 1 LOZENGE MUCOUS MEM ×2 (08:59→13:37)
[2025-05-10] MEDS: guaiFENesin LA 600 MG TAB.ER.12H 1200 MG PO ×2 (09:04→21:09)
[2025-05-10] MEDS: Aspirin Enteric Coated 81 MG TABLET.DR PO (09:04)
[2025-05-10] MEDS: 0.9 % Sodium Chloride Flush 3 ML SYRINGE IVFLUSH ×3 (09:05→21:10)
--- NOTE | 2025-05-10 09:52 | P.PNIM_ITS ---
Subjective Subjective Date of Service: 05/10/25 Interval History: Patient seen examined at bedside this morning, refers that he is feeling better, continues on IV antibiotics, mild wheezing today. Review of Systems Review of Systems: Yes all other systems are reviewed and are negative Physical Exam 2 Exam: Exam: General: AxOx3, on supplemental oxygen Head: AT/NC ENT: Moist mucous membranes Neck: supple CVS; RRR, S1 S2 normal Lungs: Coarse bilateral breath sounds, wheezing in bilateral bases Abd: Soft non tender, non distended Ext: No edema and no calf tenderness MSK: moving all 4 limbs Skin: No cyanosis or edema Psych: Cooperative with exam Neurology: no focal deficit Vital Signs: Vital Signs: Last Vital Signs Temp 98.1 F 05/10/25 08:00 Pulse 94 05/10/25 08:08 Resp 18 05/10/25 08:08 BP 113/81 05/10/25 08:00 Pulse Ox 94 05/10/25 08:00 O2 Del Method Nasal Cannula 05/10/25 08:00 O2 Flow Rate 3 05/10/25 08:00 Oxygen Flow Rate 3 05/05/25 11:56 BMI result Body Mass Index 21.5 Objective Data Active Medications Acetaminophen (Acetaminophen 325 Mg Tablet) 650 mg PO Q6H PRN PRN Reason: Pain, Mild 1-3,fever,headache Albuterol/Ipratropium (Albuterol/Iprat 2.5/0.5mg 3 Ml Ampul.Neb) 3 ml INHALE Q4H PRN PRN Reason: Shortness of Breath/Wheezing Albuterol/Ipratropium (Albuterol/Iprat 2.5/0.5mg 3 Ml Ampul.Neb) 3 ml INHALE RQ4H WHILE AWAKE [facility] Last Admin: 05/10/25 08:07 Dose: 3 ml Documented By: GENIA Ascorbic Acid (Ascorbic Acid 250 Mg Tablet) 250 mg PO Q48H [facility] Last Admin: 05/08/25 13:10 Dose: 250 mg Documented By: NATASHA Aspirin (Aspirin Enteric Coated 81 Mg Tablet.) 81 mg PO DAILY [facility] Last Admin: 05/10/25 09:04 Dose: 81 mg Documented By: NADEEM Atorvastatin Calcium (Atorvastatin Calcium 80 Mg Tablet) 80 mg PO DAILY [facility] Last Admin: 05/10/25 09:03 Dose: 80 mg Documented By: NADEEM Benzocaine (Throat Lozenge, Medicated Lozenge) 1 lozenge MUCOUS MEM Q2H PRN PRN Reason: Sore Throat Stop: 05/12/25 23:59 Last Admin: 05/10/25 08:59 Dose: 1 lozenge Documented By: NADEEM Benzonatate (Benzonatate 100 Mg Capsule) 100 mg PO TID PRN PRN Reason: Cough Calcium Carbonate (Calcium Carbonate 750 Mg Tab.Chew) 750 mg PO Q4H PRN PRN Reason: Heartburn Digoxin (Digoxin 0.125 Mg Tablet) 0.125 mg PO DAILY [facility]; Protocol Last Admin: 05/10/25 09:03 Dose: 0.125 mg Documented By: NADEEM Escitalopram Oxalate (Escitalopram Oxalate 20 Mg Tablet) 20 mg PO DAILY [facility] Last Admin: 05/10/25 09:03 Dose: 20 mg Documented By: NADEEM Fluticasone/Vilanterol (Fluticasone/Vilanterol 200/25 Blst.W.Dev) 1 puff INHALE RDAILY [facility] Last Admin: 05/10/25 08:07 Dose: 1 puff Documented By: GENIA Guaifenesin (Guaifenesin La 600 Mg Tab.Er.12h) 1,200 mg PO BID [facility] Last Admin: 05/10/25 09:04 Dose: 1,200 mg Documented By: NADEEM Heparin Sodium (Porcine) (Heparin Sodium,Porcine 5,000 Unit/Ml Vial) 5,000 unit SUBCUT Q12H [facility] Last Admin: 05/10/25 05:57 Dose: 5,000 unit Documented By: EMETERIO Cefepime HCl (Maxipime) 2 gm in 50 mls @ 100 mls/hr IV Q12H [facility] Stop: 05/19/25 19:59 Last Admin: 05/10/25 08:58 Dose: 100 mls/hr Documented By: NADEEM Insulin Human Lispro (Insulin Lispro 100 Unit/Ml 3 Ml Vial) 0 unit SUBCUT QIDACHS [facility]; Protocol Last Admin: 05/10/25 08:59 Dose: 2 unit Documented By: NADEEM Lorazepam (Lorazepam 0.5 Mg Tablet) 0.5 mg PO BID PRN PRN Reason: anxiety/RESPIRATORY FAILURE Last Admin: 05/09/25 21:34 Dose: 0.5 mg Documented By: EMETERIO Comments: per Dr. Choudhary can give dose now/early. Magnesium Hydroxide (Milk Of Magnesia 30 Ml Oral.Susp) 30 ml PO DAILY PRN PRN Reason: Constipation Last Admin: 05/09/25 09:46 Dose: 30 ml Documented By: NADEEM Melatonin (Melatonin 3 Mg Tablet) 6 mg PO BEDTIME PRN PRN Reason: Insomnia Methylprednisolone Sodium Succinate (Methylprednisolone Sod Succ 40 Mg/Ml Vial) 40 mg IVPUSH Q24H [facility] Last Admin: 05/09/25 21:25 Dose: 40 mg Documented By: EMETERIO Morphine Sulfate (Morphine Sulfate Immed Release 15 Mg Tablet) 15 mg PO BID PRN PRN Reason: Pain/Respiratory Distress Ondansetron HCl (Ondansetron Hcl 4 Mg/2 Ml Vial) 4 mg IVPUSH Q8H PRN PRN Reason: Nausea and Vomiting Oxybutynin Chloride (Oxybutynin Chloride 5 Mg Tablet) 5 mg PO DAILY [facility] Last Admin: 05/10/25 09:03 Dose: 5 mg Documented By: NADEEM Sodium Chloride (0.9 % Sodium Chloride Flush 3 Ml Syringe) 3 ml IVFLUSH QSHIFT [facility] Last Admin: 05/10/25 09:05 Dose: 3 ml Documented By: NADEEM Tiotropium [place] (Tiotropium [place] 2.5 Mcg 1 Puff/2.5 Mcg Mist.Inhal) 2 puff INHALE DAILY [facility] Last Admin: 05/10/25 08:44 Dose: 2 puff Documented By: GENIA Tobramycin Sulfate (Tobramycin Sulfate 80 Mg/2 Ml Vial) 300 mg INHALE RBID [facility] Last Admin: 05/10/25 08:10 Dose: Not Given Documented By: GENIA Non-Admin Reason: med unavailable. pharmacy called Topiramate (Topiramate 25 Mg Tablet) 50 mg PO BEDTIME [facility] Last Admin: 05/09/25 21:25 Dose: 50 mg Documented By: EMETERIO Labs 05/10/25 07:41 05/10/25 07:41 Labs: Laboratory Results - last 24 hr 05/09/25 05/09/25 05/09/25 11:42 16:32 20:00 MCV MCH MCHC RDW Plt Count MPV Absolute Nucleated RBC Nucleated RBC % (auto) Anion Gap Estim Creat Clear Calc Estimated GFR POC Glucose 81 134 H 184 H Random Glucose Calcium 05/10/25 05/10/25 07:08 07:41 MCV 84.4 MCH 26.2 L MCHC 31.0 RDW 15.7 Plt Count 404 H MPV 10.3 Absolute Nucleated RBC 0.000 Nucleated RBC % (auto) 0.0 Anion Gap 12 Estim Creat Clear Calc 32.1 Estimated GFR 38 POC Glucose 181 H Random Glucose 198 H Calcium 9.0 Microbiology Microbiology Results: Microbiology 05/05/25 17:54 Gram Stain - Final Sputum - Expectorated Sputum Culture - Final Pseudomonas aeruginosa Assessment and Plan (1) COPD exacerbation: Status: Acute (2) Bronchiectasis with (acute) exacerbation: Status: Acute Plan 79-year-old male with severe COPD and chronic hypoxic respiratory failure (baseline 2?3 L NC), atrial fibrillation, type 2 diabetes, HFrEF (EF ~20%), and CAD s/p stent (09/2024) presents with worsening shortness of breath and exertional dyspnea. Found to have pneumonia and bronchiectasis exacerbation, currently on IV cefepime and inhaled tobramycin. Acute on chronic hypoxic respiratory failure secondary to acute exacerbation of COPD, improved Sepsis likely secondary to COPD exacerbation, PNA and bronchiectasis with recent bronchoscopy done showing CR pseudomonas, intermediate sensitive to cefepime. CT scan reviewed, no evidence of fluid overload or infiltrates but showed multiple bilateral nodules. Hx of recent hospitalizations ([facility], [facility] [place]) with a positive sputum culture for Pseudomonas CRE, treated with cefepime, later transitioned to Zerbaxa for 6 weeks. Sputum cultures pending, Tspot ordered and pending Blood cultures ordered and pending Continue steroid IV Continue Neb treatments Continue Cefepime x 14 days, awaiting approval for outpatient antibiotics Tobramycin 300mg BID oxygen to keep Spo2>88% Infectious disease and Pulmonology consulted Lung nodules CTA showing bilateral lung nodules concerning for multifocal pneumonia related to mycobacterium avium versus , mycobacterium tuberculosis versus fungal pneumonia versus viral pneumonia. Bilateral, noncalcified pulmonary nodules. No available prior images here (requested [facility] most recent admission notes) He had Bronchoscopy at [facility] [place] in Feb 2025 (he has hardcopy of the DC summary) : Cx grew MDR Pseudomonas Sputum cx and AFB testing and MTB PCR ordered Keep on air-borne precautions until results return Pulmonary consult Acute kidney injury, Likely prerenal s/p IV fluids Hold or renally adjust medications Type 2 NH, likely secondary to #1 No EKG changes to suggest ACS Telemetry paroxysmal a fib EKG without a fib not on anticoagulation, continue home medications Type 2 diabetes sliding scale insulin needed on steroids no home meds chronic HFrEF Elevated BNP at 2000 but does not look in acute exacerbation continue home meds CAD/stent continue home meds DNR/DNI VTE PPx: heparin Total time managing care of this patient today: 55 minutes. Quality Stroke Does the patient have a stroke diagnosis?: No VTE Prior VTE?: No VTE Risk Level:: Medical - moderate - high VTE Device Contraindication: Treatment Not Indicated VTE Drug Contraindication: N/A - Med Ordered
[2025-05-10] MEDS: Milk of Magnesia 30 ML ORAL.SUSP PO (10:06)
[2025-05-10 11:17] LABS: Glucose, Whole Blood 111 mg/dL (60-115)
[2025-05-10] MEDS: Sodium Chloride 0.65 % Nasal 44 ML SPRBTL 1 SPRAY NOSTRIL-B (13:37)
[2025-05-10 16:32] LABS: Glucose, Whole Blood 154 mg/dL (60-115)
--- NOTE | 2025-05-10 18:03 | PC.NURSE ---
Pt has new onset vomiting today. Small volumes. He denies actual nausea, mild retching and vomiting follow some oral intake, even milk. Pt reports he can eat very little right now. Giving zofran now.
[2025-05-10 20:32] LABS: Glucose, Whole Blood 99 mg/dL (60-115)
[2025-05-11] VITALS (10 sets, daily range): BP systolic 103–123; BP diastolic 55–71; PULSE 76–83; RESP 16–19; TEMP 36.2–36.4; O2SAT 93–97
[2025-05-11] MEDS: Albuterol/Iprat 2.5/0.5MG 3 ML AMPUL.NEB INHALE ×4 (07:37→19:52)
[2025-05-11] MEDS: Fluticasone/Vilanterol 200/25 BLST.W.DEV 1 PUFF INHALE (07:38)
[2025-05-11] MEDS: Tiotropium Bromide 2.5 mcg 1 PUFF/2.5 MCG MIST.INHAL 2 PUFF INHALE (07:38)
[2025-05-11 08:20] LABS: Glucose, Whole Blood 139 mg/dL (60-115)
[2025-05-11 09:04] LABS: TS Negative Control Passed; TS Panel A 0; TS Panel B 1; TS Positive Control Passed; TSpotTB Negative (Negative)
[2025-05-11] MEDS: guaiFENesin LA 600 MG TAB.ER.12H 1200 MG PO ×2 (09:12→20:32)
[2025-05-11] MEDS: cefEPime HCl/D5W 2 GM/50 ML PIGGYBACK IV ×2 (09:13→19:46)
[2025-05-11] MEDS: Aspirin Enteric Coated 81 MG TABLET.DR PO (09:13)
[2025-05-11] MEDS: 0.9 % Sodium Chloride Flush 3 ML SYRINGE IVFLUSH ×2 (09:13→17:22)
--- NOTE | 2025-05-11 09:29 | HO.PM.IMPN ---
Subjective Subjective Date of Service: 05/11/25 Interval History: Patient seen examined at bedside this morning, patient yesterday had episode of nausea, was given Zofran and Protonix with improvement. We will place PICC line to continue IV antibiotics as an outpatient. Review of Systems Review of Systems: Yes all other systems are reviewed and are negative Physical Exam Exam: Exam: General: AxOx3, on supplemental oxygen Head: AT/NC ENT: Moist mucous membranes Neck: supple CVS; RRR, S1 S2 normal Lungs: Coarse bilateral breath sounds, wheezing in bilateral bases Abd: Soft non tender, non distended Ext: No edema and no calf tenderness MSK: moving all 4 limbs Skin: No cyanosis or edema Psych: Cooperative with exam Neurology: no focal deficit Vital Signs: Vital Signs: Last Vital Signs Temp 97.5 F 05/11/25 02:56 Pulse 80 05/11/25 07:50 Resp 18 05/11/25 07:50 BP 103/55 L 05/11/25 02:56 Pulse Ox 95 05/11/25 02:56 O2 Del Method Nasal Cannula 05/11/25 02:56 O2 Flow Rate 3 05/11/25 02:56 Oxygen Flow Rate 3 05/05/25 11:56 BMI result Body Mass Index 21.5 Objective Data Active Medications Acetaminophen (Acetaminophen 325 Mg Tablet) 650 mg PO Q6H PRN PRN Reason: Pain, Mild 1-3,fever,headache Albuterol/Ipratropium (Albuterol/Iprat 2.5/0.5mg 3 Ml Ampul.Neb) 3 ml INHALE Q4H PRN PRN Reason: Shortness of Breath/Wheezing Albuterol/Ipratropium (Albuterol/Iprat 2.5/0.5mg 3 Ml Ampul.Neb) 3 ml INHALE RQ4H WHILE AWAKE [facility] Last Admin: 05/11/25 07:37 Dose: 3 ml Documented By: EVETTE Ascorbic Acid (Ascorbic Acid 250 Mg Tablet) 250 mg PO Q48H [facility] Last Admin: 05/10/25 13:38 Dose: 250 mg Documented By: NADEEM Aspirin (Aspirin Enteric Coated 81 Mg Tablet.) 81 mg PO DAILY [facility] Last Admin: 05/11/25 09:13 Dose: 81 mg Documented By: NIMO Atorvastatin Calcium (Atorvastatin Calcium 80 Mg Tablet) 80 mg PO DAILY [facility] Last Admin: 05/11/25 09:12 Dose: 80 mg Documented By: NIMO Benzocaine (Throat Lozenge, Medicated Lozenge) 1 lozenge MUCOUS MEM Q2H PRN PRN Reason: Sore Throat Stop: 05/12/25 23:59 Last Admin: 05/10/25 13:37 Dose: 1 lozenge Documented By: NADEEM Benzonatate (Benzonatate 100 Mg Capsule) 100 mg PO TID PRN PRN Reason: Cough Calcium Carbonate (Calcium Carbonate 750 Mg Tab.Chew) 750 mg PO Q4H PRN PRN Reason: Heartburn Digoxin (Digoxin 0.125 Mg Tablet) 0.125 mg PO DAILY [facility]; Protocol Last Admin: 05/11/25 09:12 Dose: 0.125 mg Documented By: NIMO Escitalopram Oxalate (Escitalopram Oxalate 20 Mg Tablet) 20 mg PO DAILY [facility] Last Admin: 05/11/25 09:13 Dose: 20 mg Documented By: NIMO Fluticasone/Vilanterol (Fluticasone/Vilanterol 200/25 Blst.W.Dev) 1 puff INHALE RDAILY [facility] Last Admin: 05/11/25 07:38 Dose: 1 puff Documented By: EVETTE Guaifenesin (Guaifenesin La 600 Mg Tab.Er.12h) 1,200 mg PO BID [facility] Last Admin: 05/11/25 09:12 Dose: 1,200 mg Documented By: NIMO Heparin Sodium (Porcine) (Heparin Sodium,Porcine 5,000 Unit/Ml Vial) 5,000 unit SUBCUT Q12H [facility] Last Admin: 05/11/25 05:49 Dose: 5,000 unit Documented By: ROMAN Cefepime HCl (Maxipime) 2 gm in 50 mls @ 100 mls/hr IV Q12H [facility] Stop: 05/19/25 19:59 Last Admin: 05/11/25 09:13 Dose: 100 mls/hr Documented By: NIMO Insulin Human Lispro (Insulin Lispro 100 Unit/Ml 3 Ml Vial) 0 unit SUBCUT QIDACHS [facility]; Protocol Last Admin: 05/11/25 08:27 Dose: Not Given Documented By: NIMO Non-Admin Reason: No Insulin Coverage Lorazepam (Lorazepam 0.5 Mg Tablet) 0.5 mg PO BID PRN PRN Reason: anxiety/RESPIRATORY FAILURE Last Admin: 05/10/25 21:20 Dose: 0.5 mg Documented By: ANDRE Magnesium Hydroxide (Milk Of Magnesia 30 Ml Oral.Susp) 30 ml PO DAILY PRN PRN Reason: Constipation Last Admin: 05/10/25 10:06 Dose: 30 ml Documented By: NADEEM Melatonin (Melatonin 3 Mg Tablet) 6 mg PO BEDTIME PRN PRN Reason: Insomnia Methylprednisolone Sodium Succinate (Methylprednisolone Sod Succ 40 Mg/Ml Vial) 40 mg IVPUSH Q24H [facility] Last Admin: 05/10/25 21:11 Dose: 40 mg Documented By: ANDRE Morphine Sulfate (Morphine Sulfate Immed Release 15 Mg Tablet) 15 mg PO BID PRN PRN Reason: Pain/Respiratory Distress Ondansetron HCl (Ondansetron Hcl 4 Mg/2 Ml Vial) 4 mg IVPUSH Q8H PRN PRN Reason: Nausea and Vomiting Last Admin: 05/10/25 17:54 Dose: 4 mg Documented By: NADEEM Oxybutynin Chloride (Oxybutynin Chloride 5 Mg Tablet) 5 mg PO DAILY [facility] Last Admin: 05/11/25 09:12 Dose: 5 mg Documented By: NIMO Pantoprazole Sodium (Pantoprazole Sodium 40 Mg/10 Ml Vial) 40 mg IVPUSH DAILY@0630 [facility] Last Admin: 05/11/25 05:49 Dose: 40 mg Documented By: ROMAN Sodium Chloride (0.9 % Sodium Chloride Flush 3 Ml Syringe) 3 ml IVFLUSH QSHIFT [facility] Last Admin: 05/11/25 09:13 Dose: 3 ml Documented By: NIMO Sodium Chloride (Sodium Chloride 0.65 % Nasal 44 Ml Sprbtl) 1 spray NOSTRIL-B Q1H PRN PRN Reason: Congestion Last Admin: 05/10/25 13:37 Dose: 1 spray Documented By: NADEEM Tiotropium [place] (Tiotropium [place] 2.5 Mcg 1 Puff/2.5 Mcg Mist.Inhal) 2 puff INHALE DAILY [facility] Last Admin: 05/11/25 07:38 Dose: 2 puff Documented By: EVETTE Tobramycin Sulfate (Tobramycin Sulfate 80 Mg/2 Ml Vial) 300 mg INHALE RBID [facility] Last Admin: 05/11/25 07:36 Dose: 300 mg Documented By: EVETTE Topiramate (Topiramate 25 Mg Tablet) 50 mg PO BEDTIME [facility] Last Admin: 05/10/25 21:10 Dose: 50 mg Documented By: ANDRE Labs 05/10/25 07:41 05/10/25 07:41 Labs: Laboratory Results - last 24 hr 05/08/25 05/10/25 05/10/25 12:17 11:12 16:28 POC Glucose 111 154 H TB Test (T-Spot) Com Negative TB Test Nil Control Passed TB Test Panel A 0 TB Test Panel B 1 TB Test Positive Cntrl Passed 05/10/25 05/11/25 20:25 08:11 POC Glucose 99 139 H TB Test (T-Spot) Com TB Test Nil Control TB Test Panel A TB Test Panel B TB Test Positive Cntrl Microbiology Microbiology Results: Microbiology 05/05/25 12:26 Blood Culture - Final Blood - Venous No growth after 5 days. 05/05/25 12:15 Blood Culture - Final Blood - Venous No growth after 5 days. 05/05/25 17:54 Gram Stain - Final Sputum - Expectorated Sputum Culture - Final Pseudomonas aeruginosa Assessment and Plan (1) COPD exacerbation: Status: Acute (2) Bronchiectasis with (acute) exacerbation: Status: Acute Plan 79-year-old male with severe COPD and chronic hypoxic respiratory failure (baseline 2?3 L NC), atrial fibrillation, type 2 diabetes, HFrEF (EF ~20%), and CAD s/p stent (09/2024) presents with worsening shortness of breath and exertional dyspnea. Found to have pneumonia and bronchiectasis exacerbation, currently on IV cefepime and inhaled tobramycin. Acute on chronic hypoxic respiratory failure secondary to acute exacerbation of COPD, improved Sepsis likely secondary to COPD exacerbation, PNA and bronchiectasis with recent bronchoscopy done showing CR pseudomonas, intermediate sensitive to cefepime. CT scan reviewed, no evidence of fluid overload or infiltrates but showed multiple bilateral nodules. Hx of recent hospitalizations ([facility]) with a positive sputum culture for Pseudomonas CRE, treated with cefepime, later transitioned to Zerbaxa for 6 weeks. Sputum cultures pending, Tspot ordered and pending Blood cultures ordered and pending Continue steroid IV Continue Neb treatments Continue Cefepime x 14 days, PICC line ordered placed Tobramycin 300mg BID oxygen to keep Spo2>88% Infectious disease and Pulmonology consulted Lung nodules CTA showing bilateral lung nodules concerning for multifocal pneumonia related to mycobacterium avium versus , mycobacterium tuberculosis versus fungal pneumonia versus viral pneumonia. Bilateral, noncalcified pulmonary nodules. No available prior images here (requested [facility] most recent admission notes) He had Bronchoscopy at [facility] [place] in Feb 2025 (he has hardcopy of the DC summary) : Cx grew MDR Pseudomonas Sputum cx and AFB testing and MTB PCR ordered Keep on air-borne precautions until results return Pulmonary consult Acute kidney injury, Likely prerenal s/p IV fluids Hold or renally adjust medications Type 2 NH, likely secondary to #1 No EKG changes to suggest ACS Telemetry paroxysmal a fib EKG without a fib not on anticoagulation, continue home medications Type 2 diabetes sliding scale insulin needed on steroids no home meds chronic HFrEF Elevated BNP at 1999 but does not look in acute exacerbation continue home meds CAD/stent continue home meds DNR/DNI VTE PPx: heparin Total time managing care of this patient today: 55 minutes. Quality Stroke Does the patient have a stroke diagnosis?: No VTE Prior VTE?: No VTE Risk Level:: Medical - moderate - high VTE Device Contraindication: Treatment Not Indicated VTE Drug Contraindication: N/A - Med Ordered
[2025-05-11 10:16] LABS: MTB M. tuberculosis Complex NOT DETECTED
--- NOTE | 2025-05-11 10:24 | MHC.CM.PN ---
Pt to have a PICC placed for home ATB tx: Notified [facility] for ATB/supplies: they expect [facility] today: Notified Rohan BURTA for likely SOS 05/12. CM to follow.
[2025-05-11 13:17] LABS: Glucose, Whole Blood 108 mg/dL (60-115)
[2025-05-11] MEDS: Throat Lozenge, Medicated LOZENGE 1 LOZENGE MUCOUS MEM ×2 (14:20→20:32)
--- NOTE | 2025-05-11 14:33 | MHC.CM.PN ---
Pt waiting for PICC insertion for LT IV ATB at home: pt will have [facility] and [facility] for meds/supplies. [facility] to [facility] and meds/supplies will be delivered on 05/12. [facility] will need a copy of PICC report e faxed in [employer]. Spouse to transport pt to home.
[2025-05-11 17:04] LABS: Glucose, Whole Blood 125 mg/dL (60-115)
[2025-05-11 20:41] LABS: Glucose, Whole Blood 151 mg/dL (60-115)
[2025-05-12] MEDS: 0.9 % Sodium Chloride Flush 3 ML SYRINGE IVFLUSH ×2 (02:07→07:48)
[2025-05-12 03:28] VITALS: BP 126/71; PULSE 76; RESP 18; TEMP 36.4; O2SAT 93
[2025-05-12 07:16] LABS: Glucose, Whole Blood 168 mg/dL (60-115)
[2025-05-12 07:31] VITALS: BP 160/70; PULSE 87; RESP 18; TEMP 36.7; O2SAT 94
[2025-05-12] MEDS: Tiotropium Bromide 2.5 mcg 1 PUFF/2.5 MCG MIST.INHAL 2 PUFF INHALE (07:35)
[2025-05-12] MEDS: Fluticasone/Vilanterol 200/25 BLST.W.DEV 1 PUFF INHALE (07:35)
[2025-05-12] MEDS: Albuterol/Iprat 2.5/0.5MG 3 ML AMPUL.NEB INHALE ×2 (07:35→11:55)
[2025-05-12 07:41] VITALS: PULSE 88; RESP 18
[2025-05-12] MEDS: cefEPime HCl/D5W 2 GM/50 ML PIGGYBACK IV (07:50)
[2025-05-12 07:57] LABS: Hematocrit 39.0 % (42.0-52.0); Hemoglobin 12.0 g/dl (14.0-18.0); Mean Corpuscular HGB Conc 30.8 g/dl (31.0-36.0); Mean Corpuscular Hemoglobin 26.4 pg (27.0-33.0); Mean Corpuscular Volume 85.7 fL (80.0-98.0); NRBC Abs Auto 0.000 X10*3/uL (0.0-0.012); NRBC Pct Auto 0.0 /100WBC (0.0-0.2); Platelet Count 361 X10*3/uL (160-400); Red Blood Count 4.55 X10*6/uL (4.60-5.80); White Blood Count 18.9 X10*3/uL (4.8-10.8)
[2025-05-12 08:17] LABS: Anion Gap 12 (12-20); Blood Urea Nitrogen 75 mg/dL (9-16); Calcium 8.7 mg/dL (8.4-10.2); Carbon Dioxide 22 mmol/L (22-29); Chloride 109 mmol/L (96-108); Creatinine Clr Calc Pharmacy 31.7; Estimated Glomerular Filt Rate 38; Potassium 4.9 mmol/L (3.3-5.1); Sodium 138 mmol/L (135-145)
[2025-05-12] MEDS: Aspirin Enteric Coated 81 MG TABLET.DR PO (09:21)
[2025-05-12] MEDS: guaiFENesin LA 600 MG TAB.ER.12H 1200 MG PO (09:23)
[2025-05-12] MEDS: Throat Lozenge, Medicated LOZENGE 1 LOZENGE MUCOUS MEM (09:25)
[2025-05-12 11:10] LABS: Glucose, Whole Blood 168 mg/dL (60-115)
--- NOTE | 2025-05-12 11:36 | P.DS_ITS ---
DS: Providers Provider Date of Service: 05/12/25 Date of admission: 05/05/25 16:24 Date of discharge: 05/12/25 Primary care physician: Alexis Martin NP Consults: 05/05/25 16:53 Consult to Pulmonology Routine Consulting Provider: [facility] [facility] Pulmonology Services Reason for consultation: Multiple lung nodules, acute on chronic hypoxic failure 05/06/25 09:25 Consult to Infectious Diseases Routine Consulting Provider: [facility] [place] Infectious Disease Center Reason for consultation: PNA, recent history of CR pseudomona Has provider been notified: No DS: Diagnosis Discharge Diagnosis (1) COPD exacerbation: Status: Acute (2) Bronchiectasis with (acute) exacerbation: Status: Acute DS: Summary Hospital Course Hospital Course: 79-year-old male with severe COPD and chronic hypoxic respiratory failure (baseline 2?3 L NC), atrial fibrillation, type 2 diabetes, HFrEF (EF ~20%), and CAD s/p stent (09/2024) presents with worsening shortness of breath and exertional dyspnea. Found to have pneumonia and bronchiectasis exacerbation. with sputum culture positive for pseudomona sensitive to meropenem, gentamicin. Acute on chronic hypoxic respiratory failure secondary to acute exacerbation of COPD, resolved, at this time at baseline Sepsis likely secondary to COPD exacerbation, PNA and bronchiectasis exacerbation Hx of recent hospitalizations ([facility]) with a positive sputum culture for Pseudomonas CRE, treated with cefepime, later transitioned to Zerbaxa for [address] scan reviewed, no evidence of fluid overload or infiltrates but showed multiple bilateral nodules. Sputum Cultures positive for pseudomonas, resistant to cefepime, sensitive to meropenem, gentamicin and ciprofloxacin. will send with inhaled tobramycin as patient is chronic colonizer and sputume growth positive for pseudomonas Blood cultures negative will discharge on medrol dose sunil advised on follow up with pulmonology as outpatient Continue Neb treatments oxygen to keep Spo2>88% Lung nodules CTA showing bilateral lung nodules concerning for multifocal pneumonia related to mycobacterium avium versus , mycobacterium tuberculosis versus fungal pneumonia versus viral pneumonia. Bilateral, noncalcified pulmonary nodules. No available prior images here (requested [facility] most recent admission notes) He had Bronchoscopy at [facility] in Feb 2025 (he has hardcopy of the DC summary) : Cx grew MDR Pseudomonas Sputum cx and AFB testing and MTB PCR negative Acute kidney injury, Likely prerenal, improved s/p IV fluids, continue with oral fluid intake Type 2 NC, likely secondary to #1 paroxysmal a fib No EKG changes to suggest ACS continue home medications Type 2 diabetes sliding scale insulin needed on steroids no home meds chronic HFrEF Elevated BNP at 1999 but does not look in acute exacerbation continue home meds CAD/stent continue home meds Time Attestation Discharge Coordination Time (in mins): 35 minutes Quality: Safe Use of Opioids Does Pt have an Active Cancer Diagnosis on the Problem List?: No Quality: Stroke Does the patient have a stroke diagnosis?: No Physical Exam Exam: Exam: General: AxOx3, on supplemental oxygen Head: AT/NC ENT: Moist mucous membranes Neck: supple CVS; RRR, S1 S2 normal Lungs: Coarse bilateral breath sounds, mild rales in bases Abd: Soft non tender, non distended Ext: No edema and no calf tenderness MSK: moving all 4 limbs Skin: No cyanosis or edema Psych: Cooperative with exam Neurology: no focal deficit Vital Signs: Vital Signs: Last Vital Signs Temp 98.1 F 05/12/25 07:31 Pulse 88 05/12/25 07:41 Resp 18 05/12/25 07:41 BP 160/70 H 05/12/25 07:31 Pulse Ox 94 05/12/25 07:31 O2 Del Method Nasal Cannula 05/12/25 07:31 O2 Flow Rate 3 05/12/25 07:31 Oxygen Flow Rate 3 05/05/25 11:56 BMI result Body Mass Index 21.5 DS: Data Data Completed and Pending Labs on day of discharge: Laboratory Results - last 24 hr 05/11/25 05/11/25 05/11/25 11:59 16:54 20:32 WBC RBC Hgb Hct MCV MCH MCHC RDW Plt Count MPV Absolute Nucleated RBC Nucleated RBC % (auto) Sodium Potassium Chloride Carbon Dioxide Anion Gap BUN Creatinine Estim Creat Clear Calc Estimated GFR POC Glucose 108 125 H 151 H Random Glucose Calcium 05/12/25 05/12/25 05/12/25 06:42 07:08 11:04 WBC 18.9 H RBC 4.55 L Hgb 12.0 L Hct 39.0 L MCV 85.7 MCH 26.4 L MCHC 30.8 L RDW 15.4 Plt Count 361 MPV 10.7 Absolute Nucleated RBC 0.000 Nucleated RBC % (auto) 0.0 Sodium 138 Potassium 4.9 Chloride 109 H Carbon Dioxide 22 Anion Gap 12 BUN 75 H Creatinine 1.76 H Estim Creat Clear Calc 31.7 Estimated GFR 38 POC Glucose 168 H 168 H Random Glucose 157 H Calcium 8.7 Preliminary micro results at discharge 05/05/25 17:54 Acid Fast Bacilli Culture & Smear - Preliminary Sputum - Expectorated Discharge Plan Discharge Anticipated Discharge Date/Time: 05/12/25 12:30 Patient Disposition: Home Health Service Discharge Diagnosis: acute on chronic hypoxic respiratory failure COPD exacerbation Bronchiectasis exacerbation Acute kidney injury Referrals: [facility] [Provider Group] - 1 Week Alexis Martin NP [Primary Care Provider, Internal Medicine] - 1 Week Discharge Medications: New benzonatate 100 mg Capsule 100 mg PO TID PRN (Reason: Cough) Qty: 15 0RF methylprednisolone [Medrol (Sunil)] 4 mg tablets,dose pack 4 mg PO DAILY Qty: 21 0RF Rx Instructions: take as medrol dose sunil suggestions Continued albuterol sulfate 90 mcg/actuation HFA aerosol inhaler 2 puff PO Q4H PRN (Reason: shortness of breath or wheezing) Qty: 8.5 2RF Spiriva Respimat 2.5 mcg/actuation mist 2 puff inhalation DAILY MDD 2 inhilations daily 90 Days Qty: 4 3RF lorazepam 0.5 mg tablet 0.5 mg PO BID PRN (Reason: anxiety/RESPIRATORY FAILURE) 30 Days Qty: 60 2RF morphine 15 mg tablet 15 mg PO BID PRN (Reason: Pain/Respiratory Distress) 30 Days Qty: 20 0RF acetylcysteine 100 mg/mL (10 %) Solution 3 ml INHALATION BID digoxin 125 mcg (0.125 mg) tablet 125 mcg PO DAILY prednisone 20 mg tablet 20 mg PO DAILY ascorbic acid (vitamin C) 250 mg Tablet 250 mg PO Q48H ferrous sulfate 325 mg (65 mg iron) Tablet 325 mg PO DAILY fluticasone propion-salmeterol [Wixela Inhub] 500-50 mcg/dose Blister With Device 1 inh INHALATION BID tobramycin 300 mg/4 mL Solution For Nebulization 300 mg INHALATION Q12H escitalopram oxalate 20 mg tablet 20 mg PO DAILY topiramate 50 mg tablet 50 mg PO BEDTIME aspirin 81 mg tablet,delayed release (DR/EC) 81 mg PO DAILY rosuvastatin 40 mg tablet 20 mg PO DAILY oxybutynin chloride 5 mg tablet 5 mg PO DAILY guaifenesin 600 mg tablet extended release 12hr 1,200 mg PO BID Lactobacillus rhamnosus GG 10 billion cell capsule 1 cap PO DAILY Discharge Orders: Discharge Order (Routine); Ordered 05/12/25 Ordered By: Derrell Perez Activity on Discharge: As tolerated Stand Alone Forms: Patient Portal Discharge page Print Language: Georgian Care Plan Goals: continue inhaled tobramycin and medrol dose sunil follow up with pulmonology as outpatient monitor for any worsening shortness of breath Health Concerns: acute on chronic hypoxic respiratory failure pneumonia bronchiectasis exacerbation Plan of Treatment: sputum cultures positive for pseudomona, resistant to cefepime, sensisitve to gentamicin will continue with tobramycin inhaled as this improved patient significantly follow up with pulmonology as outpatient sent medrol dose sunil to pharmacy Assessment: 79-year-old male with severe COPD and chronic hypoxic respiratory failure (baseline 2?3 L NC), atrial fibrillation, type 2 diabetes, HFrEF (EF ~20%), and CAD s/p stent (09/2024) presents with worsening shortness of breath and exer tional dyspnea. Found to have pneumonia and bronchiectasis exacerbation. with sputum culture positive for pseudomona sensitive to meropenem, gentamicin. Patient Instructions: Bronchiectasis (DC), Pneumonia (DC)
--- NOTE | 2025-05-12 11:40 | P.F2F_ITS ---
Service Date Service Date: 05/12/25 Encounter Date of encounter: 05/12/25 Encounter: Reasons for Services Signs and symptoms assessed: 79-year-old male with severe COPD and chronic hypoxic respiratory failure (baseline 2?3 L NC), atrial fibrillation, type 2 diabetes, HFrEF (EF ~20%), and CAD s/p stent (09/2024) presents with worsening shortness of breath and exe rtional dyspnea. Found to have pneumonia and bronchiectasis exacerbation. with sputum culture positive for pseudomona sensitive to meropenem, gentamicin. with improved shortness of breath Reason for physical therapy: home safety and mobility, therapeutic exercises and energy conservation Reason for occupational therapy: home safety and mobility, therapeutic exercises and energy conservation Homebound: Leaving the home is medically contraindicated at this time without the asist of a device and/or another person due th the listed conditions above and below. Reason homebound: unsteady gait / fall risk and shortness of breath at rest Certification: Based on the above findings, I certify that this patient is confined to the home and needs intermittent prison care, physical therapy and/or speech therapy, or continues to need occupational therapy. The patient is under my care, and I have initiated the establishment of the plan of care. The patient will be followed by a physician who will periodically review the plan of care. Time Spent With Patient Time: Total time managing care of this patient today ____ minutes.
[2025-05-12 11:46] VITALS: BP 116/77; PULSE 81; RESP 18; TEMP 36.4; O2SAT 93
--- NOTE | 2025-05-12 12:09 | MHC.CM.PN ---
PATIENT IS MEDICALLY CLEARED FOR DISCHARGE HOME WITH RESUMPTION OF PREVIOUS [facility]. PATIENTS WILL TRANSPORT HIM HOME TODAY. PATIENT NO LONGER NEEDS THE MIDLINE PLACED, AND WILL NOT BE DISCHARGING HOME WITH IV ANTIBIOTICS.
--- NOTE | 2025-05-12 15:01 | PC.NURSE ---
Pt given discharge instructions. He verbalized understanding to continue home meds, including tobramycin inhalation. Verbalized understanding to pick up and delivery driver steroids and tessalon at pharmacy. at bedside. IV's and telemetry unit DC'd. All questinos answered. Pt escorted off the floor via wheelchair by staff.
== END 2025-05-12 14:35 | disposition home health service (06) | DRG 871 ==
LOC: HO.ED 15:38 → HO.EDOVER 16:32 → HO.IMC 05-06 16:17
PROVIDERS: Admitting Provider Student in an Organized Health Care Education/Training Program; Emergency Provider Emergency Medicine; PCP Nurse Practitioner Family; Referring Provider Student in an Organized Health Care Education/Training Program; Visit Provider Student in an Organized Health Care Education/Training Program
DX: A41.9 Sepsis, unspecified organism (principal); I21.A1 Myocardial infarction type 2; J18.9 Pneumonia, unspecified organism; J96.21 Acute and chronic respiratory failure with hypoxia; N17.9 Acute kidney failure, unspecified; I50.22 Chronic systolic (congestive) heart failure; J47.0 Bronchiectasis with acute lower respiratory infection; J47.1 Bronchiectasis with (acute) exacerbation; Z16.24 Resistance to multiple antibiotics; I25.10 Atherosclerotic heart disease of native coronary artery without angina pectoris; Z20.822 Contact with and (suspected) exposure to COVID-19; Z99.81 Dependence on supplemental oxygen; Z66 Do not resuscitate; I48.0 Paroxysmal atrial fibrillation; E11.9 Type 2 diabetes mellitus without complications; B96.5 Pseudomonas (aeruginosa) (mallei) (pseudomallei) as the cause of diseases classified elsewhere; Z95.5 Presence of coronary angioplasty implant and graft; Z87.891 Personal history of nicotine dependence; Z79.82 Long term (current) use of aspirin; Z79.52 Long term (current) use of systemic steroids; Z79.899 Other long term (current) drug therapy
CPT/HCPCS: 36415; 71275; 80048; 80053; 80076; 81001; 82570; 82947; 83605; 83690; 83735; 83880; 84300; 84484; 85025; 85027; 85379; 85610; 86481; 87040; 87070; 87077; 87086; 87116; 87186; 87205; 87206; 87564; 87637; 93005; 94640; 99285; J0692; J0696; J1271; J1644; J1938; J2405; J2470; J2919; J3260; J7120; Q9967

== ENCOUNTER → 2025-05-05 12:02 | Outpatient (BNV) | payer OTHER, SELFPAY | PROVIDERS: Emergency Provider Emergency Medicine; PCP Nurse Practitioner Family; Visit Provider Radiology Diagnostic Radiology | DX: I77.810 Thoracic aortic ectasia (principal); I25.10 Atherosclerotic heart disease of native coronary artery without angina pectoris; R91.8 Other nonspecific abnormal finding of lung field | CPT/HCPCS: 71275 ==

== ENCOUNTER → 2025-05-05 12:03 | Outpatient (BNV) | payer OTHER, SELFPAY | PROVIDERS: Admitting Provider Student in an Organized Health Care Education/Training Program; Emergency Provider Emergency Medicine; PCP Nurse Practitioner Family; Visit Provider Internal Medicine | DX: I49.3 Ventricular premature depolarization (principal); I49.1 Atrial premature depolarization | CPT/HCPCS: 93010 ==

== ENCOUNTER → 2025-05-05 16:24 | Outpatient (BNV) | payer OTHER, SELFPAY | PROVIDERS: Admitting Provider Student in an Organized Health Care Education/Training Program; Emergency Provider Emergency Medicine; PCP Nurse Practitioner Family; Visit Provider Internal Medicine | DX: J96.90 Respiratory failure, unspecified, unspecified whether with hypoxia or hypercapnia (principal); J18.9 Pneumonia, unspecified organism | CPT/HCPCS: 99232 ==

== ENCOUNTER → 2025-05-05 16:24 | Outpatient (BNV) | payer OTHER, SELFPAY | PROVIDERS: Admitting Provider Student in an Organized Health Care Education/Training Program; Emergency Provider Emergency Medicine; PCP Nurse Practitioner Family; Visit Provider Hospitalist | DX: J44.1 Chronic obstructive pulmonary disease with (acute) exacerbation (principal); J96.21 Acute and chronic respiratory failure with hypoxia; J18.9 Pneumonia, unspecified organism; J47.1 Bronchiectasis with (acute) exacerbation | CPT/HCPCS: 99223 ==

== ENCOUNTER → 2025-05-05 16:24 | Outpatient (BNV) | payer OTHER, SELFPAY | PROVIDERS: Admitting Provider Student in an Organized Health Care Education/Training Program; Emergency Provider Emergency Medicine; PCP Nurse Practitioner Family; Visit Provider Student in an Organized Health Care Education/Training Program | DX: J44.1 Chronic obstructive pulmonary disease with (acute) exacerbation (principal); J47.1 Bronchiectasis with (acute) exacerbation | CPT/HCPCS: 99223; 99233 ==

== ENCOUNTER 2025-05-26 10:19 | Outpatient (AMB) | payer OTHER, SELFPAY ==
[2025-05-26 10:26] VITALS: BP 120/60; PULSE 91; O2SAT 89; BMI 23.5
--- NOTE | 2025-05-26 10:26 | MHC.OFFVIS ---
Vital Signs 05/26/25 10:26 Height 5 ft 8 in Weight 154 lb 5.177 oz BMI 23.5 BP 120/60 Blood Pressure Location Lt brachial Position Sitting Pulse 91 Pulse Source Pulse Oximeter Pulse Oximetry (%) 89 L Oxygen Delivery Method Nasal Cannula Oxygen Flow Rate 3 Intake Visit Reasons: COPD Intake Note: pt is here for follow up of [facility] and states he is feeling okay, any exertion still short of breath, using 3 liters of oxygen 24 hours a day. pt needs refill on wixela, morphine and lorazepam Qualitative Researcher Required: No Starter Cup Powder Mixer: Starter Cup Powder Mixer offered & declined Allergies levofloxacin (From Levaquin) Allergy (Severe, Verified 05/26/25 14:12) Anaphylaxis atorvastatin Allergy (Verified 05/26/25 14:12) Unknown carvedilol Allergy (Verified 05/26/25 14:12) Unknown ketorolac (From Toradol) Allergy (Verified 05/26/25 14:12) Unknown lisinopril Allergy (Verified 05/26/25 14:12) Unknown semaglutide Allergy (Verified 05/26/25 14:12) Unknown Medication List - Last Reconciled 05/26/25 by Anastasiya Henderson MD acetylcysteine 3 mL inhalation BID albuterol sulfate 90 mcg/actuation 2 puffs PO Q4H PRN ascorbic acid (vitamin C) 250 mg PO Q48H aspirin 81 mg PO DAILY benzonatate 100 mg PO TID PRN ciprofloxacin HCl 500 mg PO BID 21 days MDD PSEUDOMONAL RESPIRATORY INFECT digoxin 125 mcg PO DAILY escitalopram oxalate 20 mg PO DAILY ferrous sulfate 325 mg PO DAILY fluticasone propion-salmeterol 500-50 mcg/dose (Wixela Inhub) 1 inh inhalation BID guaifenesin ER 1,200 mg PO BID Lactobacillus rhamnosus GG 1 cap PO DAILY lorazepam 0.5 mg PO BID PRN 30 days morphine 15 mg PO BID PRN 30 days oxybutynin chloride 5 mg PO DAILY rosuvastatin 20 mg PO DAILY tiotropium bromide 2.5 mcg/actuation (Spiriva Respimat) 2 puffs inhalation DAILY 90 days MDD 2 inhilations daily tobramycin 300 mg inhalation Q12H topiramate 50 mg PO BEDTIME Do you need a note to return to daycare/school/sports/work: No HPI HPI COPD: Details: This 79 years old gentleman with advanced /terminal chronic obstructive pulmonary disease along with other comorbidities. Has ongoing chronic respiratory failure. Has been admitted to [facility] and then to [facility] , this time 05/05 to 05/12 , treated for acute exacerbation of COPD as well as urinary tract infection. Previously as per bronchoscopy at [facility] he had Pseudomonas infection as per culture of the sputum . He had received a course of cefepime in the hospital as well as at outpatient. This time when admitted to the hospital here at [facility] the sputum culture again has grown Pseudomonas organisms, found to be resistant to cefepime, but sensitive to ciprofloxacin. Patient has also been treated with tobramycin, via nebulizer b.i.d., and is completing a course of 3 weeks. He comes in today and seems to be relatively stable and happier than before. Continues to use O2 3 L/minute. He has frequent bouts of anxiety which are alleviated by taking small dose of lorazepam. Sometimes due to increased cough and panic attacks he develops respiratory distress, and for that he has been prescribed morphine sulfate 15 mg to take 1 b.i.d.. This was done with the hope of minimizing his hospitalizations. [facility] Medical History CHF (congestive heart failure) Type 2 diabetes mellitus without complications CAD (coronary artery disease) Acute anxiety Physical deconditioning Respiratory failure Pneumonia COPD (chronic obstructive pulmonary disease) Surgical History H/O heart artery stent Social History Household Members: Spouse Housing: Condominium Do you presently have visiting nurse or other home services: Yes Comment: refusing bed alarms Patient Tobacco Use Status: Former Tobacco user Substance Use Type: Marijuana Advance Directives Date on File: 05/06/25 service: Yes Review of Systems Const All systems reviewed & are unremarkable except as noted in HPI and below Eyes Reports no additional complaints ENT Reports no additional complaints, Denies nasal congestion and Denies nasal discharge Card Denies chest pain, Denies irregular heart rhythm, Denies leg edema and Reports dyspnea on exertion (MILD) Resp Denies cough, Reports dyspnea on exertion (MILD) and Denies wheezing GI Reports no additional complaints Musc Reports no additional complaints Neuro Reports no additional complaints Psych Reports no additional complaints and Reports depression (MILD UNDER CONTROL.) Endo Reports no additional complaints Peewee/Lymph Reports no additional complaints Aller/Immun Denies wheezing Physical Exam Vital Signs: Last Vital Signs Pulse 91 05/26/25 10:26 BP 120/60 05/26/25 10:26 Pulse Ox 89 L 05/26/25 10:26 Oxygen Delivery Method Nasal Cannula 05/26/25 10:26 Oxygen Flow Rate 3 05/26/25 10:26 BMI result Body Mass Index 23.5 Const General: comfortable, no acute distress, alert and awake Orientation/consciousness: patient oriented x3 HEENT Head: Yes normal to inspection General nose exam: No nasal polyps present and No nasal discharge present Face and sinus: Yes sinuses nontender Mouth: oropharynx normal Throat: Yes posterior oropharynx normal Eyes General: appearance normal, both eyes and all related structures Neck Neck: Yes normal visual inspection, Yes no lymphadenopathy, Yes trachea midline and Yes no JVD Thyroid: Thyroid normal Chest Chest palpation & inspection: normal inspection of the chest, normal palpation of entire chest wall and no tenderness Resp Other: Percussion note is resonant, breath sounds are distant with prolonged expiratory phase on both sides. No wheezes a few inspiratory crackles over the right base. Cardio Palpation: normal PMI Rate: regular rate Rhythm: regular rhythm Heart sounds: no gallops and no murmurs GI Palpation (GI): Soft to palpation, nontender, No hepatosplenomegaly present and no masses Auscultation: normal bowel sounds Other: Has nephrostomy tube in the left kidney . For drainage of the urine Back/Spine/Pelvis Thoracic/Lumbar Spine: thoracic and lumbar spine normal to inspection Skin General skin exam: no rashes or lesions noted Neuro General: patient oriented x3 and no focal motor deficits Cranial nerves: Yes CN's II-XII intact bilaterally Extrem General: Yes normal to inspection, Yes no clubbing, cyanosis or edema, Yes no calf tenderness and No venous stasis dermatitis Psych Appearance: grossly normal Speech and movement: Normal speech and movement present Results Reviewed Results Reviewed: 05/05/25 CTA of CHEST No acute pulmonary artery emboli. Concerning multifocal pneumonia related to mycobacterium avium versus mycobacterium tuberculosis versus fungal pneumonia versus viral pneumonia. Bilateral, noncalcified pulmonary nodules. Ectasia, thoracic aorta. Gram stain Final 05/06/25 Gram stain results: 3+ polys 2+ epithelial cells 3+ Gram-positive cocci 2+ Gram-positive rods Sputum Culture Final 05/10/25 4+ mixed upper-resp sylvain Organism 1 Pseudomonas aeruginosa Quantity 2+ P aerugino M.I.C. RX --------- --- Cefepime >=32 R Ciprofloxacin 0.5 S Gentamicin <=1 S Meropenem 1 S Piperacillin/Tazobactam >=128 R Assessment & Plan Assessment & Plan (1) COPD exacerbation: Comment: This gentleman has advanced chronic obstructive pulmonary disease. He is prone to have frequent acute exacerbations. With each exacerbation he usually ends up in the hospital. This time the infection was secondary to Pseudomonas, Initially treated with cefepime but then the culture indicates that he is resistant to cefepime and sensitive to ciprofloxacin and gentamicin. Code(s): J44.1 - Chronic obstructive pulmonary disease with (acute) exacerbation Category: Medical Plan: I will treat him with a prolonged course of ciprofloxacin 500 mg b.i.d.. He has completed a course of tobramycin 300 mg b.i.d. in the nebulizer, now he will be on a break for 3 weeks. After that we may repeat another 3 weeks course. (2) Respiratory failure: Comment: This gentleman suffers from chronic hypoxemic respiratory failure, and has already been started on oxygen therapy. He continues to use O2 2 L/minute and it can be increased to 3 L/minute if he needs. Code(s): J96.90 - Respiratory failure, unspecified, unspecified whether with hypoxia or hypercapnia Category: Medical Plan: He has been educated that his goal is to keep O2 sat above 90%. (3) Pneumonia: Comment: He has probable atypical infection. In the hospital the CTA of the chest showed multiple nodularities. It was considered to be due to multifocal pneumonia. Atypical mycobacterium infection. But as per sputum culture he grew Pseudomonas colonies. Code(s): J18.9 - Pneumonia, unspecified organism Category: Medical Plan: Has been treated with tobramycin 300 mg via nebulizer b.i.d. for 3 weeks. He was treated with cefepime but now we note that organisms are resistant to this antibiotic. As he completes the course of tobramycin for 3 weeks, I would treat him with ciprofloxacin 500 mg b.i.d. for 3 weeks. He will be monitored for any side effects . (4) Acute anxiety: Comment: Because of his advanced lung disease/cardiac issue with congestive heart failure, and now having marked generalized deconditioning even after the hospitalization, He is very anxious , which increases his shortness of breath. At the time of discharge he has been given a prescription for MS IR 15 mg to use b.i.d. p.r.n. Code(s): F41.9 - Anxiety disorder, unspecified Category: Medical Plan: I talked to him that the anxiolytic as well as narcotic meds in his case given mainly to alleviate his distress and anxiety. These are part of palliative care, and to reduce his hospitalizations. Medications: New ciprofloxacin HCl 500 mg PO BID 42 tabs 2RF pSEUDOMONAL 21 days MDD PSEUDOMONAL RESPIRATORY INFECT Changed From morphine 15 mg PO BID 30 days PRN 20 tabs 0RF Pain/Respiratory Distress F41.9 - Anxiety disorder, unspecified, J96.90 - Respiratory failure, unspecified, unspecified whether with hypoxia or hypercapnia To morphine ADVANCED COPD AND RESPIRATORY FAILURE / PALLIATIVE CARE 15 mg PO BID PRN 20 tabs 0RF Pain/Respiratory Distress 30 days F41.9 - Anxiety disorder, unspecified, J96.90 - Respiratory failure, unspecified, unspecified whether with hypoxia or hypercapnia Refilled lorazepam 0.5 mg PO BID PRN 60 tabs 2RF anxiety/RESPIRATORY FAILURE 30 days Coding Level of Care Code Est Pt Level 4 (40135) Diagnoses COPD exacerbation J44.1 Respiratory failure J96.90 Pneumonia J18.9 Acute anxiety F41.9
--- OUTSIDE RECORDS SUMMARY | 2025-05-26 11:34 | XMS_ITS | Encounter Summary ---
Author Organization [facility] Address [address] [place] [address] Care Team Providers Care Human Services Care Specialist Name Role Phone Zoey Giles DO Primary Care Provider [phone] Jorge Rucker MD Unavailable Unknown Primary Care Provider [phone] Alexis Martin MD Primary Care Provider [phone]- [phone] Encounter Details Date Type Department Care Team (Late st Contact Info) Description 09/24/2017 Scanned Document [facility] [place] [address] Enrrique Pérez MD [address] [id number] Social History Tobacco Use Types Packs/Day Years [...] on filedocumented in this encounter Care Teams Human Services Care Specialist Relationship Specialty Start Date End Date Zoey Giles DO [address] [place] [address] PCP - General Genetic Counselor 04/11/17 10/11/17 Unknown Unknow Provider Address PCP - General 10/12/17 03/09/24 Alexis Martin MD [address] [place] [address] PCP - General 03/10/24 Jorge Rucker MD [address] [place] [address] Rolfer Cardiovascular Disease 04/12/17 4 documented as of this encounter
--- OUTSIDE RECORDS SUMMARY | 2025-05-26 11:34 | XMS_ITS | Encounter Summary ---
Author Organization [facility] Address [address] [place] [address] Care Team Providers Care Lead Cook Name Role Phone Zoey Giles DO Primary Care Provider [phone]- [phone] Jorge Rucker MD Unavailable Unknown Primary Care Provider [phone] Alexis Martin MD Primary Care Provider [phone]- [phone] Encounter Details Date Type Department Care Team (Late st Contact Info) Description 09/24/2017 Scanned Document [facility] Vascular & [place] [address] Enrrique Pérez MD [address] [phone] Social History Tobacco Use Types Packs/Day Years [...] on filedocumented in this encounter Care Teams Lead Cook Relationship Specialty Start Date End Date Zoey Giles DO [address] [place] [address] PCP - General Genetic Counselor 04/11/17 10/11/17 Unknown Unknow Provider Address PCP - General 10/12/17 03/09/24 Alexis Martin MD [address] [place] [address] PCP - General 03/10/24 Jorge Rucker MD [address] [place] [address] [employer] Cardiovascular Disease 04/12/17 4 documented as of this encounter
--- OUTSIDE RECORDS SUMMARY | 2025-05-26 11:34 | XMS_ITS | Encounter Summary ---
Author Organization [facility] Address [address] [place] [address] Care Team Providers Care Wastewater Treatment Plant Attendant Name Role Phone Zoey Giles DO Primary Care Provider +1- [phone] Jorge Rucker MD Unavailable Unknown Primary Care Provider [phone] Alexis Martin MD Primary Care Provider +1- [phone] Encounter Details Date Type Department Care Team (Late st Contact Info) Description 09/24/2017 Scanned Document [facility] Vascular [place] [address] Enrrique Pérez MD [address] [phone] Social History Tobacco Use Types Packs/Day Years [...] on filedocumented in this encounter Care Teams Wastewater Treatment Plant Attendant Relationship Specialty Start Date End Date Zoey Giles DO [address] [place] [address] PCP - General Genetic Counselor 04/11/17 10/11/17 Unknown Unknow Provider Address PCP - General 10/12/17 03/09/24 Alexis Martin MD [address] [place] [address] PCP - General 03/10/24 Jorge Rucker MD [address] [place] [address] Protocol Officer Cardiovascular Disease 04/12/17 4 documented as of this encounter
--- OUTSIDE RECORDS SUMMARY | 2025-05-26 11:34 | XMS_ITS | Encounter Summary ---
Author Organization [facility], Address [address] [place] [address] Phone Care Team Providers Care Mold Capper Helper Name Role Phone Alexis Martin DNP Primary Care Provider Encounter Details Date Type Department Care Team (Late st Contact Info) Description 05/08/2025 Orders Only [facility] [address] [place] [phone] Romie Polk MD [address] [place] [address] [place] [address] Stage 3b chronic kidney disease [...] Care Team (Late st Contact Info) Description 11/18/2025 2:30 PM EDT Office Visit [facility] [address] [place] [address] Romie Polk MD [address] [place] [address] [place] [address] documented as of this encounter Visit Diagnoses Diagnosis Stage 3b chronic kidney disease (HCC) documented in this encounter Care Teams Mold Capper Helper Relationship Specialty Start Date End Date Alexis Martin DNP [address] [place], [place] PCP - General Nurse Practitioner 03/31/25 documented as of this encounter
--- OUTSIDE RECORDS SUMMARY | 2025-05-26 11:34 | XMS_ITS | Encounter Summary ---
Author Organization [facility] Address [address] [place] [address] Care Team Providers Care Commutator Inspector Name Role Phone Zoey Giles DO Primary Care Provider +1- [phone] Jorge Rucker MD Unavailable Unknown Primary Care Provider [phone] Alexis Martin MD Primary Care Provider +1- [phone] Encounter Details Date Type Department Care Team (Late st Contact Info) Description 09/24/2017 Scanned Document [facility] Vascular & [place] [address] Enrrique Pérez MD [address] [phone] Social History Tobacco Use Types Packs/Day Years [...] on filedocumented in this encounter Care Teams Commutator Inspector Relationship Specialty Start Date End Date Zoey Giles DO [address] [place] [address] PCP - General Genetic Counselor 04/11/17 10/11/17 Unknown Unknow Provider Address PCP - General 10/12/17 03/09/24 Alexis Martin MD [address] [place] [address] PCP - General 03/10/24 Jorge Rucker MD [address] [place] [address] Desizing Machine Operator Head End Cardiovascular Disease 04/12/17 4 documented as of this encounter
--- OUTSIDE RECORDS SUMMARY | 2025-05-26 11:34 | XMS_ITS | Clinical Summary ---
Author Organization [facility] Address [address] [place] [address] Care Team Providers Care Eyewear Consultant Name Role Phone Alexis Martin MD Primary Care Provider +1- [phone] Allergies Active Allergy Reactions Criticality Noted Date [...] (10/05/2017): Added automatically from request for surgery [id number] AAA (abdominal aortic aneurysm) without rupture 04/23/2017 Social History Tobacco Use Types Packs/Day Years Used Date Smoking Tobacco: Former Smokeless Tobacco: Never Comments:quit 1994 Alcohol Use Standard Drinks/Week Comments Yes 0 (1 standard drink = 0.6 oz pur e alcohol) 1x/month [facility] Utilities Answer Date Recorded In the past 12 months has [employer], [employer], oil, or water [employer] threatened to shut off services in your [...] place to sleep or slept in a senior living (including now)? No 03/09/2024 Sex and Gender [...] , 02/16/2022, Additional history exists COVID-19 Vaccine (2024- season) 2025 03/03/2024, 12/16/2021, 07/28/2020, Additional history exists Creatinine with GFR 03/10/2025 03/10/2024, 03/09/2024, 03/08/2024, Additional history exists Advance Care Planning Completed 03/11/2024 Hepatitis B Vaccines Aged Out No long er eligible based on patient's age to complete this topic Medical Devices Implanted Type Area It Audit Manager Device Identifier Shelf Expiration Date Model / Serial / Lot Graft Endovascular 10cm 12mm Henrietta Xcldr Ilc Brch Comp Aaa - [id number] Implanted:Qty: 1 on 04/23/2017 by Enrrique Pérez MD at [facility] Graft [employer] [id number] 02/22/2020 [id number] / [id number] / Description:right common carisa ac Graft Endovascular 7cm 10mm Henrietta Xcldr Ilc Internal Comp Aaa - [id number] Implanted:Qty: 1 on 04/23/2017 by Enrrique Pérez MD at [facility] Graft [employer] [id number] 02/22/2020 [id number] / [id number] / Description:right internal i liac Graft Endovascular 12cm 26mm 14.5mm 22-23mm 12-13.5mm Henrietta - [id number] Implanted:Qty: 1 on 04/23/2017 by Enrrique Pérez MD at [facility] Graft [employer] [id number] 12/26/2019 [id number] / [id number] / Description:Left common kyara c Graft Endovascular 10cm 27mm 21.5-25mm Xcldr Contra Leg - [id number] Implanted:Qty: 1 on 04/23/2017 by Enrrique Pérez MD at [facility] Graft [employer] [id number] 01/20/2019 [id number] / [id number] 00 / Description:Bridge right con tralateral limb Graft Endovascular 9.5cm 18mm 14.5-16.5mm Xcldr Contra Leg - [id number] Implanted:Qty: 1 on 04/23/2017 by Enrrique Pérez MD at [facility] Graft [employer] [id number] 11/22/2019 [id number] / [id number] 00 / Description:extension left c ommon iliac Graft Endovascular 7cm 14.5mm 12fr 12-13.5mm Xcldr Ilium - [id number] Implanted:Qty: 1 on 04/23/2017 by Enrrique Pérez MD at [facility] Graft [employer] [id number] 12/26/2019 [id number] / [id number] / Description:left common kyara c Procedures Procedure Name Priority Date/Time Associated Diagnosis Comments BASIC METABOLIC PANEL Routine 03/10/2024 6:36 AM EDT from Last 3 Months or Most Recently Relevant to Health Maintenance Results * (ABNORMAL) Basic Metabolic Panel (AM) (03/10/2024 6:36 AM EDT) Glucose 105(H) 65 - 99 mg/dL 03/10/2024 8:17 AM [facility] Comment:Fasting: <100 mg/dL, Non-Fasting: <200 mg/dL (ADA 2004) Blood Urea Nitrogen (BUN) 31(H) 8 - 21 mg/dL 03/10/2024 8:17 AM [facility] Creatinine 1.8(H) 0.5 - 1.3 mg/dL 03/10/2024 8:17 AM [facility] eGFR 38(L) >59 03/10/2024 8:17 AM [facility] Comment:CKD-EPI (2020) in mL /min/1.73 sq meters. Sodium 138 136 - 145 mmol/L 03/10/2024 8:17 AM EDT [facility] Potassium 3.9 3.4 - 5.3 mmol/L 03/10/2024 8:17 AM EDT [facility] Chloride 103 98 - 107 mmol/L 03/10/2024 8:17 AM EDT [facility] CO2 18(L) 22 - 33 mmol/L 03/10/2024 8:17 AM EDT [facility] Anion Gap 17 7 - 17 03/10/2024 8:17 AM EDT [facility] Calcium 8.8 8.7 - 10.5 mg/dL 03/10/2024 8:17 AM EDT [facility] BUN/Creatinine Ratio 17 10.0 - 25.0 Ratio 03/10/2024 8:17 AM EDT [facility] Blood (Plasma/Serum) 03/10/2024 6:36 AM EDT 03/10/2024 7:14 AM EDT Heather Root APRN LAB BLOOD [place] [address], [place] [address] from Last 3 Months or Most Recently Relevant to Health Maintenance Insurance MEDICARE PART A & B [facility] OUT [facility] Advance Directives Documents on File Type Date Recorded Patient Director Style Expl anation Advance Directive-Scan 03/11/2024 11:17 AM [...] 9:52 AM 04/23/2017 3:03 PM Care Teams Eyewear Consultant Relationship Specialty Start Date End Date Alexis Martin MD [address] [place] [address] PCP - General 03/10/24
--- OUTSIDE RECORDS SUMMARY | 2025-05-26 11:34 | XMS_ITS | Encounter Summary ---
Author Organization [facility] Address [address] [place] [address] Care Team Providers Care Assembler Rubber Footwear Name Role Phone Unavailable Primary Care Provider Unavailabl e Encounter Details Date Type Department Care Team (Late st Contact Info) Description 02/13/2025 Lab Requisition [facility] - Main Lab [address] [facility] [place] [address] Sahil Tapia PA [address] [facility] [address] [place] [address] Pyuria Social History Tobacco Use Types Packs/Day [...] Pseudomonas aeruginosa(A) RONNIE 02/16/2025 8:01 AM EDT [facility] Comment: This is an edited [...] MICROBIOLOGY - GENERAL ORDER VENUS Final Result [facility] [address] [place] [address], documented in this encounter Visit Diagnoses Diagnosis Pyuria Other nonspecific finding on examination of urine documented in this encounter Additional Health Concerns Infection Onset Date Last Indicated Resolved Time MDRO (other) 02/13/2025 02/13/2025 documented as of this encounter
--- OUTSIDE RECORDS SUMMARY | 2025-05-26 11:34 | XMS_ITS | Encounter Summary ---
Author Organization [facility], Address [address] [place] [address] Phone Care Team Providers Care Machine Designer Name Role Phone Alexis Martin HEIKE Primary Care Provider Encounter Details Date Type Department Care Team (Late st Contact Info) Description 03/31/2025 Documentation Only [facility] [address] [place] [address] [place], [place] [address] [place] [address] Social History Tobacco Use Types [...] Visit [facility] Markus [address] [place] [phone] Romie Polk MD [address] [place] [address] [place] [phone] documented as of this encounter Visit Diagnoses Not on filedocumented in this encounter Care Teams Machine Designer Relationship Specialty Start Date End Date Alexis Martin DNP [address] [place], [place] PCP - General Nurse Practitioner 03/31/25 documented as of this encounter
--- OUTSIDE RECORDS SUMMARY | 2025-05-26 11:34 | XMS_ITS | Encounter Summary ---
Author Organization [facility] Address [address] [place] [address] Care Team Providers Care Childcare Attendant Name Role Phone Zoey Giles DO Primary Care Provider +1- [phone] Jorge Rucker MD Unavailable Unknown Primary Care Provider [phone] Alexis Martin MD Primary Care Provider +1- [phone] Encounter Details Date Type Department Care Team (Late st Contact Info) Description 09/24/[address] [facility] Vascular & [place] [address] Enrrique Pérez MD [address] [phone] Social History Tobacco Use Types Packs/Day Years [...] on filedocumented in this encounter Care Teams Childcare Attendant Relationship Specialty Start Date End Date Zoey Giles DO [address] [place] [address] PCP - General Genetic Counselor 04/11/17 10/11/17 Unknown Unknow Provider Address PCP - General 10/12/17 03/09/24 Alexis Martin MD [address] [place] [address] PCP - General 03/10/24 Jorge Rucker MD [address] [place] [address] Bottom Crane Operator Cardiovascular Disease 04/12/17 4 documented as of this encounter
--- OUTSIDE RECORDS SUMMARY | 2025-05-26 11:34 | XMS_ITS | Clinical Summary ---
Author Organization [address] [facility] Address [address] [place] [address] Phone Care Team Providers Care Tray Room Worker Name Role Phone Unavailable Primary Care Provider Unavailabl e Social History Tobacco Use Types Packs/Day Years [...] on patient's age to complete this topic Additional Health Concerns Infection Onset Date Last Indicated MDRO (other) 02/13/2025 02/13/2025 Insurance MEDICARE [facility]
--- OUTSIDE RECORDS SUMMARY | 2025-05-26 11:34 | XMS_ITS | Encounter Summary ---
Author Organization [facility], Address [address] [place] [address] Phone Care Team Providers Care Cleaner Carpet And Upholstery Name Role Phone Alexis Martin HEIKE Primary Care Provider Encounter Details Date Type Department Care Team (Late st Contact Info) Description 03/31/2025 Documentation Only [facility] [address] [place] [address] [place], [place] [address] [place] [address] Social History Tobacco Use Types [...] Visit [facility] Markus [address] [place] [phone] Romie Polk MD [address] [place] [address] [place] [phone] documented as of this encounter Visit Diagnoses Not on filedocumented in this encounter Care Teams Cleaner Carpet And Upholstery Relationship Specialty Start Date End Date Alexis Martin DNP [address] [place], [place] PCP - General Nurse Practitioner 03/31/25 documented as of this encounter
--- OUTSIDE RECORDS SUMMARY | 2025-05-26 11:34 | XMS_ITS | Encounter Summary ---
Author Organization [facility] [place], Address [address] [place] [address] Phone Care Team Providers Care Assessment Coordinator Name Role Phone Alexis Martin DNP Primary Care Provider Encounter Details Date Type Department Care Team (Late st Contact Info) Description 05/22/2025 Orders Only [facility] [address] [place] [phone] Romie Polk MD [address] [place] [address] [place] [address] Stage 3b chronic kidney disease [...] Visit [facility] [address] [place] [address] Romie Polk MD [address] [place] [address] [place] [address] documented as of this encounter Visit Diagnoses Diagnosis Stage 3b chronic kidney disease (HCC) documented in this encounter Care Teams Assessment Coordinator Relationship Specialty Start Date End Date Alexis Martin DNP [address] [place], [place] PCP - General Nurse Practitioner 03/31/25 documented as of this encounter
--- OUTSIDE RECORDS SUMMARY | 2025-05-26 11:34 | XMS_ITS | Encounter Summary ---
Author Organization [facility] Address [address] [place] [address] Care Team Providers Care Video Producer Name Role Phone Zoey Giles DO Primary Care Provider +1- [phone] Jorge Rucker MD Unavailable Unknown Primary Care Provider [phone] Alexis Martin MD Primary Care Provider +1- [phone] Encounter Details Date Type Department Care Team (Late st Contact Info) Description 09/24/2017 Scanned Document [facility] Vascular & [place] [address] Enrrique Pérez MD [address] [phone] Social History Tobacco Use Types Packs/Day Years [...] on filedocumented in this encounter Care Teams Video Producer Relationship Specialty Start Date End Date Zoey Giles DO [address] [place] [address] PCP - General Genetic Counselor 04/11/17 10/11/17 Unknown Unknow Provider Address PCP - General 10/12/17 03/09/24 Alexis Martin MD [address] [place] [address] PCP - General 03/10/24 Jorge Rucker MD [address] [place] [address] Product Development Ecologist Cardiovascular Disease 04/12/17 4 documented as of this encounter
--- OUTSIDE RECORDS SUMMARY | 2025-05-26 11:34 | XMS_ITS ---
Author Organization [facility] Address [address] [place] [address] Care Team Providers Care Business Development Director Name Role Phone Alexis Martin MD Primary Care Provider +1- [phone] Active Problems Problem Noted Date Diagnosed Date [...] (10/05/2017): Added automatically from request for surgery [id number] AAA (abdominal aortic aneurysm) without rupture 04/23/2017 [...]
--- OUTSIDE RECORDS SUMMARY | 2025-05-26 11:34 | XMS_ITS | Encounter Summary ---
Author Organization [facility] Address [address] [place] [address] Care Team Providers Care Special Shopper Name Role Phone Zoey Giles DO Primary Care Provider +1 [phone] Jorge Rucker MD Unavailable Unknown Primary Care Provider [phone] Alexis Maritn MD Primary Care Provider +1- [phone] Encounter Details Date Type Department Care Team (Late st Contact Info) Description 04/23/2017 Scanned Document [address] [place] [phone] Provider, Generic Social History Tobacco Use [...] on filedocumented in this encounter Care Teams Special Shopper Relationship Specialty Start Date End Date Zoey Giles DO [address] [place] [address] PCP - General Genetic Counselor 04/11/17 10/11/17 Unknown Unknow Provider Address PCP - General 10/12/17 03/09/24 Alexis Martin MD [address] [place] [address] PCP - General 03/10/24 Jorge Rucker MD [address] [place] [address] Record Searcher Cardiovascular Disease 04/12/17 4 documented as of this encounter
--- OUTSIDE RECORDS SUMMARY | 2025-05-26 11:34 | XMS_ITS | Encounter Summary ---
Author Organization [facility] [place], Address [address] [place] [address] Phone Care Team Providers Care Law Office Assistant Name Role Phone Alexis Martin DNP Primary Care Provider Encounter Details Date Type Department Care Team (Late st Contact Info) Description 04/10/2025 Orders Only [facility] [address] [place] [phone] Romie Polk MD [address] [place] [address] [place] [address] Stage 3b chronic kidney disease [...] [facility] [address] [place] [address] Romie Polk MD [address] [place] [address] [place] [address] documented as of this encounter Visit Diagnoses Diagnosis Stage 3b chronic kidney disease (HCC) documented in this encounter Care Teams Law Office Assistant Relationship Specialty Start Date End Date Alexis Martin DNP [address] [place], [place] PCP - General Nurse Practitioner 03/31/25 documented as of this encounter
--- OUTSIDE RECORDS SUMMARY | 2025-05-26 11:34 | XMS_ITS | Patient Health Record ---
Author Organization [facility] Address [address] [place] [address] Care Team Providers Care Cloth Desizing Range Operator Chief Name Role Phone Mario PLUMMER, Alexis Primary Care Provider Shai Peñaloza Unavailable [phone] CRICKET LAZO Unavailable Unavailable Allergies Allergen (clinical drug ingredient) Drug/Non Drug Allergy documented on EMR Reaction Allergy Type Onset Date Status Medicinal quinolone and acting as antibacterial agent (FN) Quinolones tongue to swell Drug Allergy Active Reason For Referral No Information Medications Medication SIG (Take, Route, Frequency, Duration) Notes Start Date End Date Status Rosuvastatin Calcium 20 MG Tablet 1 tablet Orally Once a day Active Vitamin C 250 MG Tablet 1 tablet Orally Once a day; Duration: 30 day(s) Active Albuterol Sulfate HFA 108 (90 Base) MCG/ACT Aerosol Solution 2 puffs as needed Inhalation every 6 hrs Active Ferrous Gluconate 324 (38 Fe) MG Tablet 1 tablet Orally Three times a Week; Duration: 30 day(s) Active Zafirlukast 20 MG Tablet 1 tablet Orally Twice a day Active Bisacodyl 5 MG Tablet Delayed Release 1 tablet as needed Orally Once a day; Duration: 30 day(s) Active Losartan Potassium 25 MG Tablet 1 tablet Orally Once a day; Duration: 30 day(s) Active Gabapentin 600 MG Tablet 1 tablet Orally Once a day; Duration: 30 day(s) Active Alogliptin Benzoate 12.5 MG Tablet 2 tablets Orally Once a day; Duration: 30 day(s) Active Escitalopram Oxalate 20 MG Tablet 0.5 tablet Orally Once a day Active Topiramate 50 MG Tablet 1 tablet Orally Twice a day Active traZODone HCl 100 MG Tablet 1 tablet at bedtime Orally Once a day Active Aspir-81 81 MG Tablet Delayed Release 1 tablet Orally Once a day Active Social History Tobacco Use: Social History Observation Description Date Details (start date - stop date) Former Smoker NA - NA Social History Drugs/Alcohol: Social Info Question Answer Notes Alcohol Screen Did you have a drink containing alcohol in the past year? No Points 0 Interpretation Negative Tobacco Use: Social Info Question Answer Notes Tobacco Use/Smoking Patient is a former smoker How long has it been since you last smoked? > 10 years Additional Details Category Social Info Options Details Miscellaneous: Marital status: Occupation: retired Section Notes: Nonsmoker since 1994, no sig alcohol Nonsmoker since 1994, no sig alcohol Problems Problem Type SNOMED Code ICD Code Onset Dates Problem Status W/U Status Risk Notes Problem Screening for malignant neoplasm of colon (417712049) Encounter for screening for malignant neoplasm of colon (Z12.11) Active confirmed Problem History of adenomatous polyp of colon (637394217) History of adenomatous polyp of colon (Z86.010) Active confirmed Problem Long-term current use of antiplatelet drug (040786361210110 ) Long-term use of aspirin therapy (Z79.82) Active confirmed Plan Of Treatment Future Test Test Name Order Date COLONOSCOPY 09/25/2017 COLONOSCOPY 02/12/2024 Insurance Providers Payer Name Payer Address Payer Phone Subscriber Number Group Number Insured Name Patient Relationship to Insured Coverage Start Date Coverage End Date [facility] [employer] 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 John 09/24/15
--- OUTSIDE RECORDS SUMMARY | 2025-05-26 11:35 | XMS_ITS | Encounter Summary ---
Author Organization [facility] [place], Address [address] [place] [address] Phone Care Team Providers Care Mechanical Drafter Name Role Phone Alexis Martin HEIKE Primary Care Provider Encounter Details Date Type Department Care Team (Late st Contact Info) Description 04/02/2025 Documentation Only [facility] [address] [place] [address] [place], [place] [address] [place] [phone] Social History Tobacco Use Types [...] Visit [facility] Markus GROVER [address] [place] [phone] Romie Polk MD [address] [place] [address] [place] [phone] documented as of this encounter Visit Diagnoses Not on filedocumented in this encounter Care Teams Mechanical Drafter Relationship Specialty Start Date End Date Alexis Martin DNP [address] [place], [place] PCP - General Nurse Practitioner 03/31/25 documented as of this encounter
--- OUTSIDE RECORDS SUMMARY | 2025-05-26 11:35 | XMS_ITS | Clinical Summary ---
Author Organization [facility] [place], Address [address] [place] [address] Phone Care Team Providers Care Core Analysis Operator Name Role Phone Alexis Martin HEIKE Primary Care Provider [phone] Allergies Active Allergy Reactions Criticality Noted Date Comments Atorvastatin Other (see comments) High 02/18/2013 Other Reaction(s): Myositis Carvedilol Other (see comments) 11/10/2024 Empagliflozin Other (see comments) Medium 09/25/2022 Lisinopril Other (see comments) Medium 11/16/2021 Quinolones Other (see comments),Swelling High 12/17/2017 Other Reaction(s): tongue to swell Tongue swelling Semaglutide Nausea And Vomiting Medium 01/07/2024 Medications aspirin (ST LEAH) 81 MG EC tablet Take 81 mg by mouth 09/29/2024 Active digoxin (LANOXIN) 125 MCG tablet Take 0.125 mg by mouth in the morning. 03/04/2025 Active escitalopram (LEXAPRO) 20 MG tablet Take 20 mg by mouth 10/25/2010 Active furosemide (LASIX) 20 MG tablet Take 20 mg by mouth 09/14/2024 Active insulin glargine (LANTUS) 100 UNIT/ML injection Inject under the skin 11/26/2024 Active LORazepam (ATIVAN) 0.5 MG tablet Take 0.5 mg by mouth 2 times daily as needed 03/04/2025 Active metoprolol succinate XL (TOPROL XL) 50 MG 24 hr tablet Take 50 mg by mouth 09/17/2024 Active mirtazapine (REMERON) 30 MG tablet Take 15 mg by mouth 04/01/2025 Active rosuvastatin (CRESTOR) 40 MG tablet Take 20 mg by mouth 10/03/2024 Active topiramate (TOPAMAX) 50 MG tablet Take 50 mg by mouth 11/29/2017 Active Active Problems Problem Noted Date Diagnosed Date Renal disorder due to type 2 diabetes mellitus <Unspecified DM Medication; Diabetic nephropathy> 05/20/2025 Simple renal cyst 05/20/2025 Stage 3b chronic kidney disease 05/20/2025 Type 2 diabetes mellitus 03/10/2024 Encounters Date Type Department Care Team Description 05/22/2025 Orders Only [facility] Dr Jayne GROVER [address] [place] [phone] Romie Polk MD Stage 3b chronic kidney disease (HCC) 05/20/2025 1:45 PM EST Office Visit [facility] Dr Jayne GROVER [address] [place] [address] [phone] Romie Polk MD Renal disorder due to type 2 diabetes mellitus <Unspecified DM Medication; Diabetic nephropathy> (HCC) (Primary Dx); Simple renal cyst; Stage 3b chronic kidney disease (HCC) 05/08/2025 Orders Only [facility] Dr Jayne GROVER [address] [place] [address] [phone] Romie Polk MD Stage 3b chronic kidney disease (HCC) 04/24/2025 Orders Only [facility] [address] Dr Jayne GROVER [address] [place] [phone] Romie Polk MD Stage 3b chronic kidney disease (HCC) 04/20/2025 Documentation Only [facility] [address] [place] [address] Maribel Velazquez 04/10/2025 Orders Only [facility] Dr Jayne GROVER [address] [place] [phone] Romie Polk MD Stage 3b chronic kidney disease (HCC) 04/06/2025 Documentation Only [facility] [address] [place] [phone] Kobe Milner [place] 04/02/2025 Documentation Only [facility] [address] [place] [phone] Kobe Milner [place] 04/02/2025 Orders Only [facility] Dr [address] [place] [phone] Romie Polk MD Stage 3b chronic kidney disease (HCC) (Primary Dx) 03/31/2025 Documentation Only [facility] [address] [place] [phone] Kobe Milner MA 03/31/2025 Telephone [facility] [address] [place] [address] Kobe Milner MA 03/31/2025 Documentation Only [facility] [address] [place] [phone] Kobe Milner MA from Last 3 Months Immunizations Immunization Administration Dates Next Due Influenza Split High Dose Pr eservative Free IM 03/04/2025,03/03/2024,03/17/2019 Influenza Vaccine, Quadrival ent, Adjuvanted 02/16/2022,03/21/2021 Influenza, Trivalent, Adjuvanted 03/19/2019,03/04 Influenza, Unspecified 02/21/2017,2015,02/26/2015,04/22,04/09/2013,03/07/2012,04/18/2011 ,06/04/2010,03/04/2009,03/04/2008,06/2006,05/04/2006,04/25/2005 Moderna SARS-COV-2 12/16/2021,07/28/2020, 021 Pneumococcal Conjugate 13-Valent 02/26/2015 Pneumococcal Polysaccharide 02/16/2022 Pneumococcal, Unspecified 09/16/2013,06/04/2004 Shingrix 03/31/2020,01/30/2020 Tdap 10/18/2016,11/07/2006 Social History Tobacco Use Types Packs/Day Years [...] Visit [facility] Dr Jayne [address] [place] [phone] Romie Polk MD [address] [place] [address] Health Maintenance Due Date Last [...] mg/dl PVNMA 11/13/2019 us [facility] Conversion LAB [id number] LICITED RESULTS Final Result PVNMA from Last 3 Months or Most Recently Relevant to Health Maintenance Insurance [facility] Regions 1,2,3 (VACCN) Care Teams Core Analysis Operator Relationship Specialty Start Date End Date Alexis Martin DNP [address] [place] [address] PCP - General Nurse Practitioner 03/31/25
--- OUTSIDE RECORDS SUMMARY | 2025-05-26 11:35 | XMS_ITS | Encounter Summary ---
Author Organization [facility] [place], Address [address] [place] [address] Phone Care Team Providers Care Asset Analyst Name Role Phone Alexis Martin HEIKE Primary Care Provider Encounter Details Date Type Department Care Team (Late st Contact Info) Description 04/20/2025 Documentation Only [facility] [address] [place] [address] Maribel Velazquez [address] [place] [phone] Social History Tobacco Use Types Packs/Day Years [...] [facility] Jack [address]OVER [address] [place] [phone] Romie Polk MD [address] [place] [address] [place] [phone] documented as of this encounter Visit Diagnoses Not on filedocumented in this encounter Care Teams Asset Analyst Relationship Specialty Start Date End Date Alexis Martin DNP [address] [place] [address] PCP - General Nurse Practitioner 03/31/25 documented as of this encounter
--- OUTSIDE RECORDS SUMMARY | 2025-05-26 11:35 | XMS_ITS | Encounter Summary ---
Author Organization [facility] [place], Address [address] [place] [address] Phone Care Team Providers Care Conservation Planner Name Role Phone Alexis Martin DNP Primary Care Provider Encounter Details Date Type Department Care Team (Late st Contact Info) Description 04/24/2025 Orders Only [facility] Jack [address] [place] [phone] Romie Polk MD [address] [place] [address] [place] [phone] Stage 3b chronic kidney disease [...] Visit [facility] Jack [address] [place] [phone] Romie Polk MD [address] [place] [address] [place] [phone] documented as of this encounter Visit Diagnoses Diagnosis Stage 3b chronic kidney disease (HCC) documented in this encounter Care Teams Conservation Planner Relationship Specialty Start Date End Date Alexis Martin DNP [address] [place], [place] PCP - General Nurse Practitioner 03/31/25 documented as of this encounter
--- OUTSIDE RECORDS SUMMARY | 2025-05-26 11:35 | XMS_ITS | Encounter Summary ---
Author Organization [facility] [place], Address [address] [place] [address] Phone Care Team Providers Care Bill Recapitulation Clerk Name Role Phone Alexis Martin HEIKE Primary Care Provider Encounter Details Date Type Department Care Team (Late st Contact Info) Description 04/06/2025 Documentation Only [facility] [address] [place] [address] [place], [place] [address] [place] [phone] Social History Tobacco Use Types [...] Visit [facility] Markus GROVER [address] [place] [phone] Romie Polk MD [address] [place] [address] [place] [phone] documented as of this encounter Visit Diagnoses Not on filedocumented in this encounter Care Teams Bill Recapitulation Clerk Relationship Specialty Start Date End Date Alexis Martin DNP [address] [place], [place] PCP - General Nurse Practitioner 03/31/25 documented as of this encounter
--- OUTSIDE RECORDS SUMMARY | 2025-07-11 19:00 | XMS_ITS | Clinical Summary ---
Author Organization Unknown Care Team Providers [facility] Pastor Name Role Phone FLEX ASSEMBLY AND PACKING SUPERVISOR, GIULIANO Unavailable Unavailable FAITH MULLRE, KULWINDER Unavailable Unavailable Payers Payer Name Policy Type Policy Number Effective Date Expira tion Date MEDICARE.NGS.PDGM [id number] Problems Condition Name Condition Details Condition Category Status Onset Date Resolution Date Last Treatment Date Treating Clinician Comments CHRONIC OBSTRUCTIVE PULMONARY DISEASE W (ACUTE) EXACERBATION Active 2024-06 00:00: 00 CHRONIC RESPIRATORY FAILURE WITH HYPOXIA Active 11-09 00:00: 00 UNSPECIFIED SYSTOLIC (CONGESTIVE) HEART FAILURE Active 11-09 00:00: 00 PAROXYSMAL ATRIAL FIBRILLATION Active 11-09 00:00: 00 TYPE 2 DIABETES MELLITUS WITHOUT COMPLICATION S Active 11-09 00:00: 00 MYOCARDIAL INFARCTION TYPE 2 Active 11-09 00:00: 00 ANXIETY DISORDER, UNSPECIFIED Active 11-09 00:00: 00 DEPENDENCE ON SUPPLEMENTAL OXYGEN Active 11-09 00:00: 00 GROUP HOME (CURRENT) USE OF ASPIRIN Active 11-09 00:00: 00 GROUP HOME (CURRENT) USE OF INHALED STEROIDS Active 11-09 00:00: 00 Allergies, Adverse Reactions, Alerts Allergy Name Allergy Type Status Severity Reaction(s) Onset Date Inactive Date Treating Clinician Comments NO KNOWN ALLERGIES Propensity to adverse reactions Active 2024-06 12:18: 25 Medications Ordered Medication Name Filled Medication Name Start Date Stop Date Current Medication? Ordering Clinician Indication Dosage Frequency Signature (SIG) Comments Components cefpodoxime 200 mg tablet - 00:00: 00 03-12 00:00 :00 No [id number] Per instruc tions Per instructio ns (route: oral) Med Classific ation: Anti-Infe ctive Agents sulfamethox azole 800 mg-trimetho prim 160 mg tablet 02-27 00:00: 00 03-12 00:00 :00 No [id number] Per instruc tions TWICE A DAY Per instructio ns TWICE A DAY (route: oral) Med Classific ation: Anti-Infe ctive Agents cefpodoxime 200 mg tablet 02-24 00:00: 00 03-12 00:00 :00 No [id number] Unavailable Per instruc tions TWICE DAILY FOR 5 DAYS Per instructio ns TWICE DAILY FOR 5 DAYS (route: oral) Med Classific ation: Anti-Infe ctive Agents cephalexin 500 mg capsule 02-13 00:00: 00 03-12 00:00 :00 No [id number] Unavailable Per instruc tions THREE TIMES DAILY Per instructio ns THREE TIMES DAILY (route: oral) Med Classific ation: Anti-Infe ctive Agents oxycodone 5 mg tablet 02-13 00:00: 00 03-12 00:00 :00 No [id number] Unavailable Per instruc tions EVERY 4 - 6 HOURS NEEDED Per instructio ns EVERY 4 - 6 HOURS NEEDED (route: oral) Med Classific ation: Analgesic , Anti-infl ammatory or Antipyret ic acetaminoph en 325 mg tablet 2023-06 00:00: 00 09-16 00:00 :00 No [id number] MILD PAIN 2 tablet EVERY 4 HOURS 2 tablet EVERY 4 HOURS (route: oral) Med Classific ation: Analgesic , Anti-infl ammatory or Antipyret ic albuterol sulfate 2.5 mg/3 mL (0.083 %) solution for nebulizatio n 2023-06 00:00: 00 09-16 00:00 :00 No [id number] WHEEZING/SO B 3 mL 4 TIMES DAILY 3 mL 4 TIMES DAILY (route: inhalation ) Med Classific ation: Respirato ry Therapy Agents albuterol sulfate HFA 90 mcg/actuati on aerosol inhaler 2023-06 00:00: 09-16 00:00 :00 No [id number] WHEEZING 2 puff 4 TIMES DAILY 2 puff 4 TIMES DAILY (route: inhalation ) Med Classific ation: Respirato ry Therapy Agents ascorbic acid (vitamin C) 250 mg tablet 2023-06 0 00:00: 00 09-16 00:00 :00 No [id number] SUPPLEMENT 1 tablet EVERY OTHER DAY 1 tablet EVERY OTHER DAY (route: oral) Med Classific ation: Electroly te Balance-N utritiona l Products aspirin 81 mg tablet,neftaly yed release 2023-06 0 00:00: 00 09-16 00:00 :00 No [id number] HEART HEALTH 1 tablet DAILY 1 tablet DAILY (route: oral) Med Classific ation: Hematolog ical Agents bisacodyl 5 mg tablet,neftaly yed release 2023-06 0 00:00: 00 09-16 00:00 :00 No [id number] CONSTIPATIO N 1 tablet DAILY 1 tablet DAILY (route: oral) Med Classific ation: Gastroint estinal Therapy Agents cefpodoxime 200 mg tablet 2023-06 00:00: 00 03-22 23:59 :00 No [id number] URINARY TRACT INFECTION 1 tablet 2 TIMES DAILY 1 tablet 2 TIMES DAILY (route: oral) Med Classific ation: Anti-Infe ctive Agents dextrometho rphan-guaif enesin 10 mg-100 mg/5 mL oral liquid 2023-06 0 00:00: 00 09-16 00:00 :00 No [id number] COUGH 10 mL EVERY 4 HOURS 10 mL EVERY 4 HOURS (route: oral) Med Classific ation: Respirato ry Therapy Agents duloxetine 30 mg capsule,del ayed release 2023-06 0 00:00: 00 09-16 00:00 :00 No [id number] PAIN MANAGEMENT 1 capsule DAILY 1 capsule DAILY (route: oral) Med Classific ation: Central Nervous System Agents ferrous gluconate 324 mg (37.5 mg iron) tablet 2023-06 0 00:00: 00 09-16 00:00 :00 No [id number] SUPPLEMENT 1 tablet EVERY OTHER DAY 1 tablet EVERY OTHER DAY (route: oral) Med Classific ation: Electroly te Balance-N utritiona l Products fluticasone 500 mcg-salmete rol 50 mcg/dose blistr powdr for inhalation 2023-06 0 00:00: 00 09-16 00:00 :00 No [id number] COPD 1 inhalat ion 2 TIMES DAILY 1 inhalation 2 TIMES DAILY (route: inhalation ) Med Classific ation: Respirato ry Therapy Agents lidocaine 5 % topical patch 2023-06 00:00: 00 09-16 00:00 :00 No [id number] PAIN MANAGEMENT 1 adhesiv e patch, medicat ed DAILY 1 adhesive patch, medicated DAILY (route: topical) Med Classific ation: Dermatolo gical oxybutynin chloride 5 mg tablet 2023-06 00:00: 00 09-16 00:00 :00 No [id number] URINARY RETENTION 1 tablet DAILY 1 tablet DAILY (route: oral) Med Classific ation: Genitouri nary Therapy rosuvastati n 40 mg tablet 2023-06 00:00: 00 09-16 00:00 :00 No [id number] LOWERS CHOLESTEROL 0.5 tablet DAILY 0.5 tablet DAILY (route: oral) Med Classific ation: Cardiovas cular Therapy Agents Spiriva Respimat 2.5 mcg/actuati on solution for inhalation 2023-06 0 00:00: 00 09-16 00:00 :00 No [id number] COPD 2 puff DAILY 2 puff DAILY (route: inhalation ) Med Classific ation: Respirato ry Therapy Agents topiramate 50 mg tablet 2023-06 0 00:00: 00 09-16 00:00 :00 No [id number] IMPROVES SLEEP 1 tablet BEDTIME 1 tablet BEDTIME (route: oral) Med Classific ation: Central Nervous System Agents trazodone 100 mg tablet 2023-06 0 00:00: 00 09-16 00:00 :00 No [id number] IMPROVES SLEEP 1 tablet BEDTIME 1 tablet BEDTIME (route: oral) Med Classific ation: Central Nervous System Agents cefpodoxime 200 mg tablet 2023-06 00:00: 00 09-16 00:00 :00 No [id number] INFECTION 1 tablet 2 TIMES DAILY 1 tablet 2 TIMES DAILY (route: oral) Med Classific ation: Anti-Infe ctive Agents acetylcyste ine 200 mg/mL (20 %) solution 09-14 00:00: 00 12-21 00:00 :00 No [id number] CHEST CONGESTION/ PNEUMONIA 3 mL 2 TIMES DAILY 3 mL 2 TIMES DAILY (route: miscellane ous) Med Classific ation: Respirato ry Therapy Agents Adult Low Dose Aspirin 81 mg tablet,neftaly yed release 09-14 00:00: 00 Yes [id number] CORONARY ARTERY DISEASS 1 tablet DAILY 1 tablet DAILY (route: oral) Med Classific ation: Hematolog ical Agents ascorbic acid (vitamin C) 250 mg tablet 09-14 00:00: 00 12-21 00:00 :00 No [id number] HELP IRON ABSORPTION 1 tablet DAILY 1 tablet DAILY (route: oral) Med Classific ation: Electroly te Balance-N utritiona l Products cefuroxime axetil 500 mg tablet 09-14 00:00: 00 09-19 23:59 :00 No [id number] PNEUMONIA 1 tablet 2 TIMES DAILY 1 tablet 2 TIMES DAILY (route: oral) Med Classific ation: Anti-Infe ctive Agents Colace 100 mg capsule 09-14 00:00: 00 12-21 00:00 :00 No [id number] CONSTIPATIO N 1 capsule DAILY 1 capsule DAILY (route: oral) Med Classific ation: Gastroint estinal Therapy Agents doxycycline hyclate 100 mg capsule 09-19 00:00: 00 10-22 00:00 :00 No [id number] PNEUMONIA 1 capsule EVERY 12 HOURS 1 capsule EVERY 12 HOURS (route: oral) Med Classific ation: Anti-Infe ctive Agents duloxetine 30 mg capsule,del ayed release 09-14 00:00: 00 11-14 00:00 :00 No [id number] DEPRESSION 1 capsule DAILY 1 capsule DAILY (route: oral) Med Classific ation: Central Nervous System Agents ferrous sulfate 324 mg (65 mg iron) tablet,neftaly yed release 09-14 00:00: 00 12-21 00:00 :00 No [id number] ANEMIA 1 tablet DAILY 1 tablet DAILY (route: oral) Med Classific ation: Electroly te Balance-N utritiona l Products furosemide 20 mg tablet 09-14 00:00: 00 12-21 00:00 :00 No [id number] CHF 1 tablet DAILY 1 tablet DAILY (route: oral) Med Classific ation: Cardiovas cular Therapy Agents metoprolol succinate ER 50 mg tablet,exte nded release 24 hr 09-14 00:00: 00 09-26 00:00 :00 No [id number] IRREGULAR HEART BEAT 1 tablet DAILY 1 tablet DAILY (route: oral) Med Classific ation: Cardiovas cular Therapy Agents Mucinex 600 mg tablet, extended release 09-14 00:00: 00 09-25 23:59 :00 No [id number] PNEUMONIA 2 tablet 2 TIMES DAILY 2 tablet 2 TIMES DAILY (route: oral) Med Classific ation: Respirato ry Therapy Agents oxybutynin chloride 5 mg tablet 09-14 00:00: 00 Yes [id number] HX PROSTATE CANCER 5 mg DAILY 5 mg DAILY (route: oral) Med Classific ation: Genitouri nary Therapy prednisone 20 mg tablet 09-14 00:00: 00 09-16 23:59 :00 No [id number] RESPIRATORY SUPPORT 2 tablet DAILY 2 tablet DAILY (route: oral) Med Classific ation: Endocrine sacubitril 24 mg-valsarta n 26 mg tablet 09-14 00:00: 00 12-21 00:00 :00 No [id number] HEART FAILURE 1 tablet 2 TIMES DAILY 1 tablet 2 TIMES DAILY (route: oral) Med Classific ation: Cardiovas cular Therapy Agents Spiriva with HandiHaler 18 mcg and inhalation capsules 09-14 00:00: 00 Yes [id number] COPD 18 inhalat ion DAILY 18 inhalation DAILY (route: inhalation ) Med Classific ation: Respirato ry Therapy Agents topiramate 50 mg tablet 09-14 00:00: 12-21 00:00 :00 No [id number] PTSD 1 tablet BEDTIME 1 tablet BEDTIME (route: oral) Med Classific ation: Central Nervous System Agents Wixela Inhub 250 mcg-50 mcg/dose powder for inhalation 09-14 00:00: 00 12-21 00:00 :00 No [id number] COPD 1 inhalat ion 2 TIMES DAILY 1 inhalation 2 TIMES DAILY (route: inhalation ) Med Classific ation: Respirato ry Therapy Agents acetylcyste ine 100 mg/mL (10 %) solution 11-14 00:00: 00 12-21 00:00 :00 No [id number] COPD 3 mL 2 TIMES DAILY 3 mL 2 TIMES DAILY (route: miscellane ous) Med Classific ation: Respirato ry Therapy Agents cefepime 2 gram solution for injection 11-14 00:00: 00 11-18 23:59 :00 No [id number] PNA 2 g 2 TIMES DAILY 2 g 2 TIMES DAILY (route: injection) Med Classific ation: Anti-Infe ctive Agents Crestor 40 mg tablet 11-14 00:00: 00 12-21 00:00 :00 No [id number] HLD .5 tablet DAILY .5 tablet DAILY (route: oral) Med Classific ation: Cardiovas cular Therapy Agents Culturelle 10 billion cell capsule 11-14 00:00: 00 11-21 23:59 :00 No [id number] PROBIOTIC 1 capsule DAILY 1 capsule DAILY (route: oral) Med Classific ation: Gastroint estinal Therapy Agents digoxin 125 mcg (0.125 mg) tablet 11-14 00:00: 00 Yes [id number] AFIB 125 tablet DAILY 125 tablet DAILY (route: oral) Med Classific ation: Cardiovas cular Therapy Agents morphine 15 mg immediate release tablet 11-14 00:00: 00 Yes [id number] SOB 15 mg 2 TIMES DAILY 15 mg 2 TIMES DAILY (route: oral) Med Classific ation: Analgesic , Anti-infl ammatory or Antipyret ic Mucinex 600 mg tablet, extended release 11-14 00:00: 00 11-21 23:59 :00 No [id number] COPD 2 tablet 2 TIMES DAILY 2 tablet 2 TIMES DAILY (route: oral) Med Classific ation: Respirato ry Therapy Agents Normal Saline Flush 0.9 % injection syringe 11-14 00:00: 00 11-18 23:59 :00 No [id number] PNA 10 mL 2 TIMES DAILY 10 mL 2 TIMES DAILY (route: injection) Med Classific ation: Electroly te Balance-N utritiona l Products prednisone 10 mg tablet 11-14 00:00: 00 11-16 23:59 :00 No [id number] COPD 1 tablet DAILY 1 tablet DAILY (route: oral) Med Classific ation: Endocrine prednisone 10 mg tablet 11-17 00:00: 00 11-19 23:59 :00 No [id number] COPD .5 tablet DAILY .5 tablet DAILY (route: oral) Med Classific ation: Endocrine spironolact one 25 mg tablet 11-14 00:00: 00 12-21 00:00 :00 No [id number] HF .5 tablet DAILY .5 tablet DAILY (route: oral) Med Classific ation: Cardiovas cular Therapy Agents acetylcyste ine 100 mg/mL (10 %) solution 12-21 00:00: 00 Yes [id number] COPD 3 mL 2 TIMES DAILY 3 mL 2 TIMES DAILY (route: miscellane ous) Med Classific ation: Respirato ry Therapy Agents cefepime 2 gram solution for injection 12-21 00:00: 00 03-05 00:00 :00 No [id number] ANTIBIOTIC 2 g EVERY 12 HOURS 2 g EVERY 12 HOURS (route: injection) Med Classific ation: Anti-Infe ctive Agents Culturelle 10 billion cell capsule 12-21 00:00: 00 Yes [id number] PROBIOTIC 1 capsule 2 TIMES DAILY 1 capsule 2 TIMES DAILY (route: oral) Med Classific ation: Gastroint estinal Therapy Agents iron 325 mg (65 mg iron) tablet 12-21 00:00: 00 Yes [id number] SUPPLEMENT 324 mg EVERY OTHER DAY 324 mg EVERY OTHER DAY (route: oral) Med Classific ation: Electroly te Balance-N utritiona l Products Mucinex D 60 mg-600 mg tablet,exte nded release 12-21 00:00: 00 Yes [id number] CLEARS MUCOUS 600 mg 2 TIMES DAILY 600 mg 2 TIMES DAILY (route: oral) Med Classific ation: Respirato ry Therapy Agents rosuvastati n 20 mg tablet 12-21 00:00: 00 Yes [id number] HIGH CHOLESTEROL 20 mg BEDTIME 20 mg BEDTIME (route: oral) Med Classific ation: Cardiovas cular Therapy Agents tobramycin 300 mg/5 mL in 0.225 % sodium chloride for nebulizatio n 12-21 00:00: 00 Yes [id number] PNEUMONIA 5 mL EVERY 12 HOURS 5 mL EVERY 12 HOURS (route: inhalation ) Med Classific ation: Respirato ry Therapy Agents Topamax 50 mg tablet 12-21 00:00: 00 Yes [id number] CALMS OVERACTIVE NERVES 50 mg BEDTIME 50 mg BEDTIME (route: oral) Med Classific ation: Central Nervous System Agents Vitamin C 250 mg tablet 12-21 00:00: 00 Yes [id number] SUPPLEMENT 250 mg EVERY OTHER DAY 250 mg EVERY OTHER DAY (route: oral) Med Classific ation: Electroly te Balance-N utritiona l Products Wixela Inhub 250 mcg-50 mcg/dose powder for inhalation 12-21 00:00: 00 03-05 00:00 :00 No [id number] INHALATION INTO LUNGS 250 mcg EVERY 12 HOURS 250 mcg EVERY 12 HOURS (route: inhalation ) Med Classific ation: Respirato ry Therapy Agents BD PosiFlush Normal Saline 0.9 % injection syringe 12-21 00:00: 00 05-14 00:00 :00 No [id number] PICCLINE 10 mL 2 TIMES DAILY 10 mL 2 TIMES DAILY (route: injection) Med Classific ation: Electroly te Balance-N utritiona l Products heparin (porcine) (PF) 10 unit/mL in 0.9 % sodium chloride IV syringe 12-21 00:00: 00 05-14 00:00 :00 No [id number] PICC LINE 5 unit 2 TIMES DAILY 5 unit 2 TIMES DAILY (route: intravenou s) Med Classific ation: Hematolog ical Agents oxygen gas for inhalation 12-21 00:00: 00 Yes [id number] COPD 3 Liter O2 - CONTINUOUS 3 Liter O2 - CONTINUOUS (route: inhalation ) Med Classific ation: Medical Supplies and Durable Medical Equipment (DME) Lexapro 20 mg tablet 12-30 00:00: 00 Yes [id number] DEPRESSION 1 tablet DAILY 1 tablet DAILY (route: oral) Med Classific ation: Central Nervous System Agents prednisone 5 mg tablet 12-30 00:00: 00 03-05 00:00 :00 No [id number] COPD 1 tablet DAILY 1 tablet DAILY (route: oral) Med Classific ation: Endocrine Lasix 20 mg tablet 12-31 00:00: 00 Yes [id number] fluid retention 1 tablet DAILY 1 tablet DAILY (route: oral) Med Classific ation: Cardiovas cular Therapy Agents Zerbaxa 1.5 gram intravenous solution 2024-06 00:00: 00 05-14 00:00 :00 No [id number] ABT 1.5 g 3 TIMES DAILY 1.5 g 3 TIMES DAILY (route: intravenou s) Med Classific ation: Anti-Infe ctive Agents Vital Signs Vital Name Observation Time Observation Value Commen ts Temperature 2025-05-22 15:49:00.000 98 [degF] Temperature 2025-05-19 15:55:00.000 97.9 [degF] Temperature 2025-05-14 10:01:00.000 98 [degF] BMI (%) 2025-05-14 10:01:00.000 22 kg/m2 Height 2025-05-14 10:01:00.000 68 [in_us] Pulse 2025-05-22 15:49:00.000 91 /min Pulse 2025-05-19 15:55:00.000 67 /min Pulse 2025-05-14 10:01:00.000 66 /min O2 Saturation (%) 2025-05-22 15:49:00.000 90 % O2 Saturation (%) 2025-05-19 15:55:00.000 91 % O2 Saturation (%) 2025-05-14 10:01:00.000 92 % Respirations 2025-05-22 15:49:00.000 18 /min Respirations 2025-05-19 15:55:00.000 18 /min Respirations 2025-05-14 10:01:00.000 18 /min Weight (lbs) 2025-05-14 10:01:00.000 145 [lb_av] Systolic Blood Pressure 2025-05-22 15:49:00.000 160 mm [Hg] Systolic Blood Pressure 2025-05-19 15:55:00.000 122 mm [Hg] Systolic Blood Pressure 2025-05-14 10:01:00.000 110 mm [Hg] Diastolic Blood Pressure 2025-05-22 15:49:00.000 90 mm [Hg] Diastolic Blood Pressure 2025-05-19 15:55:00.000 60 mm [Hg] Diastolic Blood Pressure 2025-05-14 10:01:00.000 52 mm [Hg] Plan of Treatment Planned Activity Planned Date Details Comments Future Scheduled Test RN TO OBSE RVE, ASSESS, EVALUATE, AND DEVELOP AN INDIVIDUALIZED PLAN OF CARE. AGENCY MAY ACCEPT ORDERS FROM CONSULTING PHYSICIANS FLEX MULLER TO OBSERVE AND ASSESS, SECURITY POLICE OFFICER/ACCOUNT FINANCIAL MANAGER TO OBSERVE FOR RISK FOR FALLS AND INSTRUCT IN FALL PREVENTION, HOME SAFETY, MEDICATION MANAGEMENT, INFECTION PREVENTION, AND NUTRITION MANAGEMENT. RN/SECURITY POLICE OFFICER/ACCOUNT FINANCIAL MANAGER NURSE MAY PERFORM O2 SATURATION LEVEL ON ADMISSION AND PRN FOR FOR RN TO ASSESS/SECURITY POLICE OFFICER TO OBSERVE PATIENT, WITH NOTIFICATION TO THE PHYSICIAN IF SATURATION IS 90% IN THE ABSENCE OF MORE SPECIFIC PARAMETERS FROM THE PHYSICIAN. AGENCY MAY PERFORM A RESUMPTION OF CARE VISIT FOLLOWING ANY HOSPITAL ADMISSION. RN/SECURITY POLICE OFFICER/ACCOUNT FINANCIAL MANAGER TO MONITOR CO-MORBID CONDITIONS LISTED ON THE PLAN OF CARE AND ANY NEW CONDITIONS THAT PRESENT THEMSELVES DURING THIS EPISODE TO IDENTIFY CHANGES AND INTERVENE TO MINIMIZE COMPLICATIONS. [code = RN TO OBSERVE, ASSESS, EVALUATE, AND DEVELOP AN INDIVIDUALIZED PLAN OF CARE. AGENCY MAY ACCEPT ORDERS FROM CONSULTING PHYSICIANS FLEX RN TO OBSERVE AND ASSESS, SECURITY POLICE OFFICER/ACCOUNT FINANCIAL MANAGER TO OBSERVE FOR RISK FOR FALLS AND INSTRUCT IN FALL PREVENTION, HOME SAFETY, MEDICATION MANAGEMENT, INFECTION PREVENTION, AND NUTRITION MANAGEMENT. RN/SECURITY POLICE OFFICER/ACCOUNT FINANCIAL MANAGER NURSE MAY PERFORM O2 SATURATION LEVEL ON ADMISSION AND PRN FOR FOR RN TO ASSESS/SECURITY POLICE OFFICER TO OBSERVE PATIENT, WITH NOTIFICATION TO THE PHYSICIAN IF SATURATION IS 90% IN THE ABSENCE OF MORE SPECIFIC PARAMETERS FROM THE PHYSICIAN. AGENCY MAY PERFORM A RESUMPTION OF CARE VISIT FOLLOWING ANY HOSPITAL ADMISSION. RN/SECURITY POLICE OFFICER/ACCOUNT FINANCIAL MANAGER TO MONITOR CO-MORBID CONDITIONS LISTED ON THE PLAN OF CARE AND ANY NEW CONDITIONS THAT PRESENT THEMSELVES DURING THIS EPISODE TO IDENTIFY CHANGES AND INTERVENE TO MINIMIZE COMPLICATIONS.] Future Scheduled Test RISK FOR H OSPITALIZATION; RN TO ASSESS/TEACH, ACCOUNT FINANCIAL MANAGER/SECURITY POLICE OFFICER TO OBSERVE/TEACH PATIENT/CAREGIVER ON RISK FOR HOSPITALIZATION/EMERGENCY ROOM VISITS, TEACH SIGNS AND SYMPTOMS THAT PUT PATIENT AT RISK, WHEN TO NOTIFY NURSE/PHYSICIAN OF COMPLICATIONS/DECLINE, AND WHEN TO CALL 911. [code = RISK FOR HOSPITALIZATION; RN TO ASSESS/TEACH, ACCOUNT FINANCIAL MANAGER/SECURITY POLICE OFFICER TO OBSERVE/TEACH PATIENT/CAREGIVER ON RISK FOR HOSPITALIZATION/EMERGENCY ROOM VISITS, TEACH SIGNS AND SYMPTOMS THAT PUT PATIENT AT RISK, WHEN TO NOTIFY NURSE/PHYSICIAN OF COMPLICATIONS/DECLINE, AND WHEN TO CALL 911.] Future Scheduled Test MEDICATION MANAGEMENT; RN/SECURITY POLICE OFFICER/ACCOUNT FINANCIAL MANAGER TO REVIEW MEDICATIONS FOR INTERACTIONS, EFFECTIVENESS OF DRUG THERAPY, AND SIGNS/SYMPTOMS OF ADVERSE REACTIONS. MAY INSTRUCT AND REINFORCE MEDICATION TEACHING RELATED TO THE USE OF MEDICATIONS, DOSAGE, FREQUENCY, PURPOSE, SIDE EFFECTS, AND TO REPORT COMPLICATIONS. [code = MEDICATION MANAGEMENT; RN/SECURITY POLICE OFFICER/ACCOUNT FINANCIAL MANAGER TO REVIEW MEDICATIONS FOR INTERACTIONS, EFFECTIVENESS OF DRUG THERAPY, AND SIGNS/SYMPTOMS OF ADVERSE REACTIONS. MAY INSTRUCT AND REINFORCE MEDICATION TEACHING RELATED TO THE USE OF MEDICATIONS, DOSAGE, FREQUENCY, PURPOSE, SIDE EFFECTS, AND TO REPORT COMPLICATIONS.] Future Scheduled Test CARDIOVASC ULAR SYSTEM; RN TO ASSESS/TEACH, SECURITY POLICE OFFICER/ACCOUNT FINANCIAL MANAGER TO OBSERVE/TEACH RELATED TO ALTERED CARDIOVASCULAR STATUS TO MINIMIZE COMPLICATIONS AND REDUCE HOSPITALIZATION. [code = CARDIOVASCULAR SYSTEM; RN TO ASSESS/TEACH, SECURITY POLICE OFFICER/ACCOUNT FINANCIAL MANAGER TO OBSERVE/TEACH RELATED TO ALTERED CARDIOVASCULAR STATUS TO MINIMIZE COMPLICATIONS AND REDUCE HOSPITALIZATION.] Future Scheduled Test HEART FAIL URE; RN TO ASSESS/TEACH, SECURITY POLICE OFFICER/ACCOUNT FINANCIAL MANAGER TO OBSERVE/TEACH CARDIOPULMONARY SYSTEM TO IDENTIFY SIGNS [...] MEASURE ABDOMINAL GIRTH IF UNABLE TO WEIGH. SCALES AND BP MONITOR TO BE PROVIDED IF NEEDED. [code = HEART FAILURE; RN TO ASSESS/TEACH, SECURITY POLICE OFFICER/ACCOUNT FINANCIAL MANAGER TO OBSERVE/TEACH CARDIOPULMONARY SYSTEM TO IDENTIFY SIGNS [...] MEASURE ABDOMINAL GIRTH IF UNABLE TO WEIGH. SCALES AND BP MONITOR TO BE PROVIDED IF NEEDED.] Future Scheduled Test RESPIRATOR Y SYSTEM MANAGEMENT; RN TO ASSESS AND TEACH, SECURITY POLICE OFFICER/ACCOUNT FINANCIAL MANAGER TO OBSERVE AND TEACH RELATED TO ALTERED RESPIRATORY STATUS TO MINIMIZE COMPLICATIONS AND REDUCE HOSPITALIZATION. [code = RESPIRATORY SYSTEM MANAGEMENT; RN TO ASSESS AND TEACH, SECURITY POLICE OFFICER/ACCOUNT FINANCIAL MANAGER TO OBSERVE AND TEACH RELATED TO ALTERED RESPIRATORY STATUS TO MINIMIZE COMPLICATIONS AND REDUCE HOSPITALIZATION.] Future Scheduled Test COPD MANAG EMENT; RN TO ASSESS AND TEACH, SECURITY POLICE OFFICER/ACCOUNT FINANCIAL MANAGER TO OBSERVE AND TEACH SIGNS/SYMPTOMS OF COPD EXACERBATION AND PROVIDE EARLY INTERVENTIONS TO MINIMIZE RISK OF HOSPITALIZATION. RN/SECURITY POLICE OFFICER/ACCOUNT FINANCIAL MANAGER TO INSTRUCT ON SELF-CARE MANAGEMENT INCLUDING BREATHING TECHNIQUES, AIRWAY CLEARANCE, AND PROPER USE OF COPD MEDICATIONS. RN TO ASSESS AND TEACH, SECURITY POLICE OFFICER/ACCOUNT FINANCIAL MANAGER TO OBSERVE AND TEACH PATIENT/CAREGIVER ABILITY TO MONITOR AND RECORD VITAL SIGNS INCLUDING PULSE OXIMETRY AND BLOOD PRESSURE. PULSE OXIMETER AND BP MONITOR TO BE PROVIDED IF NEEDED [code = COPD MANAGEMENT; RN TO ASSESS AND TEACH, SECURITY POLICE OFFICER/ACCOUNT FINANCIAL MANAGER TO OBSERVE AND TEACH SIGNS/SYMPTOMS OF COPD EXACERBATION AND PROVIDE EARLY INTERVENTIONS TO MINIMIZE RISK OF HOSPITALIZATION. RN/SECURITY POLICE OFFICER/ACCOUNT FINANCIAL MANAGER TO INSTRUCT ON SELF-CARE MANAGEMENT INCLUDING BREATHING TECHNIQUES, AIRWAY CLEARANCE, AND PROPER USE OF COPD MEDICATIONS. RN TO ASSESS AND TEACH, SECURITY POLICE OFFICER/ACCOUNT FINANCIAL MANAGER TO OBSERVE AND TEACH PATIENT/CAREGIVER ABILITY TO MONITOR AND RECORD VITAL SIGNS INCLUDING PULSE OXIMETRY AND BLOOD PRESSURE. PULSE OXIMETER AND BP MONITOR TO BE PROVIDED IF NEEDED] Future Scheduled Test OXYGEN THE RAPY; RN/SECURITY POLICE OFFICER/ACCOUNT FINANCIAL MANAGER TO INSTRUCT ON OXYGEN MANAGEMENT INCLUDING: ADMINISTRATION AT2-3 L/MIN VIA MI CONTINUOUS CARE OF EQUIPMENT AND SAFETY. [code = OXYGEN THERAPY; RN/SECURITY POLICE OFFICER/ACCOUNT FINANCIAL MANAGER TO INSTRUCT ON OXYGEN MANAGEMENT INCLUDING: ADMINISTRATION AT2-3 L/MIN VIA MI CONTINUOUS CARE OF EQUIPMENT AND SAFETY.] Future Scheduled Test PAIN MANAG EMENT; RN TO ASSESS AND TEACH, ACCOUNT FINANCIAL MANAGER/SECURITY POLICE OFFICER TO OBSERVE AND TEACH AND PROVIDE EDUCATION ON PAIN MANAGEMENT TECHNIQUES. [code = PAIN MANAGEMENT; RN TO ASSESS AND TEACH, ACCOUNT FINANCIAL MANAGER/SECURITY POLICE OFFICER TO OBSERVE AND TEACH AND PROVIDE EDUCATION ON PAIN MANAGEMENT TECHNIQUES.] Future Scheduled Test FALL REDUC TION MANAGEMENT; RN TO ASSESS AND OBSERVE, SECURITY POLICE OFFICER/ACCOUNT FINANCIAL MANAGER TO OBSERVE FALL RISK FACTORS AND EDUCATE PATIENT/CAREGIVER ON STRATEGIES TO MINIMIZE THE RISK OF FALLING. [code = FALL REDUCTION MANAGEMENT; RN TO ASSESS AND OBSERVE, SECURITY POLICE OFFICER/ACCOUNT FINANCIAL MANAGER TO OBSERVE FALL RISK FACTORS AND EDUCATE PATIENT/CAREGIVER ON STRATEGIES TO MINIMIZE THE RISK OF FALLING.] Future Scheduled Test PRN VISITS ; NUMBER OF RN/SECURITY POLICE OFFICER/ACCOUNT FINANCIAL MANAGER VISITS: 3 RN/SECURITY POLICE OFFICER/ACCOUNT FINANCIAL MANAGER TO PERFORM:CP AND RESP ASSESSMENT FOR THE FOLLOWING REASONS: CP AND RESP STATUS CHANGES [code = PRN VISITS; NUMBER OF RN/SECURITY POLICE OFFICER/ACCOUNT FINANCIAL MANAGER VISITS: 3 RN/SECURITY POLICE OFFICER/ACCOUNT FINANCIAL MANAGER TO PERFORM:CP AND RESP ASSESSMENT FOR THE FOLLOWING REASONS: CP AND RESP STATUS CHANGES] Goal Patient Goal - . Goal Provider Goal - A PLAN OF CARE WILL BE ESTABLISHED THAT MEETS THE PATIENT S NEEDS. PATIENT WILL DEMONSTRATE OXYGEN SATURATION WITHIN NORMAL LIMITS OR PATIENT S OPTIMAL LEVEL ESTABLISHED BY THE PHYSICIAN THROUGHOUT CARE. CHANGES TO CO-MORBID CONDITIONS AND ANY NEW CONDITIONS WILL BE IDENTIFIED AND REPORTED TO THE PHYSICIAN. Goal Provider Goal - PATIENT/CAREGIVER WILL VERBALIZE UNDERSTANDING OF SIGNS AND SYMPTOMS THAT PUT THE PATIENT AT RISK FOR HOSPITALIZATION /EMERGENCY ROOM VISITS, WHEN TO NOTIFY NURSE/PHYSICIAN OF COMPLICATIONS/DECLINE AND WHEN TO CALL 911 BY 2 Goal Provider Goal - PATIENT/CAREGIVER TO VERBALIZE, AND CONSISTENTLY DEMONSTRATE EFFECTIVE, SAFE MANAGEMENT OF MEDICATION INCLUDING KNOWLEDGE OF EFFECTIVENESS, POTENTIAL SIDE EFFECTS AND DRUG REACTIONS AND WHEN TO CONTACT THE APPROPRIATE CARE PROVIDER. PATIENT/CAREGIVER WILL BE ABLE TO VERBALIZE UNDERSTANDING OF MEDICATION REGIMEN AND ACCURATELY TAKE MEDICATIONS PRESCRIBED WITHOUT ADVERSE EFFECTS BY 225 Goal Provider Goal - PATIENT / CAREGIVER WILL VERBALIZE/DEMONSTRATE UNDERSTANDING OF MEASURES TO MANAGE ALTERED CARDIOVASCULAR STATUS BY 2 Goal Provider Goal - PATIENT / CAREGIVER WILL VERBALIZE/DEMONSTRATE AN ABILITY TO ADHERE TO SELF-MANAGEMENT OF HF TO MINIMIZE COMPLICATIONS AND AVOID HOSPITALIZATION BY END OF EPISODE. Goal Provider Goal - PATIENT / CAREGIVER WILL VERBALIZE/DEMONSTRATE UNDERSTANDING OF MEASURES TO MANAGE ALTERED RESPIRATORY STATUS BY 07-13-24 Goal Provider Goal - PATIENT / CAREGIVER WILL VERBALIZE/DEMONSTRATE AN ABILITY TO ADHERE TO SELF-MANAGEMENT OF COPD TO MINIMIZE COMPLICATIONS AND AVOID HOSPITALIZATION BY 07-13-24 Goal Provider Goal - PATIENT/CAREGIVER WILL VERBALIZE/DEMONSTRATE UNDERSTANDING OF CARE AND MANAGEMENT OF OXYGEN THERAPY BY 07-13-24 Goal Provider Goal - PATIENT / CAREGIVER WILL VERBALIZE / DEMONSTRATE UNDERSTANDING OF PAIN CONTROL MEASURES BY 07-13-24 Goal Provider Goal - PATIENT/CAREGIVER WILL VERBALIZE/DEMONSTRATE UNDERSTANDING OF FALL RISK FACTORS AND IMPLEMENT STRATEGIES TO MINIMIZE FALL RISK. PATIENT/CAREGIVER WILL VERBALIZE/DEMONSTRATE AN ABILITY TO ADHERE TO FALL REDUCTION SELF-MANAGEMENT AND LIFE-STYLE CHANGES BY 07-13-24 Goal Provider Goal - Encounters Start Date/Time End Date/Time Encounter Type Admission Type Attending [facility] Care Department Encounter ID Discharge Date Discharge Status Discharge Condition Discharge Reason Percent Goals Met 2025-05-14 00:00:00 2025-07-12 00:00:00 Outpatient KULWINDER MCDONNELL [facility] [id number]
== END 2025-05-26 10:57 | disposition home or self-care (01) ==
LOC: HO.HPS 10:19
PROVIDERS: PCP Nurse Practitioner Family; Referring Provider Internal Medicine; Visit Provider Internal Medicine
DX: J44.1 Chronic obstructive pulmonary disease with (acute) exacerbation (principal); J96.90 Respiratory failure, unspecified, unspecified whether with hypoxia or hypercapnia; J18.9 Pneumonia, unspecified organism; F41.9 Anxiety disorder, unspecified
CPT/HCPCS: 99214

== ENCOUNTER → 2025-05-26 10:19 | Outpatient (BNVA) | payer OTHER, SELFPAY | PROVIDERS: PCP Nurse Practitioner Family; Visit Provider Internal Medicine | DX: J44.1 Chronic obstructive pulmonary disease with (acute) exacerbation (principal); J96.11 Chronic respiratory failure with hypoxia; F41.9 Anxiety disorder, unspecified; J15.1 Pneumonia due to Pseudomonas; Z99.81 Dependence on supplemental oxygen; Z79.891 Long term (current) use of opiate analgesic; Z79.899 Other long term (current) drug therapy; Z87.891 Personal history of nicotine dependence | CPT/HCPCS: 99212 ==